=== PATIENT | female | born 1940 | race Caucasian/White ===

== ENCOUNTER 2017-05-10 08:42 | Emergency (ER) | payer MEDICARE ==
[2017-05-10] MEDS ORDERED: NS 0.9% 1000 ML* 1,000 ML IV ONE ×2 (09:19→10:28)
--- NOTE | 2017-05-10 09:28 | ED ---
Abdominal Pain/Female - HPI Summary HPI Summary: 76F presents with abdominal pain for 3 weeks. She has been having alternating diarrhea and constipation. She also has been having subjective fevers. She admits to a generalized headache and eyes feeling tired. She admits to occasionally bloody nose. She admits to a dry throat. She denies any blood in her stool. She denies any recent antibiotic usage. She states has abdominal problems in the past but have never been this consistent. She was seen here a week ago and had a negative work up. She has been following up her primary and has not been getting better. She admits to a generalized malaise. She denies any nausea or vomiting. She states pain is 2/10 currently. She denies any previous abdominal surgeries. She denies any dysuria, flank pain, hematuria, urgency, or frequency. She denies any chest pain or SOB. She denies any cough. - History of Current Complaint Chief Complaint: EDAbdPain Stated Complaint: ABD PAIN/DIARRHEA/HEADACHE Time Seen by Provider: 05/10/17 09:03 Pain Intensity: 8 Allergies/Adverse Reactions: Allergies Allergy/AdvReac Type Severity Reaction Status Date / Time Nickel Allergy Rash Verified 04/27/17 10:52 Penicillins [PCN] Allergy Rash Verified 04/27/17 10:52 Sucralfate [From Carafate] Allergy Rash Verified 04/27/17 10:52 Sulfa Drugs Allergy Rash Verified 04/27/17 10:52 Buprenorphine [From Butrans] AdvReac Rash And Verified 04/27/17 10:52 Itching PMH/Surg Hx/FS Hx/Imm Hx Endocrine/Hematology History: Denies: Hx Diabetes, Hx Thyroid Disease Cardiovascular History: Reports: Hx Hypercholesterolemia, Hx Hypertension, Other Cardiovascular Problems/Disorders - HI CHOLESTEROL Respiratory History: Denies: Hx Asthma, Hx Chronic Obstructive Pulmonary Disease (COPD) GI History: Reports: Other GI Disorders - CONSTIPATION Denies: Hx Ulcer Musculoskeletal History: Reports: Hx Arthritis - SHOULDERS AND BACK, NECK Sensory History: Reports: Hx Cataracts, Hx Contacts or Glasses - GLASSES Denies: Hx Hearing Aid Opthamlomology History: Reports: Hx Cataracts, Hx Contacts or Glasses - GLASSES - Cancer History Cancer Type, Location and Year: Melanoma- Hx Chemotherapy: No Hx Radiation Therapy: No - Surgical History Surgery Procedure, Year, and Place: LEFT SHOULDER SURGERY 06/2010 [facility], left shoulder replacement 2011 [facility], Tonsillectomy, Tubal Ligation Hx Anesthesia Reactions: Yes - NAUSEA Infectious Disease History: No Infectious Disease History: Denies: Hx Hepatitis, Hx Human Immunodeficiency Virus (HIV), Traveled Outside the [place] in Last 30 Days - Family History Known Family History: Positive: Hypertension - Social History Alcohol Use: None Substance Use Type: Reports: None Smoking Status (MU): Former Smoker Type: Cigarettes Amount Used/How Often: 1/2 PPWEEK 25 YRS Have You Smoked in the Last Year: No Review of Systems Positive: Fever, Chills Negative: Chest Pain Negative: Shortness Of Breath, Cough Positive: Abdominal Pain, Diarrhea. Negative: Vomiting, Nausea All Other Systems Reviewed And Are Negative: Yes Physical Exam Triage Information Reviewed: Yes Vital Signs On Initial Exam: Initial Vitals Temp Pulse Resp BP Pulse Ox 98.5 F 95 14 168/86 98 05/10/17 08:47 05/10/17 08:47 05/10/17 08:47 05/10/17 08:47 05/10/17 08:47 Vital Signs Reviewed: Yes Appearance: Positive: Well-Appearing Skin: Positive: Warm, Dry Head/Face: Positive: Normal Head/Face Inspection Eyes: Positive: Normal, EOMI, LORI, Conjunctiva Clear ENT: Positive: Normal ENT inspection, Pharynx normal, TMs normal Respiratory/Lung Sounds: Positive: Clear to Auscultation, Breath Sounds Present Cardiovascular: Positive: Normal, RRR Abdomen Description: Positive: Soft, Other: - mild tenderness in bilateral lower quadrants Bowel Sounds: Positive: Present Musculoskeletal: Positive: Normal Neurological: Positive: Normal Psychiatric: Positive: Normal - [place] Coma Scale Coma Scale Total: 15 Diagnostics - Vital Signs Vital Signs Temp Pulse Resp BP Pulse Ox 05/10/17 08:47 98.5 F 95 14 168/86 98 - Laboratory Result Diagrams: 05/10/17 09:52 05/10/17 09:52 Lab Statement: Any lab studies that have been ordered have been reviewed, and results considered in the medical decision making process. - CT abd CT Interpretation: No Acute Changes - 1. No CT apparent acute abnormality involving the gastrointestinal tract that would account for diarrhea. 2. Incidentally noted is a mildly enlarged left ovarian vein measuring 8 mm. Review of prior CT examinations demonstrate evidence of reflux in the left ovarian vein filling mildly enlarged left periuterine veins. Although the patient is not the correct demographic (i.e. premenopausal age) such an appearance could be seen in the setting of pelvic congestion syndrome characterized by the following clinical symptoms: Late day, gravity dependent pelvic pain, varicose veins of the legs and pelvis, dyspareunia and vague gastrointestinal symptoms. 3. Additional chronic and degenerative changes are noted. CT Interpretation Completed By: Radiologist Re-Evaluation - Re-Evaluation First Eval Re-Evaluation Time: 13:23 Change: Improved Comment: feeling better with fluids Abdominal Pain Fem Course/Dx - Course Course Of Treatment: 76F presents with abdominal pain for 3 weeks. She has been having alternating diarrhea and constipation. She also has been having subjective fevers. She admits to a generalized headache and eyes feeling tired. She admits to occasionally bloody nose. She admits to a dry throat. She denies any blood in her stool. She denies any recent antibiotic usage. She states has abdominal problems in the past but have never been this consistent. She was seen here a week ago and had a negative work up. She has been following up her primary and has not been getting better. She admits to a generalized malaise. She denies any nausea or vomiting. She states pain is 2/ 10 currently. She denies any previous abdominal surgeries. She denies any dysuria, flank pain, hematuria, urgency, or frequency. She denies any chest pain or SOB. She denies any cough. labs normal except for Na and Cl. CT normal. dr Navarro suggest could be pelvic congestion syndrome CT which gave results to patient. discussed with dr ramirez who suggest patient should follow up with GI. patient has seen dr brady previously. advised patient to try and stay hydrated with pedialyte - Diagnoses Differential Diagnosis: Positive: Diverticulitis, Urinary Tract Infection, Other - gastroenteritis Provider Diagnoses: Abdominal pain, Headache, Dehydration Discharge - Discharge Plan Condition: Good Disposition: HOME Patient Education Materials: Dehydration (ED), Abdominal Pain (ED) Referrals: Krystal Stanton NP [Primary Care Provider] - Ramin Brady MD [Medical Doctor] - Edgar Navarro MD [Medical Doctor] - Additional Instructions: Drink small amounts of fluid as tolerated, try to drink some pedialyte When able to eat follow BRAT diet: Bananas, rice, applesauce, toast Take Tylenol for pain as needed every 6 hours Follow up with primary within 5 days Follow up with GI Return to ED if develop any new or worsening symptoms
[2017-05-10 10:10] LABS: Hematocrit 40 % (35-47); Hemoglobin 13.2 g/dl (12.0-16.0); Mean Corpuscular HGB Conc 33 g/dl (31-36); Mean Corpuscular Hemoglobin 29 pg (27-31); Mean Corpuscular Volume 87 fL (80-97); Mean Platelet Volume 10 um3 (7.4-10.4); Red Blood Count 4.57 10^6/ul (4.0-5.4); Red Cell Distribution Width 16 % (10.5-15)
[2017-05-10 10:22] LABS: BUN/Creatinine Ratio 13.8 (8-20); EGFR African American 74.3 (>60); EGFR Non-African American 57.7 (>60); Globulin 3.9 g/dL (2-4); Magnesium 2.3 mg/dL (1.9-2.7); Potassium 3.8 mmol/L (3.5-5.0); Total Bilirubin 0.7 mg/dL (0.2-1.0); Total Protein 7.9 g/dL (6.4-8.9)
[2017-05-10 10:36] LABS: Urine Bacteria Absent (Absent); Urine Bilirubin Negative (Negative); Urine Glucose Negative (Negative); Urine Nitrite Negative (Negative)
[2017-05-10] MEDS ORDERED: Iodixanol* (CONTRAST) 320 MG/ML 100 ML SDV IV ONE (11:34)
--- NOTE | 2017-05-10 12:55 | RAD ---
CLINICAL HISTORY: Left lower quadrant pain and diarrhea. COMPARISON: Most recent comparison CT is dated April 29 2017 as well as similar CT examination dated August 01, 2015. In the CT examination appears to show reflux of the left ovarian vein filling moderately dilated left pelvic varicosities. TECHNIQUE: Contrast enhanced CT examination of the abdomen and pelvis from the lung bases through the initial tuberosities. The patient received 71 mL Visipaque 320 intravenously prior to imaging.The patient received oral contrast as well prior to imaging. FINDINGS: VISUALIZED LUNG BASES: Stable pleural-based linear density at the lung bases unchanged from the prior CT is most consistent with scarring versus atelectasis. Otherwise the visualized lung bases are grossly clear. There is no pleural effusion. ABDOMEN AND PELVIS: The liver, spleen, pancreas and adrenal glands are grossly normal in appearance. The gallbladder is normal. The kidneys are normal in appearance without focal mass, calcification or signs of hydronephrosis. The delayed phase imaging shows prompt and symmetric excretion of contrast in the bilateral collecting systems and proximal ureters. Neural contrast has progressed as far as the base of the cecum. The small and large bowel are not distended. The patient's normal appendix is identified in the right lower quadrant with gas in the lumen (coronal image 20). There is no gross retroperitoneal or mesenteric lymphadenopathy. The pelvic viscera is normal in appearance. The left ovarian vein is minimally enlarged measuring 8 mm in diameter (image 27). The left periuterine veins are incompletely evaluated due to image timing post contrast injection but measures at least 5 mm in diameter. The abdominal aorta and iliac arteries are normal in course and diameter. Degenerative changes include multilevel loss of intervertebral disc height involving the lower thoracic and lumbar spine, multilevel vacuum disc phenomenon and endplate sclerosis at L2/L3 and L5/S1.There are no sinister bone lesions. IMPRESSION: 1. No CT apparent acute abnormality involving the gastrointestinal tract that would account for diarrhea. 2. Incidentally noted is a mildly enlarged left ovarian vein measuring 8 mm. Review of prior CT examinations demonstrate evidence of reflux in the left ovarian vein filling mildly enlarged left periuterine veins. Although the patient is not the correct demographic (i.e. premenopausal age) such an appearance could be seen in the setting of pelvic congestion syndrome characterized by the following clinical symptoms: Late day, gravity dependent pelvic pain, varicose veins of the legs and pelvis, dyspareunia and vague gastrointestinal symptoms. 3. Additional chronic and degenerative changes are noted.
[2017-05-10 13:34] VITALS: BP 147/85
== END 2017-05-10 13:33 | disposition home or self-care (01) ==
LOC: ED 08:42
DX: R10.9 Unspecified abdominal pain (principal); R51 Headache; E86.0 Dehydration; R19.7 Diarrhea, unspecified; Z87.891 Personal history of nicotine dependence
CPT/HCPCS: 36415; 74177; 80053; 81003; 81015; 82550; 83605; 83690; 83735; 85025; 86141; 99282; Q9967

== ENCOUNTER 2017-09-17 11:42 | Emergency (ER) | payer MEDICARE, OTHER ==
--- OUTSIDE RECORDS SUMMARY | 2017-09-17 11:51 | XMS REPORT ---
:1940 External Reference #:[id number] Author Organization internal review and audit compliance [facility] Address [address] [place] [address] Phone [phone] Care Team Providers Name Role Phone Mony Edge Primary Care Physician Unavailable Payers Type Date Identification Numbers Payment Provider Subscriber Medicare Primary Policy Number: [id number] [place] Gonzalez PayID: [id number] [address] [place] [id number] Problems Date Description Provider Status Onset: 12/25/2014 Shoulder joint pain Mike Orta MD Active Onset: 08/20/2010 Benign essential hypertension Shira Murphy Active Onset: 08/20/2010 Pure hypercholesterolemia Shira Murphy Active Family History Date Family Member(s) Problem(s) Comments Father due to PA () Mother due to Cerebral Hemorrhage () Mother Hypertension Number of Children 2 First Son Depression First Daughter A&W Number of Siblings Siblings: 1 brother Order Patient is the youngest of two children First Brother Hypertension First Brother Stroke Social History Type Date Description Comments Education Highest level of education completed is 12th grade Marital Status Patient is Living Situation Lives with spouse Diet Diet is healthy and well balanced Sleep Typically sleeps 5 hours a night Pets There are no pets in the home 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 Cigarette Use Former cigarette smoker Alcohol Does not drink alcohol Smoking Patient is a former smoker Drug Use Denies drug use Daily Caffeine Does not consume caffeine Exercise Type/Frequency Current Exercises sporadically Seat Belt/Car Seat Always uses a seat belt Currently Active The patient is currently not sexually active STD's No STD history Allergies, Adverse Reactions, Alerts Date Description Reaction Status Severity Comments 02/21/2005 Penicillin active 02/21/2005 Sulfa active Medications Medication Date Status Form Strength Qnty SIG Indications Ordering Provider Triamcinolone 06/12/ Active Cream 0.1% 80unit apply R21 Cotton, Acetonide 2017 s thin Mony film twice daily to rash Miralax 07/13/ Active Powder 3350NF 238uni 17 gm Varn, 2015 ts every day mixed w/ 8 oz water/ju ice Vitamin D / Active Tablets 1000Unit 90tabs 1 po qd Unknown 0000 Nucynta / Active Tablets 50mg 1-2 by Unknown 0000 mouth four times a day as needed pain Pantoprazole / Active Solution 40mg 1 by Unknown Sodium 0000 Rec mouth every day Thera Tears / Active Unknown 0000 Colace / Active Unknown 0000 Hyoscyamine / Active Tablets ER 0.375mg Unknown Sulfate ER 0000 12HR Claritan / Hx Unknown 0000 - 2017 Lyrica // Hx Unknown 0000 - 2017 Hyoscyamine 00/ Hx Tablets ER 0.375mg Take 1 Unknown Sulfate ER 0000 - 12HR Tablet 08/05/ By Mouth 2017 Every Day Medications Administered in Office Medication Date Status Form Strength Qnty SIG Indications Ordering Provider PT SCRN Tbco Administered Injection Sander Felipe as Non User Rosita Wisdom M.D. Immunizations CPT Code Status Date Vaccine Lot # [id number] Given 04/17/2015 Influenza Vaccine Not Specified Administered Age 3 And Older 85031 Given 12/01/2014 Pneumococcal Conjugate Vaccine 13 Valent For Intramuscular Use 24302 Given 03/23/2013 Influenza Vaccine Split Virus Preservative Free Im Use 83599 Given 04/07/2012 Influenza Vaccine Split Virus Preservative Free Im Use 52107 Given 10/02/2011 Zoster Shingles Vaccine For Subcutaneous Injection Q2038 Given 04/04/2011 Influenza Vaccine (Fluzone) Administered Age 3 And Older 31528 Given 07/05/2009 Influenza Virus Vaccine 3Years Or Older Vital Signs Date Vital Result Comment 09/11/2017 BP Systolic 146 mmHg BP Diastolic 86 mmHg Height 64 inches 5'4" Weight 120.00 lb BMI (Body Mass Index) 20.6 kg/m2 Last Menstrual Period [id number] 2 Parity 2 08/05/2017 BP Systolic 152 mmHg BP Diastolic 86 mmHg Height 64 inches 5'4" Weight 124.00 lb BMI (Body Mass Index) 21.3 kg/m2 Last Menstrual Period [id number] 2 Parity 2 06/12/2017 BP Systolic 140 mmHg BP Diastolic 80 mmHg Heart Rate 98 /min Height 64 inches Weight 121.00 lb BMI (Body Mass Index) 20.8 kg/m2 05/18/2017 BP Systolic 120 mmHg BP Diastolic 60 mmHg Body Temperature 97.2 F Heart Rate 95 /min 04/21/2017 BP Systolic 130 mmHg BP Diastolic 80 mmHg Body Temperature 97.3 F Heart Rate 90 /min Weight 130.25 lb 11/26/2009 BP Systolic 110 mmHg BP Diastolic 78 mmHg Height 63.25 inches 5'3.25" Weight 131.00 lb BMI (Body Mass Index) 23.0 kg/m2 02/28/2009 BP Systolic 130 mmHg BP Diastolic 90 mmHg Height 65 inches 5'5" Weight 133.00 lb BMI (Body Mass Index) 22.1 kg/m2 2 Parity 2 02/25/2007 BP Systolic 140 mmHg BP Diastolic 80 mmHg Height 65 inches 5'5" Weight 128.00 lb BMI (Body Mass Index) 21.3 kg/m2 02/21/2005 BP Systolic 130 mmHg BP Diastolic 80 mmHg Height 65 inches 5'5" Weight 127.00 lb BMI (Body Mass Index) 21.1 kg/m2 Last Menstrual Period 0 2 Parity 2 Results Test Date Test Result H/L Range Note Laboratory test finding 05/20/2017 Albumin 4.2 g/dL 3.2-5.2 Albumin/Globulin Ratio 1.4 1 1-3 Alkaline Phosphatase 110 U/L High 34-104 Alt 18 U/L 7-52 Ast 22 U/L 13-39 C Reactive Protein 1.55 mg/L < 5.00 1 Direct Bilirubin 0.10 mg/dL 0.03-0.18 Erythrocyte Sed Rate 23 mm/Hr 0-40 Globulin 3.0 g/dL 2-4 Indirect Bilirubin 0.6 mg/dL 0.3-1.0 Total Bilirubin 0.70 mg/dL 0.2-1.0 Total Protein 7.2 g/dL 6.4-8.9 Laboratory test finding 05/12/2017 Albumin 3.9 g/dL 3.2-5.2 Albumin/Globulin Ratio 1.4 1 1-3 Alkaline Phosphatase 128 U/L High 34-104 Alt 20 U/L 7-52 Anion Gap 9 mmol/L 2-11 Ast 19 U/L 13-39 BUN/Creatinine Ratio 14.2 1 8-20 Blood Urea Nitrogen 16 mg/dL 6-24 C Reactive Protein 5.08 mg/L High < 5.00 Calcium 9.0 mg/dL 8.6-10.3 Chloride 97 mmol/L Low 101-111 Co2 Carbon Dioxide 26 mmol/L 22-32 Creatinine 1.13 mg/dL High 0.51-0.95 Egfr 60.0 1 >60 Egfr Non- 46.7 1 >60 Erythrocyte Sed Rate 35 mm/Hr 0-40 2 Globulin 2.8 g/dL 2-4 Glucose 105 mg/dL High 70-100 Potassium 3.9 mmol/L 3.5-5.0 Sodium 132 mmol/L Low 133-145 3 Total Bilirubin 0.50 mg/dL 0.2-1.0 Total Protein 6.7 g/dL 6.4-8.9 Urinalysis Profile 05/10/2017 Urine Specific [place] 1.002 1 Low 1.010- 1.030 Urine pH 7.0 1 5-9 Laboratory test 02/28/2009 Cytology <SEE 4 finding NOTE> Laboratory test 02/25/2007 Cytology <SEE 5 finding NOTE> Lipid Profile 02/17/2003 Cholesterol/HDL 3.31 AVERAGE 1-4.44 (Trig/Chol/HDL) Ratio Cholesterol 195 mg/dL Less Than 200 6 Triglyceride 36 mg/dL Low 40-200 High Density Lipoprotein 59 mg/dL 40-60 Low Density Lipoprotein 129 mg/dL High Less Than 100 7 Laboratory test finding 02/17/2003 TSH 2.89 MIU/ML 0.34-5.60 1 Acute inflammation: >10.00 2 Acute inflammation: >10.00 3 Because ethnic data is not always readily available, this report includes an eGFR for both -Americans and non- Americans. The National Kidney Disease Education Program (NKDEP) does not endorse the use of the MDRD equation for patients that are not between the ages of 18 and 70, are , have extremes of body size, muscle mass, or nutritional status, or are non- or non-. According to the National Kidney Foundation, irrespective of diagnosis, the stage of the disease is based on the level of kidney function: Stage Description GFR(mL/min/1.73 m(2)) 1 Kidney damage with normal or decreased GFR 90 2 Kidney damage with mild decrease in GFR 60-89 3 Moderate decrease in GFR 30-59 4 Severe decrease in GFR 15-29 5 Kidney failure <15 (or dialysis) 4 --- RUN DATE: 03/01/09 [facility] NMI LIVE PAGE 1 RUN TIME: 1150 Specimen Inquiry RUN USER: INTERFACE -- Name: HENNA GONZALEZ Status: REG REF Re02/28/09 Age/Sex: 68/F Unit#: [id number] Location: [facility] : 39 -- Specimen: [id number] Spec Date: 02/28/[address]: Myra cortez MD Spec Type: CYTOLOGY Received: 03/01/09 Copies to: SOURCE ECTOCERVICAL/ENDOCERVICAL Thin Prep with Reflex HPV Test PATIENT INFORMATION ACTUAL COLLECTION DATE: 02/28/09 ? No POST MENOPAUSAL? Yes HYSTERECTOMY? No DATE OF PRIOR SPECIMEN: 02/25/07 PATIENT HISTORY: normal ADEQUACY OF SPECIMEN Satisfactory for evaluation * Transformation zone component cannot be definitely identified due to prese nce * of atrophy or other hormonal changes. * DIAGNOSIS NEGATIVE FOR INTRAEPITHELIAL LESION OR MALIGNANCY * This Pap test was evaluated with the assistance of the Sparkle.csPrep Pap Test Imaging System. The Pap Smear is a screening test designed to aid in the detection of premalign ant and malignant conditions of the uterine cervix. It is not a diagnostic procedure a nd should not be used as the sole means of detecting cervical cancer. Both false- positiv e and false-negative reports do occur. Depending on your risk status, a Pap smear maureen uld be obtained and evaluated every one to three years. Initial evaluation performed by Criss ALEXANDER([facility]) 03/01/09 Final Interpretation electronically signed by: Criss ALEXANDER([facility]) 03/01/09 1150 -- DEPARTMENT OF PATHOLOGY, [address] [place] [address] [facility] Permit #[id number] Biju Freeman M.D. Director Edu Ragland M.D. Credit Verification Clerk Dir marietta -- 5 --- RUN DATE: 03/01/07 [facility] NMI LIVE PAGE 1 RUN TIME: 1105 Specimen Inquiry RUN USER: INTERFACE [id number] HENNA GONZALEZ 66/F <REG REF 02/25> ([id number]) SP Mendez MD,Josh morrow -- Specimen: [id number] SOUT Spec Date: 02/25/[address]: Leanne nciole MD Spec Type: CYTOLOGY Received: 02/25/07-1435 Copies to: SOURCE ECTOCERVICAL/ENDOCERVICAL Thin Prep with Reflex HPV Test PATIENT INFORMATION ACTUAL COLLECTION DATE: 02/25/07 POST MENOPAUSAL? Yes PATIENT HISTORY: Prior 2004 ADEQUACY OF SPECIMEN Satisfactory for evaluation * Transformation zone component cannot be definitely identified due to prese nce * of atrophy or other hormonal changes. * DIAGNOSIS NEGATIVE FOR INTRAEPITHELIAL LESION OR MALIGNANCY * This Pap test was evaluated with the assistance of the Sparkle.csPrep Pap Test Imaging System. The Pap Smear is a screening test designed to aid in the detection of premalign ant and malignant conditions of the uterine cervix. It is not a diagnostic procedure a nd should not be used as the sole means of detecting cervical cancer. Both false- positive and false-negative reports do occur. Depending on your risk status, a Pap smear maureen uld be obtained and evaluated every one to three years. Final Interpretation electronically signed by: Woo BOATENG([facility]) 03/01/07 110 5 -- -- DEPARTMENT OF PATHOLOGY, [address] [place] [address] [facility] Permit #[id number] Biju Freeman M.D. Director of Laboratories Ilya Dunne II, M.D . Pathologist -- 6 Classification: Desirable . 7 CALCULATED LDL APPROXIMATES THE VALUE OF A DIRECT LDL MEASUREMENT. Classification: Near or above optimal . Procedures Date CPT Code Description Status 04/22/2017 Mammogram Completed 02/03/2005 35874 DO Not Use After [id number] Completed Encounters Type Date Location Provider CPT E/M Dx Office Visit 08/05/2017 1:20p [facility] Sander Wisdom M.D. 77910 N95.2 Office Visit 11/26/2009 10:00a [facility] Office Myra Ruby M.D. 89169 624.9 Office Visit 02/28/2009 10:00a [facility] Office Myra Ruby M.D. 97528 V72.31 V76.2 V76.41 627.3 V15.89 Office Visit 02/25/2007 8:00a [facility] [place] [address] V72.31 V72.3 788.41 V76.2 Office Visit 02/21/2005 1:45p [facility] 05006 V76.2 V72.31 Office Visit 06/07/2004 9:30a [facility] 92565 795.01 Office Visit 02/16/2004 10:45a [facility] 91890 V72.3 V78.0 Office Visit 02/17/2003 9:45a [facility] 53956 401.1 V81.1 Office Visit 02/10/2003 9:30a [facility] 73654 V72.3 V78.1 V77.1 Plan of Care Future Appointment(s):11/24/2017 10:40 am - Sander Wisdom M.D. at [facility]
--- NOTE | 2017-09-17 12:41 | UC ---
Skin Complaint HPI - HPI Summary HPI Summary: Patient is here today with multiple concerns about her health 1. blood pressure is elevated pcp took he off BP meds 1 year ago due to hypotension 2, rash on chest wall 3. vaginal itching 4. chronic left shoulder pain after shoulder replacement - History of Current Complaint Hx Obtained From: Patient ?: No Onset/Duration: Gradual Onset - weeks-years Timing: Constant Onset Severity: Severe Current Severity: Severe Pain Intensity: 9 - left shoulder (on Nucyntha) Pain Scale Used: 0-10 Numeric Location: Discrete Character: Pain Aggravating Factor(s): Nothing Alleviating Factor(s): Nothing Associated Signs & Symptoms: Positive: Negative <Evelia Boland - Last Filed: 09/22/17 12:06> <Teagan Dooley - Last Filed: 09/22/17 14:56> - History of Current Complaint Chief Complaint: UCRash Time Seen by Provider: 09/17/17 12:32 Stated Complaint: PERSONAL, RASH - Allergy/Home Medications Allergies/Adverse Reactions: Allergies Allergy/AdvReac Type Severity Reaction Status Date / Time buprenorphine [From Butrans] Allergy Rash Verified 09/17/17 12:01 nickel Allergy Rash Verified 09/17/17 12:01 Penicillins Allergy Rash Verified 09/17/17 12:01 sucralfate [From Carafate] Allergy Rash Verified 09/17/17 12:01 Sulfa (Sulfonamide Allergy Rash Verified 09/17/17 12:01 Antibiotics) Home Medications: Home Medications Conjugated Estrogens VAG CM* [Premarin VAG CREAM*] 1 applic TOPICAL DAILY [History Confirmed 09/17/17] Estradiol VAG CM (NF) [Estrace VAG CM (NF)] 1 applic TOPICAL DAILY 09/17/17 [ History Confirmed 09/17/17] Triamcinolone 0.1% CREAM(NF) [Kenalog 0.1% Cream (NF)] 1 applic TOPICAL BID [History Confirmed 09/17/17] Review of Systems Constitutional: Negative Skin: Rash - dean-vaginal and torso Eyes: Negative ENT: Negative Respiratory: Negative Cardiovascular: Negative Gastrointestinal: Negative Genitourinary: Negative Motor: Negative Neurovascular: Negative Musculoskeletal: Arthralgia - left shoulder pain after shoulder replacement Neurological: Negative Psychological: Negative Is Patient Immunocompromised?: No All Other Systems Reviewed And Are Negative: Yes <Evelia Boland Last Filed: 09/22/17 12:06> PMH/Surg Hx/FS Hx/Imm Hx Previously Healthy: No Cardiovascular History: Hypertension - Surgical History Surgical History: Yes Surgery Procedure, Year, and Place: LEFT SHOULDER SURGERY 06/2010 [facility], left shoulder replacement 2011 [facility], Tonsillectomy, Tubal Ligation - Family History Known Family History: Positive: Hypertension - Social History Occupation: Retired Lives: With Family Alcohol Use: None Substance Use Type: None Smoking Status (MU): Former Smoker Type: Cigarettes Amount Used/How Often: 1/2 PPWEEK 25 YRS Have You Smoked in the Last Year: No When Did the Patient Quit Smoking/Using Tobacco: 1990s - Immunization History Most Recent Influenza Vaccination: 03/2017 Most Recent Tetanus Shot: UNK <Evelia Boland - Last Filed: 09/22/17 12:06> Physical Exam Triage Information Reviewed: Yes Appearance: Well-Appearing, No Pain Distress, Well-Nourished Vital Signs: Initial Vital Signs Temp 99 F 09/17/17 12:03 Pulse 98 09/17/17 12:03 Resp 18 09/17/17 12:03 BP 187/98 09/17/17 12:03 Pulse Ox 98 09/17/17 12:03 Vital Signs Reviewed: Yes Eye Exam: Normal Eyes: Positive: Conjunctiva Clear ENT Exam: Normal ENT: Positive: Normal ENT inspection, Hearing grossly normal. Negative: Nasal congestion, Trismus, Muffled voice, Hoarse voice Dental Exam: Normal Neck exam: Normal Neck: Positive: Supple, Nontender Respiratory Exam: Normal Respiratory: Positive: Chest non-tender, Lungs clear, Normal breath sounds, No respiratory distress, No accessory muscle use Cardiovascular Exam: Normal Cardiovascular: Positive: RRR, No Murmur, Pulses Normal, Brisk Capillary Refill Abdominal Exam: Normal Abdomen Description: Positive: Nontender, No Organomegaly, Soft. Negative: CVA Tenderness (R), CVA Tenderness (L) Bowel Sounds: Positive: Present Pelvic Exam: Positive: External Exam Normal, Speculum Exam Normal Musculoskeletal Exam: Normal Musculoskeletal: Positive: Strength Intact, ROM Intact, No Edema Neurological Exam: Normal Neurological: Positive: Alert, Muscle Tone Normal Psychological Exam: Normal Skin Exam: Normal - no rash observed <Evelia Boland Last Filed: 09/22/17 12:06> Vital Signs: Initial Vital Signs Temp 99 F 09/17/17 12:03 Pulse 98 09/17/17 12:03 Resp 18 09/17/17 12:03 BP 187/98 09/17/17 12:03 Pulse Ox 98 09/17/17 12:03 <Teagan Dooley - Last Filed: 09/22/17 14:56> Course/Dx - Course Course Of Treatment: Blood pressure recheck improved, lab studies sent, emotional support provided - Diagnoses Provider Diagnoses: hypertension in poor control, puritis <Evelia Boland - Last Filed: 09/22/17 12:06> Discharge - Sign-Out/Discharge Documenting (check all that apply): Discharge - Billing Disposition and Condition Condition: STABLE Disposition: HOME <Evelia Boland - Last Filed: 09/22/17 12:06> - Billing Disposition and Condition Condition: STABLE Disposition: HOME <Teagan Dooley - Last Filed: 09/22/17 14:56> - Discharge Plan Condition: Stable Disposition: HOME Patient Education Materials: Chronic Pain (ED), DASH Eating Plan (ED), Hypertension (ED) Referrals: Romelia Edge MD [Medical Doctor] - 3 Days () Additional Instructions: Neema, I think it's best for chronic conditions like you have for there to be 1 captain of the ship. I deferred to Dr. edge and your nurse practitioner for that. Your blood pressure we recheck manually in both arms was much better. The rash on your chest and abdomen looks well resolved. And must defer to the pain clinic for your shoulder pain but I would encourage you to talk with them about nonpharmacological treatments as well as as adjunctive treatments for the management of pain. I will send the culture we did vaginally and check for yeast for U but on exam I don't see any abnormalities and your pelvic exam. We will call you if we need to change anything Attestation Statement User Type: Provider - I was available for consult. This patient was seen by the HILDA. The patient was not presented to, seen by, or examined by me. -Zita <Teagan Dooley - Last Filed: 09/22/17 14:56>
[2017-09-17 13:54] VITALS: BP 150/100
== END 2017-09-17 14:20 | disposition home or self-care (01) ==
LOC: UCEAST 11:42
DX: I10 Essential (primary) hypertension (principal); L29.2 Pruritus vulvae; M25.512 Pain in left shoulder; Z96.612 Presence of left artificial shoulder joint; Z88.0 Allergy status to penicillin; Z88.2 Allergy status to sulfonamides; Z87.891 Personal history of nicotine dependence
CPT/HCPCS: 81003; 87480; 87510; 99212; G0463

== ENCOUNTER 2017-11-04 13:42 | Emergency (ER) | payer MEDICARE ==
--- OUTSIDE RECORDS SUMMARY | 2017-11-04 13:50 | XMS REPORT ---
:1940 External Reference #:[id number] Author Organization [facility] Address [address] [place] [address] Phone [phone] Care Team Providers Name Role Phone Mony Edge Primary Care Physician Unavailable Payers Type Date Identification Numbers Payment Provider Subscriber Medicare Primary Policy Number: [id number] [place] Neema Gonzalez PayID: [id number] [address] [place] [id number] Problems Date Description Provider Status Onset: 12/25/2014 Shoulder joint pain Mike Orta MD Active Onset: 08/20/2010 Benign essential hypertension Shira Murphy Active Onset: 08/20/2010 Pure hypercholesterolemia Shira Murphy Active Family History Date Family Member(s) Problem(s) Comments Father due to GA () Mother due to Cerebral Hemorrhage () Mother Hypertension Number of Children 2 First Son Depression First Daughter A&W Number of Siblings Siblings: 1 brother Order Patient is the youngest of two children First Brother Hypertension First Brother due to Heart Disease () First Brother Stroke Paternal Grandfather due to Unknown Causes () Paternal Grandmother due to Unknown Causes () Maternal Grandfather due to Unknown Causes () Maternal Grandmother due to Old Age () Social History Type Date Description Comments Education Highest level of education completed is 12th grade Marital Status Patient is Living Situation Lives with spouse Diet Diet is healthy and well balanced Sleep Typically sleeps 5 hours a night Pets There are no pets in the home 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 Cigarette Use Former cigarette smoker Alcohol Does not drink alcohol Smoking Patient is a former smoker Drug Use Denies drug use Daily Caffeine Does not consume caffeine Exercise Type/Frequency Current Exercises sporadically Seat Belt/Car Seat Always uses a seat belt Currently Active The patient is currently not sexually active Contraceptive Methods Does not currently use any method of control STD's No STD history Allergies, Adverse Reactions, Alerts Date Description Reaction Status Severity Comments 02/21/2005 Penicillin active 02/21/2005 Sulfa active 10/20/2017 Nickel active Medications Medication Date Status Form Strength Qnty SIG Indications Ordering Provider Miralax 07/13/ Active Powder 3350NF 238uni 17 gm Varn, 2015 ts every mixed w/ 8 oz water/ju ice Vitamin D / Active Tablets 1000Unit 90tabs 1 po qd Unknown 0000 Nucynta / Active Tablets 50mg 1-2 by Unknown 0000 mouth four times a day as needed pain Thera Tears / Active Unknown 0000 Colace / Active Unknown 0000 Bentyl / Active Unknown 0000 Triamcinolone 06/12/ Hx Cream 0.1% 80unit apply R21 Cotton, Acetonide 2017 - thin Mony 10/20/ film 2018 twice daily to rash Claritan /00/ Hx Unknown 0000 - 2017 Lyrica 00/00/ Hx Unknown 0000 - 2017 Pantoprazole / Hx Solution 40mg 1 by Unknown Sodium 0000 - Rec mouth 10/20/ 2018 day Hyoscyamine 00/00/ Hx Tablets ER 0.375mg Take 1 Unknown Sulfate ER 0000 - 12HR Tablet 08/05/ By Mouth 2017 Every Day Hyoscyamine 00/00/ Hx Tablets ER 0.375mg Unknown Sulfate ER 0000 - 12HR 2017 Medications Administered in Office Medication Date Status Form Strength Qnty SIG Indications Ordering Provider PT SCRN Tbco Administered Injection Sander Diallo Id as Non User 018 Mauricio Wisdom PT SCRN Tbco Administered Injection Sander Felipe as Non User 018 Mauricio Wisdom Immunizations CPT Code Status Date Vaccine Lot # [id number] Given 04/17/2015 Influenza Vaccine Not Specified Administered Age 3 And Older 90672 Given 12/01/2014 Pneumococcal Conjugate Vaccine 13 Valent For Intramuscular Use 79726 Given 03/23/2013 Influenza Vaccine Split Virus Preservative Free Im Use 93712 Given 04/07/2012 Influenza Vaccine Split Virus Preservative Free Im Use 67910 Given 10/02/2011 Zoster Shingles Vaccine For Subcutaneous Injection Q2038 Given 04/04/2011 Influenza Vaccine (Fluzone) Administered Age 3 And Older 54077 Given 07/05/2009 Influenza Virus Vaccine 3Years Or Older Vital Signs Date Vital Result Comment 10/20/2017 BP Systolic 136 mmHg BP Diastolic 78 mmHg Height 64 inches 5'4" Weight 120.00 lb BMI (Body Mass Index) 20.6 kg/m2 Last Menstrual Period 7163861 2 Parity 2 09/11/2017 BP Systolic 146 mmHg BP Diastolic 86 mmHg Height 64 inches 5'4" Weight 120.00 lb BMI (Body Mass Index) 20.6 kg/m2 Last Menstrual Period 6629662 2 Parity 2 08/05/2017 BP Systolic 152 mmHg BP Diastolic 86 mmHg Height 64 inches 5'4" Weight 124.00 lb BMI (Body Mass Index) 21.3 kg/m2 Last Menstrual Period 4297101 2 Parity 2 06/12/2017 BP Systolic 140 [...] g/dL 6.4-8.9 Urinalysis Profile 05/10/2017 Urine Specific [place] 1.002 1 Low 1.010- 1.030 Urine pH [...] (or dialysis) 4 --- RUN DATE: 03/01/09 [facility] NMI LIVE PAGE 1 RUN TIME: 1150 Specimen Inquiry RUN USER: INTERFACE -- Name: HENNA GONZALEZ Status: REG REF Re02/28/09 Age/Sex: 68/F Unit#: [id number] Location: [facility] : 39 -- Specimen: [id number] [id number] Spec Date: 02/28/[address]: Myra cortez MD Spec Type: CYTOLOGY [...] was evaluated with the assistance of the ThinPrep Pap Test Imaging System. The Pap Smear [...] three years. Initial evaluation performed by Criss ALEXANDER(ASCP) 03/01/09 Final Interpretation electronically signed by: Criss ALEXANDER([facility]) 03/01/09 1150 -- DEPARTMENT OF PATHOLOGY, [address] [place] [address] [facility] Permit #[id number] Mauricio Valero M.D. Assistant Dir ector -- 5 --- RUN DATE: 03/01/07 [facility] NMI LIVE PAGE 1 RUN TIME: 1105 Specimen Inquiry RUN USER: INTERFACE [id number] HENNA GONZALEZ 66/F <REG REF 02/25> ([id number]) SP Mendez MD,Josh morrow -- Specimen: [id number] Spec Date: 02/25/[address]: Leanne nicole MD Spec Type: CYTOLOGY Received: 02/25/07-1358 Copies to: SOURCE ECTOCERVICAL/ENDOCERVICAL Thin Prep with [...] was evaluated with the assistance of the Health As We AgePrep Pap Test Imaging System. The Pap Smear [...] years. Final Interpretation electronically signed by: Woo BOATENG(ASC) 03/01/07 110 5 -- -- DEPARTMENT OF PATHOLOGY, [address] [place] [address] [facility] Permit #[id number] Biju Freeman M.D. Director of Laboratories Ilya Dunne II, M.D . Pathologist -- 6 Classification: Desirable . 7 CALCULATED LDL APPROXIMATES THE VALUE OF A DIRECT LDL MEASUREMENT. Classification: Near or above optimal . Procedures Date CPT Code Description Status 04/22/2017 Mammogram Completed 02/03/2005 48217 DO Not Use After 467468 Completed Encounters Type Date Location Provider CPT E/M Dx Office Visit 09/11/2017 11:00a [facility] Sander Wisdom M.D. 38835 N95.2 Office Visit 08/05/2017 1:20p [facility] Sander Wisdom M.D. 98209 N95.2 Office Visit 11/26/2009 10:00a [facility] Myra Ruby M.D. 32202 624.9 Office Visit 02/28/2009 10:00a [facility] Myra Ruby M.D. 26248 V72.31 V76.2 V76.41 627.3 V15.89 Office Visit 02/25/2007 8:00a [facility] [place] [address] V72.31 V72.3 788.41 V76.2 Office Visit 02/21/2005 1:45p [facility] devorah 65616 V76.2 V72.31 Office Visit 06/07/2004 9:30a [facility] devorah 99334 795.01 Office Visit 02/16/2004 10:45a [facility] devorah 58188 V72.3 V78.0 Office Visit 02/17/2003 9:45a [facility] 60213 401.1 V81.1 Office Visit 02/10/2003 9:30a [facility] 95596 V72.3 V78.1 V77.1 Plan of Care Future Appointment(s):11/24/2017 10:40 am - Sander Wisdom M.D. at [facility]
[2017-11-04 13:51] VITALS: BP 150/93
--- NOTE | 2017-11-04 14:23 | ED ---
Abdominal Pain/Female - HPI Summary HPI Summary: Patient is a 69-year-old female who presents to the emergency room complaining of diffuse abdominal cramping. She reports that she has this history of irritable bowel syndrome which is combined with constipation and diarrhea intermittently. She also reports that she has had multiple abdominal pelvic CT scans with negative results. She also has seen Dr. Sharma (filter operator ) multiple times and he thinks that the patient's symptoms are secondary to the irritable bowel syndrome. She has had a colonoscopy 2 years ago. The results were normal. Dr. Sharma thinks that the patient doesn't need any other colonoscopies. She also reports no fevers no chills no chest pain or shortness of breath palpitations. She has no other complaints. - History of Current Complaint Chief Complaint: UCAbdominalPain Stated Complaint: ABD PAIN Time Seen by Provider: 11/04/17 13:56 Hx Obtained From: Patient ?: No Timing: Intermittent Episode Lasting - Few hours Severity Initially: Mild Severity Currently: Moderate Pain Intensity: 7 Allergies/Adverse Reactions: Allergies Allergy/AdvReac Type Severity Reaction Status Date / Time buprenorphine [From Butrans] Allergy Rash Verified 11/04/17 13:51 nickel Allergy Rash Verified 11/04/17 13:51 Penicillins Allergy Rash Verified 11/04/17 13:51 sucralfate [From Carafate] Allergy Rash Verified 11/04/17 13:51 Sulfa (Sulfonamide Allergy Rash Verified 11/04/17 13:51 Antibiotics) PMH/Surg Hx/FS Hx/Imm Hx Endocrine/Hematology History: Denies: Hx Diabetes, Hx Thyroid Disease Cardiovascular History: Reports: Hx Hypercholesterolemia, Hx Hypertension, Other Cardiovascular Problems/Disorders - HI CHOLESTEROL Respiratory History: Denies: Hx Asthma, Hx Chronic Obstructive Pulmonary Disease (COPD) GI History: Reports: Hx Ulcer - many years ago, Other GI Disorders - CONSTIPATION History: Denies: Hx Renal Disease Musculoskeletal History: Reports: Hx Arthritis - SHOULDERS AND BACK, NECK Sensory History: Reports: Hx Cataracts, Hx Contacts or Glasses - GLASSES Denies: Hx Hearing Aid Opthamlomology History: Reports: Hx Cataracts, Hx Contacts or Glasses - GLASSES - Cancer History Cancer Type, Location and Year: Melanoma- Hx Chemotherapy: No Hx Radiation Therapy: No - Surgical History Surgery Procedure, Year, and Place: LEFT SHOULDER SURGERY 06[facility]2010 [facility], left shoulder replacement 2011 [facility], Tonsillectomy, Tubal Ligation Hx Anesthesia Reactions: Yes - NAUSEA Infectious Disease History: No Infectious Disease History: Denies: Hx Hepatitis, Hx Human Immunodeficiency Virus (HIV), Traveled Outside the [place] in Last 30 Days - Family History Known Family History: Positive: Hypertension - Social History Alcohol Use: None Substance Use Type: Reports: None Smoking Status (MU): Former Smoker Type: Cigarettes Amount Used/How Often: 1/2 PPWEEK 25 YRS Have You Smoked in the Last Year: No Review of Systems Constitutional: Negative Eyes: Negative ENT: Negative Cardiovascular: Negative Respiratory: Negative Positive: Abdominal Pain, Other - abdominal cramping. Negative: Vomiting, Diarrhea, Nausea Genitourinary: Negative Musculoskeletal: Negative Skin: Negative Neurological: Negative Psychological: Normal All Other Systems Reviewed And Are Negative: Yes Physical Exam - Summary Physical Exam Summary: VITAL SIGNS: Reviewed. GENERAL: Patient is a well developed and nourished female who is sitting comfortable in the stretcher. Patient is not in any acute respiratory distress. HEAD AND FACE: Normacephalic and atraumatic. EYES: PERRLA, EOMI x 2, EARS: Hearing grossly intact. MOUTH: Oropharynx within normal limits. NECK: Supple, trachea is midline, no adenopathy, no JVD, no carotid bruit, no c- spine tenderness, neck with full ROM. CHEST: Symmetric, no tenderness at palpation LUNGS: CTA B/L. No wheezing or crackles. CVS: RRR, S1 and S2 present, no murmurs or gallops appreciated. ABDOMEN: Soft, NT, No distention. Normal BS. Declined rectal exam. EXTREMITIES: FROM in all major joints, no edema, no cyanosis or clubbing. NEURO: Alert and oriented x 3. No acute neurological deficits. Speech is normal and follows commands. SKIN: Dry and warm Vital Signs On Initial Exam: Initial Vitals Temp Pulse Resp BP Pulse Ox 99.0 F 88 18 150/93 98 11/04/17 13:46 11/04/17 13:46 11/04/17 13:46 11/04/17 13:46 11/04/17 13:46 Diagnostics - Vital Signs Vital Signs Temp Pulse Resp BP Pulse Ox 11/04/17 13:46 99.0 F 88 18 150/93 98 - Laboratory Lab Statement: Any lab studies that have been ordered have been reviewed, and results considered in the medical decision making process. Abdominal Pain Fem Course/Dx - Course Course Of Treatment: The patient is a 77-year-old female with abdominal pain. She has had multiple workups with negative blood work, negative abdominal pelvic CTs, and also persists with a GI doctor. Dr. Low thinks that the patient's symptoms are secondary to irritable bowel syndrome. This point the patient seems to be comfortable, and physical exam he was mild tenderness to palpation diffusely in the abdomen. The patient declined to the ER. She reports that she would get an appointment with a GI doctor at [place]. Since the patient doesn't seem to be ill looking or toxic looking I will give the patient Bentyl for abdominal cramping. She reports that she has taken in the past and she had had relief with this medication. The patient was recommended to go to the emergency department should he develop any chest pain, increased abdominal pain, nausea vomiting or worsening symptoms. She understands and agrees. Patient's concerns were addressed and she has no other questions. - Diagnoses Provider Diagnoses: Abdominal pain Discharge - Sign-Out/Discharge Documenting (check all that apply): Discharge/Admit/Transfer - Discharge Plan Condition: Stable Disposition: HOME Prescriptions: Dicyclomine CAP* [Bentyl CAP*] 10 mg PO TID PRN #10 cap PRN Reason: Pain Patient Education Materials: Acute Abdominal Pain (DC) Referrals: Krystal [place] NP [Primary Care Provider] - Additional Instructions: Will also take Pepcid 10 mg 1 tablet once a day for 14 days. Pepcid is over-the -counter. Take medications as instructed Increase your fluid intake Return to the if symptoms worsen - Billing Disposition and Condition Condition: STABLE Disposition: HOME
== END 2017-11-04 14:17 | disposition home or self-care (01) ==
LOC: UCEAST 13:42
DX: R10.84 Generalized abdominal pain (principal); E78.00 Pure hypercholesterolemia, unspecified; I10 Essential (primary) hypertension; K59.00 Constipation, unspecified; Z85.820 Personal history of malignant melanoma of skin; Z96.612 Presence of left artificial shoulder joint; Z88.0 Allergy status to penicillin; Z88.2 Allergy status to sulfonamides; Z87.891 Personal history of nicotine dependence; L56.8 Other specified acute skin changes due to ultraviolet radiation
CPT/HCPCS: 36415; 80053; 81003; 81015; 82550; 83519; 83520; 85025; 85652; 86038; 86140; 86255; 86256; 87086; 99212; G0463

== ENCOUNTER 2018-03-19 16:32 | Emergency (ER) | payer MEDICARE, OTHER ==
--- OUTSIDE RECORDS SUMMARY | 2018-03-19 16:39 | XMS REPORT | Continuity of Care Document ---
:1940 External Reference #:[id number] Author Name Micah Vogel, OD Address [address] [facility] [address] [place] [address] Care Team Providers Name Role Phone Shira Murphy MD Care Team Information Clamshell Engineer Unavailable Katherine ELIZABETH, Shira Primary Care Physician Unavailable Payers Type Date Identification Numbers Payment Provider Subscriber Effective: 2013 Policy Number: [id number] [employer] [place] [employer] Gonzalez PayID: [id number] [address] [place] [id number] Advance Directives Description No Information Available Problems Date Description Provider Status Onset: 06/26/2015 Presence of intraocular lens Micah Hughes O.D. Active Onset: 05/22/2014 Vitreous degeneration Micah Hughes O.D. 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 Active Family History Date Family Member(s) Problem(s) Comments General CVA brother Father Heart Disease Father due to Heart Attack () Mother due to cerebral hemorrhage () Mother High BP Mother Cancer Social History Type Date Description Comments Sex Unknown ETOH Use Never used alcohol Tobacco Use Start: Unknown End: Unknown Patient is a former smoker Smoking Status Reviewed: 02/24/18 Patient is a former smoker Allergies, Adverse Reactions, Alerts Date Description Reaction Status Severity Comments 11/16/2013 Sulfacetamide Active 11/16/2013 Penicillin Active 10/22/2016 Nickel Active Medications Medication Date Status Form Strength Qnty SIG Indications Ordering Provider Refresh Optive 11/17/19 Active Solution 0.5-0.9% 2ml 1 drops H04.123 Micah 14 both eyes Saul twice a O.D. day Percocet Active Tablets 2.5-325mg Unknown 00 Lisinopril Active Tablets 40mg Unknown Lovastatin Active Tablets 10mg Unknown Vitamin D Active Unknown 00 Calcium Active Tablets Unknown 00 Immunizations Description No Information Available Vital Signs Date Vital Result Comment 02/24/2018 3:28pm Intraocular Pressure Right Eye 15 mmHg Intraocular Pressure Left Eye 15 mmHg 10/22/2016 1:14pm Intraocular Pressure Right Eye 15 mmHg Intraocular Pressure Left Eye 15 mmHg 06/26/2015 2:47pm Intraocular Pressure Right Eye 16 mmHg Intraocular Pressure Left Eye 16 mmHg 05/22/2014 1:47pm Intraocular Pressure Right Eye 17 mmHg Intraocular Pressure Left Eye 16 mmHg 11/16/2013 1:44pm Intraocular Pressure Right Eye 14 mmHg Intraocular Pressure Left Eye 14 mmHg Cornea Thickness Left Eye 439990 m Cornea Thickness Right Eye 332615 m Pachymetry adjusted IOP Right Eye +6 Pachymetry adjusted IOP Left Eye +7 Results Description No Information Available Procedures Date Code Description Status 02/24/2018 59326 Oct, Optic Nerve Completed 02/24/2018 35889 Eye Exam Est Comprehensive Completed 10/22/2016 70536 Ophthalmoscopy Subsequent Completed 10/22/2016 68725 Oct, Optic Nerve Completed 10/22/2016 68911 Eye Exam Est Comprehensive Completed 06/26/2015 15684 Fundus Photography W/Interpretation & Report Completed 06/26/2015 74395 Ophthalmoscopy Subsequent Completed 06/26/2015 72718 Refraction Completed 06/26/2015 09161 Eye Exam Est Comprehensive Completed 05/22/2014 46937 Ophthalmoscopy Subsequent Completed 05/22/2014 95944 Eye Exam Est Comprehensive Completed 11/16/2013 92260 Oct, Optic Nerve Completed 11/16/2013 27167 Visual Field Exam Extended, Unilateral Or Bilateral Completed 11/16/2013 61393 Gonioscopy Completed 11/16/2013 42689 Eye Exam Est Intermediate Completed 11/16/2013 47641 Corneal Pachymetry, Unilateral/Bilateral Completed Encounters Description No Information Available Plan of Treatment 02/24/2018 - Micah Vogel, ODZ96.1 Presence of intraocular lensH40.013 Open angle with borderline findings, low risk, uhjansqntL09.123 Dry eye syndrome of bilateral lacrimal ucwokbI10.4 JtoxbjjhcoJ48.813 Vitreous degeneration, bilateralFollow up:yearly full, sooner PRN
[2018-03-19 17:01] VITALS: BP 176/104
--- NOTE | 2018-03-19 17:38 | UC ---
Abdominal Pain Female HPI - HPI Summary HPI Summary: The patient is a 77-year-old female that presents here for evaluation of 2 complaints. SHe states that for approximately one week she has had diarrhea ,2- 3 episodes a day. She has no fever or chills. She denies any belly pain at present. He has not been on antibiotics recently. She states that she has a constant problem with irritable bowel syndrome as well as lactose intolerance. She has had multiple colonoscopies in the past. She had a CT of the abdomen and pelvis less than one year ago. Denies any history of diverticulitis. She states that the diarrhea has caused a lot of irritation in her perianal region. He states that she has a rash in the perineum that has been present for over a year. She has seen a nurse sitter in the area. She has had a biopsy performed. Sent to another nurse sitter in [place]. She states that none of the ointment she has been placed on of [facility]. Does not know it she has been diagnosed with. - History of Current Complaint Chief Complaint: UCGU Stated Complaint: GI COMPLAINTS,SKIN IRRITATION Time Seen by Provider: 03/19/18 17:18 Hx Obtained From: Patient Onset/Duration: Gradual Onset Timing: Constant Severity Initially: Mild Severity Currently: Moderate Pain Intensity: 0 - no abd pain Pain Scale Used: 0-10 Numeric Character: Cramping Aggravating Factor(s): Nothing Associated Signs and Symptoms: Positive: Diarrhea. Negative: Diaphoresis, Fever , Cough, Chest Pain, Dizzy, Back Pain, Constipation, Blood in Stool, Urinary Symptoms, Decreased Appetite, Vaginal Bleeding, Vaginal Discharge, Nausea, Vomiting Allergies/Adverse Reactions: Allergies Allergy/AdvReac Type Severity Reaction Status Date / Time buprenorphine [From Butrans] Allergy Rash Verified 03/19/18 16:49 nickel Allergy Rash Verified 03/19/18 16:49 Penicillins Allergy Rash Verified 03/19/18 16:49 sucralfate [From Carafate] Allergy Rash Verified 03/19/18 16:49 Sulfa (Sulfonamide Allergy Rash Verified 03/19/18 16:49 Antibiotics) Home Medications: Home Medications Calcium Carbonate CHEW TAB* [Tums*] 500 mg PO BID 03/19/18 [History Confirmed ] PMH/Surg Hx/FS Hx/Imm Hx Previously Healthy: Yes - Surgical History Surgical History: Yes Surgery Procedure, Year, and Place: LEFT SHOULDER SURGERY 06/2010 [facility], left shoulder replacement 2011 [facility], Tonsillectomy, Tubal Ligation - Family History Known Family History: Positive: Hypertension - Social History Alcohol Use: None Substance Use Type: None Smoking Status (MU): Former Smoker Type: Cigarettes Amount Used/How Often: 1/2 PPWEEK 25 YRS Have You Smoked in the Last Year: No When Did the Patient Quit Smoking/Using Tobacco: 1990s - Immunization History Most Recent Influenza Vaccination: 03/2017 Most Recent Tetanus Shot: UNK Review of Systems Constitutional: Negative Skin: Rash Eyes: Negative ENT: Negative Respiratory: Negative Cardiovascular: Negative Gastrointestinal: Diarrhea Genitourinary: Negative Motor: Negative Neurovascular: Negative Musculoskeletal: Negative Neurological: Negative Psychological: Negative Is Patient Immunocompromised?: No All Other Systems Reviewed And Are Negative: Yes Physical Exam Triage Information Reviewed: Yes Appearance: Well-Appearing, No Pain Distress, Well-Nourished Vital Signs: Initial Vital Signs Temp 99 F 03/19/18 16:54 Pulse 85 03/19/18 16:54 Resp 18 03/19/18 16:54 BP 176/104 03/19/18 16:54 Pulse Ox 100 03/19/18 16:54 Vital Signs Reviewed: Yes Eyes: Positive: Conjunctiva Clear ENT: Positive: Hearing grossly normal. Negative: Tonsillar swelling, Tonsillar exudate, Sinus tenderness, Uvula midline Neck: Positive: Supple, Nontender, No Lymphadenopathy Respiratory: Positive: Chest non-tender, Lungs clear, Normal breath sounds, No respiratory distress Cardiovascular: Positive: RRR, No Murmur Abdomen Description: Positive: Nontender, No Organomegaly, Soft. Negative: CVA Tenderness (R), CVA Tenderness (L) Bowel Sounds: Positive: Present Musculoskeletal: Positive: ROM Intact, No Edema Neurological: Positive: Alert Psychological Exam: Normal Skin Exam: Other - perianal area looks like an irritant dermatitis Abd Pain Female Course/Dx - Differential Dx/Diagnosis Provider Diagnoses: acute diarrhea Discharge - Sign-Out/Discharge Documenting (check all that apply): Patient Departure All imaging exams completed and their final reports reviewed: No Studies - Discharge Plan Condition: Stable Disposition: HOME Patient Education Materials: Acute Diarrhea (ED) Referrals: Romelia Edge MD [Primary Care Provider] - 3 Days Additional Instructions: bring in stool for studies aquaphor healing ointment hold miralax until diarrhea resolves - Billing Disposition and Condition Condition: STABLE Disposition: Home
== END 2018-03-19 18:10 | disposition home or self-care (01) ==
LOC: UCEAST 16:32
DX: R19.7 Diarrhea, unspecified (principal); Z88.0 Allergy status to penicillin; Z88.2 Allergy status to sulfonamides; Z88.8 Allergy status to other drugs, medicaments and biological substances; Z87.891 Personal history of nicotine dependence
CPT/HCPCS: 99211; G0463

== ENCOUNTER 2019-01-10 13:53 | Emergency (ER) | payer MEDICARE, OTHER ==
--- OUTSIDE RECORDS SUMMARY | 2019-01-10 14:01 | XMS REPORT | Continuity of Care Document ---
:1940 External Reference #:[id number] Author Name WilianSujata Care Team Providers Name Role Phone Romelia Edge MD Primary Care Physician Unavailable Payers Date Identification Numbers Payment Provider Subscriber Effective: 2004 Policy Number: [id number] Medicare Zamzam Gonzalez PayID: [id number] [address] [place] [address] Onset: 2008 Policy Number: [id number] [facility] Zamzam Gonzalez Group Number: [id number] [address] [place]: [place] [address] PayID: [id number] [employer]verted Zamzam Gonzalez Advance Directives Type Date Description Status Comment Other Directive 07/10/2018 Health Care Proxy Current and Verified Problems Active Problems Provider Date Benign essential hypertension Shira Murphy M.D., FACP Onset: 08/20/2010 Pure hypercholesterolemia Shira Murphy M.D., FACP Onset: 08/20/2010 Shoulder joint pain Mike Orta M.D. 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 Smoked 1 pk per week. Tobacco Use Start: Unknown Not exposed to second hand smoke. Smoking Status Reviewed: 12/13/18 Not exposed to second hand smoke. Exercise Type/Frequency Does not exercise Allergies, Adverse Reactions, Alerts Active Allergies Reaction Severity Comments Date Penicillin rash Moderate 03/28/2010 Sulfa Urticaria Severe 03/28/2010 Nickel 09/21/2017 Medications Active Medications SIG Qnty Indications Ordering Date Provider Lisinopril 1 by mouth every day 90tabs I10 Krystal Varn, 12/13/2018 40mg N.P. Tablets Lisinopril 1 by mouth every day 10tabs I10 Krystal Varn, 12/13/2018 10mg N.P. Tablets Senna Plus take 2 tablets by 60tabs K59.00 Krystal Varn, 11/10/2018 8.6-50mg mouth as needed for N.P. Tablets constipation Omeprazole 1 by mouth every day 90caps R10.84 Krystal Varn, 09/16/2018 20mg N.P. Capsules Clonazepam take 1/2 to 1 tablet 30tabs F41.9 Krystal Varn, 07/15/2018 0.5mg as needed anxiety N.P. Tablets and sleep Vitamin D-3 1 po qd 90tabs Unknown 1000Unit Tablets Nucynta 1-2 by mouth four Unknown 50mg times a day as Tablets needed pain Thera Tears Unknown Hyoscyamine Sulfate Take 1 Tablet By Unknown Mouth Every 4 Hours 0.125mg Tablets as Needed For Cramping History Medications Lisinopril 1 by mouth every 90tabs I10 Krystal Varn, 07/15/2018 - 30mg day N.P. 12/13/2018 Tablets Lisinopril 1 by mouth every 30tabs I10 Krystal Varn, 07/07/2018 - 10mg day N.P. 07/15/2018 Tablets Escitalopram Oxalate 1/2 tablet by mouth 90tabs Krystal Varn, 2018 - x 7 days then boost N.P. 12/13/2018 10mg Tablets to 1 tablet by mouth daily Lisinopril 1 by mouth every 90tabs I10 Krystal Santiagojignesh, 06/29/2018 - 5mg day N.P. 07/07/2018 Tablets Senna-S one po prn 30tabs K59.00 Krystal Santiagojignesh, 06/29/2018 - 8.6-50mg constipation N.P. 11/10/2018 Tablets Clobetasol use on affected 30gm Krystal Romy, 06/02/2018 - Propionate area 2x daily for 2 N.P. 06/29/2018 0.05% weeks then 2 week Cream off Ditropan XL 1 by mouth every 30tabs R32 Krystal Romy, 06/01/2018 - 10mg day N.P. 06/29/2018 Tablets ER 24HR Lidocaine (Not Using) apply 50ml Krystal Santiagojignesh, 03/30/2018 - 5% Ointment externally three N.P. 06/29/2018 times a day Gabapentin 2 capsule daily at 90caps Krystal Santiagojignesh, 03/23/2018 - 100mg bedtime 1 by mouth N.P. 05/17/2018 Capsules every morning Tolterodine Tartrate ( Not Taking) 1 by 30caps R32 Krystal Romy, 2017 - ER mouth every day N.P. 06/01/2018 4mg Caps ER 24HR Famotidine 1 by mouth twice a 30tabs Krystal Jackjignesh, 12/11/2017 - 20mg day as needed for N.P. 03/23/2018 Tablets heartburn Kimberly-D 12 Hour 1 by mouth twice a 60tabs Krystal Jackn, 12/11/2017 - Allergy& Congestion day N.P. 03/23/2018 60-120mg Tablets ER 12HR Florastor 1 by mouth twice a 60caps K58.2 Krystal Romy, 12/11/2017 - 250mg day N.P. 03/23/2018 Capsules Bentyl Three Times Daily 10caps Unknown 11/04/2017 - 10mg Capsules 03/23/2018 Estrace use one 42.500gm Romelia 07/15/2017 - 0.1mg/GM applicatorful two Mauricio Edge 03/23/2018 Cream times weekly Terazol 7 apply 45gm Romelia 07/01/2017 - 0.4% Cream intravaginally Cotton, M.D. 07/17/2017 every night at bedtime for 7 days Triamcinolone (Not Taking) apply 80gm R21 Romelia 06/12/2017 - Acetonide thin film twice Cotton, M.D. 06/29/2018 0.1% Cream daily to rash Fluconazole one by mouth october 2tabs Krystal Romy, 04/20/2017 - 150mg repeat in 3 days as N.P. 06/11/2017 Tablets needed Clobetasol Apply bid for 7 15gm Krystal Romy, 04/15/2017 - Propionate days N.P. 04/22/2017 0.05% Ointment Ranitidine 150 one by mouth twice 60tabs K21.9 Krystal Romy, 04/07/2017 - Maximum Strength a day N.P. 06/11/2017 150mg Tablets Lotrisone apply externally 15gm R21 Krystal Romy, 04/07/2017 - 1-0.05% bid-tid N.P. 04/15/2017 Cream Lisinopril 1 by mouth every 30tabs Krystal Jackn, 12/08/2016 - 2.5mg day N.P. 01/12/2017 Tablets KP Adults 50+ Daily 1/day Krystal Romy, 09/22/2016 - Formula N.P. 06/11/2017 Tablets Lisinopril 1 by mouth every 90tabs Krystal Varn, 09/22/2016 - 5mg day N.P. 12/08/2016 Tablets Fluconazole one by mouth october 2tabs Krystal Jackn, 09/18/2016 - 150mg repeat in 3 days as N.P. 12/08/2016 Tablets needed Lotrisone apply externally 15gm Krystal Romy, 09/18/2016 - 1-0.05% bid-tid N.P. 12/08/2016 Cream Lidocaine Apply every 4 hours 30gm Krystal Romy, 09/15/2016 - (Anorectal) as needed. did not N.P. 12/08/2016 5% Cream fill Lisinopril 1/2 tablet by 30tabs Krystal Romy, 08/15/2016 - 10mg mouth every day N.P. 09/22/2016 Tablets Triamcinolone apply to dry skin 60ml R21 Krystal Santiagojignesh, 06/20/2016 - Acetonide once or twice daily N.P. 09/21/2016 0.1% Lotion Cetirizine HCL 1 by mouth every 30tabs R21 Krystal Santiagojignesh, 06/20/2016 - 10mg day N.P. 04/07/2017 Tablets Sucralfate 1 by mouth four 120tabs Krystal Santiagojignesh, 01/18/2016 - 1gm times a day N.P. 06/06/2016 Tablets Reglan one by mouth four 60tabs R11.0 Krystal Santiagojignesh, 01/08/2016 - 5mg Tablets times a day as N.P. 06/06/2016 needed Percocet 1-2 by mouth every 60tabs Z96.612 Aniket 06/28/2015 - 5-325mg twice a day as Mauricio Barcenas 12/04/2015 Tablets needed pain Cephalexin one three times 21tabs J01.01 Krystal Romy, 06/04/2015 - 500mg daily for 7 days N.P. 06/11/2015 Tablets Percocet 1 by mouth every 4 60tabs M25.512 Krystal Romy, 06/04/2015 - 5-325mg to 6 hours as N.P. 07/31/2015 Tablets needed pain Tobramycin 1 drop in each eye 5ml Krystal Romy, 05/29/2015 - 0.3% every 4hours x 7 N.P. 07/31/2015 Solution days Cephalexin one three times 30tabs Krystal Jackn, 05/25/2015 - 500mg daily for 10 days N.P. 06/04/2015 Tablets Biaxin one by mouth twice 20tabs Krystal Romy, 05/23/2015 - 500mg Tablets daily for 10 days N.P. 05/29/2015 Levofloxacin one by mouth daily 10tabs J01.00 Krystal Romy, 05/22/2015 - 500mg for 10 days N.P. 05/23/2015 Tablets Azithromycin 2 tabs by mouth 6tabs J01.90 Lc Rashid NP 05/15/2015 - 250mg every day x1 day, 1 05/20/2015 Tablets tab by mouth every day x 4 days Cymbalta 1 cap by mouth 90caps M25.512 Mike Orta, 01/10/2015 - 30mg Caps DR every day M.D. 05/12/2015 Part Azithromycin 2 tabs by mouth 6tabs 465.9 Lc Rashid NP 01/05/2015 - 250mg every day x1 day, 1 01/12/2015 Tablets tab by mouth every day x 4 days Cymbalta 1 by mouth every 30caps 719.41 Mike Orta, 12/25/2014 - 60mg Caps DR day M.D. 01/10/2015 Part Lovastatin ( Not Taking) Take 90tabs Krystal Stanton, 10/13/2014 - 20mg 1 Tablet By Mouth N.P. 06/12/2017 Tablets Nightly AT Bedtime Fluticasone 2 sprays each 16gm 381.81 Krystal Stanton, 08/01/2014 - Propionate nostril daily as N.P. 08/15/2014 50mcg/Act needed Suspension Miralax 17 gm every day 238gm Krystal Stanton, 07/13/2014 - 3350NF Powder mixed w/ 8 oz N.P. 12/13/2018 water/juice Cyclobenzaprine HCL 1 tablet po once 90tabs Mike Orta, 06/12/2014 - daily prn muscle M.D. 01/05/2015 10mg Tablets spasms Pravastatin Sodium 1 tablet by mouth 90tabs Krystal Stanton, 06/01/2014 - once daily at N.P. 10/16/2014 20mg Tablets bedtime Neurontin 1 by mouth qhs. october 60caps Mike Orta, 11/22/2013 - 100mg increase by 1-2 tab M.D. 06/01/2014 Capsules after 3 days. [place] take 1-2 tab by 60tabs Mike Orta, 10/27/2013 - 5-325mg Tablets mouth three times a M.D. 11/21/2013 day as needed pain [place] take 1-2 tab by 60tabs Mike Orta, 10/27/2013 - 5-325mg Tablets mouth three times a M.D. 11/21/2013 day as needed pain Calcium 500 +D 1 by mouth twice a Sid D. 10/07/2013 - day [place], 11/20/2014 [id number] M.D.,FACP Tablets Ceftin by mouth twice a 20tabs 473.1 Sid Mccartney 10/07/2013 - 500mg Tablets day [place], 10/17/2013 M.D.,FACP Loratadine 1 by mouth every 30tabs 473.1 Sid Mccartney 10/07/2013 - 10mg day [place], 06/01/2014 Tablets M.D.,FACP Lovastatin by mouth every 90tabs Krystal Stanton, 07/12/2013 - 20mg night at bedtime N.P. 06/01/2014 Tablets Atorvastatin Calcium 1 po qd 90tabs Shira Murphy, 07/04/2013 - M.D., FACP 07/12/2013 10mg Tablets Flexeril 1 by mouth three 60tabs Amy 04/09/2012 - 10mg Tablets times a day as Pope-You, 11/30/2014 needed muscle pain M.D. Venlafaxine HCL take 1 tablet daily 60tabs 729.1 Shira Katherine, 11/05/2011 - for one week and M.D., FACP 05/17/2012 37.5mg Tablets then increase to 2 tablets daily Ergocalciferol 1 cap by mouth 8caps 268.9 Shira Katherine, 11/05/2011 - every week M.D., FACP 05/17/2012 [id number] Capsules Keflex 1 tab by mouth 28caps Mike Orta, 07/29/2011 - 500mg Capsules every 6 hours M.D. 10/02/2011 Tramadol HCL one tablet every 6 60tabs 719.45 Shira Murphy, 01/22/2011 - 50mg hours as needed M.D., FACP 10/11/2012 Tablets Buspirone HCL 1 tab by mouth 60tabs 300.00 Shira Murphy, 01/13/2011 - 5mg twice a day M.D., FACP 04/17/2011 Tablets Codeine/Acetaminophe 1-2 tabs by mouth 60tabs Mike Orta, 01/07/2011 - n every 4 hours pain M.D. 01/13/2011 300-15mg Tablets Percocet 1-2 po q4-6h prn 60tabs Mike Orta, 11/21/2010 - 5-325mg pain M.D. 01/07/2011 Tablets Ibuprofen 1 po tid prn 90tabs Mike Orta, 11/21/2010 - 800mg M.D. 10/02/2011 Tablets Gabapentin 1 at night 90caps Shira Murphy, 08/20/2010 - 100mg M.D., FACP 10/21/2010 Capsules Lisinopril take one tablet by 90tabs Krystal Romy, 08/20/2010 - 5mg mouth one time N.P. 08/15/2016 Tablets daily Pravastatin Sodium Take One Tablet By 90tabs Shira Murphy, 07/02/2010 - Mouth Nightly AT M.D., FACP 07/04/2013 20mg Tablets Bedtime Aspir-81 1 by mouth every Shira Murphy, 06/11/2010 - 81mg Tablets day M.D., FACP 06/06/2016 DR Simvastatin 1 at bedtime 90tabs Shira Murphy, 06/11/2010 - 10mg M.D., FACP 07/02/2010 Tablets Lisinopril 1 by mouth every 90tabs Shira Murphy, 05/08/2010 - 10mg day M.D., FACP 08/20/2010 Tablets Azithromycin 2 tabs po on day 1; 6tabs 465.9 Romelia 03/28/2010 - 250mg 1 tab po qd on days Cotton, M.D. 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 1 by mouth twice a Unknown - 7.5mg Tablets day as needed 04/07/2017 Cetirizine HCL 1 by mouth every R21 Unknown - 10mg day 06/20/2016 Tablets Prednisone R21 Unknown - 10mg 06/20/2016 Tablets Pantoprazole Sodium 1 by mouth every Unknown - day 12/11/2017 40mg Solution Rec Famotidine take one tablet by Unknown - 20mg mouth twice a day 06/06/2016 Tablets Calcium 600 + D 2 by mouth once a Unknown - day 06/06/2016 [id number] Tablets Pennsaid apply 2 pumps twice Unknown - 2% Solution a day; wash hands 12/17/2015 after use Butrans 1 patch every 7 Unknown - 5mcg/HR days 06/06/2016 Patches Weekly Glucosamine 1 by mouth every Unknown - 500mg day 01/05/2015 Capsules Fish Oil 1 po qd Unknown - 1000mg 10/11/2012 Capsules Allergy Relief prn Unknown - 10mg 10/11/2012 Tablets Stool Softener 1 po bid prn Unknown - 100mg 07/12/2014 Capsules Fish Oil Burp-Less 1 po qd Unknown - 10/11/2012 500mg Capsules Calcium 500 2 daily Unknown - 500mg 08/11/2013 Tablets Ibuprofen not taking Unknown - 200mg 04/07/2017 Capsules Diclofenac Sodium 1 po bid 60tabs Luke, - MD Daquan 07/01/[address] Noel Unknown - Tablets 01/22/2011 Loratadine 1 tablet once daily 30tabs Shira Murphy, - 10mg as needed Mauricio, FACP 08/11/2013 Tablets Loratadine maryam 30tabs Romelia - 10mg ffaleksandra Edge M.D. 08/20/2010 Tablets fffffffffffffffffff ff1 by mouth daily Immunizations CPT Code Status Date Vaccine Reaction Lot # [id number] Given 12/11/2017 Tetanus And Diptheria (Td) No immediate [id number] For Adult Use Preservative reaction..jh Free Q2039 Given 04/17/2015 Flu Vaccine NOS 89627 Given 12/01/2014 Pneumococcal Conjugate [id number] Vaccine 13 Valent For Intramuscular Use 00314 Given 03/23/2013 Fluzone High Dose 54049 Given 04/07/2012 Fluzone High Dose 44782 Given 10/02/2011 Zoster (Zostavax) [id number] Q2038 Given 04/04/2011 Fluzone Vaccine 31601 Given 07/05/2009 Influenza Virus 3Yrs & Over Vital Signs Date Vital Result Comment 12/13/2018 11:04am Height 63 inches 5'3" Weight 119.50 lb Heart Rate 77 /min BP Systolic 150 mmHg BP Diastolic 95 mmHg Body Temperature 96.9 F O2 % BldC Oximetry 97 % BMI (Body Mass Index) 21.2 kg/m2 09/16/2018 10:36am Height 63 inches 5'3" Weight 118.00 lb Heart Rate 78 /min BP Systolic Sitting 132 mmHg BP Diastolic Sitting 82 mmHg O2 % BldC Oximetry 100 % BMI (Body Mass Index) 20.9 kg/m2 07/15/2018 10:31am Height 63 inches 5'3" Weight 120.00 lb Heart Rate 88 /min BP Systolic 173 mmHg left arm 172/102 BP Diastolic 93 mmHg left arm 172/102 Body Temperature 97.8 F O2 % BldC Oximetry 98 % BMI (Body Mass Index) 21.3 kg/m2 06/29/2018 11:26am Height 63 inches 5'3" Weight 122.00 lb with shoes Heart Rate 68 /min BP Systolic 160 mmHg BP Diastolic 100 mmHg Body Temperature 96.6 F O2 % BldC Oximetry 99 % BMI (Body Mass Index) 21.6 kg/m2 06/01/2018 1:37pm Height 63 inches 5'3" Weight 122.50 lb Heart Rate 87 /min BP Systolic 142 mmHg BP Diastolic 70 mmHg O2 % BldC Oximetry 98 % BMI (Body Mass Index) 21.7 kg/m2 03/23/2018 3:08pm Height 63 inches 5'3" Weight 120.00 lb Heart Rate 84 /min BP Systolic 132 mmHg BP Diastolic 78 mmHg Body Temperature 96.8 F O2 % BldC Oximetry 97 % BMI (Body Mass Index) 21.3 kg/m2 12/11/2017 1:42pm Height 63 inches 5'3" Weight 119.25 lb Heart Rate 87 /min BP Systolic 130 mmHg BP Diastolic 80 mmHg Body Temperature 97.5 F O2 % BldC Oximetry 96 % BMI (Body Mass Index) 21.1 kg/m2 09/21/2017 3:11pm Weight 121.00 lb Heart Rate 84 /min BP Systolic 140 mmHg BP Diastolic 86 mmHg BP Systolic Sitting 148 mmHg BP Diastolic Sitting 86 mmHg Body Temperature 97.6 F O2 % BldC Oximetry 97 % 06/12/2017 10:33am Height 64 inches 5'4" Weight 121.00 lb Heart Rate 98 /min BP Systolic 140 mmHg BP Diastolic 80 mmHg O2 % BldC Oximetry 99 % BMI (Body Mass Index) 20.8 kg/m2 05/18/2017 1:47pm Heart Rate 95 /min BP Systolic 120 mmHg BP Diastolic 60 mmHg Body Temperature 97.2 F O2 % BldC Oximetry 98 % 04/21/2017 2:08pm Weight 130.25 lb Heart Rate 90 /min BP Systolic 130 mmHg BP Diastolic 80 mmHg Body Temperature 97.3 F O2 % BldC Oximetry 96 % 04/07/2017 10:27am Weight 129.00 lb Heart Rate 77 /min BP Systolic 140 mmHg BP Diastolic 80 mmHg Body Temperature 98.1 F O2 % BldC Oximetry 94 % 12/08/2016 1:22pm Height 53.5 inches 4'5.50" Weight 128.75 lb Heart Rate 74 /min BP Systolic 110 mmHg BP Diastolic 70 mmHg Body Temperature 97.7 F O2 % BldC Oximetry 98 % BMI (Body Mass Index) 31.6 kg/m2 09/22/2016 4:09pm Weight 123.25 lb Heart Rate 89 /min BP Systolic 132 mmHg BP Diastolic 66 mmHg Body Temperature 96.8 F O2 % BldC Oximetry 98 % 06/20/2016 3:13pm Height 62.5 inches 5'2.50" Weight 124.00 lb Heart Rate 77 /min BP Systolic 122 mmHg BP Diastolic 80 mmHg Body Temperature 97.5 F O2 % BldC Oximetry 98 % BMI (Body Mass Index) 22.3 kg/m2 06/06/2016 1:11pm Weight 124.00 lb Heart Rate 80 /min BP Systolic Sitting 128 mmHg BP Diastolic Sitting 78 mmHg Respiratory Rate 15 /min Body Temperature 97.3 F O2 % BldC Oximetry 98 % 01/16/2016 12:54pm Weight 125.25 lb Heart Rate 822 /min BP Systolic Sitting 101 mmHg BP Diastolic Sitting 68 mmHg Body Temperature 99.0 F O2 % BldC Oximetry 98 % 01/08/2016 10:15am Weight 122.00 lb Heart Rate 82 /min BP Systolic Sitting 124 mmHg BP Diastolic Sitting 76 mmHg Respiratory Rate 15 /min Body Temperature 98.4 F O2 % BldC Oximetry 98 % 12/04/2015 3:10pm Height 62.5 inches 5'2.50" Weight 127.00 lb Heart Rate 89 /min BP Systolic Sitting 138 mmHg BP Diastolic Sitting 76 mmHg Body Temperature 98.3 F O2 % BldC Oximetry 99 % BMI (Body Mass Index) 22.9 kg/m2 07/31/2015 2:15pm Weight 127.00 lb Heart Rate 80 /min BP Systolic Sitting 148 mmHg BP Diastolic Sitting 87 mmHg Body Temperature 96.7 F Pain Level 8 O2 % BldC Oximetry 98 % 06/28/2015 11:22am Height 64 inches 5'4" Weight 128.00 lb BMI (Body Mass Index) 22.0 kg/m2 06/04/2015 11:17am Height 64 inches 5'4" Weight 128.25 lb Heart Rate 83 /min BP Systolic Sitting 126 mmHg BP Diastolic Sitting 78 mmHg Body Temperature 96.3 F O2 % BldC Oximetry 97 % BMI (Body Mass Index) 22.0 kg/m2 05/22/2015 12:55pm Height 64 inches 5'4" Weight 130.25 lb Heart Rate 84 /min BP Systolic Sitting 130 mmHg BP Diastolic Sitting 80 mmHg Body Temperature 96.5 F O2 % BldC Oximetry 98 % BMI (Body Mass Index) 22.4 kg/m2 05/15/2015 1:23pm Weight 125.50 lb Heart Rate 76 /min BP Systolic Sitting 144 mmHg BP Diastolic Sitting 90 mmHg Body Temperature 96.6 F O2 % BldC Oximetry 98 % 05/01/2015 1:20pm Height 64 inches 5'4" Weight 126.00 lb Heart Rate 75 /min BP Systolic 143 mmHg BP Diastolic 95 mmHg Pain Level 9 BMI (Body Mass Index) 21.6 kg/m2 02/05/2015 11:15am Height 64 inches 5'4" Weight 126.00 lb Pain Level 3 BMI (Body Mass Index) 21.6 kg/m2 01/05/2015 1:42pm Height 64 inches 5'4" Weight 126.00 lb Heart Rate 68 /min BP Systolic 123 mmHg BP Diastolic 82 mmHg Body Temperature 97.0 F BMI (Body Mass Index) 21.6 kg/m2 12/25/2014 10:53am Height 64 inches 5'4" Weight 121.00 lb Pain Level 7 BMI (Body Mass Index) 20.8 kg/m2 12/01/2014 10:45am Height 64 inches 5'4" Weight 121.62 lb Heart Rate 83 /min BP Systolic Sitting 115 mmHg BP Diastolic Sitting 74 mmHg BMI (Body Mass Index) 20.9 kg/m2 08/29/2014 3:28pm Height 63.5 inches 5'3.50" Weight 128.00 lb Pain Level 5 BMI (Body Mass Index) 22.3 kg/m2 08/08/2014 3:56pm Height 63.75 inches 5'3.75" Weight 128.00 lb Heart Rate 76 /min BP Systolic 155 mmHg BP Diastolic 88 mmHg BMI (Body Mass Index) 22.1 kg/m2 08/01/2014 1:02pm Weight 124.50 lb Heart Rate 91 /min BP Systolic Sitting 131 mmHg BP Diastolic Sitting 85 mmHg O2 % BldC Oximetry 99 % 06/12/2014 10:36am Height 63.75 inches 5'3.75" Weight 128.00 lb BMI (Body Mass Index) 22.1 kg/m2 06/01/2014 9:56am Height 63.75 inches 5'3.75" Weight 128.50 lb Heart Rate 74 /min BP Systolic 138 mmHg BP Diastolic 86 mmHg BMI (Body Mass Index) 22.2 kg/m2 11/22/2013 10:46am Height 63.75 inches 5'3.75" Heart Rate 77 /min BP Systolic 144 mmHg BP Diastolic 84 mmHg 10/27/2013 1:11pm Height 63.75 inches 5'3.75" Weight 129.75 lb Heart Rate 88 /min BP Systolic 124 mmHg BP Diastolic 70 mmHg Respiratory Rate 16 /min Body Temperature 97.5 F BMI (Body Mass Index) 22.4 kg/m2 10/27/2013 10:49am Height 64 inches 5'4" Weight 130.00 lb Heart Rate 80 /min BP Systolic 136 mmHg BP Diastolic 83 mmHg BMI (Body Mass Index) 22.3 kg/m2 10/07/2013 1:43pm Height 65 inches 5'5" Weight 127.25 lb Heart Rate 82 /min BP Systolic Sitting 142 mmHg BP Diastolic Sitting 88 mmHg Body Temperature 97.5 F BMI (Body Mass Index) 21.2 kg/m2 08/11/2013 11:45am Height 65 inches 5'5" Weight 130.00 lb Heart Rate 96 /min BP Systolic 132 mmHg BP Diastolic 84 mmHg BMI (Body Mass Index) 21.6 kg/m2 10/11/2012 10:34am Height 64.25 inches 5'4.25" Weight 129.75 lb Heart Rate 82 /min BP Systolic Sitting 130 mmHg BP Diastolic Sitting 70 mmHg BMI (Body Mass Index) 22.1 kg/m2 05/17/2012 1:16pm Height 63.5 inches 5'3.50" Weight 130.00 lb Heart Rate 80 /min BP Systolic Sitting 120 mmHg BP Diastolic Sitting 70 mmHg BMI (Body Mass Index) 22.7 kg/m2 11/05/2011 2:42pm Height 63.5 inches 5'3.50" Weight 128.00 lb Heart Rate 68 /min BP Systolic Sitting 126 mmHg BP Diastolic Sitting 68 mmHg BMI (Body Mass Index) 22.3 kg/m2 10/02/2011 3:53pm Height 63.5 inches 5'3.50" Weight 126.00 lb Heart Rate 88 /min BP Systolic Sitting 130 mmHg BP Diastolic Sitting 78 mmHg BMI (Body Mass Index) 22.0 kg/m2 07/01/2011 12:53pm Height 63.5 inches 5'3.50" Weight 128.00 lb Heart Rate 84 /min BP Systolic Sitting 140 mmHg BP Diastolic Sitting 80 mmHg BMI (Body Mass Index) 22.3 kg/m2 05/21/2011 4:32pm Weight 128.00 lb Heart Rate 72 /min BP Systolic Sitting 126 mmHg BP Diastolic Sitting 80 mmHg 01/22/2011 10:00am Height 64 inches 5'4" Weight 128.00 lb Heart Rate 78 /min BP Systolic Sitting 124 mmHg BP Diastolic Sitting 80 mmHg BMI (Body Mass Index) 22.0 kg/m2 01/13/2011 11:39am Height 64 inches 5'4" Weight 124.00 lb Heart Rate 78 /min BP Systolic Sitting 126 mmHg BP Diastolic Sitting 70 mmHg BMI (Body Mass Index) 21.3 kg/m2 11/13/2010 3:45pm Height 64 inches 5'4" Weight 127.00 lb Heart Rate 62 /min BP Systolic Sitting 102 mmHg BP Diastolic Sitting 60 mmHg BMI (Body Mass Index) 21.8 kg/m2 10/21/2010 10:59am Height 64 inches 5'4" Weight 129.00 lb Heart Rate 64 /min BP Systolic Sitting 124 mmHg BP Diastolic Sitting 78 mmHg BMI (Body Mass Index) 22.1 kg/m2 10/15/2010 10:43am Height 64 inches 5'4" Weight 130.00 lb Heart Rate 75 /min BP Systolic 130 mmHg BP Diastolic 81 mmHg BMI (Body Mass Index) 22.3 kg/m2 08/20/2010 11:33am Height 64 inches 5'4" Weight 126.00 lb Heart Rate 78 /min BP Systolic 110 mmHg BP Diastolic 80 mmHg BMI (Body Mass Index) 21.6 kg/m2 06/11/2010 2:38pm Weight 128.75 lb Heart Rate 76 /min BP Systolic 120 mmHg BP Diastolic 76 mmHg 05/08/2010 4:02pm BP Systolic 154 mmHg Blood Pressure Recheck BP Diastolic 94 mmHg Blood Pressure Recheck 05/08/2010 3:43pm Weight 128.50 lb Heart Rate 76 /min BP Systolic 152 mmHg BP Diastolic 102 mmHg 03/28/2010 1:30pm Heart Rate 64 /min BP Systolic 124 mmHg BP Diastolic 88 mmHg Body Temperature 97.6 F Results Test Date Facility Test Result H/L Range Note Lipid Profile 12/06/2018 [facility] Triglycerides 88 mg/dL 1 (Trig/Chol/HDL) [address] [place] [address] [phone] Cholesterol 194 mg/dL 2 HDL Cholesterol 58.6 mg/dL 3 LDL Cholesterol 118 mg/dL 4 Drug Abuse 20 10/15/2018 [facility] Urine Amphetamine Negative ng/mL 5 Urine [address] [place] [address] [phone] Urine Barbiturates Negative ng/mL 6 Urine Benzodiazepines Negative ng/mL 7 Urine Cocaine Negative ng/mL 8 Urine Phencyclidine Negative ng/mL Cutoff: 25 Urine Tetrahydrocannabinol Negative ng/mL Cutoff: 50 9 Creatinine, Urine 41.4 mg/dL Specific [place] 1.006 pH 5.7 Oxidants Negative 10 Adulterants Comment Normal Codeine, Ur Not Detected ng/mL Cutoff: 25 11 Syygitq-2-daac-glucuronide, Ur Not Detected ng/mL 12 Morphine, Ur Not Detected ng/mL Cutoff: 25 13 Fujtxjdl-3-mujm-glucuronide, U Not Detected ng/mL 14 6-monoacetylmorphine, Ur Not Detected ng/mL Cutoff: 25 15 Hydrocodone, Ur Not Detected ng/mL Cutoff: 25 16 Norhydrocodone, Ur Not Detected ng/mL Cutoff: 25 17 Dihydrocodeine, Ur Not Detected ng/mL Cutoff: 25 18 Hydromorphone, Ur Not Detected ng/mL Cutoff: 25 19 Pqmzkyinomtco4msyqwggihxhfiyv Not Detected ng/mL 20 Oxycodone, Ur Not Detected ng/mL Cutoff: 25 21 Noroxycodone, Ur Not Detected ng/mL Cutoff: 25 22 Oxymorphone, Ur Not Detected ng/mL Cutoff: 25 23 Pimhkibhybv-7-yjtq-glucuronide Not Detected ng/mL 24 Noroxymorphone, Ur Not Detected ng/mL Cutoff: 25 25 Fentanyl, Ur Not Detected ng/mL Cutoff: 2 26 Norfentanyl, Ur Not Detected ng/mL Cutoff: 2 27 Meperidine, Ur Not Detected ng/mL Cutoff: 25 28 Normeperidine, Ur Not Detected ng/mL Cutoff: 25 29 Naloxone, Ur Not Detected ng/mL Cutoff: 25 30 Aizbyvqi-8-bajk-glucuronide, U Not Detected ng/mL 31 Methadone, Ur Not Detected ng/mL Cutoff: 25 32 Eddp, Ur Not Detected ng/mL Cutoff: 25 33 Propoxyphene, Ur Not Detected ng/mL Cutoff: 25 34 Norpropoxyphene, Ur Not Detected ng/mL Cutoff: 25 35 Tramadol, Ur Not Detected ng/mL Cutoff: 25 36 O-desmethyltramadol, Ur Not Detected ng/mL Cutoff: 25 37 Tapentadol, Ur Present ng/mL Abnormal Cutoff: 25 38 N-desmethyltapentadol, Ur Present ng/mL Abnormal Cutoff: 50 39 Fbogszdwsu-diel-zdogdljtcck, U Present ng/mL Abnormal 40 Buprenorphine, Ur Not Detected ng/mL Cutoff: 5 41 Norbuprenorphine, Ur Not Detected ng/mL Cutoff: 5 42 Norbuprenorphine glucuronide Not Detected ng/mL Cutoff: 20 43 Opioid Interpretation See Comment 44 CBC Auto Diff 07/29/2018 [facility] White Blood 5.6 10^3/uL N 3.5-10.[address] [place] [address] [phone] Red Blood Count 4.69 10^6/uL N 4.00-5.40 Hemoglobin 13.8 g/dL N 12.0-16.0 Hematocrit 42 % N 35-47 Mean Corpuscular Volume 90 fL N 80-97 Mean Corpuscular Hemoglobin 30 pg N 27-31 Mean Corpuscular HGB Conc 33 g/dL N 31-36 Red Cell Distribution Width 16 % High 10.5-15 Platelet Count 160 10^3/uL N 150-450 Mean Platelet Volume 10.7 fL High 7.4-10.4 Large Platelets Present Abs Neutrophils 4.0 10^3/uL N 1.5-7.7 Abs Lymphocytes 1.2 10^3/uL N 1.0-4.8 Abs Monocytes 0.4 10^3/uL N 0-0.8 Abs Eosinophils 0.1 10^3/uL N 0-0.6 Abs Basophils 0 10^3/uL N 0-0.2 Abs Nucleated RBC 0 10^3/uL Granulocyte % 71.4 % Lymphocyte % 20.5 % Monocyte % 6.6 % Eosinophil % 0.9 % Basophil % 0.6 % Nucleated Red Blood Cells % 0 Comp Metabolic Panel 07/29/2018 [facility] Sodium 136 mmol/L N 135-[address] [place] [address] [phone] Potassium 4.2 mmol/L N 3.5-5.0 Chloride 102 mmol/L N 101-111 Co2 Carbon Dioxide 27 mmol/L N 22-32 Anion Gap 7 mmol/L N 2-11 Glucose 102 mg/dL High 70-100 Blood Urea Nitrogen 16 mg/dL N 6-24 Creatinine 1.26 mg/dL High 0.51-0.95 BUN/Creatinine Ratio 12.7 N 8-20 Calcium 9.2 mg/dL N 8.6-10.3 Total Protein 6.5 g/dL N 6.4-8.9 Albumin 4.4 g/dL N 3.2-5.2 Globulin 2.1 g/dL N 2-4 Albumin/Globulin Ratio 2.1 N 1-3 Total Bilirubin 0.50 mg/dL N 0.2-1.0 Alkaline Phosphatase 68 U/L N 34-104 Alt 14 U/L N 7-52 Ast 19 U/L N 13-39 Egfr Non- 41.1 >60 Egfr 49.7 >60 45 Laboratory 07/29/2018 [facility] TSH (Thyroid Stim 2.44 N 0.34 -5.[address] Horm) mcIU/mL [place], [place] [id number] [phone] Laboratory 03/21/2018 [facility] Stool Culture SEE RESULT [address] [place] [address] [phone] Lipid Profile 12/18/2017 [facility] Triglycerides 82 mg/dL 47 (Trig/Chol/HDL DRIVE ) [place], [place] [id number] [phone] Cholesterol 201 mg/dL 48 HDL Cholesterol 59.1 mg/dL 49 LDL Cholesterol 126 mg/dL 50 Laboratory test 12/18/2017 [facility] TSH (Thyroid 3.39 mcIU/mL N 0.34-5.[address] Stim Horm) [place], [place] [id number] [phone] Comp Metabolic 12/18/2017 [facility] Sodium 140 mmol/L N 135- [address] [place] [address] [phone] Potassium 4.2 mmol/L N 3.5-5.0 Chloride 104 mmol/L N 101-111 Co2 Carbon Dioxide 28 mmol/L N 22-32 Anion Gap 8 mmol/L N 2-11 Glucose 87 mg/dL N 70-100 Blood Urea Nitrogen 13 mg/dL N 6-24 Creatinine 1.06 mg/dL High 0.51-0.95 BUN/Creatinine Ratio 12.3 N 8-20 Calcium 9.5 mg/dL N 8.6-10.3 Total Protein 6.4 g/dL N 6.4-8.9 Albumin 4.0 g/dL N 3.2-5.2 Globulin 2.4 g/dL N 2-4 Albumin/Globulin Ratio 1.7 N 1-3 Total Bilirubin 0.60 mg/dL N 0.2-1.0 Alkaline Phosphatase 69 U/L N 34-104 Alt 14 U/L N 7-52 Ast 21 U/L N 13-39 Egfr Non- 50.1 >60 Egfr 60.7 >60 51 Laboratory test 12/18/2017 [facility] Vitamin B12 206 pg/mL N 180-914 [address] [place] [address] [phone] CBC Auto Diff 12/18/2017 [facility] White Blood 4.4 10^3/uL N 3.5-10.[address] [place] [address] [phone] Red Blood Count 4.49 10^6/uL N 4.00-5.40 Hemoglobin 13.1 g/dL N 12.0-16.0 Hematocrit 40 % N 35-47 Mean Corpuscular Volume 90 fL N 80-97 Mean Corpuscular Hemoglobin 29 pg N 27-31 Mean Corpuscular HGB Conc 33 g/dL N 31-36 Red Cell Distribution Width 17 % High 10.5-15 Platelet Count 156 10^3/uL N 150-450 Mean Platelet Volume 10.7 um3 High 7.4-10.4 Abs Neutrophils 2.7 10^3/uL N 1.5-7.7 Abs Lymphocytes 1.1 10^3/uL N 1.0-4.8 Abs Monocytes 0.3 10^3/uL N 0-0.8 Abs Eosinophils 0.2 10^3/uL N 0-0.6 Abs Basophils 0 10^3/uL N 0-0.2 Abs Nucleated RBC 0 10^3/uL Granulocyte % 62.0 % N 38-83 Lymphocyte % 25.7 % N 25-47 Monocyte % 7.6 % High 0-7 Eosinophil % 4.1 % N 0-6 Basophil % 0.6 % N 0-2 Nucleated Red Blood Cells % 0 Urinalysis Profile 11/24/2017 [facility] Urine Color Yellow [address] [place] [address] [phone] Urine Appearance Clear Urine Specific [place] 1.009 Low 1.010-1.030 Urine pH 5.0 N 5-9 Urine Urobilinogen Negative Negative Urine Ketones Negative Negative Urine Protein Negative Negative Urine Leukocytes Negative Negative Urine Blood Negative Negative Urine Nitrite Negative Negative Urine Bilirubin Negative Negative Urine Glucose Negative Negative Laboratory 09/17/2017 [facility] Gardnerella/Yeast: SEE RESULT 53, test finding [address] Vaginal Dna BELOW [address] [place] [address] [phone] Poc 09/17/2017 [facility] Poc Glucose, Urine Negative Negative Urinalysis [address] [place] [address] [phone] Poc Bilirubin, Urine Negative Negative Poc Ketone, Urine Negative Negative Poc Specific [place], Urine <=1.005 Low 1.010-1.030 Poc Blood, Urine Negative Negative Poc pH, Urine 5.5 N 5-9 Poc Protein, Urine Negative Negative Poc Urobilinogen, Urine 0.2 Negative Poc Nitrite, Urine Negative Negative Poc Leukocytes, Urine Negative Negative Poc Color, Urine Yellow Poc Clarity, Urine Clear 55 Liver Function 06/12/2017 [facility] Total Protein 6.7 g/dL N 6.4-8.[address] [place] [address] [phone] Albumin 4.1 g/dL N 3.2-5.2 Globulin 2.6 g/dL N 2-4 Albumin/Globulin Ratio 1.6 N 1-3 Total Bilirubin 0.60 mg/dL N 0.2-1.0 Direct Bilirubin 0.10 mg/dL N 0.03-0.18 Indirect Bilirubin 0.5 mg/dL N 0.3-1.0 Alkaline Phosphatase 65 U/L N 34-104 Alt 11 U/L N 7-52 Ast 18 U/L N 13-39 Liver Function 05/20/2017 [facility] Total Protein 7.2 g/dL N 6.4-8.[address] [place] [address] [phone] Albumin 4.2 g/dL N 3.2-5.2 Globulin 3.0 g/dL N 2-4 Albumin/Globulin Ratio 1.4 N 1-3 Total Bilirubin 0.70 mg/dL N 0.2-1.0 Direct Bilirubin 0.10 mg/dL N 0.03-0.18 Indirect Bilirubin 0.6 mg/dL N 0.3-1.0 Alkaline Phosphatase 110 U/L High 34-104 Alt 18 U/L N 7-52 Ast 22 U/L N 13-39 Laboratory test 05/20/2017 [facility] C Reactive 1.55 mg/L N < 5.00 [address] [place] [address] [phone] Erythrocyte Sed Rate 23 mm/Hr N 0-40 Laboratory test 05/12/2017 [facility] Erythrocyte Sed 35 mm/Hr N 0-[address] Rate [place], [place] [id number] [phone] C Reactive Protein 5.08 mg/L High < 5.00 57 Hepatitis 05/12/2017 [facility] Hepatitis B Nonreactive Nonreactive Acute Panel [address] [place] [address] Antigen [phone] Hepatitis B Core IgM Nonreactive Nonreactive Hepatitis A AB IgM Nonreactive Nonreactive Hepatitis C Antibody Nonreactive Nonreactive Comp Metabolic Panel 05/12/2017 [facility] Sodium 132 mmol/L Low 133-[address] [place] [address] [phone] Potassium 3.9 mmol/L N 3.5-5.0 Chloride 97 mmol/L Low 101-111 Co2 Carbon Dioxide 26 mmol/L N 22-32 Anion Gap 9 mmol/L N 2-11 Glucose 105 mg/dL High 70-100 Blood Urea Nitrogen 16 mg/dL N 6-24 Creatinine 1.13 mg/dL High 0.51-0.95 BUN/Creatinine Ratio 14.2 N 8-20 Calcium 9.0 mg/dL N 8.6-10.3 Total Protein 6.7 g/dL N 6.4-8.9 Albumin 3.9 g/dL N 3.2-5.2 Globulin 2.8 g/dL N 2-4 Albumin/Globulin Ratio 1.4 N 1-3 Total Bilirubin 0.50 mg/dL N 0.2-1.0 Alkaline Phosphatase 128 U/L High 34-104 Alt 20 U/L N 7-52 Ast 19 U/L N 13-39 Egfr Non- 46.7 >60 Egfr 60.0 >60 58 Laboratory test 05/10/2017 [facility] Magnesium 2.3 mg/dL N 1.9-2.[address] [place] [address] [phone] Lipase 17 U/L N 11.0-82.0 Creatine Kinase(CK) 38 U/L N 10-223 CRP High Sensitivity 10.09 mg/L 59 Lactic Acid 1.2 mmol/L N 0.5-2.0 60 Urinalysis Profile 05/10/2017 [facility] Urine Color Colorless [address] [place] [address] [phone] Urine Appearance Clear Urine Specific [place] 1.002 Low 1.010-1.030 Urine pH 7.0 N 5-9 Urine Urobilinogen Negative Negative Urine Ketones Trace Abnormal Negative Urine Protein Negative Negative Urine Leukocytes Negative Negative Urine Blood 1+ Abnormal Negative Urine Nitrite Negative Negative Urine Bilirubin Negative Negative Urine Glucose Negative Negative Urine White Blood Cell Trace(0-5/hpf) Absent Urine Red Blood Cell Trace(0-2/hpf) Absent Urine Bacteria Absent Absent CBC Auto Diff 05/10/2017 [facility] White Blood 7.0 10^3/uL N 3.5-10.[address] [place] [address] [phone] Red Blood Count 4.57 10^6/uL N 4.0-5.4 Hemoglobin 13.2 g/dL N 12.0-16.0 Hematocrit 40 % N 35-47 Mean Corpuscular Volume 87 fL N 80-97 Mean Corpuscular Hemoglobin 29 pg N 27-31 Mean Corpuscular HGB Conc 33 g/dL N 31-36 Red Cell Distribution Width 16 % High 10.5-15 Platelet Count 283 10^3/uL N 150-450 Mean Platelet Volume 10 um3 N 7.4-10.4 Abs Neutrophils 5.5 10^3/uL N 1.5-7.7 Abs Lymphocytes 0.8 10^3/uL Low 1.0-4.8 Abs Monocytes 0.5 10^3/uL N 0-0.8 Abs Eosinophils 0.1 10^3/uL N 0-0.6 Abs Basophils 0.1 10^3/uL N 0-0.2 Abs Nucleated RBC 0 10^3/uL Granulocyte % 79.1 % N 38-83 Lymphocyte % 11.9 % Low 25-47 Monocyte % 6.7 % N 1-9 Eosinophil % 1.5 % N 0-6 Basophil % 0.8 % N 0-2 Nucleated Red Blood Cells % 0 Comp Metabolic Panel 05/10/2017 [facility] Sodium 131 mmol/L Low 133-[address] [place] [address] [phone] Potassium 3.8 mmol/L N 3.5-5.0 Chloride 96 mmol/L Low 101-111 Co2 Carbon Dioxide 25 mmol/L N 22-32 Anion Gap 10 mmol/L N 2-11 Glucose 99 mg/dL N 70-100 Blood Urea Nitrogen 13 mg/dL N 6-24 Creatinine 0.94 mg/dL N 0.51-0.95 BUN/Creatinine Ratio 13.8 N 8-20 Calcium 10.0 mg/dL N 8.6-10.3 Total Protein 7.9 g/dL N 6.4-8.9 Albumin 4.0 g/dL N 3.2-5.2 Globulin 3.9 g/dL N 2-4 Albumin/Globulin Ratio 1.0 N 1-3 Total Bilirubin 0.70 mg/dL N 0.2-1.0 Alkaline Phosphatase 172 U/L High 34-104 Alt 28 U/L N 7-52 Ast 19 U/L N 13-39 Egfr Non- 57.7 >60 Egfr 74.3 >60 61 Laboratory test 05/07/2017 [facility] Lyme Disease Negative Negative [address] [place] [address] [phone] C Reactive Protein 20.86 mg/L High < 5.00 63 Erythrocyte Sed Rate 41 mm/Hr High 0-40 CBC Auto Diff 05/07/2017 [facility] White Blood 7.5 10^3/uL N 3.5-10.[address] [place] [address] [phone] Red Blood Count 4.21 10^6/uL N 4.0-5.4 Hemoglobin 12.1 g/dL N 12.0-16.0 Hematocrit 37 % N 35-47 Mean Corpuscular Volume 88 fL N 80-97 Mean Corpuscular Hemoglobin 29 pg N 27-31 Mean Corpuscular HGB Conc 33 g/dL N 31-36 Red Cell Distribution Width 16 % High 10.5-15 Platelet Count 209 10^3/uL N 150-450 Mean Platelet Volume 11 um3 High 7.4-10.4 Abs Neutrophils 5.7 10^3/uL N 1.5-7.7 Abs Lymphocytes 0.9 10^3/uL Low 1.0-4.8 Abs Monocytes 0.6 10^3/uL N 0-0.8 Abs Eosinophils 0.2 10^3/uL N 0-0.6 Abs Basophils 0 10^3/uL N 0-0.2 Abs Nucleated RBC 0.01 10^3/uL Granulocyte % 76.3 % N 38-83 Lymphocyte % 11.9 % Low 25-47 Monocyte % 8.4 % N 1-9 Eosinophil % 3.0 % N 0-6 Basophil % 0.4 % N 0-2 Nucleated Red Blood Cells % 0.1 CBC Auto Diff 05/05/2017 [facility] White Blood 7.0 10^3/uL N 3.5-10.[address] [place] [address] [phone] Red Blood Count 4.34 10^6/uL N 4.0-5.4 Hemoglobin 12.6 g/dL N 12.0-16.0 Hematocrit 38 % N 35-47 Mean Corpuscular Volume 87 fL N 80-97 Mean Corpuscular Hemoglobin 29 pg N 27-31 Mean Corpuscular HGB Conc 33 g/dL N 31-36 Red Cell Distribution Width 16 % High 10.5-15 Platelet Count 198 10^3/uL N 150-450 64 Mean Platelet Volume 11 um3 High 7.4-10.4 Abs Neutrophils 5.6 10^3/uL N 1.5-7.7 Abs Lymphocytes 0.6 10^3/uL Low 1.0-4.8 Abs Monocytes 0.6 10^3/uL N 0-0.8 Abs Eosinophils 0.1 10^3/uL N 0-0.6 Abs Basophils 0.1 10^3/uL N 0-0.2 Abs Nucleated RBC 0 10^3/uL Granulocyte % 79.8 % N 38-83 Lymphocyte % 8.6 % Low 25-47 Monocyte % 8.6 % N 1-9 Eosinophil % 1.7 % N 0-6 Basophil % 1.3 % N 0-2 Nucleated Red Blood Cells % 0 Laboratory test 05/05/2017 [facility] Erythrocyte Sed 51 mm/Hr High 0-[address] [place] [address] [phone] Comp Metabolic 05/05/2017 [facility] Sodium 131 Low 133-[address] mmol/[place] [address] [phone] Potassium 3.8 mmol/L N 3.5-5.0 Chloride 95 mmol/L Low 101-111 Co2 Carbon Dioxide 30 mmol/L N 22-32 Anion Gap 6 mmol/L N 2-11 Glucose 98 mg/dL N 70-100 Blood Urea Nitrogen 17 mg/dL N 6-24 Creatinine 1.02 mg/dL High 0.51-0.95 BUN/Creatinine Ratio 16.7 N 8-20 Calcium 9.0 mg/dL N 8.6-10.3 Total Protein 6.6 g/dL N 6.4-8.9 Albumin 3.6 g/dL N 3.2-5.2 Globulin 3.0 g/dL N 2-4 Albumin/Globulin Ratio 1.2 N 1-3 Total Bilirubin 0.50 mg/dL N 0.2-1.0 Alkaline Phosphatase 209 U/L High 34-104 Alt 53 U/L High 7-52 Ast 26 U/L N 13-39 Egfr Non- 52.5 >60 Egfr 67.6 >60 65 Laboratory test 05/05/2017 [facility] C Reactive 48.46 mg/L High < 5.00 [address] [place] [address] [phone] Rapid Influenza 04/29/2017 [facility] Influenza A NEGATIVE N Negative 67 A & B Molecular [address] [place] [address] [phone] Influenza B Molecular NEGATIVE N Negative CBC Auto Diff 04/29/2017 [facility] White Blood 6.2 10^3/uL N 3.5-10.[address] [place] [address] [phone] Red Blood Count 4.50 10^6/uL N 4.0-5.4 Hemoglobin 13.0 g/dL N 12.0-16.0 Hematocrit 39 % N 35-47 Mean Corpuscular Volume 87 fL N 80-97 Mean Corpuscular Hemoglobin 29 pg N 27-31 Mean Corpuscular HGB Conc 33 g/dL N 31-36 Red Cell Distribution Width 16 % High 10.5-15 Platelet Count 133 10^3/uL Low 150-450 Mean Platelet Volume 11 um3 High 7.4-10.4 Abs Neutrophils 5.4 10^3/uL N 1.5-7.7 Abs Lymphocytes 0.4 10^3/uL Low 1.0-4.8 Abs Monocytes 0.3 10^3/uL N 0-0.8 Abs Eosinophils 0 10^3/uL N 0-0.6 Abs Basophils 0 10^3/uL N 0-0.2 Abs Nucleated RBC 0 10^3/uL N Granulocyte % 87.0 % High 38-83 Lymphocyte % 7.2 % Low 25-47 Monocyte % 5.4 % N 1-9 Eosinophil % 0.1 % N 0-6 Basophil % 0.3 % N 0-2 Nucleated Red Blood Cells % 0 N Laboratory test 04/29/2017 [facility] Magnesium 2.0 mg/dL N 1.9-2.7 finding [address] [place] [address] [phone] Lipase < 10 U/L Low 11.0-82.0 Creatine Kinase(CK) 53 U/L N 10-223 C Reactive Protein 68.59 mg/L High < 5.00 68 Troponin-I (TnI) 0.01 ng/mL N <0.04 CKMB 04/29/2017 [facility] CKMB ng/mL 1.8 ng/mL N 0.6-6.3 [address] [place] [address] [phone] Comp Metabolic 04/29/2017 [facility] Sodium 130 mmol/L Low 133 -145 Panel [address] [place] [address] [phone] Potassium 3.7 mmol/L N 3.5-5.0 Chloride 99 mmol/L Low 101-111 Co2 Carbon Dioxide 24 mmol/L N 22-32 Anion Gap 7 mmol/L N 2-11 Glucose 132 mg/dL High 70-100 Blood Urea Nitrogen 14 mg/dL N 6-24 Creatinine 1.07 mg/dL High 0.51-0.95 BUN/Creatinine Ratio 13.1 N 8-20 Calcium 9.0 mg/dL N 8.6-10.3 Total Protein 6.8 g/dL N 6.4-8.9 Albumin 3.7 g/dL N 3.2-5.2 Globulin 3.1 g/dL N 2-4 Albumin/Globulin Ratio 1.2 N 1-3 Total Bilirubin 0.50 mg/dL N 0.2-1.0 Alkaline Phosphatase 156 U/L High 34-104 Alt 113 U/L High 7-52 Ast 78 U/L High 13-39 Egfr Non- 49.7 N >60 Egfr 63.9 N >60 69 Laboratory test 04/29/2017 [facility] TSH (Thyroid 1.62 N 0.34 -5.[address] Stim Horm) mcIU/[place] [address] [phone] Laboratory test 04/29/2017 [facility] Rapid SEE RESULT [address] [place] [address] Antigen [phone] Inr/Protime 04/29/2017 [facility] Inr 1.03 N 0.89-1.[address] [place], [place] [address] [phone] Laboratory test 04/29/2017 [facility] Partial 19.7 Low 26.0- 36.[address] [place] [address] PTT [phone] Lactic Acid 1.7 mmol/L N 0.5-2.0 71 B-Type Natriuretic Peptide BNP 150 pg/mL High 72 Urinalysis Profile 04/29/2017 [facility] Urine Color Yellow N [address] [place] [address] [phone] Urine Appearance Clear N Urine Specific [place] 1.011 N 1.010-1.030 Urine pH 6.0 N 5-9 Urine Urobilinogen Negative N Negative Urine Ketones Negative N Negative Urine Protein Negative N Negative Urine Leukocytes Negative N Negative Urine Blood Negative N Negative Urine Nitrite Negative N Negative Urine Bilirubin Negative N Negative Urine Glucose Negative N Negative Ua Routine 04/21/2017 [facility] Ua Specific [place] 1020 Ua PH 5 Ua Color neg. Ua Appera neg. Ua WBC neg. Ua Protein neg. Ua Glucose neg. Ua Ketones neg. Ua Bilirubin neg. Ua Urobilinogen neg. Ua Nitrite neg. Ua Occult Blood neg. CBC Auto Diff 01/09/2017 [facility] White Blood 6.9 10^3/uL N 3.5-10.[address] [place] [address] [phone] Red Blood Count 4.44 10^6/uL N 4.0-5.4 Hemoglobin 13.2 g/dL N 12.0-16.0 Hematocrit 41 % N 35-47 Mean Corpuscular Volume 92 fL N 80-97 Mean Corpuscular Hemoglobin 30 pg N 27-31 Mean Corpuscular HGB Conc 32 g/dL N 31-36 Red Cell Distribution Width 16 % High 10.5-15 Platelet Count 159 10^3/uL N 150-450 Mean Platelet Volume 12 um3 High 7.4-10.4 Abs Neutrophils 4.9 10^3/uL N 1.5-7.7 Abs Lymphocytes 1.4 10^3/uL N 1.0-4.8 Abs Monocytes 0.5 10^3/uL N 0-0.8 Abs Eosinophils 0.1 10^3/uL N 0-0.6 Abs Basophils 0 10^3/uL N 0-0.2 Abs Nucleated RBC 0 10^3/uL N Granulocyte % 71.5 % N 38-83 Lymphocyte % 20.5 % Low 25-47 Monocyte % 6.9 % N 1-9 Eosinophil % 0.9 % N 0-6 Basophil % 0.2 % N 0-2 Nucleated Red Blood Cells % 0.1 N Laboratory 01/09/2017 [facility] TSH (Thyroid Stim 2.04 N 0.34 -5.60 test finding [facility] Horm) mcIU/[place] [address] [phone] Laboratory 12/08/2016 [facility] Magnesium 2.2 mg/dL N 1.9- 2.7 test [address] [facility] [place] [address] [phone] Lipid Profile 12/01/2016 [facility] Triglycerides 59 mg/dL N 73 (Trig/Chol/HDL [facility] ) [place] [address] [phone] Cholesterol 163 mg/dL N 74 HDL Cholesterol 62.3 mg/dL N 75 LDL Cholesterol 89 mg/dL N 76 Comp Metabolic Panel 12/01/2016 [facility] Sodium 137 mmol/L N 133-[address] [place] [address] [phone] Potassium 4.4 mmol/L N 3.5-5.0 Chloride 104 mmol/L N 101-111 Co2 Carbon Dioxide 26 mmol/L N 22-32 Anion Gap 7 mmol/L N 2-11 Glucose 89 mg/dL N 70-100 Creatinine 1.13 mg/dL High 0.51-0.95 Calcium 9.2 mg/dL N 8.6-10.3 Total Protein 6.3 g/dL Low 6.4-8.9 Albumin 4.0 g/dL N 3.2-5.2 Globulin 2.3 g/dL N 2-4 Albumin/Globulin Ratio 1.7 N 1-3 Total Bilirubin 0.50 mg/dL N 0.2-1.0 Alkaline Phosphatase 66 U/L N 34-104 Alt 14 U/L N 7-52 Ast 21 U/L N 13-39 Egfr Non- 46.7 N >60 Egfr 60.0 N >60 77 Blood Urea Nitrogen 20 mg/dL N 6-24 BUN/Creatinine Ratio 17.7 N 8-20 CBC Auto Diff 09/23/2016 [facility] White Blood 7.5 10^3/uL N 3.5-10.[address] [place] [address] [phone] Red Blood Count 4.31 10^6/uL N 4.0-5.4 Hemoglobin 12.5 g/dL N 12.0-16.0 Hematocrit 38 % N 35-47 Mean Corpuscular Volume 89 fL N 80-97 Mean Corpuscular Hemoglobin 29 pg N 27-31 Mean Corpuscular HGB Conc 33 g/dL N 31-36 Red Cell Distribution Width 16 % High 10.5-15 Platelet Count 166 10^3/uL N 150-450 Mean Platelet Volume 11 um3 High 7.4-10.4 Abs Neutrophils 5.5 10^3/uL N 1.5-7.7 Abs Lymphocytes 1.4 10^3/uL N 1.0-4.8 Abs Monocytes 0.5 10^3/uL N 0-0.8 Abs Eosinophils 0.1 10^3/uL N 0-0.6 Abs Basophils 0 10^3/uL N 0-0.2 Abs Nucleated RBC 0 10^3/uL N Granulocyte % 73.8 % N 38-83 Lymphocyte % 18.4 % Low 25-47 Monocyte % 6.4 % N 1-9 Eosinophil % 1.0 % N 0-6 Basophil % 0.4 % N 0-2 Nucleated Red Blood Cells % 0 N Laboratory 09/23/2016 [facility] TSH (Thyroid 2.94 N 0.34- 5.60 test finding [address] Stim Horm) mcIU/[place] [address] [phone] Laboratory 07/29/2016 [facility] Surgical SEE RESULT 78, 79 test finding [address] Pathology BELOW [place], [place] [id number] [phone] Laboratory 04/17/2016 [facility] Surgical SEE RESULT 80, 81 test finding [address] [place] [address] Order [phone] Laboratory 04/17/2016 [facility] Clotest SEE RESULT 82, 83 test finding [address] [place] [address] [phone] Laboratory 03/19/2016 [facility] Ferritin 58.9 ng/mL N 11-307 test finding [address] [place], [place] [address] [phone] Iron & Iron 03/19/2016 [facility] Iron 94 g/dL N 50-[address] [place] [address] [phone] Unsaturated Iron Binding 277 g/dL N Total Iron Binding Capacity 371 g/dL N 250-450 % Iron Saturation 25 % N 15-55 CBC Auto Diff 03/19/2016 [facility] White Blood 4.8 10^3/uL N 3.5-10.[address] [place] [address] [phone] Red Blood Count 4.19 10^6/uL N 4.0-5.4 Hemoglobin 12.3 g/dL N 12.0-16.0 Hematocrit 38 % N 35-47 Mean Corpuscular Volume 90 fL N 80-97 Mean Corpuscular Hemoglobin 29 pg N 27-31 Mean Corpuscular HGB Conc 33 g/dL N 31-36 Red Cell Distribution Width 16 % High 10.5-15 Platelet Count 177 10^3/uL N 150-450 Mean Platelet Volume 11 um3 High 7.4-10.4 Abs Neutrophils 3.0 10^3/uL N 1.5-7.7 Abs Lymphocytes 1.3 10^3/uL N 1.0-4.8 Abs Monocytes 0.4 10^3/uL N 0-0.8 Abs Eosinophils 0.1 10^3/uL N 0-0.6 Abs Basophils 0 10^3/uL N 0-0.2 Abs Nucleated RBC 0 10^3/uL N Granulocyte % 63.4 % N 38-83 Lymphocyte % 26.4 % N 25-47 Monocyte % 7.6 % N 1-9 Eosinophil % 2.0 % N 0-6 Basophil % 0.6 % N 0-2 Nucleated Red Blood Cells % 0 N Creatinine 01/16/2016 [facility] Creatinine 0.99 mg/dL High 0.51-0.95 [address] [place] [address] [phone] Egfr Non- 54.5 N >60 Egfr 70.1 N >60 84 Comp Metabolic Panel 01/16/2016 [facility] Sodium 135 mmol/L N 133-145 [address] [place] [address] [phone] Potassium 4.3 mmol/L N 3.5-5.0 Chloride 101 mmol/L N 101-111 Co2 Carbon Dioxide 26 mmol/L N 22-32 Anion Gap 8 mmol/L N 2-11 Glucose 101 mg/dL High 70-100 Blood Urea Nitrogen 18 mg/dL N 6-24 Creatinine 0.99 mg/dL High 0.51-0.95 BUN/Creatinine Ratio 18.2 N 8-20 Calcium 9.1 mg/dL N 8.6-10.3 Total Protein 6.3 g/dL Low 6.4-8.9 Albumin 3.9 g/dL N 3.2-5.2 Globulin 2.4 g/dL N 2-4 Albumin/Globulin Ratio 1.6 N 1-3 Total Bilirubin 0.40 mg/dL N 0.2-1.0 Alkaline Phosphatase 62 U/L N 34-104 Alt 13 U/L N 7-52 Ast 19 U/L N 13-39 Egfr Non- 54.5 N >60 Egfr 70.1 N >60 85 Iron & Iron Binding 01/16/2016 [facility] Iron 47 g/dL Low 50-212 [address] [place] [address] [phone] Unsaturated Iron Binding 332 g/dL N Total Iron Binding Capacity 379 g/dL N 250-450 % Iron Saturation 12 % Low 15-55 CBC Auto Diff 01/16/2016 [facility] White Blood 4.7 10^3/uL N 3.5-10.[address] [place] [address] [phone] Red Blood Count 4.52 10^6/uL N 4.0-5.4 Hemoglobin 13.3 g/dL N 12.0-16.0 Hematocrit 40 % N 35-47 Mean Corpuscular Volume 89 fL N 80-97 Mean Corpuscular Hemoglobin 29 pg N 27-31 Mean Corpuscular HGB Conc 33 g/dL N 31-36 Red Cell Distribution Width 15 % N 10.5-15 Platelet Count 148 10^3/uL Low 150-450 Mean Platelet Volume 12 um3 High 7.4-10.4 Abs Neutrophils 3.1 10^3/uL N 1.5-7.7 Abs Lymphocytes 1.1 10^3/uL N 1.0-4.8 Abs Monocytes 0.4 10^3/uL N 0-0.8 Abs Eosinophils 0 10^3/uL N 0-0.6 Abs Basophils 0 10^3/uL N 0-0.2 Abs Nucleated RBC 0.01 10^3/uL N Granulocyte % 66.2 % N 38-83 Lymphocyte % 24.1 % Low 25-47 Monocyte % 8.5 % N 1-9 Eosinophil % 0.8 % N 0-6 Basophil % 0.4 % N 0-2 Nucleated Red Blood Cells % 0.2 N Laboratory test 01/16/2016 [facility] TSH (Thyroid 2.04 mcIU/mL N 0.34-5.[address] Stim Horm) [place] [address] [phone] Lyme Disease Serology Negative N Negative 86 Comp Metabolic Panel 01/16/2016 [facility] Sodium 132 mmol/L Low 133-[address] [place] [address] [phone] Potassium 3.6 mmol/L N 3.5-5.0 Chloride 97 mmol/L Low 101-111 Co2 Carbon Dioxide 22 mmol/L N 22-32 Anion Gap 13 mmol/L High 2-11 Glucose 111 mg/dL High 70-100 Blood Urea Nitrogen 16 mg/dL N 6-24 Creatinine 1.09 mg/dL High 0.51-0.95 BUN/Creatinine Ratio 14.7 N 8-20 Calcium 9.5 mg/dL N 8.6-10.3 Total Protein 7.0 g/dL N 6.4-8.9 Albumin 4.1 g/dL N 3.2-5.2 Globulin 2.9 g/dL N 2-4 Albumin/Globulin Ratio 1.4 N 1-3 Total Bilirubin 0.60 mg/dL N 0.2-1.0 Alkaline Phosphatase 64 U/L N 34-104 Alt 14 U/L N 7-52 Ast 20 U/L N 13-39 Egfr Non- 48.8 N >60 Egfr 62.8 N >60 87 Laboratory test finding 01/16/2016 [facility] Lipase 23 U/L N 11.0-82.[address] [place] [address] [phone] C Reactive Protein 2.19 mg/L N < 5.00 88 CBC Auto Diff 01/16/2016 [facility] White Blood 5.4 10^3/uL N 3.5-10.[address] [place] [address] [phone] Red Blood Count 4.56 10^6/uL N 4.0-5.4 Hemoglobin 13.0 g/dL N 12.0-16.0 Hematocrit 40 % N 35-47 Mean Corpuscular Volume 88 fL N 80-97 Mean Corpuscular Hemoglobin 29 pg N 27-31 Mean Corpuscular HGB Conc 33 g/dL N 31-36 Red Cell Distribution Width 15 % N 10.5-15 Platelet Count 149 10^3/uL Low 150-450 Mean Platelet Volume 11 um3 High 7.4-10.4 Abs Neutrophils 3.2 10^3/uL N 1.5-7.7 Abs Lymphocytes 1.6 10^3/uL N 1.0-4.8 Abs Monocytes 0.5 10^3/uL N 0-0.8 Abs Eosinophils 0.1 10^3/uL N 0-0.6 Abs Basophils 0 10^3/uL N 0-0.2 Abs Nucleated RBC 0 10^3/uL N Granulocyte % 60.2 % N 38-83 Lymphocyte % 29.0 % N 25-47 Monocyte % 9.0 % N 1-9 Eosinophil % 1.1 % N 0-6 Basophil % 0.7 % N 0-2 Nucleated Red Blood Cells % 0.1 N Laboratory 01/16/2016 [facility] Lactic Acid 2.4 High 0.5-2.0 89 test finding [address] mmol/[place] [address] [phone] Laboratory 01/16/2016 [facility] Blood Urea 18 mg/dL N 6-24 test finding [address] [place] [address] [phone] Lipid Profile 12/11/2015 [facility] Triglycerides 66 mg/dL N 90 (Trig/Chol/HDL [address] ) [place] [address] [phone] Cholesterol 151 mg/dL N 91 HDL Cholesterol 55.7 mg/dL N 92 LDL Cholesterol 82 mg/dL N 93 Comp Metabolic Panel 12/11/2015 [facility] Sodium 138 mmol/L N 133-[address] [place] [address] [phone] Potassium 4.1 mmol/L N 3.5-5.0 Chloride 104 mmol/L N 101-111 Co2 Carbon Dioxide 27 mmol/L N 22-32 Anion Gap 7 mmol/L N 2-11 Glucose 86 mg/dL N 70-100 Blood Urea Nitrogen 18 mg/dL N 6-24 Creatinine 1.10 mg/dL High 0.51-0.95 BUN/Creatinine Ratio 16.4 N 8-20 Calcium 9.4 mg/dL N 8.6-10.3 Total Protein 6.6 g/dL N 6.4-8.9 Albumin 4.3 g/dL N 3.2-5.2 Globulin 2.3 g/dL N 2-4 Albumin/Globulin Ratio 1.9 N 1-3 Total Bilirubin 0.60 mg/dL N 0.2-1.0 Alkaline Phosphatase 53 U/L N 34-104 Alt 12 U/L N 7-52 Ast 20 U/L N 13-39 Egfr Non- 48.3 N >60 Egfr 62.1 N >60 94 Ua Routine 07/31/2015 [facility] Ua Specific [place] 1.010 Ua PH 6 Ua Color yellow Ua Appera clear Ua WBC neg Ua Protein neg Ua Glucose neg Ua Ketones neg Ua Bilirubin neg Ua Urobilinogen neg Ua Nitrite neg Ua Occult Blood neg Laboratory test 07/31/2015 [facility] Blood Urea 20 mg/dL N 6- [address] [place] [address] [phone] Creatinine 07/31/2015 [facility] Creatinine 1.03 mg/dL High 0.51-0.[address] [place] [address] [phone] Egfr Non- 52.2 N >60 Egfr 67.2 N >60 95 Urinalysis Profile 07/31/2015 [facility] Urine Color Straw N [address] [place] [address] [phone] Urine Appearance Clear N Urine Specific [place] 1.009 Low 1.010-1.030 Urine pH 6.0 N 5-9 Urine Urobilinogen Negative N Negative Urine Ketones Negative N Negative Urine Protein Negative N Negative Urine Leukocytes Trace Abnormal Negative Urine Blood Negative N Negative Urine Nitrite Negative N Negative Urine Bilirubin Negative N Negative Urine Glucose Negative N Negative Urine White Blood Cell Absent N Absent Urine Red Blood Cell Trace(0-2/hpf) N Absent Urine Bacteria Absent N Absent Urine Squamous Epithelial Cell Present Abnormal Absent Ua And Culture 07/31/2015 [facility] Urine Culture And SEE RESULT [address] [address] [phone] Laboratory test 05/01/2015 [facility] Erythrocyte Sed 13 mm/Hr N 0-[address] [place] [address] [phone] CBC Auto Diff 05/01/2015 [facility] White Blood Count 6.2 10^3/ uL N 4.8-[address] 0.8 [place] [address] [phone] Red Blood Count 4.49 10^6/uL N 4.0-5.4 Hemoglobin 13.5 g/dL N 12.0-16.0 Hematocrit 41 % N 35-47 Mean Corpuscular Volume 91 fL N 80-97 Mean Corpuscular Hemoglobin 30 pg N 27-31 Mean Corpuscular HGB Conc 33 g/dL N 31-36 Red Cell Distribution Width 15 % N 10.5-15 Platelet Count 177 10^3/uL N 150-450 Mean Platelet Volume 10 um3 N 7.4-10.4 Abs Neutrophils 4.4 10^3/uL N 1.5-7.7 Abs Lymphocytes 1.2 10^3/uL N 1.0-4.8 Abs Monocytes 0.5 10^3/uL N 0-0.8 Abs Eosinophils 0 10^3/uL N 0-0.6 Abs Basophils 0 10^3/uL N 0-0.2 Abs Nucleated RBC 0 10^3/uL N Granulocyte % 71.3 % N 38-83 Lymphocyte % 19.1 % Low 25-47 Monocyte % 8.2 % N 1-9 Eosinophil % 0.7 % N 0-6 Basophil % 0.7 % N 0-2 Nucleated Red Blood Cells % 0 N Laboratory test 05/01/2015 [facility] CRP High 1.60 mg/L N [address] [place] [address] [phone] Comp Metabolic 11/27/2014 [facility] Sodium 135 mmol/L N 133- 14 [address] [place] [address] [phone] Potassium 4.3 mmol/L N 3.5-5.0 Chloride 103 mmol/L N 101-111 Co2 Carbon Dioxide 26 mmol/L N 22-32 Anion Gap 6 mmol/L N 2-11 Glucose 86 mg/dL N 70-100 Blood Urea Nitrogen 18 mg/dL N 6-24 Creatinine 0.97 mg/dL High 0.51-0.95 BUN/Creatinine Ratio 18.6 N 8-20 Calcium 9.3 mg/dL N 8.6-10.3 Total Protein 6.6 g/dL N 6.4-8.9 Albumin 4.2 g/dL N 3.2-5.2 Globulin 2.4 g/dL N 2-4 Albumin/Globulin Ratio 1.8 N 1-3 Total Bilirubin 0.60 mg/dL N 0.2-1.0 Alkaline Phosphatase 77 U/L N 34-104 Alt 13 U/L N 7-52 Ast 20 U/L N 13-39 Egfr Non- 56.0 N >60 Egfr 72.0 N >60 99 Lipid Profile 11/27/2014 [facility] Triglycerides 60 mg/dL N 100 (Trig/Chol/HDL) [address] [place] [address] [phone] Cholesterol 154 mg/dL N 101 HDL Cholesterol 65.2 mg/dL N 102 LDL Cholesterol 77 mg/dL N 103 Surgical 11/09/2013 [facility] S RUN DATE: [address] 05/22/ <[place] [address] NOTE> [phone] Vitamin D, 25 10/27/2013 [facility] 25-Hydroxy <4.0 ng/mL N Hydroxy [address] Vitamin D2 [place] [address] [phone] 25-Hydroxy Vitamin D3 38 ng/mL N 25-Hydroxy Vitamin D Total 38 ng/mL N 105 Laboratory test 10/27/2013 [facility] Ferritin 25.3 ng/mL N 11 -[address] [place] [address] [phone] CBC Auto Diff 10/27/2013 [facility] White Blood 6.3 10^3/uL N 4.8-10.8 [place] [address] [phone] Red Blood Count 4.28 10^6/uL N 4.0-5.4 Hemoglobin 12.7 g/dL N 12.0-16.0 Hematocrit 38 % N 35-47 Mean Corpuscular Volume 90 fL N 80-97 Mean Corpuscular Hemoglobin 30 pg N 27-31 Mean Corpuscular HGB Conc 33 g/dL N 31-36 Red Cell Distribution Width 16 % High 10.5-15 Platelet Count 184 10^3/uL N 150-450 Mean Platelet Volume 12 um3 High 7.4-10.4 Abs Neutrophils 4.3 10^3/uL N 1.5-7.7 Abs Lymphocytes 1.5 10^3/uL N 1.0-4.8 Abs Monocytes 0.4 10^3/uL N 0-0.8 Abs Eosinophils 0.1 10^3/uL N 0-0.6 Abs Basophils 0 10^3/uL N 0-0.2 Abs Nucleated RBC 0 10^3/uL N Granulocyte % 68.4 % N 38-83 Lymphocyte % 23.2 % Low 25-47 Monocyte % 6.2 % N 1-9 Eosinophil % 1.4 % N 0-6 Basophil % 0.8 % N 0-2 Nucleated Red Blood Cells % 0 N Lipid Profile 10/20/2013 [facility] Triglycerides 59 mg/dL N 106 (Trig/Chol/HDL) [address] [place] [address] [phone] Cholesterol 160 mg/dL N 107 HDL Cholesterol 56.0 mg/dL N 108 LDL Cholesterol 92 mg/dL N 109 Comp Metabolic Panel 10/20/2013 [facility] Sodium 132 mmol/L Low 133-[address] [place] [address] [phone] Potassium 4.5 mmol/L N 3.7-5.6 Chloride 100 mmol/L Low 101-111 Co2 Carbon Dioxide 28 mmol/L N 22-32 Anion Gap 4 mmol/L N 2-11 Glucose 77 mg/dL N 70-100 Blood Urea Nitrogen 21 mg/dL N 6-24 Creatinine 1.05 mg/dL High 0.51-0.95 BUN/Creatinine Ratio 20.0 N 8-20 Calcium 9.2 mg/dL N 8.6-10.3 Total Protein 6.6 g/dL N 6.4-8.9 Albumin 4.2 g/dL N 3.2-5.2 Globulin 2.4 g/dL N 2-4 Albumin/Globulin Ratio 1.8 N 1-3 Total Bilirubin 0.50 mg/dL N 0.2-1.0 Alkaline Phosphatase 77 U/L N 34-104 Alt 15 U/L N 7-52 Ast 21 U/L N 13-39 Egfr Non- 51.2 N >60 Egfr 65.9 N >60 110 Laboratory test 10/20/2013 [facility] TSH (Thyroid 3.34 N 0.34 -5.[address] Stimulating Horm) IU/[place] [address] [phone] Lipid Profile 10/06/2012 [facility] Triglycerides 78 mg/dL 40 -200 (Trig/Chol/HDL) [address] [place] [address] [phone] Cholesterol 180 mg/dL Less than 200 HDL Cholesterol 67 mg/dL High 40-60 111 Cholesterol/HDL Ratio 2.7 Average 1-4.44 LDL Cholesterol 97.4 mg/dL Less Than 100 112 Laboratory test 10/06/2012 [facility] TSH (Thyroid 2.64 0.34- 5.[address] Stimulating miu/[place] [address] Horm) [phone] Comp Metabolic 10/06/2012 [facility] Sodium 139 mmol/L 133- [address] [place] [address] [phone] Potassium 4.3 mmol/L 3.5-5.0 Chloride 104 mmol/L 101-111 Co2 Carbon Dioxide 29.0 mmol/L 22-32 Anion Gap 6.0 mmol/L 2-11 Glucose 85 mg/dL 70-100 Blood Urea Nitrogen 13 mg/dL 6-24 Creatinine 1.10 mg/dL 0.50-1.40 BUN/Creatinine Ratio 11.8 8-20 Calcium 9.6 mg/dL 8.1-9.9 Total Protein 6.3 g/dL 6.2-8.1 Albumin 3.8 g/dL 3.2-5.2 Globulin 2.5 g/dL 2-4 Albumin/Globulin Ratio 1.5 1-3 Total Bilirubin 0.6 mg/dL 0.4-1.5 Alkaline Phosphatase 74 U/L 30-110 Alt 17 U/L 14-54 Ast 21 U/L 12-42 Egfr Non- 48.7 >60 Egfr 62.6 >60 114 Vitamin D, 25 10/06/2012 [facility] 25-Hydroxy Vitamin <4.0 ng/ mL Hydroxy [address] D2 [place] [address] [phone] 25-Hydroxy Vitamin D3 35 ng/mL 25-Hydroxy Vitamin D Total 35 ng/mL 115 Comp Metabolic Panel 05/17/2012 [facility] Sodium 134 mmol/L 133-[address] [place] [address] [phone] Potassium 4.2 mmol/L 3.5-5.0 Chloride 99 mmol/L Low 101-111 Co2 Carbon Dioxide 28.0 mmol/L 22-32 Anion Gap 7.0 mmol/L 2-11 Glucose 95 mg/dL 70-100 Blood Urea Nitrogen 14 mg/dL 6-24 Creatinine 1.10 mg/dL 0.50-1.40 BUN/Creatinine Ratio 12.7 8-20 Calcium 9.5 mg/dL 8.1-9.9 Total Protein 6.4 GM/DL 6.2-8.1 Albumin 4.1 GM/DL 3.2-5.2 Globulin 2.3 GM/DL 2-4 Albumin/Globulin Ratio 1.8 1-3 Total Bilirubin 0.6 mg/dL 0.1-1.0 116 Alkaline Phosphatase 61 U/L 30-110 Alt 19 U/L 14-54 Ast 28 U/L 12-42 Egfr Non- 48.8 >60 Egfr 62.8 >60 117 CBC With 05/17/2012 [facility] White Blood 6.3 10^3/uL 4.8- 10.8 Manual Diff [address] [place] [address] [phone] Red Blood Count 4.31 10^6/uL 4.0-5.4 Hemoglobin 13.2 g/dL 12.0-16.0 Hematocrit 39 % 35-47 Mean Corpuscular Volume 92 fL 80-97 Mean Corpuscular Hemoglobin 31 pg 27-31 Mean Corpuscular HGB Conc 33 g/dL 31-36 Red Cell Distribution Width 15 % 10.5-15 Platelet Count 177 10^3/uL 150-450 Mean Platelet Volume 11 um3 High 7.4-10.4 Abs Neutrophils 3.8 10^3/uL 1.5-7.7 Abs Lymphocytes 1.8 10^3/uL 1.0-4.8 Abs Monocytes 0.5 10^3/uL 0-0.8 Abs Eosinophils 0.1 10^3/uL 0-0.6 Abs Basophils 0 10^3/uL 0-0.2 Abs Nucleated RBC 0 10^3/uL Neutrophil % 56.0 % 38-83 Band % 1.0 % 0-8 Lymphocytes % 33.0 % 25-47 Monocytes % 5.0 % 0-13 Eosinophils % 1.0 % 0-6 Basophil % 0 % 0-2 Reactive Lymph % 4.0 % 0-6 Metamyelocytes % 0 % 0-2 Myelocytes % 0 % 0-1 Promyelocytes % 0 % Blast % 0 % RBC Morphology Normal Normal Arthritis Panel 04/16/2012 [facility] Uric Acid 3.4 mg/dL 2.6 -7.2 [address] [place] [address] [phone] Anti Nuclear Antibody Screen Negative Negative Rheumatoid Factor <15 IU/mL <15 119 Laboratory test 04/16/2012 [facility] Creatine Kinase 82 U/L 0-200 120 finding [address] [place] [address] [phone] Lipid Profile 10/06/2011 [facility] Triglyceride 95 mg/dL 40- 200 (Trig/Chol/HDL) [address] [place] [address] [phone] Cholesterol 173 mg/dL Less Than 200 121 High Density Lipoprotein 68 mg/dL High 40-60 122 Cholesterol/HDL Ratio 2.54 AVERAGE 1-4.44 Low Density Lipoprotein 86 mg/dL Less Than 100 123 Comp Metabolic Panel 10/06/2011 [facility] Sodium 139 mmol/L 135-[address] [place] [address] [phone] Potassium 4.1 mmol/L 3.5-5.0 Chloride 107 mmol/L 101-111 Co2 (Carbon Dioxide) 27.0 mmol/L 22-32 Anion Gap 5.0 mmol/L 2-11 124 Glucose 88 mg/dL 70-100 BUN 12 mg/dL 6-24 Creatinine 1.0 mg/dL 0.50-1.40 One Over Creatinine 1.00 BUN/Creatinine Ratio 12.0 8-20 Calcium 9.0 mg/dL 8.1-9.9 Total Protein 6.2 GM/DL 6.2-8.1 Albumin 3.9 GM/DL 3.2-5.2 Globulin 2.3 GM/DL 2-4 Albumin/Globulin Ratio 1.7 1-3 Bilirubin Total 0.5 mg/dL 0.4-1.5 125 Alkaline Phosphatase 64 U/L 30-110 Alt (SGPT) 15 U/L 14-54 Ast (Sgot) 22 U/L 12-42 eGFR Non- 54.5 > 60 eGFR 70.1 > 60 126 CBC Auto Diff 10/06/2011 [facility] White Blood 4.4 CUMM Low 4.8-10.[address] [place] [address] [phone] Red Cell Count 4.14 CUMM Low 4.2-5.4 Hemoglobin 12.5 g/dL 12.0-16.0 Hematocrit 37 % 35-47 Mean Corpuscular Volume 89 um3 79-97 Mean Corpuscular Hemoglob 30 pg 27-31 Mean Corpuscular HGB Cone 34 g/dL 32-36 Redcell Distribution WDTH 15 % 10.5-15 Platelet Count 172 CUMM 150-450 Mean Platelet Volume 11.8 um3 High 7.4-10.4 Gran % 59.9 % 38-83 Lymph % 30.1 % 25-47 Mononuclear % 5.5 % 1-9 Eosinophil % 3.9 % 0-6 Basophil % 0.6 % 0-2 Abs Lymphs 1.3 1.0-4.8 Abs Mononuclear 0.2 0-0.8 Absolute Neutrophil Count 2.6 1.5-7.7 Abs Eosinophils 0.2 0-0.6 Abs Basophils 0 0-0.2 Vitamin D, 25 10/06/2011 [facility] 25-Hydroxy Vitamin <4.0 ng/ mL () Hydroxy [address] [place] [address] [phone] 25-Hydroxy Vitamin D3 29 ng/mL () 25-Hydroxy Vitamin D Total 29 ng/mL () 127 Vitamin D 1,25 10/06/2011 [facility] Vitamin D, 1,25 42 pg/mL 18-78 128 And Vitamin D,[address] [place] [address] [phone] Laboratory test 10/06/2011 [facility] TSH 3.07 0.34-5.[address] MIU/ML [place], [place] [address] [phone] Hemoglobin/Amanuel 07/08/2011 [facility] Hemoglobin 12.8 g/dL 12.0-16.[address] [place] [address] [phone] Hematocrit 39 % 35-47 Laboratory 05/21/2011 [facility] Throat [address] Culture <SEE NOTE> [place] [address] Full [phone] Comp Metabolic 01/16/2011 [facility] Sodium 133 mmol/L Low [address] [place] [address] 5 [phone] Potassium 4.4 mmol/L 3.5-5.0 Chloride 101 mmol/L 101-111 Co2 (Carbon Dioxide) 25.0 mmol/L 22-32 Anion Gap 7.0 mmol/L 2-11 131 Glucose 117 mg/dL High 70-100 BUN 11 mg/dL 6-24 Creatinine 0.84 mg/dL 0.50-1.40 One Over Creatinine 1.10 BUN/Creatinine Ratio 13.1 8-20 Calcium 9.5 mg/dL 8.1-9.9 Total Protein 6.9 GM/DL 6.2-8.1 Albumin 4.2 GM/DL 3.2-5.2 Globulin 2.7 GM/DL 2-4 Albumin/Globulin Ratio 1.6 1-3 Bilirubin Total 0.8 mg/dL 0.4-1.5 132 Alkaline Phosphatase 68 U/L 30-110 Alt (SGPT) 16 U/L 14-54 Ast (Sgot) 28 U/L 12-42 eGFR Non- 66.8 > 60 eGFR 86.0 > 60 133 CBC Auto Diff 01/16/2011 [facility] White Blood 5.9 CUMM 4.8- 10.[address] [place] [address] [phone] Red Cell Count 4.18 CUMM Low 4.2-5.4 Hemoglobin 12.8 g/dL 12.0-16.0 Hematocrit 38 % 35-47 Mean Corpuscular Volume 90 um3 79-97 Mean Corpuscular Hemoglob 31 pg 27-31 Mean Corpuscular HGB Cone 34 g/dL 32-36 Redcell Distribution WDTH 15 % 10.5-15 Platelet Count 199 CUMM 150-450 Mean Platelet Volume 11.7 um3 High 7.4-10.4 Gran % 75.8 % 38-83 Lymph % 17.9 % Low 25-47 Mononuclear % 5.5 % 1-9 Eosinophil % 0.5 % 0-6 Basophil % 0.3 % 0-2 Abs Lymphs 1.1 1.0-4.8 Abs Mononuclear 0.3 0-0.8 Absolute Neutrophil Count 4.5 1.5-7.7 Abs Eosinophils 0 0-0.6 Abs Basophils 0 0-0.2 134 1 Desirable: <150 Borderline High: 150-199 High: 200-499 Very High: >500 2 Desirable: <200 Borderline High: 200-239 High: >239 3 Low: <40 Desirable: 40-60 High: >60 4 Desirable: <100 Near Optimal: 100-129 Borderline High: 130-159 High: 160-189 Very High: >189 5 REFERENCE VALUE Cutoff: 500 6 REFERENCE VALUE Cutoff: 200 7 REFERENCE VALUE Cutoff: 100 8 REFERENCE VALUE Cutoff: 150 9 ADDITIONAL INFORMATION This report is intended for use in clinical monitoring or management of patients. It is not intended for use in employment-related testing. 10 REFERENCE VALUE Cutoff: 200 mg/L 11 Tylenol 3 12 Metabolite of codeine REFERENCE VALUE Cutoff: 100 13 Trisha Russo, Contin; Also a minor metabolite (10%) of codeine and can be seen in low concentrations (<2,000 ng/mL) with poppy seed ingestion. 14 Metabolite of morphine REFERENCE VALUE Cutoff: 100 15 Metabolite of heroin 16 Lortab, [place], Vicodin; Also a very minor metabolite of codeine and impurity (<1%) of oxycodone. 17 Metabolite of hydrocodone 18 Metabolite of hydrocodone 19 Dilaudid, Exalgo; Also a metabolite of hydrocodone and a minor (<5%) metabolite of morphine. 20 Metabolite of hydromorphone REFERENCE VALUE Cutoff: 100 21 Endocet, Percocet, Oxycontin 22 Metabolite of oxycodone 23 Numorphan, Opana; Also a metabolite of oxycodone. 24 Metabolite of oxymorphone REFERENCE VALUE Cutoff: 100 25 Metabolite of oxymorphone 26 Actiq, Duragesic, Fentora 27 Metabolite of fentanyl 28 Demerol 29 Metabolite of meperidine 30 Narcan 31 Metabolite of naloxone REFERENCE VALUE Cutoff: 100 32 Dolophine 33 Metabolite of methadone 34 Darvon, Darvocet 35 Metabolite of propoxyphene 36 Tradol, Ultram, Ultracet 37 Metabolite of tramadol 38 Nucynta 39 Metabolite of tapentadol 40 Metabolite of tapentadol REFERENCE VALUE Cutoff: 100 41 Buprenex, Suboxone 42 Metabolite of buprenorphine 43 Metabolite of buprenorphine 44 Test detected the presence of tapentadol and two of its metabolites (n-desmethyltapentadol and sskjahiqjr-bvgd-ykownpwzhjj). Suspect use of tapentadol within the past three days. ADDITIONAL INFORMATION This test was developed and its performance characteristics determined by [facility] in a manner consistent with CLIA requirements. This test has not been cleared or approved by the U.S. Food and Drug Administration. Test Performed by: [facility] [address] [place] [address] 45 Because ethnic data is not always readily [...] 15-29 5 Kidney failure <15 (or dialysis) 46 SEE RESULT BELOW Name: ZAMZAM GONZALEZ : [address]: Earle Monahan MD Acct: [id number] Unit: [id number] AGE: 77 Location: [facility] Re03/21/18 SEX: F Status: REG REF SPEC: [id number] IMELDA: 03/21/18-[address] [facility] [address]: Earle Monahan MD REQ: [id number] RECD: 03/22/18 STATUS: RAGHAV PARKER DR: Krystal Stanton SENIOR AUDIT MANAGER _ SOURCE: STOOL SPDESC: ORDERED: Stool Culture, O P: Giar/Crypt Procedure Result Reported Site Stool Culture Final 03/24/18- 1146 ML Result No enteric pathogens isolated Testing for Salmonella, Shigella, Aeromonas, Plesiomonas, Yersinia and Campylobacter are included in a Stool Culture. Vibrio spp not routinely tested for in a stool culture. If testing is desired, please request specifically when placing test order. Sensitivities not routinely performed on stool isolates, as antibiotics may prolong the carriage rate of bacteria. Please contact the microbiology lab if sensitivities are required. Stool Specimen Description Final 03/23/18- 0721 ML Stool Color Brown Stool Form Nonformed Stool Consistency Soft Shiga Toxin 1 2 Final 03/23/18- 1053 ML Organism 1 Negative Shiga Toxin 1 2 Immunochromatographic Assay O P: Giardia/Cryptospor Screen Final 03/23/18- 1101 ML Organism 1 Neg Cryptosporidium/Giardia CONTINUED ON NEXT PAGE DEPARTMENT OF PATHOLOGY, [address] [place] [address] Biju Freeman M.D. Director [facility] # [id number] Patient: ZAMZAM GONZALEZ [id number] (Continued) Specimen: [id number] Collected: 03/21/18 Received: 03/22/18 (Continued) Procedure Result Reported Site O P: Giardia/Cryptospor Screen Final (continued) 03/23/18 110 Giardia and cryptosporidium antigen testing performed by enzyme immunoassay. If patient is immunocompromised or has traveled to or is from a developing country, a full ova and parasite exam with microscopic (OPMIC) is recommended. All samples will be held one month in case full ova and parasite testing is requested. Contact the Microbiology Department at [phone]. TEST LIMITATIONS: As with all diagnostic procedures, the results obtained should be used in conjunction with other clinical information available the physician, including confirmation by another method. Negative results can occur in samples containing antigen below lower limits of detection of the assay. One negative specimen does not rule out the possibility of a parasitic infection. To improve detection it is recommended that three specimens be collected on separate days over a period of not more than seven days. The use of colonic washes, aspirates or other diluted sample types has not been established and could affect the performance of the assay. Stool samples contaminated with an oily or particulate base (eg. Barium, mineral oil etc.) could interfere with the test and are not recommended. * ML - Main Lab . END OF REPORT DEPARTMENT OF PATHOLOGY, [address] [place] [address] Biju Freeman M.D. Director [facility] # [id number] 47 Desirable: <150 Borderline High: 150-199 High: 200-499 Very High: >500 48 Desirable: <200 Borderline High: 200-239 High: >239 49 Low: <40 Desirable: 40-60 High: >60 50 Desirable: <100 Near Optimal: 100-129 Borderline High: 130-159 High: 160-189 Very High: >189 51 Because ethnic data is not always readily [...] 15-29 5 Kidney failure <15 (or dialysis) 52 Normal Range 180 to 914 Indeterminate Range 145 to 180 Deficient Range <145 53 [id number] Would you like to order Trichomonas Vaginalis RNA testing? N 54 SEE RESULT BELOW Name: ZAMZAM GONZALEZ : [address]: Teagan Dooley MD Acct: [id number] Unit: [id number] AGE: 77 Location: [facility] Re09/17/17 SEX: F Status: DEP ER SPEC: [id number] IMELDA: 09/17/17-1330 [facility] [address]: Evelia Boland NP REQ: [id number] RECD: 09/17/17 STATUS: RAGHAV PARKER DR: Teagan Stanton SENIOR AUDIT MANAGER _ SOURCE: VAGINAL SPDESC: ORDERED: Landy,Yeast DNA COMMENTS: [id number] Would you like to order Trichomonas Vaginalis RNA testing? N Procedure Result Reported Site Gardnerella/Yeast: Vaginal DNA Final 09/18/17- 1221 ML Organism 1 Negative Gardnerella Organism 2 Negative Avani The presence of G. vaginalis, although suggestive, is not diagnostic for bacterial vaginosis. Results should be interpreted in conjuction with other clinical and laboratory data available. Women with vaginal discharge should be evaluated for risk factors of cervicitis and pelvic inflammatory disease, toxic shock syndrome (S.aureus), and if present, evaluated for organisms not included in this assay such as N. gonorrhoeae, C. trachomatis, Mobiluncus, Mycoplasma and/or Prevotella. Mixed infections may occur. The performance of this test on patient specimens collected during or immediately after antimicrobial therapy is unknown. The presence or absence of Avani species, or G. vaginalis cannot be used as a test for therapeutic success or failure. CONTINUED ON NEXT PAGE DEPARTMENT OF PATHOLOGY, [address] [place] [address] Biju Freeman M.D. Director [facility] # [id number] Patient: ZAMZAM GONZALEZ [id number] (Continued) Specimen: [id number] Collected: 09/17/17 Received: 09/17/17 (Continued) Procedure Result Reported Site Gardnerella/Yeast: Vaginal DNA Final (continued) 09/18/17- 1221 * ML - Main Lab . END OF REPORT DEPARTMENT OF PATHOLOGY, [address] [place] [address] Biju Freeman M.D. Director [facility] # [id number] 55 Rides Attendant: [id number] 56 Acute inflammation: >10.00 57 Acute inflammation: >10.00 58 Because ethnic data is not always readily [...] 15-29 5 Kidney failure <15 (or dialysis) 59 Low risk: <1.00 Average risk: 1.00-3.00 High risk: >3.00 60 [facility] Severe Sepsis and Septic Shock Management Bundle Measure requires all lactic acids initially measuring >2.0 mmol/L be repeated. 61 Because ethnic data is not always readily [...] 15-29 5 Kidney failure <15 (or dialysis) 62 Serologic response to B. burgdorferi infection is not detected, but cannot rule out early infection during which low or undetectable antibody levels to B. burgdorferi may be present. If clinically indicated, a new serum specimen should be submitted in 7-14 days. Test Performed by: Formerly Named [facility] [address] [place] [address] 63 Acute inflammation: >10.00 64 Consistent with previous results on 04/29/17. 65 Because ethnic data is not always readily [...] 15-29 5 Kidney failure <15 (or dialysis) 66 Acute inflammation: >10.00 67 Rides Attendant: [id number] 68 Acute inflammation: >10.00 69 Because ethnic data is not always readily [...] 15-29 5 Kidney failure <15 (or dialysis) 70 SEE RESULT BELOW Name: ZAMZAM GONZALEZ : [address]: Ilya Cavazos MD Acct: [id number] Unit: [id number] AGE: 76 Location: ED Re04/29/17 SEX: F Status: REG ER SPEC: [id number] IMELDA: 04/29/17 [facility] DR: Ilya Cavazos MD REQ: [id number] RECD: 04/29/17 STATUS: RAGHAV PARKER DR: Krystal Stanton SENIOR AUDIT MANAGER _ SOURCE: [facility] [place] ORDERED: Flu A B Request Procedure Result Reported Site Rapid Influenza A B Request Final 04/29/17- 1440 ML Specimen received for Influenza A/B Molecular testing * ML - MAIN LAB (PSYCHIATRIC1) . END OF REPORT * ML=Testing performed at Main Lab DEPARTMENT OF PATHOLOGY, [address] [place] [address] Biju Freeman M.D. Director [facility] # [id number] 71 [facility] Severe Sepsis and Septic Shock Management Bundle Measure requires all lactic acids initially measuring >2.0 mmol/L be repeated. 72 >100 to <200 pg/mL: likely compensated congestive heart failure (CHF) 200 to 400 pg/mL: likely moderate CHF >400 pg/mL: likely moderate to severe CHF 73 Desirable <150 Borderline high 150-199 High 200-499 Very High >500 74 Desirable <200 Borderline high 200-239 High >239 75 Low <40 Desirable: 40-60 High: >60 76 Desirable: <100 mg/dL Near Optimal: 100-129 mg/dL Borderline High: 130-159 mg/dL High: 160-189 mg/dL Very High: >189 mg/dL 77 Because ethnic data is not always readily [...] 15-29 5 Kidney failure <15 (or dialysis) 78 [id number] 79 SEE RESULT BELOW Name: ZAMZAM GONZALEZ : [address]: Ramin Brady MD Acct: [id number] Unit: [id number] AGE: 75 Location: ENDOC Re07/29/16 SEX: F Status: DEP REF SPEC: [id number] IMELDA: 07/29/16-[address]: Ramin Brady MD REQ: [id number] RECD: 07/29/16-1249 STATUS: REE PARKER DR: Krystal Stanton SENIOR AUDIT MANAGER _ ORDERED: LEVEL IV COMMENTS: [id number] FINAL DIAGNOSIS Small bowel, duodenum, biopsy: -- Small bowel mucosa with normal villous architecture and no significant pathologic abnormality. CLINICAL HISTORY No history given POST-OPERATIVE DIAGNOSIS Esophagus - normal; stomach - no ulcer; duodenum - normal, biopsied. Follow- up biopsy GROSS DESCRIPTION The specimen is received in formalin labeled, Biopsies Duodenum, and consists of two tejada-pink irregular soft tissue fragments measuring 0.2 x 0.1 x 0.1 cm and 0.5 x 0.2 x 0.1 cm, which are submitted entirely in one cassette. Signed (signature on file) Biju Freeman MD 1605 END OF REPORT * ML=Testing performed at Main Lab DEPARTMENT OF PATHOLOGY, [address] [place] [address] Biju Freeman M.D. Director [facility] # [id number] SEE RESULT BELOW Name: ZAMZAM GONZALEZ : [address]: Ramin Brady MD Acct: [id number] Unit: [id number] AGE: 75 Location: ENDOCEC Re04/17/16 SEX: F Status: DEP REF SPEC: [id number] IMELDA: 04/17/16-1045 [facility] [address]: Ramin Brady MD REQ: [id number] RECD: 04/17/161223 STATUS: REE PARKER DR: Krystal Stanton SENIOR AUDIT MANAGER _ ORDERED: [facility], LEVEL IV COMMENTS: [id number] FINAL DIAGNOSIS Stomach, biopsy: -- Gastric oxyntic gland mucosa with diffuse chronic inflammation and focal superficial erosion. -- No active gastritis or ulceration identified. Comment: An immunohistochemical stain for Helicobacter pylori-like organisms was performed with appropriate controls and is negative. CLINICAL HISTORY Abdominal pain POST-OPERATIVE DIAGNOSIS Esophagus - normal; stomach - small body ulcer biopsied, biopsy for H. pylori ; duodenum - normal GROSS DESCRIPTION The specimen is received in formalin labeled, Gastric Ulcer (Biopsy), and consists of a 0.3 x 0.3 x 0.3 cm tejada-pink irregular soft tissue fragment, which is submitted entirely in one cassette. Signed (signature on file) Biju Freeman MD 1139 END OF REPORT * ML=Testing performed at Main Lab DEPARTMENT OF PATHOLOGY, [address] [place] [address] Biju Freeman M.D. Director [facility] # [id number] 82 [id number] 83 SEE RESULT BELOW Name: ZAMZAM GONZALEZ : [address]: Ramin Brady MD Acct: [id number] Unit: [id number] AGE: 75 Location: ENDOCEC Re04/17/16 SEX: F Status: REG REF SPEC: [id number] IMELDA: 04/17/16-1035 [facility] [address]: Ramin Brady MD REQ: [id number] RECD: 04/17/16 STATUS: RAGHAV PARKER DR: Krystal Stanton SENIOR AUDIT MANAGER _ SOURCE: ESPERANZA SANCHEZ [facility] [place] ORDERED: Clotest COMMENTS: [id number] Procedure Result Reported Site Clotest Final 04/18/16852 ML Clotest Negative * ML - [facility] ([facility]) . END OF REPORT * ML=Testing performed at Main Lab DEPARTMENT OF PATHOLOGY, [address] [place] [address] Biju Freeman M.D. Director [facility] # [id number] 84 Because ethnic data is not always readily [...] 15-29 5 Kidney failure <15 (or dialysis) 85 Because ethnic data is not always readily [...] 15-29 5 Kidney failure <15 (or dialysis) 86 Serologic response to B. burgdorferi infection is not detected, but cannot rule out early infection during which low or undetectable antibody levels to B. burgdorferi may be present. If clinically indicated, a new serum specimen should be submitted in 7-14 days. Test Performed by: [place] [address] Automobile Tester: Ilya Faulkner II, M.D., Ph.D. 87 Because ethnic data is not always readily [...] 15-29 5 Kidney failure <15 (or dialysis) 88 Acute inflammation: >10.00 89 Critical Result LACT:2.4 Called to [id number] at: 23:01:51 by:[id number] Read back by:FREDA [facility] Severe Sepsis and Septic Shock Management Bundle Measure requires all lactic acids initially measuring >2.0 mmol/L be repeated. 90 Desirable <150 Borderline high 150-199 High 200-499 Very High >500 91 Desirable <200 Borderline high 200-239 High >239 92 Low <40 Desirable: 40-60 High: >60 93 Desirable: <100 mg/dL Near Optimal: 100-129 mg/dL Borderline High: 130-159 mg/dL High: 160-189 mg/dL Very High: >189 mg/dL 94 Because ethnic data is not always readily [...] 15-29 5 Kidney failure <15 (or dialysis) 95 Because ethnic data is not always readily [...] 15-29 5 Kidney failure <15 (or dialysis) 96 SEE RESULT BELOW Name: ZAMZAM GONZALEZ : [address]: Krystal Stanton NP Acct: [id number] Unit: [id number] AGE: 74 Location: [facility] Re07/31/15 SEX: F Status: REG REF SPEC: [id number] IMELDA: 07/31/15 [facility] [address]: Krystal Stanton NP REQ: [id number] RECD: 07/31/15 STATUS: COMP _ SOURCE: URINE SPDESC: ORDERED: Urine Culture Procedure Result Reported Site Urine Culture Final 08/01/15- 1410 ML No Growth (<1,000 CFU/mL) * ML - MAIN LAB ([facility]) . END OF REPORT * ML=Testing performed at Main Lab DEPARTMENT OF PATHOLOGY, [address] [place] [address] Biju Freeman M.D. Director [facility] # [id number] 97 Low risk: <1.00 Average risk: 1.00-3.00 High risk: >3.00 98 PT IS FASTING 99 Because ethnic data is not always readily [...] 15-29 5 Kidney failure <15 (or dialysis) 100 Desirable <150 Borderline high 150-199 High 200-499 Very High >500 101 Desirable <200 Borderline high 200-239 High >239 102 Low <40 Desirable: 40-60 High: >60 103 Desirable: <100 mg/dL Near Optimal: 100-129 mg/dL Borderline High: 130-159 mg/dL High: 160-189 mg/dL Very High: >189 mg/dL 104 RUN DATE: 11/10/13 [facility] LAB LIVE PAGE 1 RUN TIME: [address] [place], [place] [address] Specimen Inquiry Name: JARETHZAMZAM GUAJARDO : [address]: Mike Orta MD Acct: [id number] Unit: [id number] AGE: 73 Location: OR Re11/09/13 SEX: F Status: REG [facility] [place] [place] SPEC: [id number] IMELDA: 11/09/13- SUBM DR: Mike Orta MD REQ: [id number] RECD: 11/09/131103 STATUS: SOUT _ ORDERED: LEVEL I FINAL DIAGNOSIS Shoulder, left, hardware removal: Foreign body (orthopedic hardware) as described below (Gross diagnosis). PRE-OPERATIVE DIAGNOSIS Foreign body left shoulder. GROSS DESCRIPTION The specimen is received fresh labeled Zamzam Gonzalez, Foreign Body Left Shoulder and consists of a 3.8 x 0.2 cm. circular, silver metallic disc with an eccentric 1.5 x 1.0 cm. black and silver protrusion. There is an eccentric 0.3 cm. circular hole. The following inscription is identified: [employer] Small Stem Protector [id number]. Per established hospital medical staff protocol no tissue is submitted. Gross only. Signed (signature on file) Biju Freeman MD 1320 END OF REPORT * ML=Testing performed at Main Lab DEPARTMENT OF PATHOLOGY, [address] [place] [address] Biju Freeman M.D. Director [facility] # [id number] 105 -- REFERENCE VALUE -- 25-HYDROXY D TOTAL (D2+D3) Optimum levels in the healthy population are 20-50, patients with bone disease may benefit from higher levels within this range. Test Performed by: [address] [address] Automobile Tester: Clay Ricardo III, M.D. 106 Desirable <150 Borderline high 150-199 High 200-499 Very High >500 107 Desirable <200 Borderline high 200-239 High >239 108 Low <40 Desirable: 40-60 High: >60 109 Desirable <100 Near Optimal 100-129 Borderline high 130-159 High 160-189 Very High >189 110 Because ethnic data is not always readily [...] 15-29 5 Kidney failure <15 (or dialysis) 111 HDL Interpretation: Undesirable: High Risk: Less than 40 MG/DL Desirable: Low Risk: Greater than 60 MG/DL 112 LDL Interpretation: Low Risk Optimal Level: LDL Less than 100 MG/DL Near or Above Optimal: LDL 100-129 MG/DL Borderline High Risk: LDL 130-159 MG/DL High Risk: LDL 160-189 MG/DL Very High Risk: LDL Greater than 189 MG/DL 113 PT IS FASTING 114 Because ethnic data is not always readily [...] 15-29 5 Kidney failure <15 (or dialysis) 115 -- REFERENCE VALUE -- 25-HYDROXY D TOTAL (D2+D3) Optimum levels in the normal population are 25-80 Test Performed by: [facility] [address] [address] Automobile Tester: Clay Ricardo III, M.D. 116 A metabolite of Naproxen, O-desmethylnaproxen, has been shown to interfere with the Jendrassik-Newland method for measuring total bilirubin. Samples from patients who have taken Naproxen have shown spurious elevation in total bilirubin levels. 117 Because ethnic data is not always readily [...] 15-29 5 Kidney failure <15 (or dialysis) 118 @spoke to [place]. lav tube was sent - unable to locate @sample. will discuss with IS people concerning this issue 119 Test Performed by: [address] [address] Automobile Tester: Clay Ricardo III, M.D. R 120 @Sample frozen by [id number] at 2235 on 04/19/12. 121 CHOLESTEROL INTERPRETATION: Desirable: Less than 200 MG/DL Borderline-High Risk: 200-239 MG/DL High-Risk: 240 MG/DL and over 122 HDL INTERPRETATION: Undesirable: High Risk: Less than 40 MG/DL Desirable: Low Risk: Greater than 60 MG/DL 123 LDL INTERPRETATION: Low Risk Optimal Level: LDL Less than 100 MG/DL Near or Above Optimal: LDL 100-129 MG/DL Borderline High Risk: LDL 130-159 MG/DL High Risk: LDL 160-189 MG/DL Very High Risk: LDL Greater than 189 MG/DL 124 Anion gap measurement may be of limited value in the presence of any alkalosis, especially in a combined acid base disorder. . 125 A metabolite of Naproxen, O-desmethylnaproxen, has been shown to interfere with the Jendrassik-Eladio method for measuring total bilirubin. Samples from patients who have taken Naproxen have shown spurious elevation in total bilirubin levels. 126 Because ethnic data is not always readily [...] 15-29 5 Kidney failure <15 (or dialysis) 127 -- REFERENCE VALUE -- 25-HYDROXY D TOTAL (D2+D3) Optimum levels in the normal population are 25-80 Test Performed by: [facility] Dpt of Lab Med and Pathology [address] [place] [address] Automobile Tester: Clay Ricardo III, M.D. 128 Test Performed by: [facility] Med [facility] Pathology [address] [place] [address] Automobile Tester: Clay Ricardo III, M.D. 129 AA 07/18/11 130 RUN DATE: 05/24/11 [facility] LIVE PAGE 1 RUN TIME: 1145 Specimen Inquiry RUN USER: INTERFACE Name: ZAMZAM GONZALEZ Status: REG REF Re05/21/11 Age/Sex: 70/F Unit#: [id number] Location: RSP : 39 SPEC #: [id number] IMELDA: 05/21/11 STATUS: COMP REQ #: [id number] RECD: 05/22/11 [facility] [address]: Myra Lundberg MD SOURCE: THROAT ENTR: 05/22/[address]: BEBETO: ORDERED: THROAT CULTURE QUERIES: MEDENT REQUISITION # [id number] ACT WKST: B 05/24/11 #1 Procedure Result Verified Site > THROAT CULTURE FULL Final 05/24/11- 1145 ML NORMAL THROAT TOMEKA FULL THROAT CULTURES ARE CLINICALLY INDICATED TO DETECT THE PRESENCE OF GROUP A STREP, ARCANOBACTERIUM AND YEAST. - [facility] Permit #[id number] [address] [place] [address] DEPARTMENT OF PATHOLOGY, [address] [place] [address] [facility] Permit #[id number] Biju Freeman M.D. Director Edu Ragland M.D. Swatch Paster 131 Anion gap measurement may be of limited value in the presence of any alkalosis, especially in a combined acid base disorder. . 132 A metabolite of Naproxen, O-desmethylnaproxen, has been shown to interfere with the Jendrmalkaik-Newland method for measuring total bilirubin. Samples from patients who have taken Naproxen have shown spurious elevation in total bilirubin levels. 133 Because ethnic data is not always readily [...] 15-29 5 Kidney failure <15 (or dialysis) 134 Lymphopenia % Procedures Date Code Description Status 11/02/2018 70414 Destruction Of Benign Lesions Any Method 1-14 lesions Completed 05/10/2018 [id number] Mammogram Completed 05/08/2017 61012722 Mammogram Completed 05/02/2016 56332538 Mammogram Completed 12/11/2015 069766799 Bone Mineral Density Test Completed 05/01/2015 28966263 Mammogram Completed 05/15/2014 98039877 Mammogram Completed 11/09/2013 07694 Deep Subfascial Or Intramuscular, Shoulder Completed 11/09/2013 94583 Remove Foreign Body Shoulder Deep Completed 10/27/2013 76313 EKG Tracing & Interpretation Completed 08/11/2013 82861 Rad Shoulder Comp, Min. 2 Views Completed 05/11/2013 85545682 Mammogram Completed 02/15/2013 01997349 Colonoscopy Completed 12/21/2012 70272 Rad Shoulder Comp, Min. 2 Views Completed 10/11/2012 78944 EKG Tracing & Interpretation Completed 05/10/2012 21832842 Mammogram Completed 10/14/2011 10188 Rad Exam; Hand Comp Completed 10/02/2011 18875 EKG Tracing & Interpretation Completed 07/18/2011 30451 Arthroplasty,Total Shoulder Replacement (TSR) Completed 07/18/2011 97095 Arthroplasty,Total Shoulder Replacement (TSR) Completed 07/08/2011 23675 Rad Shoulder Comp, Min. 2 Views Completed 07/01/2011 49375 EKG Tracing & Interpretation Completed 05/09/2011 26897149 Mammogram Completed 11/27/2010 75990 Osteotomy Humerus Completed 11/19/2010 62000 ECHO Stress Test Incl Perf Contiuous ekg Monitoring Completed W/Phys Superv 11/13/2010 78802 EKG Tracing & Interpretation Completed 10/29/2010 52424 Rad Shoulder Comp, Min. 2 Views Completed 08/29/2010 100215842 Bone Mineral Density Test Completed 08/20/2010 11574 EKG Tracing & Interpretation Completed 05/08/2010 23836872 Mammogram Completed 06/22/2007 53886395 Colonoscopy Completed Encounters Type Date Location Provider Dx Diagnosis Office Visit 11/02/2018 [facility] Dermatology Brea Becerra, R20.2 Paresthesia of skin 1:10p L82.0 Inflamed seborrheic keratosis L53.8 Other specified erythematous conditions R20.8 Other disturbances of skin sensation L29.8 Other pruritus Office Visit 09/16/2018 Rolan Stanton, R10.84 Generalized 10:40a Medicine - Ccmob N.P. abdominal pain Office Visit 09/02/2018 [facility] Dermatology Brea R20.2 Paresthesia of 11:20a MD Hernan skin Office Visit 07/15/2018 [facility] Laura Stanton, I10 Essential 10:40a Medicine - C[facility] N.P. (primary) hypertension F41.9 Anxiety disorder, unspecified Office Visit 07/01/2018 8:20a Rolan Becerra R20.2 Paresthesia of MD skin Office Visit 06/29/2018 11:40a [facility] Laura Stanton, R21 Rash and other Medicine - Ccmob N.P. nonspecific skin eruption K59.00 Constipation, unspecified N76.3 Subacute and chronic vulvitis I10 Essential (primary) hypertension J06.9 Acute upper respiratory infection, unspecified Office Visit 06/01/2018 1:40p Rolan Stanton, I10 Essential ( primary) Medicine - Ccmob N.P. 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 blood-pressure Ccmob reading, w/o diagnosis of htn K58.2 Mixed irritable bowel syndrome N77.1 Vaginitis, vulvitis and vulvovaginitis in dis classd elswhr R32 Unspecified urinary incontinence Office Visit 12/11/2017 1:40p Rolan Stanton, Z00.00 Encntr for Medicine - Ccmob N.P. general adult medical exam w/o abnormal findings Z12.31 Encntr screen mammogram for malignant neoplasm of breast E78.00 Pure hypercholesterolemia, unspecified G89.29 Other chronic pain K58.2 Mixed irritable bowel syndrome K21.9 Gastro-esophageal reflux disease without esophagitis R53.83 Other fatigue Z23 Encounter for immunization Office Visit 09/21/2017 3:20p [facility] Internal Romelia R03.0 Elevated Eladia Edge M.D. blood-pressure Ccmob reading, w/o diagnosis of htn F41.9 Anxiety disorder, unspecified N77.1 Vaginitis, vulvitis and vulvovaginitis in dis classd elswhr N76.0 Acute vaginitis Office Visit 06/12/2017 10:40a [facility] Internal Romelia R21 Rash and other Medicine - Zachary Edge M.D. nonspecific skin eruption N77.1 Vaginitis, vulvitis and vulvovaginitis in dis classd elswhr Office Visit 05/18/2017 1:40p [facility] Internal Romelia R10.13 Epigastric pain Eladia Edge M.D. Ccmob R21 Rash and other nonspecific skin eruption Office Visit 04/21/2017 2:00p [facility] Internal Krystal Stanton, B37.3 Candidiasis of Medicine - N.P. vulva and vagina Ccmob R35.0 Frequency of micturition Office Visit 04/07/2017 [facility] Internal Krystal Stanton, K21.9 Gastro- esophageal 10:20a Medicine - N.P. reflux disease without Ccmob esophagitis R21 Rash and other nonspecific skin eruption Z12.31 Encntr screen mammogram for malignant neoplasm of breast Office Visit 01/20/2017 1:00p [facility] Internal Nurse Visit A I10 Essential Medicine - (primary) Ccmob hypertension Office Visit 12/08/2016 1:20p [facility] Internal Krystal Stanton, Z00.01 Encounter for Medicine - N[facility]P. [facility] findings I10 Essential (primary) hypertension E78.00 Pure hypercholesterolemia, unspecified G89.29 Other chronic pain G47.62 Sleep related leg cramps K21.9 Gastro-esophageal reflux disease without esophagitis Office Visit 09/22/2016 4:20p [facility] Internal Krystal Stanton, I10 Essential ( primary) Medicine - Ccmob N.P. hypertension B37.3 Candidiasis of vulva and vagina R53.83 Other fatigue Office Visit 06/20/2016 3:20p [facility] Internal Krystal Santiagojignesh, R21 Rash and other Medicine - N.P. nonspecific skin Ccm[facility] eruption Office Visit 06/06/2016 1:20p [facility] Internal Krystal Romy, R92.8 Oth abn and Medicine - N.P. inconclusive Ccmob findings on dx imaging of breast I10 Essential (primary) hypertension R21 Rash and other nonspecific skin eruption Office Visit 01/16/2016 1:00p [facility] Internal Krystal Romy, R10.30 Lower abdominal Medicine - N.P. pain, unspecified Ccmob R53.81 Other malaise Office Visit 01/08/2016 10:20a [facility] Internal Krystal Varn, J06.9 Acute upper Medicine - N.P. respiratory Ccmob infection, unspecified R11.0 Nausea Office Visit 07/31/2015 2:20p [facility] Internal Krystal Stanton, R35.0 Frequency of Medicine - N.P. micturition Ccmob R10.30 Lower abdominal pain, unspecified Office Visit 06/28/2015 11:00a Orthopedic Luther James, Z96.612 Presence of left Services Of MD quesada C.M.A. shoulder joint G89.28 Other chronic postprocedural pain M62.512 Muscle wasting and atrophy, NEC, left shoulder Office Visit 06/04/2015 11:20a [facility] Internal Krystal Varn, I10 Essential ( primary) Medicine - Ccmob N.P. hypertension J01.01 Acute recurrent maxillary sinusitis M25.512 Pain in left shoulder R92.8 Oth abn and inconclusive findings on dx imaging of breast Office Visit 05/22/2015 1:00p [facility] Internal Krystal Stanton, J01.01 Acute recurrent Medicine - Ccmob N.P. maxillary sinusitis Office Visit 05/15/2015 1:20p [facility] Internal Lc Rashid NP J01.90 Acute sinusitis, Medicine - Ccmob unspecified Office Visit 05/01/2015 1:30p Orthopedic Mike Orta M25.512 Pain in left Services Of Mauricio shoulder C.M.A. Office Visit 02/05/2015 11:20a Orthopedic Mike Orta, 719.41 Pain Joint Services Of [facility]Ker[facility] Shoulder Region C.M.A. Office Visit 01/05/2015 1:40p [facility] Internal Lc Rashid, SENIOR AUDIT MANAGER 465.9 URI Upper Medicine - Ccmob Respiratory Infections Acute Unspec Sites Office Visit 12/25/2014 11:00a Orthopedic Mike Orta, 719.41 Pain Joint Services Of M.D. Shoulder Region C.M.A. 719.41 Pain Joint Shoulder Region Office Visit 12/01/2014 10:40a [facility] Internal Krystal Stanton, V70.0 Examination Medicine - N.P. General Medical Ccmob Routine AT [facility] 401.1 Hypertension Benign 272.4 Hyperlipidemia Other Unspec 719.41 Pain Joint Shoulder Region 719.44 Pain Joint Hand 729.82 Cramp Of Limb 793.80 Unspecified Abnormal Mammogram 564.00 Constipation Unspecified V03.82 Streptococcus Pneumoniae Vaccination Spec Other Office Visit 08/29/2014 3:00p Orthopedic Hood Camargo, 845.09 Sprains & Services Of C.M.A. M.D. Strains Ankle Other 845.00 Sprains & Strains Ankle Unspec Site Office Visit 08/08/2014 3:30p Orthopedic Hood Camargo, 845.09 Sprains & Services Of C.M.A. M.D. Strains Ankle Other 845.00 Sprains & Strains Ankle Unspec Site Office Visit 08/01/2014 1:00p [facility] Internal Krystal Stanton, 845.09 Sprains & Medicine - Ccmob N.P. Strains Ankle Other 381.81 Eustachian Tube Dysfunction 845.00 Sprains & Strains Ankle Unspec Site Office Visit 06/12/2014 10:30a Orthopedic Mike Orta, 996.49 Other Mechan Comp Services Of M.D. Other Internal C.M.A. Ortho Device, Implan, Graft Office Visit 06/01/2014 10:00a [facility] Internal Krystal Stanton, 564.00 Constipation Medicine - Ccmob N.P. Unspecified 401.1 Hypertension Benign 719.49 Pain Joint Multiple Sites 611.9 Breast Disorders Unspec Office Visit 10/27/2013 1:20p [facility] Internal Shira Murphy, V70.0 Examination Medicine - Ccmob M.D., FACP General Medical Routine AT Health Care Facility 401.1 Hypertension Benign 272.0 Hypercholesterolemia Pure V76.10 Screening For Malignant Neoplasm Breast 268.9 Vitamin D Deficiency Unspec 244.9 Hypothyroidism Other Unspec 564.00 Constipation Unspecified 726.19 Shoulder Disorders Other Spec 703.9 Nail Diseases Unspec Office Visit 10/07/2013 1:40p [facility] Internal Sid Mccartney 473.1 Sinusitis [facility]FACP Frontal Office Visit 08/11/2013 11:45a Orthopedic Mike Orta 726.19 Shoulder Services Of M.D. Disorders Other C.M.A. Spec Office Visit 12/21/2012 9:00a Orthopedic Mike Orta 726.19 Shoulder Services Of M.D. Disorders Other C.M.A. Spec Office Visit 10/11/2012 10:40a [facility] Internal Shira Murphy, V70.0 Examination [facility] Mart[facility], FACP General Medical Routine AT [facility] Care [facility] 627.9 Menopausal & Postmenopausal Disorder Unspec 401.1 Hypertension Benign 272.0 Hypercholesterolemia Pure V76.10 Screening For Malignant Neoplasm Breast 719.90 Joint Disorder Unspec Site Unspec Office Visit 07/13/2012 10:30a Katherine Orta, 726.19 Shoulder Disorders Services Of M.D. Other Spec C.M.A. Office Visit 05/17/2012 1:20p [facility] Internal Krystal Stanton, V72.84 Examination [facility] N[facility] Preoperative Unspec 366.9 Cataract Unspec 401.1 Hypertension Benign 272.0 Hypercholesterolemia Pure Office Visit 04/09/2012 Orthopedic Mike 726.19 Shoulder Disorders Other 11:00a Services Of Mauricio Orta Spec C.M.A. Office Visit 12/09/2011 Katherine Mckeon 726.19 Shoulder Disorders Other 2:30p Services Of Mauricio Orta Spec C.M.A. Office Visit 11/05/2011 [facility] Internal Shira 272.0 Hypercholesterolemia Pure 2:40p Eladia Murphy M.D., Ccmob FACP 401.1 Hypertension Benign 268.9 Vitamin D Deficiency Unspec 729.1 Myalgia & Myositis Unspec Office Visit 10/14/2011 Orthopedic Amy 782.2 Swelling Mass Or 9:30a Services Of Mauricio Michael Lump Localized C.M.A. Superfical Office Visit 10/02/2011 [facility] Internal Shira Murphy M.D., V70.0 Examination 4:00p [facility] F[facility] General Medical Routine AT [facility] 627.9 Menopausal & Postmenopausal Disorder Unspec V76.10 Screening For Malignant Neoplasm Breast 401.1 Hypertension Benign 272.0 Hypercholesterolemia Pure 780.52 Insomnia Unspecified 285.9 Anemia Unspec 599.89 Urinary Tract Other Spec Disorders 366.10 Cataract Senile Unspec V04.89 Need For Prophylactic Vaccination & Inoculation Other Virus 564.00 Constipation Unspecified Office Visit 07/01/2011 1:00p [facility] Shira Murphy, V72.84 Examination Medicine - M.DKerwin, FACP Preoperative Unspec Ccmob V72.81 Examination Preoperative Cardiovascular V72.84 Examination Preoperative Unspec 726.19 Shoulder Disorders Other Spec 726.19 Shoulder Disorders Other Spec 401.1 Hypertension Benign 401.1 Hypertension Benign 272.0 Hypercholesterolemia Pure 272.0 Hypercholesterolemia Pure V72.84 Examination Preoperative Unspec Office Visit 05/21/2011 DO Not Use Myra Lundberg, 462 Pharyngitis Acute 4:20p Reed Martínez Office Visit 04/08/2011 Orthopedic Services Mike Orta, 733.81 Malunion Of 1:45p Of C.M.AKerwin Martínez Fracture Office Visit 01/22/2011 DO Not Use Shira Murphy, 719.45 Pain Joint Pelvic 10:00a Reed Martínez, FACP Region & Thigh Office Visit 01/13/2011 DO Not Use Shira Murpyh, 550.90 Hernia Inguinal 11:40a Reed Martínez, BLADIMIR W/O Obstruct Or Gangrene Unilateral Unspec 300.00 Anxiety State Unspec Office Visit 11/13/2010 4:00p DO Not Use Shira Murphy, 726.19 Shoulder Reed Martínez, FACP Disorders Other Spec V72.84 Examination Preoperative Unspec Office Visit 10/29/2010 Orthopedic Mike 812.03 FX Humerus Greater 2:30p Services Jomar Orta M.D. Tuberosity Closed C.M.A. Office Visit 10/21/2010 DO Not Use Shira 272.0 Hypercholesterolemia Pure 11:20a Reed Murphy M.D., FACP 401.1 Hypertension Benign 726.19 Shoulder Disorders Other Spec Office Visit 06/11/2010 2:30p DO Not Use Shira Murphy, 401.1 Hypertension Reed Martínez, FACP Benign 272.0 Hypercholesterolemia Pure Office Visit 05/08/2010 DO Not Use Shira Katherine, 401.1 Hypertension 3:45p Reed Martínez, FACP Benign Office Visit 03/28/2010 DO Not Use Romelia 465.9 URI Upper 1:30p Reed Edge M.D. Respiratory Infections Acute Unspec Sites Office Visit 08/13/2009 DO Not Use Shira Katherine, 465.9 URI Upper 10:15a Reed Martínez, FACP Respiratory Infections Acute Unspec Sites 381.4 Otitis Media Acute Or Chronic Nonsuppurative 272.4 Hyperlipidemia Other Unspec Office Visit 07/05/2009 DO Not Use Shira Katherine, 244.9 Hypothyroidism Other 2:00p Reed Martínez, FACP Unspec 401.1 Hypertension Benign V04.81 Need For Prophylactic Vaccination & Inoculation/Influenza Plan of Treatment Future Appointment(s):12/16/2019 1:00 pm - Krystal Stanton N.PKerwin at [facility]07/2019 11:00 am - Krystal Stanton NLindsay at [facility]/01/2019 1:45 pm - Brea Becerra MD at [facility] Tazydkypcoc96/24 /2019 - Krystal Stanton NKerwinP.Z00.00 Encounter for general adult medical examination without abnoComments:For your routine health maintenance: I encourage you to continue with regular exercise and healthy nutrition.Your colonoscopy is up to date. You had this in 2012, you will not need another, barring anything unforeseen.Your Tetanus immunization is up to date. You received this in 2018. It is good for 10 years unless you have a major injury, then it is good for 5 years. You received your Prevnar 13 immunization to prevent the most common strain of pneumonia in 2015. You will not require this again. You have received a Pneumovax immunization today. This is another vaccine to prevent pneumonia. You will not need this again. There is a new shingles vaccine available, Shingrix. This is a series of 2 injections given 2 - 6 months apart. This is available at the pharmacy and I urge you to get this.Immunizations/Injections:Pneumonia [id number] Essential (primary) hypertensionNew Medication:Lisinopril 40 mg - 1 by mouth every dayLisinopril 10 mg - 1 by mouth every dayComments:For your high blood pressure: I have increased your Lisinopril to 40 mg.I would like you to monitoryour blood pressure at home. If your readings at home are consistently higher than 140/90, please call the office.Follow up:HTN f/u 6 mo Medicare Wellness Visit 1 yearE78.00 Pure hypercholesterolemia, unspecifiedComments:Your recent labs to check your cholesterol looked good. I advise you to follow a low cholesterol diet.M25.512 Pain in left shoulderComments:For your shoulder pain: Please continue your current management.K59.00 Constipation, unspecifiedComments:For your constipation:Continue your current management.
[2019-01-10 14:06] VITALS: BP 141/78
--- NOTE | 2019-01-10 14:50 | UC ---
Abdominal Pain Female HPI - HPI Summary HPI Summary: 78 y/o female with long standing history of abdominal pains x years, has been seen by primary physician, GI specilists at [facility] (DR. Ricks), as well as other specialists. States increased pain in lower abdomen with nausea, no vomiting. decreased appetite. no improvement with prescribed meds including omeprazole. Patient would like an answer for her pain, was referred to [place], however unable to make the drive due to age. - recent conoloscopy ~ 1 month ago. no change in symptoms since - Blood work at [facility] ~ 4-6 weeks ago, patient states was normal. - Blood work through DR. Stanton- normal per patient - Muliple stool cultures, hemmoccult negative per patient - History of Current Complaint Chief Complaint: UCAbdominalPain Stated Complaint: ABD PAIN Time Seen by Provider: 01/10/19 14:13 Hx Obtained From: Patient, Family/Bird Cage Assembler - ?: No Onset/Duration: Sudden Onset, Lasting Weeks, Still Present Timing: Constant Severity Currently: Moderate Pain Intensity: 6 Pain Scale Used: 0-10 Numeric Location: Discrete At: RLQ, Discrete At: LLQ Radiates: No Character: Aching, Cramping Aggravating Factor(s): Food, Movement, Deep Breaths Alleviating Factor(s): Nothing Associated Signs and Symptoms: Positive: Negative. Negative: Fever, Cough Allergies/Adverse Reactions: Allergies Allergy/AdvReac Type Severity Reaction Status Date / Time buprenorphine [From Butrans] Allergy Rash Verified 01/10/19 14:06 nickel Allergy Rash Verified 01/10/19 14:06 Penicillins Allergy Rash Verified 01/10/19 14:06 sucralfate [From Carafate] Allergy Rash Verified 01/10/19 14:06 Sulfa (Sulfonamide Allergy Rash Verified 01/10/19 14:06 Antibiotics) PMH/Surg Hx/FS Hx/Imm Hx Previously Healthy: Yes - Surgical History Surgical History: Yes Surgery Procedure, Year, and Place: LEFT SHOULDER SURGERY 06/2010 [facility], left shoulder replacement 2011 [facility], Tonsillectomy, Tubal Ligation - Family History Known Family History: Positive: Hypertension, Non-Contributory - Social History Alcohol Use: None Substance Use Type: None Smoking Status (MU): Former Smoker Type: Cigarettes Amount Used/How Often: 1/2 PPWEEK 25 YRS Have You Smoked in the Last Year: No When Did the Patient Quit Smoking/Using Tobacco: 1990s - Immunization History Most Recent Influenza Vaccination: 03/2017 Most Recent Tetanus Shot: UNK Review of Systems All Other Systems Reviewed And Are Negative: Yes Constitutional: Positive: Negative. Negative: Fever, Chills Gastrointestinal: Positive: Abdominal Pain, Diarrhea - daily x 1 episode,k denies frothy, stinky, floating, oily, Nausea. Negative: Vomiting Physical Exam Triage Information Reviewed: Yes Appearance: Well-Appearing, No Pain Distress, Well-Nourished Vital Signs: Initial Vital Signs Temp 97.6 F 01/10/19 14:02 Pulse 96 01/10/19 14:02 Resp 18 01/10/19 14:02 BP 141/78 01/10/19 14:02 Pulse Ox 99 01/10/19 14:02 Vital Signs Reviewed: Yes Eyes: Positive: Conjunctiva Clear ENT: Positive: Hearing grossly normal Neck: Positive: Supple Abdomen Description: Positive: No Organomegaly, Soft, Bruit, Other: - mild TTP over lower quad b/l. Negative: CVA Tenderness (R), CVA Tenderness (L), Distended, Guarding, Hernia @, Hepatomegaly, Splenomegaly Bowel Sounds: Positive: Present Musculoskeletal Exam: Normal Neurological Exam: Normal Psychological Exam: Normal Skin Exam: Normal Skin: Positive: Other - no hernia palpated Abd Pain Female Course/Dx - Course Course Of Treatment: Due to long-standing history of abdominal pain, with multiple different doctors doing care, continue care with drs. Multiple imaging completed- no further value in repeating imaging today as no change in symptoms from prior imaging/ work up - Continue care with Dr. Ricks and Dr. Stanton for further work up - Zofran given for nausea- script sent if works well and can increase appetite - Daily multi-vitamin to help with energy levels - Increase fluid intake as much as possible to increase energy, prevent dehydration - Discuss with possibility of pancreatic insufficiency as well as possible mesenteric artery occulsion - Differential Dx/Diagnosis Differential Diagnosis: Constipation, Diverticulitis, Pneumonia, Provider Diagnosis: Abdominal pain Discharge - Sign-Out/Discharge Documenting (check all that apply): Patient Departure All imaging exams completed and their final reports reviewed: No Studies - Discharge Plan Condition: Stable Disposition: HOME Prescriptions: Ondansetron ODT TAB* [Zofran 4 MG Odt TAB*] 4 mg PO Q8H PRN #10 tab.odt PRN Reason: Nausea Patient Education Materials: Chronic Abdominal Pain (ED) Referrals: Krystal Stanton NP [Primary Care Provider] - Additional Instructions: - Continue care with Dr. Ricks and Dr. Stanton for further work up - Zofran given for nausea- script sent if works well and can increase appetite - Daily multi-vitamin to help with energy levels - Increase fluid intake as much as possible to increase energy, prevent dehydration - Discuss with possibility of pancreatic insufficiency as well as possible mesenteric artery occulsion - Billing Disposition and Condition Condition: STABLE Disposition: Home
[2019-01-10] MEDS ORDERED: Ondansetron ODT TAB* 4 MG SL ONE (14:51)
== END 2019-01-10 15:03 | disposition home or self-care (01) ==
LOC: UCEAST 13:53
DX: R10.30 Lower abdominal pain, unspecified (principal); Z88.0 Allergy status to penicillin; Z88.2 Allergy status to sulfonamides; Z87.891 Personal history of nicotine dependence
CPT/HCPCS: 99212; A9270-GY; G0463

== ENCOUNTER 2019-01-23 17:25 | Inpatient (IN) | payer MEDICARE ==
[2019-01-23] MEDS ORDERED: NS 0.9% 1000 ML** 1,000 ML IV ONE (19:26)
[2019-01-23] MEDS ORDERED: Ondansetron INJ* 2 MG/ML VIAL IV ONE (19:27)
[2019-01-23] MEDS ORDERED: Dicyclomine CAP* 10 MG PO ONE (19:27)
--- NOTE | 2019-01-23 19:34 | ED ---
Abdominal Pain/Female - HPI Summary HPI Summary: 78 year old F patient presenting to [facility] accompanied by with a chief complaint of abdominal pain since 2 days ago, 01/21/19, rated at 8/10 in severity , per triage. Patient reports nausea, feverish (feeling warm), fatigue, and loss of appetite. Patient reports feeling bad for a while and reports recent diagnosis of Irritable Bowel Syndrome. Patient reports that she has been taking many medications recently but none of them seem to help very much with the abdominal pain. Patient reports trouble with bowel movements (last time was last week) which she is taking medication for but it does not seem to help. Patient denies vomiting, CP, SOB, any leg pain, or ambulation problems. Patient admits to not drinking enough liquids. Patient reports constant pain in shoulder due to replacement surgery in the past. Symptoms aggravated by nothing. Symptoms alleviated by nothing. - History of Current Complaint Chief Complaint: EDLisa Stated Complaint: ABD PAIN/NAUSEA/CONSTIPATION PER PT Time Seen by Provider: 01/23/19 19:19 Hx Obtained From: Patient Onset/Duration: Lasting Days - 2, Still Present Pain Intensity: 8 Pain Scale Used: 0-10 Numeric Aggravating Factor(s): Nothing Alleviating Factor(s): Nothing Associated Signs and Symptoms: Positive: Fever - feels warm, Constipation, Decreased Appetite, Nausea, Other: - denies SOB, leg pain, ambulation problems. Negative: Chest Pain, Vomiting Allergies/Adverse Reactions: Allergies Allergy/AdvReac Type Severity Reaction Status Date / Time buprenorphine [From Butrans] Allergy Rash Verified 01/23/19 17:44 nickel Allergy Rash Verified 01/23/19 17:44 Penicillins Allergy Rash Verified 01/23/19 17:44 sucralfate [From Carafate] Allergy Rash Verified 01/23/19 17:44 Sulfa (Sulfonamide Allergy Rash Verified 01/23/19 17:44 Antibiotics) Home Medications: Home Medications Multivitamin [Multiple Vitamins] 1 tab PO DAILY 01/23/19 [History Confirmed 10/08] PMH/Surg Hx/FS Hx/Imm Hx Endocrine/Hematology History: Denies: Hx Diabetes, Hx Thyroid Disease Cardiovascular History: Reports: Hx Hypercholesterolemia, Hx Hypertension, Other Cardiovascular Problems/Disorders - HI CHOLESTEROL Respiratory History: Denies: Hx Asthma, Hx Chronic Obstructive Pulmonary Disease (COPD) GI History: Reports: Hx Ulcer - many years ago, Other GI Disorders - CONSTIPATION History: Denies: Hx Renal Disease Musculoskeletal History: Reports: Hx Arthritis - SHOULDERS AND BACK, NECK Sensory History: Reports: Hx Cataracts, Hx Contacts or Glasses - GLASSES Denies: Hx Hearing Aid Opthamlomology History: Reports: Hx Cataracts, Hx Contacts or Glasses - GLASSES - Cancer History Cancer Type, Location and Year: Melanoma- Hx Chemotherapy: No Hx Radiation Therapy: No - Surgical History Surgery Procedure, Year, and Place: LEFT SHOULDER SURGERY 06/2010 [facility], left shoulder replacement 2011 [facility], Tonsillectomy, Tubal Ligation Hx Anesthesia Reactions: Yes - NAUSEA Infectious Disease History: No Infectious Disease History: Denies: Hx Hepatitis, Hx Human Immunodeficiency Virus (HIV), Traveled Outside the [place] in Last 30 Days - Family History Known Family History: Positive: Hypertension, Non-Contributory - Social History Alcohol Use: None Substance Use Type: Reports: None Smoking Status (MU): Former Smoker Type: Cigarettes Amount Used/How Often: 1/2 PPWEEK 25 YRS Have You Smoked in the Last Year: No Review of Systems Positive: Fever, Fatigue, Other - loss of appetite Negative: Chest Pain Negative: Shortness Of Breath Gastrointestinal: Other - trouble with bowel movements Positive: Abdominal Pain, Nausea. Negative: Vomiting Positive: Other - denies leg pain, ambulation problems;; reports shoulder pain All Other Systems Reviewed And Are Negative: Yes Physical Exam - Summary Physical Exam Summary: Appearance: Well-appearing, Well-nourished, lying in bed comfortably Skin: Warm, dry, no obvious rash Eyes: sclera anicteric, no conjunctival pallor ENT: mucous membranes moist, pharynx appears normal Neck: Supple, nontender Respiratory: Clear to auscultation, no signs of respiratory distress Cardiovascular: Normal S1, S2. No murmurs. Normal distal pulses in tibial and radial bilaterally. Abdomen: abdomen soft Musculoskeletal: Normal, Strength/ROM Intact Neurological: A&Ox3, awake and alert, mentation is normal, speech is fluent and appropriate Psychiatric: affect is normal, does not appear anxious or depressed Triage Information Reviewed: Yes Vital Signs On Initial Exam: Initial Vitals Temp Pulse Resp BP Pulse Ox 98.9 F 95 12 155/99 99 01/23/19 17:40 01/23/19 17:40 01/23/19 17:40 01/23/19 17:40 01/23/19 17:40 Vital Signs Reviewed: Yes Diagnostics - Vital Signs Vital Signs Temp Pulse Resp BP Pulse Ox 01/23/19 18:26 105 99 01/23/19 18:24 117 177/98 99 01/23/19 17:40 98.9 F 95 12 155/99 99 - Laboratory Result Diagrams: 01/24/19 04:58 01/25/19 05:31 Lab Statement: Any lab studies that have been ordered have been reviewed, and results considered in the medical decision making process. Re-Evaluation - Re-Evaluation First Eval Re-Evaluation Time: 10:35 Comment: Physician discussed plan of care with patient. Abdominal Pain Fem Course/Dx - Course Course Of Treatment: 78 year old F patient presenting to [facility] accompanied by with a chief complaint of abdominal pain since 2 days ago, 01/21/19, rated at 8/10 in severity, per triage. Patient reports nausea, feverish ( feeling warm), fatigue, and loss of appetite. Patient reports feeling bad for a while and reports recent diagnosis of Irritable Bowel Syndrome. Patient reports trouble with bowel movements (last time was last week) which she is taking medication for but it does not seem to help. Patient denies vomiting, CP , SOB, any leg pain, or ambulation problems. Physical exam reveals no abnormalities except abdomen is soft. Blood work at 1936 (01/23/19) shows no abnormalities except for WBC 13.7 H, RDW 16 H, Plt Count 122 L, MPV 10.8 H, Absolute Neuts 12.0 H, Absolute Lymphs 0.6 L, Sodium 132 L, Chloride 99 L, BUN 34 H, Creatinine 2.69 H, and C-Reactive Protein 133.58 H. Blood work at 0458 (01/24/19) shows no abnormalities except for Hgb 11.4 L, Hct 34 L, RDW 16 H, Plt Count 116 L, MPV 11.0 H, Absolute Lymphs 0.8 L, Carbon Dioxide 19 L, BUN 31 H, Creatinine 2.43 H, and Calcium 8.1 L. Urinalysis reveals no abnormalities except for Ur Specific [place] 1.008 L, Urine Protein 1+ (30 mg/dl) A, Urine Blood 2+ A, Ur Leukocyte Esterase 3+ A, Urine WBC 3+(>20/hpf) A, Urine RBC 3+ (> 10/hpf) A, and Ur Transition Epith Cell Present A. Patient was given 0.25 mg clonazepam PO, 5,000 units of heparin sodium, 0.125 mg hyposcyamine PO, saline, 10 mg dicyclomine Hcl PO, and 8 mg ondansetron IV. Physician discusses discharge with patient who agrees to discharge. Patient will be discharged and follow up with primary care physician within 3 days. - Diagnoses Provider Diagnoses: Dehydration - Provider Notifications Discussed Care Of Patient With: Gorge Torres Time Discussed With Above Provider: 10:38 Instructed by Provider To: Admit As Inpatient Discharge - Sign-Out/Discharge Documenting (check all that apply): Patient Departure - admit Patient Received Moderate/Deep Sedation with Procedure: No - Discharge Plan Condition: Fair Disposition: ADMITTED TO [facility] - Billing Disposition and Condition Condition: FAIR Disposition: Admitted to [facility] - Attestation Statements Document Initiated by Oraliae: Yes Documenting Scribe: Juliana Ricks Provider For Whom Renzo is Documenting (Include Credential): Dr. Ed Lynn MD Scribe Attestation: Juliana Bernardo, scribed for Dr. Ed Lynn MD on 01/25/19 at 1806. Scribe Documentation Reviewed: Yes Provider Attestation: The documentation as recorded by the Juliana zamora accurately reflects the service I personally performed and the decisions made by me, Dr. Ed Lynn MD Status of Scribe Document: Viewed
[2019-01-23 19:43] LABS: Urine Appearance Cloudy; Urine Bacteria Absent (Absent); Urine Bilirubin Negative (Negative); Urine Blood 2+ (Negative); Urine Color Yellow; Urine Glucose Negative (Negative); Urine Ketones Negative (Negative); Urine Nitrite Negative (Negative); Urine Protein 1+(30 mg/dL) (Negative); Urine Red Blood Cell 3+(>10/hpf) (Absent); Urine Specific Gravity 1.008 (1.010-1.030); Urine Transitional Epithelial Present (Absent); Urine Urobilinogen Negative (Negative); Urine White Blood Cell 3+(>20/hpf) (Absent)
[2019-01-23 19:45] LABS: ABS Eosinophils 0.2 10^3/ul (0-0.6); ABS Lymphocytes 0.6 10^3/ul (1.0-4.8); ABS Monocytes 0.8 10^3/ul (0-0.8); Eosinophil % 1.7 %; Hematocrit 39 % (35-47); Hemoglobin 13.2 g/dL (12.0-16.0); Lymphocyte % 4.3 %; Mean Corpuscular HGB Conc 34 g/dL (31-36); Mean Corpuscular Hemoglobin 30 pg (27-31); Mean Corpuscular Volume 90 fL (80-97); Mean Platelet Volume 10.8 fL (7.4-10.4); Platelet Count 122 10^3/uL (150-450); Red Blood Count 4.35 10^6 /uL (3.70-4.87); Red Cell Distribution Width 16 % (10-15); White Blood Count 13.7 10^3/uL (3.5-10.8)
[2019-01-23 20:02] LABS: Albumin 3.9 g/dL (3.2-5.2); Albumin/Globulin Ratio 1.1 (1-3); BUN/Creatinine Ratio 12.6 (8-20); C Reactive Protein 133.58 mg/L (<8.01); Calcium 9.3 mg/dL (8.6-10.3); EGFR African American 20.7 (>60); EGFR Non-African American 17.1 (>60); Globulin 3.4 g/dL (2-4); Potassium 3.7 mmol/L (3.5-5.0); Total Bilirubin 0.7 mg/dL (0.2-1.0); Total Protein 7.3 g/dL (6.4-8.9)
[2019-01-23] MEDS ORDERED: NS 0.9% 1000 ML** 2,000 ML IV ONE (20:34)
[2019-01-23] MEDS ORDERED: Hyoscyamine TAB* 0.125 MG PO PRN (22:32)
[2019-01-24] MEDS: NS 0.9% 1000 ML** 1,000 ML IV SCH ×3 (00:10→21:14)
--- NOTE | 2019-01-24 00:36 | HP ---
CC: Krystal Stanton NP; Dr. Gina Lundberg * ADMISSION HISTORY AND PHYSICAL: DATE OF ADMISSION: 01/23/19 TIME OF EVALUATION: 10:40 p.m. PRIMARY CARE PROVIDER: Krystal Stanton NP CHIEF COMPLAINT: Abdominal pain. HISTORY OF PRESENT ILLNESS: This is a 78-year-old female with past medical history of dyslipidemia, has been off medications; hypertension; chronic abdominal pain for which she had multiple workups done in the past according to her including CAT scan, endoscopies, colonoscopies, was noted to have some ulcer disease and was told that she has irritable bowel syndrome, comes in with abdominal pain again at this time started on Thursday night. Pain is rated at 8-9 /10 in intensity and is accompanied by nausea, but no vomiting, and she stated that she has some loose bowel movement when it first started, but has not had a bowel movement yesterday. She denies any UTI symptoms such as burning sensation or pain with urination, but did state that she has some rash around the dean area for which she has seen a director of events and used some compound cream. She otherwise denies any other sick contacts. Denies any chest pain, shortness of breath, any leg swelling. PAST MEDICAL HISTORY: 1. As mentioned hyperlipidemia, however, has been off medications. 2. Hypertension, for which she takes lisinopril. 3. Multiple workups done for abdominal pain, at last told that it was irritable bowel syndrome. 4. History of arthritis, especially of the left shoulder, status post multiple surgeries. 5. History of anxiety disorder. 6. Ulcer disease and chronic constipation. PAST SURGICAL HISTORY: She has had 2 surgeries to the left shoulder, tonsillectomy, and tubal ligation, and also left breast biopsy, which was noted to be benign. HOME MEDICATIONS: The patient is currently on: 1. Multivitamin 1 tablet oral daily. 2. Hyoscyamine 0.125 mg oral p.r.n. for abdominal pain and spasm. 3. Vitamin D 1000 units oral daily. 4. Theratears 0.25% both eyes daily. 5. Lisinopril 40 mg oral daily. 6. Sennosides 17.2 mg oral daily. 7. Omeprazole 20 mg oral daily. 8. Clonazepam 0.25 mg oral t.i.d. p.r.n. for anxiety. 9. Nucynta 50 to 100 mg every night. ALLERGIES: The patient is allergic to multiple medications including BUPRENORPHINE, NICKEL, PENICILLIN, SUCRALFATE, and SULFA ANTIBIOTICS all of which gives her rash. REVIEW OF SYSTEMS: A 14-point review of systems did not reveal any new information other than the ones in the HPI. FAMILY HISTORY: Dad and brother both had heart attack. Mother had high blood pressure. SOCIAL HISTORY: The patient quit smoking about 30 years ago, but prior to that used to be an on-and-off smoker. Denies any alcohol or drug use. Currently, retired, lives with her . PHYSICAL EXAMINATION GENERAL: The patient is awake and oriented x3, not appeared to be in any acute respiratory distress. VITAL SIGNS: In the ER, BP was noted to be 131/71, heart rate 92, respiration rate 21, saturating 96% on room air, temperature was documented at 98.9 temporally. HEAD AND NECK: Atraumatic, normocephalic. Bilateral pupils are reactive. Oral mucosa was dry. Neck supple. No jugular venous distention. LUNGS: Clear to auscultation bilaterally. No wheezes, rhonchi, or rales. HEART: S1 and S2. Regular rate and rhythm. ABDOMEN: Soft with hypoactive bowel sounds. EXTREMITIES: No cyanosis, clubbing, or edema. LABORATORY DATA: CBC shows minimally elevated white count of 13.7, hemoglobin and hematocrit stable, platelet count minimally decreased at 122. Comprehensive blood count shows sodium at 132, chloride 99, BUN elevated at 34, creatinine elevated at 1.69 when compared to her baseline labs from July which shows creatinine of 1.26. C-reactive protein elevated at 133.58. Urinalysis was suggestive of 3+ leuk esterase, negative for nitrite, there is some protein and blood present. IMPRESSION AND PLAN: This is a 78-year-old female with hypertension, chronic abdominal pain, likely due to her irritable bowel syndrome, here due to abdominal pain, nausea, and decreased appetite, noted to have acute kidney injury on top of her chronic kidney disease. 1. Abdominal pain, exacerbation of her irritable bowel syndrome. We will consult GI to evaluate the patient and to see if any further workup is needed. In the meantime, we will keep the patient n.p.o. and start the patient on IV fluids. 2. Acute on top of chronic kidney disease, stage 3. We will continue with IV hydration and repeat labs in the morning. We will consider renal ultrasound and possible Renal consult if the creatinine does not improve. We will also follow up urine lytes, fractional excretion of sodium. 3. History of hypertension, restart home medications. 4. History of ulcer disease, on proton pump inhibitor, we will continue that. 5. History of arthritis, restart home pain medications. 6. History of dyslipidemia, not on any medications. 7. DVT prophylaxis with subcu heparin. [id number]/[facility] #: [id number] [facility]
[2019-01-24 05:19] LABS: ABS Eosinophils 0.2 10^3/ul (0-0.6); ABS Lymphocytes 0.8 10^3/ul (1.0-4.8); ABS Monocytes 0.7 10^3/ul (0-0.8); ABS Neutrophils 7.4 10^3/ul (1.5-7.7); Hematocrit 34 % (35-47); Hemoglobin 11.4 g/dL (12.0-16.0); Mean Corpuscular HGB Conc 33 g/dL (31-36); Mean Corpuscular Hemoglobin 31 pg (27-31); Mean Corpuscular Volume 92 fL (80-97); Platelet Count 116 10^3/uL (150-450); Red Blood Count 3.74 10^6 /uL (3.70-4.87); Red Cell Distribution Width 16 % (10-15); White Blood Count 9.1 10^3/uL (3.5-10.8)
[2019-01-24] MEDS: Heparin VIAL(*) 5000 UNITS/ML VIAL (FIVE THOUSAND) SUBCUT SCH ×3 (05:28→21:02)
[2019-01-24] MEDS: clonazePAM TAB(*) 0.5 MG PO PRN (05:34)
[2019-01-24 05:35] LABS: BUN/Creatinine Ratio 12.8 (8-20); Calcium 8.1 mg/dL (8.6-10.3); EGFR African American 23.2 (>60); EGFR Non-African American 19.2 (>60)
--- NOTE | 2019-01-24 08:40 | PN ---
<Harriet Rodriguez - Last Filed: 01/24/19 12:55> Subjective Date of Service: 01/24/19 Interval History: Overnight, 1L NS was given, pt was kept NPO. Labs this morning, creatine still 2.43, mild metabolic acidosis with bicarb 19 Patient complained of 8/10 pain, she said her pain worsened since last Thursday, constant, nothing makes worse or better. not sure when was the last bowel movement. 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 Objective Active Medications: Artificial Tears (Natural Balance Tears Eye Drop) 1 drop BOTH EYES DAILY [facility] Cholecalciferol (Vitamin D Tab*) 1,000 units PO DAILY [facility] Clonazepam (Klonopin Tab(*)) 0.25 mg PO TID PRN PRN Reason: ANXIETY Last Admin: 01/24/19 05:34 Dose: 0.25 mg Heparin Sodium (Porcine) (Heparin Vial(*)) 5,000 units SUBCUT Q8HR [facility] Last Admin: 01/24/19 05:28 Dose: 5,000 units Hyoscyamine (Anaspaz Tab*) 0.125 mg PO DAILY PRN PRN Reason: PAIN - MILD Last Admin: 01/24/19 00:08 Dose: 0.125 mg Sodium Chloride (Ns 0.9% 1000 Ml) 1,000 mls @ 100 mls/hr IV PER RATE [facility] Last Admin: 01/24/19 00:10 Dose: 100 mls/hr Lisinopril (Prinivil Tab*) 40 mg PO DAILY [facility] Multivitamins ( Vitamin Tab*) 1 tab PO DAILY [facility] Pantoprazole Sodium (Protonix Tab*) 40 mg PO DAILY [facility] Senna (Senokot Tab*) 2 tab PO DAILY [facility] Tapentadol (Nucynta(Nf)) 100 mg PO QPM [facility] Vital Signs - 8 hr 01/24/19 01/24/19 01/24/19 03:15 05:34 05:38 Temperature 98.2 F Pulse Rate 81 Respiratory 19 18 18 Rate Blood Pressure 129/79 (mmHg) O2 Sat by Pulse 100 Oximetry 01/24/19 07:15 Temperature 98.8 F Pulse Rate 76 Respiratory 15 Rate Blood Pressure 121/73 (mmHg) O2 Sat by Pulse 98 Oximetry Oxygen Devices in Use Now: None Exam: Not in distress Lying comfortably Heart: normal S1S2 Lung: clear Abdomen: soft, non tender, comfortable looking when palpating her abdomen Euvolemic clinically Result Diagrams: 01/24/19 04:58 01/24/19 04:58 Assess/Plan/Problems-Billing Assessment: 78 y/o female with b/g HTN, HLD, chronic abdominal pain which was contributed to irritable bowel syndrome and ulcer diseases after extensive investigation; she presented with worsening abdominal pain for 3 days duration, associated with diarrhea and nausea. She was found to have acute kidney injury on top of her chronic kidney disease, and also pyuria in urine test. Her KATHI is most likely due to dehydration at this moment, and further investigation for it will be carried out. - Patient Problems (1) Acute kidney injury Current Visit: Yes Status: Acute Code(s): N17.9 - ACUTE KIDNEY FAILURE, UNSPECIFIED SNOMED Code(s): 02431436 Comment: - start iv hydration, encourage oral intake - US kidney ordered - urine RBC, protain p (2) Abdominal pain Current Visit: Yes Status: Acute Code(s): R10.9 - UNSPECIFIED ABDOMINAL PAIN SNOMED Code(s): 66071560 Comment: - chronic abdominal pain underwent multiple investigation including CT and scope bute turned out only ulcer (3) Hypertension Current Visit: Yes Status: Acute Code(s): I10 - ESSENTIAL (PRIMARY) HYPERTENSION SNOMED Code(s): 58583400 (4) Hyperlipidemia Current Visit: Yes Status: Acute Code(s): E78.5 - HYPERLIPIDEMIA, UNSPECIFIED SNOMED Code(s): 87072381 (5) Full code status Current Visit: Yes Status: Acute Code(s): Z78.9 - OTHER SPECIFIED HEALTH STATUS SNOMED Code(s): 678510112 (6) DVT (deep venous thrombosis) Current Visit: Yes Status: Acute Code(s): I82.409 - ACUTE EMBOLISM AND THOMBOS UNSP DEEP VN UNSP LOWER EXTREMITY SNOMED Code(s): 110012380 Comment: on heparin with subcutaneous heparin Status and Disposition: still keep inpatient. <Mirela Hunt - Last Filed: 01/24/19 14:02> Objective Active Medications: Artificial Tears (Natural Balance Tears Eye Drop) 1 drop BOTH EYES DAILY [facility] Last Admin: 01/24/19 10:30 Dose: 1 drop Cholecalciferol (Vitamin D Tab*) 1,000 units PO DAILY [facility] Last Admin: 01/24/19 10:12 Dose: Not Given Clonazepam (Klonopin Tab(*)) 0.25 mg PO TID PRN PRN Reason: ANXIETY Last Admin: 01/24/19 05:34 Dose: 0.25 mg Heparin Sodium (Porcine) (Heparin Vial(*)) 5,000 units SUBCUT Q8HR [facility] Last Admin: 01/24/19 13:20 Dose: 5,000 units Hyoscyamine (Anaspaz Tab*) 0.125 mg PO DAILY PRN PRN Reason: PAIN - MILD Last Admin: 01/24/19 00:08 Dose: 0.125 mg Sodium Chloride (Ns 0.9% 1000 Ml) 1,000 mls @ 100 mls/hr IV PER RATE [facility] Last Admin: 01/24/19 10:39 Dose: 100 mls/hr Multivitamins ( Vitamin Tab*) 1 tab PO DAILY [facility] Last Admin: 01/24/19 10:12 Dose: Not Given Pantoprazole Sodium (Protonix Tab*) 40 mg PO DAILY [facility] Last Admin: 01/24/19 10:12 Dose: Not Given Senna (Senokot Tab*) 2 tab PO DAILY [facility] Last Admin: 01/24/19 10:12 Dose: Not Given Tapentadol (Nucynta(Nf)) 100 mg PO QPM [facility] Vital Signs - 8 hr 01/24/19 01/24/19 01/24/19 07:15 07:25 08:00 Temperature 98.8 F Pulse Rate 76 Respiratory 15 16 16 Rate Blood Pressure 121/73 (mmHg) O2 Sat by Pulse 98 Oximetry 01/24/19 11:15 Temperature 98.5 F Pulse Rate 71 Respiratory 16 Rate Blood Pressure 121/63 (mmHg) O2 Sat by Pulse 100 Oximetry Result Diagrams: 01/24/19 04:58 01/24/19 04:58 Assess/Plan/Problems-Billing Assessment: Attestation Documenting Resident: Michael Supervising Physician: Marilee Attending/Supervising Physician Comment: This is a 78 year old woman with history of lower abdominal pain for "years" for which she has been worked up by GI without an explanation found; their most recent consult suggests somatization, who presented last night for worsening abdominal pain since Thursday. She cannot describe the pain to me this morning, says it is the same pain as has been there for years but it is constant instead of intermittent since Thursday. Nothing makes it better, nothing makes it worse, it does not radiate, and she has had no diarrhea or fevers. She has had poor appetite for three days and has not had a bowel movement for three days. On exam, she is afebrile and normotensive. well appearing, nontoxic, comfortable, describes "some discomfort" that is not distressing to her RRR, no murmurs, abd is soft, I cannot reproduce the pain to light or to deep palpation, bowel sounds are active in all quadrants, no CVA tenderness, liver is not palpable A/ acute on chronic vague lower abdominal discomfort with a benign exam and a significantly elevated CRP P/ add on lactic now, check CT abd/pelvis (with contrast would be ideal, but we are limited by her KATHI). no stool to check stool studies. has had a recent upper gi series which was unremarkable. she does not know when her last colonoscopy was. recheck crp tomorrow. Attestation: This service has been performed in part by a resident under the direction of a teaching physician.I, Marilee, performed the service, or was physically present during the critical, or montaño portions of the service, furnished by the resident. I participated in the management of the patient.
[2019-01-24] MEDS ORDERED: Lisinopril TAB* 10 MG PO SCH (09:00)
[2019-01-24] MEDS: Pantoprazole TAB * 40 MG TAB PO SCH (10:12)
[2019-01-24] MEDS: Senna TAB 8.6 mg* TAB PO SCH (10:12)
[2019-01-24] MEDS: Prenatal Vitamin TAB PO SCH (10:12)
[2019-01-24] MEDS: Cholecalciferol TAB* 1000 UNITS PO SCH (10:12)
[2019-01-24] MEDS: Dextran 70/Hypromellose Tears Eye Drops 15 ml BTL (for Artificials Tears) BOTH EYES SCH (10:30)
[2019-01-24] MEDS: Tapentadol(NF) 50 MG TAB PO SCH ×3 (17:23→21:01)
[2019-01-24] MEDS ORDERED: Magnesium Hydroxide LIQ* 30 ML UDC PO ONE (17:33)
[2019-01-24] MEDS ORDERED: cefTRIAXone(*) 1 GM in NS 0.9% 50 ML* 50 ML IVPB SCH (18:00)
--- NOTE | 2019-01-24 19:08 | CONS ---
CC: Krystal Stanton NP * CONSULTATION REPORT: DATE OF CONSULT: 01/24/19 REQUESTING PHYSICIAN: Dr. Torres. INDICATION: Chronic abdominal pain. NARRATIVE: Mrs. Gonzalez is a pleasant 78-year-old female well known to myself. I had been seeing her for her chronic abdominal pain. She underwent a very thorough workup including a negative colonoscopy, upper endoscopy, CAT scans, breath test with no etiology found. We had tried treatment for irritable bowel syndrome. Eventually, she sought out a second opinion at [place] and did undergo an upper endoscopy that was normal, upper GI series that was normal and they referred her to [facility] for a third opinion. The patient was admitted for an acute kidney injury and is being evaluated for chronic abdominal pain of greater than 10 years of duration. She states that it really has not changed much at all in the past year since I last saw her. No new symptoms. Her weight is stable. PAST MEDICAL HISTORY: Significant for hypertension, hyperlipidemia, chronic abdominal pain, irritable bowel syndrome. MEDICATIONS: Upon admission include: 1. Klonopin. 2. Levbid. 3. Lisinopril. 4. Pantoprazole. 5. Senna. ALLERGIES: To PENICILLIN and CARAFATE. FAMILY HISTORY: No GI malignancies in the family. PHYSICAL EXAMINATION: Temperature is 98.4, blood pressure is 110/69, pulse is 81, respiratory rate of 14, O2 sat is 96%. General: Well-appearing female, lying flat in bed, alert, oriented, pleasant, fluent. HEENT: Mucous membranes are moist, without lesions, ulcers or exudate. Neck is supple. Trachea is midline. Head is normocephalic, atraumatic. Heart: Regular rate and rhythm. Lungs: Clear to auscultation. Abdomen: Positive bowel sounds, soft, very good bowel sounds. Mild tenderness throughout. No rebound, no guarding. Some distention. Skin is warm and dry. DIAGNOSTIC STUDIES/LAB DATA: Of note, white count is 9.1, hemoglobin is 11.4, platelets of 116. BUN is 31, creatinine is 2.43. She does have a CT abdomen and pelvis from earlier today without oral or IV contrast. No bowel dilatation is noted. ASSESSMENT AND PLAN: This is a pleasant 78-year-old female with chronic abdominal pain, who has undergone a very thorough workup in the past. No obvious etiology has ever been found. Presumptively, she is carries a diagnosis of irritable bowel syndrome. She is up-to-date on colonoscopies, upper endoscopies, CAT scans, upper GI series. She has been seeing the [place] physicians for her GI care. At this point, I am really not quite sure what more to offer her. We did discuss mesenteric ischemia. It is not always postprandial; however, I would like to a check mesenteric Doppler ultrasound. I will make arrangements for tomorrow and we will continue to follow along. [id number]/[facility] #: [id number] [facility]
[2019-01-25] MEDS: Heparin VIAL(*) 5000 UNITS/ML VIAL (FIVE THOUSAND) SUBCUT SCH ×3 (05:34→20:52)
[2019-01-25 06:14] LABS: BUN/Creatinine Ratio 13.6 (8-20); C Reactive Protein 87.67 mg/L (<8.01); EGFR African American 26.9 (>60); EGFR Non-African American 22.2 (>60)
[2019-01-25] MEDS: NS 0.9% 1000 ML** 1,000 ML IV SCH ×2 (08:11→21:07)
[2019-01-25] MEDS: Dextran 70/Hypromellose Tears Eye Drops 15 ml BTL (for Artificials Tears) BOTH EYES SCH (08:12)
[2019-01-25] MEDS: Pantoprazole TAB * 40 MG TAB PO SCH (11:14)
[2019-01-25] MEDS: Acetaminophen TAB* 325 MG PO PRN ×2 (11:14→15:49)
[2019-01-25] MEDS: Senna TAB 8.6 mg* TAB PO SCH (11:15)
[2019-01-25] MEDS: Prenatal Vitamin TAB PO SCH (11:15)
[2019-01-25] MEDS: Cholecalciferol TAB* 1000 UNITS PO SCH (11:15)
--- NOTE | 2019-01-25 15:00 | PN ---
<Harriet Rodriguez - Last Filed: 01/25/19 16:33> Subjective Date of Service: 01/25/19 Interval History: Patient still had chronic abdominal pain, no diarrhea, constipated most of the time, no fever. Lab: creatinine downtrending ,US mesenteric artery not reamakable. Objective Active Medications: Acetaminophen (Tylenol Tab*) 650 mg PO Q4H PRN PRN Reason: PAIN - MILD Last Admin: 01/25/19 11:14 Dose: 650 mg Artificial Tears (Natural Balance Tears Eye Drop) 1 drop BOTH EYES DAILY [facility] Last Admin: 01/25/19 08:12 Dose: 1 drop Cholecalciferol (Vitamin D Tab*) 1,000 units PO DAILY [facility] Last Admin: 01/25/19 11:15 Dose: Not Given Clonazepam (Klonopin Tab(*)) 0.25 mg PO TID PRN PRN Reason: ANXIETY Last Admin: 01/24/19 05:34 Dose: 0.25 mg Heparin Sodium (Porcine) (Heparin Vial(*)) 5,000 units SUBCUT Q8HR [facility] Last Admin: 01/25/19 05:34 Dose: 5,000 units Hyoscyamine (Anaspaz Tab*) 0.125 mg PO DAILY PRN PRN Reason: PAIN - MILD Last Admin: 01/24/19 00:08 Dose: 0.125 mg Sodium Chloride (Ns 0.9% 1000 Ml) 1,000 mls @ 100 mls/hr IV PER RATE [facility] Last Admin: 01/25/19 08:11 Dose: 100 mls/hr Multivitamins ( Vitamin Tab*) 1 tab PO DAILY [facility] Last Admin: 01/25/19 11:15 Dose: Not Given Pantoprazole Sodium (Protonix Tab*) 40 mg PO DAILY [facility] Last Admin: 01/25/19 11:14 Dose: 40 mg Senna (Senokot Tab*) 2 tab PO DAILY [facility] Last Admin: 01/25/19 11:15 Dose: Not Given Tapentadol (Nucynta(Nf)) 100 mg PO BEDTIME [facility] Last Admin: 01/24/19 21:01 Dose: 100 mg Vital Signs - 8 hr 01/25/19 01/25/19 01/25/19 07:07 08:19 11:15 Temperature 98.4 F 98.4 F Pulse Rate 75 74 Respiratory 16 18 16 Rate Blood Pressure 140/77 142/71 (mmHg) O2 Sat by Pulse 99 Oximetry Oxygen Devices in Use Now: None Exam: Pt is lying on the bed comfotably Heart S1S2 Lung clear Abdomen: BS+, no tenderness Urine bag clean Result Diagrams: 01/24/19 04:58 01/25/19 05:31 Assess/Plan/Problems-Billing Assessment: 78 y/o female with b/g HTN, HLD, chronic abdominal pain which was labelled as irritable bowel syndrome and possible somatization after extensive investigation ; she presented with worsening abdominal pain for 3 days duration. She was found to have KATHI on top of her chronic kidney disease, also elevated CRP, WBC on initial presentation for which no specific infective source was identified. - Patient Problems (1) Acute kidney injury Current Visit: Yes Status: Acute Code(s): N17.9 - ACUTE KIDNEY FAILURE, UNSPECIFIED SNOMED Code(s): 29456264 Comment: - iv hydration, encourage oral intake - no urinary obstruction seen in CT scan - workup for intrinsic KATHI ordered, screening for autoimmune causes (2) Abdominal pain Current Visit: Yes Status: Acute Code(s): R10.9 - UNSPECIFIED ABDOMINAL PAIN SNOMED Code(s): 95320325 Comment: - chronic abdominal pain underwent multiple investigation including CT and scope but turned out only ulcer - GI consulted, US mesenteric artery suggested - US mesenteric artery: unremarkable (3) Hypertension Current Visit: Yes Status: Acute Code(s): I10 - ESSENTIAL (PRIMARY) HYPERTENSION SNOMED Code(s): 71745529 (4) Hyperlipidemia Current Visit: Yes Status: Acute Code(s): E78.5 - HYPERLIPIDEMIA, UNSPECIFIED SNOMED Code(s): 06884867 (5) Full code status Current Visit: Yes Status: Acute Code(s): Z78.9 - OTHER SPECIFIED HEALTH STATUS SNOMED Code(s): 699173681 (6) DVT (deep venous thrombosis) Current Visit: Yes Status: Acute Code(s): I82.409 - ACUTE EMBOLISM AND THOMBOS UNSP DEEP VN UNSP LOWER EXTREMITY SNOMED Code(s): 856804180 Comment: on heparin with subcutaneous heparin Status and Disposition: still keep inpatient. Attestation Documenting Resident: Harriet Rodriguez Supervising Physician: Mirela Hunt Attestation: This service has been performed in part by a resident under the direction of a teaching physician.I, Mirela Hunt, performed the service, or was physically present during the critical, or montaño portions of the service, furnished by the resident. I participated in the management of the patient. <Mirela Hunt - Last Filed: 01/25/19 16:38> Objective Active Medications: Acetaminophen (Tylenol Tab*) 650 mg PO Q4H PRN PRN Reason: PAIN - MILD Last Admin: 01/25/19 15:49 Dose: 650 mg Artificial Tears (Natural Balance Tears Eye Drop) 1 drop BOTH EYES DAILY [facility] Last Admin: 01/25/19 08:12 Dose: 1 drop Cholecalciferol (Vitamin D Tab*) 1,000 units PO DAILY [facility] Last Admin: 01/25/19 11:15 Dose: Not Given Clonazepam (Klonopin Tab(*)) 0.25 mg PO TID PRN PRN Reason: ANXIETY Last Admin: 01/24/19 05:34 Dose: 0.25 mg Heparin Sodium (Porcine) (Heparin Vial(*)) 5,000 units SUBCUT Q8HR [facility] Last Admin: 01/25/19 15:48 Dose: 5,000 units Hyoscyamine (Anaspaz Tab*) 0.125 mg PO DAILY PRN PRN Reason: PAIN - MILD Last Admin: 01/24/19 00:08 Dose: 0.125 mg Sodium Chloride (Ns 0.9% 1000 Ml) 1,000 mls @ 100 mls/hr IV PER RATE [facility] Last Admin: 01/25/19 08:11 Dose: 100 mls/hr Multivitamins ( Vitamin Tab*) 1 tab PO DAILY [facility] Last Admin: 01/25/19 11:15 Dose: Not Given Pantoprazole Sodium (Protonix Tab*) 40 mg PO DAILY [facility] Last Admin: 01/25/19 11:14 Dose: 40 mg Senna (Senokot Tab*) 2 tab PO DAILY [facility] Last Admin: 01/25/19 11:15 Dose: Not Given Tapentadol (Nucynta(Nf)) 100 mg PO BEDTIME [facility] Last Admin: 01/24/19 21:01 Dose: 100 mg Vital Signs - 8 hr 01/25/19 01/25/19 11:15 15:26 Temperature 98.4 F 98.0 F Pulse Rate 74 72 Respiratory 16 16 Rate Blood Pressure 142/71 139/77 (mmHg) O2 Sat by Pulse 100 Oximetry Result Diagrams: 01/24/19 04:58 01/25/19 05:31 Assess/Plan/Problems-Billing Assessment: Attestation Attending/Supervising Physician Comment: This is a 78 year old woman with history of chronic abdominal pain who has been worked up extensively by GI without a clear explanation found, who presented to the ED on 01/23 with worsened abdominal pain which is now resolved. #acute on chronic, vague lower abdominal pain with elevated CRP CT abd/pelvis was unremarkable lactic acid was normal no stool for stool studies (in fact she is constipated) her pain is currently resolved Dr. Brady evaluated her on 01/24 and had no further recommendations will increase bowel regimen today and plan for outpatient GI follow up #KATHI initially thought to be prerenal in setting of poor po intake, but not improving as I would expect after volume resuscitation renal US showed medical renal disease work up with spep/upep, complements
[2019-01-25] MEDS: clonazePAM TAB(*) 0.5 MG PO PRN (17:30)
[2019-01-25] MEDS ORDERED: Sodium Phosphate ADULT ENEMA* 118 ml bottle PR ONE ×2 (18:12→20:00)
[2019-01-25] MEDS: Tapentadol(NF) 50 MG TAB PO SCH (20:51)
[2019-01-25 21:27] LABS: Urine Appearance Cloudy; Urine Bacteria Absent (Absent); Urine Bilirubin Negative (Negative); Urine Blood 1+ (Negative); Urine Color Yellow; Urine Glucose Negative (Negative); Urine Ketones Negative (Negative); Urine Nitrite Negative (Negative); Urine Protein Negative (Negative); Urine Red Blood Cell 2+(6-10/hpf) (Absent); Urine Specific Gravity 1.012 (1.010-1.030); Urine Urobilinogen Negative (Negative); Urine White Blood Cell 3+(>20/hpf) (Absent)
[2019-01-26] MEDS: Heparin VIAL(*) 5000 UNITS/ML VIAL (FIVE THOUSAND) SUBCUT SCH (05:23)
[2019-01-26 06:56] LABS: BUN/Creatinine Ratio 12.2 (8-20); Calcium 8.2 mg/dL (8.6-10.3); EGFR African American 34.6 (>60); EGFR Non-African American 28.6 (>60); Potassium 3.9 mmol/L (3.5-5.0)
[2019-01-26 07:20] LABS: TSH (Thyroid Stimulating Horm) 2.26 mcIU/mL (0.34-5.60)
[2019-01-26] MEDS ORDERED: Lisinopril TAB* 10 MG PO ONE (08:36)
[2019-01-26] MEDS: Prenatal Vitamin TAB PO SCH (08:40)
[2019-01-26] MEDS: NS 0.9% 1000 ML** 1,000 ML IV SCH (08:40)
[2019-01-26] MEDS: Cholecalciferol TAB* 1000 UNITS PO SCH (08:40)
[2019-01-26] MEDS: Dextran 70/Hypromellose Tears Eye Drops 15 ml BTL (for Artificials Tears) BOTH EYES SCH (08:43)
[2019-01-26] MEDS: Pantoprazole TAB * 40 MG TAB PO SCH (08:45)
[2019-01-26] MEDS: Senna TAB 8.6 mg* TAB PO SCH (09:18)
--- NOTE | 2019-01-26 09:55 | PN ---
Subjective Date of Service: 01/26/19 Interval History: Patient still felt low appetite and nausea today. She is keen for home today, and agreed to see her pcp in 1-2 week to recheck kidney function. Objective Active Medications: Acetaminophen (Tylenol Tab*) 650 mg PO Q4H PRN PRN Reason: PAIN - MILD Last Admin: 01/25/19 15:49 Dose: 650 mg Artificial Tears (Natural Balance Tears Eye Drop) 1 drop BOTH EYES DAILY [facility] Last Admin: 01/26/19 08:43 Dose: 1 drop Cholecalciferol (Vitamin D Tab*) 1,000 units PO DAILY [facility] Last Admin: 01/26/19 08:40 Dose: 1,000 units Clonazepam (Klonopin Tab(*)) 0.25 mg PO TID PRN PRN Reason: ANXIETY Last Admin: 01/25/19 17:30 Dose: 0.25 mg Heparin Sodium (Porcine) (Heparin Vial(*)) 5,000 units SUBCUT Q8HR [facility] Last Admin: 01/26/19 05:23 Dose: 5,000 units Hyoscyamine (Anaspaz Tab*) 0.125 mg PO DAILY PRN PRN Reason: PAIN - MILD Last Admin: 01/24/19 00:08 Dose: 0.125 mg Sodium Chloride (Ns 0.9% 1000 Ml) 1,000 mls @ 100 mls/hr IV PER RATE [facility] Last Admin: 01/26/19 08:40 Dose: 100 mls/hr Multivitamins ( Vitamin Tab*) 1 tab PO DAILY [facility] Last Admin: 01/26/19 08:40 Dose: 1 tab Senna (Senokot 8.6 Mg Tab*) 2 tab PO 2100 [facility] Tapentadol (Nucynta(Nf)) 100 mg PO BEDTIME [facility] Last Admin: 01/25/19 20:51 Dose: 100 mg Vital Signs - 8 hr 01/26/19 01/26/19 03:39 07:32 Temperature 98.3 F 98.7 F Pulse Rate 71 71 Respiratory 16 18 Rate Blood Pressure 147/81 158/84 (mmHg) O2 Sat by Pulse 97 100 Oximetry Oxygen Devices in Use Now: None Exam: Well looking, still in chronic pain Heart normal S1S2 Lung clear Abdomen soft, generalized tenderness, same as before Result Diagrams: 01/24/19 04:58 01/26/19 06:23 Assess/Plan/Problems-Billing Assessment: 78 y/o F presented with AOCKD likely due to dehydration, improved kidney function after hydration now, plan for discharge today. Hospital course also c/ b her chronic abdominal pain which we completed GI workup with mesenteric US, somatisation is most likely. - Patient Problems (1) Acute kidney injury Status: Acute Code(s): N17.9 - ACUTE KIDNEY FAILURE, UNSPECIFIED SNOMED Code (s): 98080802 Comment: - iv hydration, encourage oral intake - no urinary obstruction seen in CT scan - workup for intrinsic KATHI ordered, screening for autoimmune causes - PPI stopped due to concern of AIN since it's not helping anyway - creatnine improved with hydration (2) Abdominal pain Status: Acute Code(s): R10.9 - UNSPECIFIED ABDOMINAL PAIN SNOMED Code(s): 18633649 Comment: - chronic abdominal pain underwent multiple investigation including CT and scope but turned out only ulcer - GI consulted, US mesenteric artery suggested - US mesenteric artery: unremarkable - somatization most likely (3) Hypertension Status: Acute Code(s): I10 - ESSENTIAL (PRIMARY) HYPERTENSION SNOMED Code(s) : 47731463 (4) Hyperlipidemia Status: Acute Code(s): E78.5 - HYPERLIPIDEMIA, UNSPECIFIED SNOMED Code(s): 84416413 (5) Full code status Status: Acute Code(s): Z78.9 - OTHER SPECIFIED HEALTH STATUS SNOMED Code(s) : 539808183 (6) DVT (deep venous thrombosis) Status: Acute Code(s): I82.409 - ACUTE EMBOLISM AND THOMBOS UNSP DEEP VN UNSP LOWER EXTREMITY SNOMED Code(s): 670002806 Comment: on heparin with subcutaneous heparin Status and Disposition: For discharge today Attestation Documenting Resident: Harriet Rodriguez Supervising Physician: Katlyn Hunt Attestation: This service has been performed in part by a resident under the direction of a teaching physician.I, Katlyn Hunt, performed the service, or was physically present during the critical, or montaño portions of the service, furnished by the resident. I participated in the management of the patient.
[2019-01-26 11:19] VITALS: BP 142/76
--- NOTE | 2019-01-26 11:48 | DS ---
CC: Krystal Stanton NP * DISCHARGE SUMMARY: DATE OF ADMISSION: 01/23/19 DATE OF DISCHARGE: 01/26/19 PRINCIPAL DISCHARGE DIAGNOSES: 1. Acute on chronic abdominal pain. 2. Acute kidney injury. 3. Thrombocytopenia. SECONDARY DISCHARGE DIAGNOSES: 1. Hypertension. 2. History of peptic ulcer disease. 3. Anxiety. 4. Arthritis. MEDICATIONS AT THE TIME OF DISCHARGE: 1. Nucynta 50 mg q.h.s. 2. Carboxymethylcellulose 0.25% both eyes daily. 3. Vitamin D 1000 units daily. 4. Senna-Extra 17.2 mg daily. 5. Klonopin 0.25 mg t.i.d. p.r.n. anxiety. 6. Hyoscyamine 0.125 mg daily. 7. Multivitamin daily. Medications discontinued on this admission: 1. Omeprazole 20 mg daily. 2. Lisinopril 40 mg daily. Medications added on this admission: Amlodipine 5 mg daily. PHYSICAL EXAMINATION AT DISCHARGE: Temperature 98.7, heart rate 71, respiratory rate 18, pulse ox 100% on room air, blood pressure 158/84. General : Alert, well- appearing elderly female, in no distress. HEENT: Pupils equal , round, and reactive to light. Anicteric. Oral mucosa is moist. Neck: No JVP or adenopathy. Chest: She is in a regular rate and rhythm with no murmurs. Her lungs are clear bilaterally. Abdomen is soft, nontender, nondistended. Bowel sounds are normoactive. Shows no guarding or rebound. No CVA tenderness. Extremities: No edema, rashes, or ulcers. HOSPITAL COURSE BY PROBLEM: 1. Acute on chronic abdominal pain. Zamzam Vail has had chronic abdominal pain that has been extensively worked up by GI and their workup has been largely unrevealing. She came in with abdominal pain that was no different from baseline other than its time course. Her abdominal pain is typically paroxysmal , but 2 days prior to admission, it was constant and she had a poor appetite, which she says is mostly unchanged from her baseline; however, the pain that was unrelenting caused her to come to the ER. She was found to have a leukocytosis of 13.7, CRP elevated to 133, and a positive urinalysis. A CT abdomen and pelvis showed no hydronephrosis, no bowel dilatation, and no colitis. She was initially started on ceftriaxone for concern for a UTI; however, her urine culture grew no clinically significant organism. She had no stool available for culture or O and P. In fact, she was somewhat constipated, so she was treated with supportive care for her abdominal pain. GI was consulted and recommended no further workup and continuation of supportive care since they had done an extensive workup as an outpatient. Her abdominal pain resolved by day 2 of admission and she is being discharged to follow up with her primary care physician and GI as an outpatient. 2. Acute kidney injury. This was thought to be prerenal in the setting of poor p.o. intake recently. She received volume resuscitation. Her renal function did not improve as quickly as we would expect with volume resuscitation , so she did have a serologic panel sent to work this up. At the time of discharge, the following labs are pending: JONATHAN, ANCA, complements, SPEP, and UPEP. These need to be followed up after discharge. Her creatinine on the day of discharge is 1.72, her baseline is 1.2. She has a script and instruction to have her BMP checked on 01/31/19 before she sees Krystal. 3. Thrombocytopenia. She has been thrombocytopenic in the past. However, this is lower than usual at 116. Her PPI was discontinued since it was not helping her anyway and she has an order for a repeat CBC also on 01/31/19. FOLLOWUP NEEDED AT DISCHARGE: I have made a followup appointment for her with Krystal Stanton NP, on 02/01/19 and I have provided her with this appointment time and date. She is to have a CBC and a BMP checked the day before she sees Krystal and this is to be followed up in her office. She also has pending studies including JONATHAN, ANCA , complements, SPEP, and UPEP to work up her chronic kidney disease and these need to be followed up after discharge. DISPOSITION: Zamzam Vail is being discharged to home in the care of her . CONDITION AT THE TIME OF DISCHARGE: Stable. [id number]/[facility] #: [id number] MTDD
[2019-01-26] MEDS ORDERED: Senna TAB 8.6 mg* TAB PO SCH (21:00)
[2019-01-27] MEDS ORDERED: amLODIPine TAB* 5 MG PO SCH (09:00)
[2019-01-27 14:09] LABS: Complement C3 116 mg/dL (75 - 175)
[2019-01-28 12:33] LABS: Albumin 2.5 g/dL (3.4-4.7); Albumin/Globulin Ratio 0.89; Gamma Globulin 0.7 g/dL (0.6-1.6); Total Protein(PEP) 5.3 g/dL (6.3 - 7.9)
== END 2019-01-26 14:08 | disposition home or self-care (01) | DRG 683 ==
LOC: ED 17:25 → MED 22:26
PROVIDERS: ADMIT Internal Medicine; ATTEND Internal Medicine
DX: N17.9 Acute kidney failure, unspecified (principal); E87.2 Acidosis; D69.6 Thrombocytopenia, unspecified; K58.9 Irritable bowel syndrome, unspecified; E78.5 Hyperlipidemia, unspecified; I12.9 Hypertensive chronic kidney disease with stage 1 through stage 4 chronic kidney disease, or unspecified chronic kidney disease; N18.3 Chronic kidney disease, stage 3 (moderate); G89.29 Other chronic pain; E86.0 Dehydration; R10.9 Unspecified abdominal pain; M19.012 Primary osteoarthritis, left shoulder; F41.9 Anxiety disorder, unspecified; K25.9 Gastric ulcer, unspecified as acute or chronic, without hemorrhage or perforation; K59.09 Other constipation; Z79.899 Other long term (current) drug therapy; Z88.0 Allergy status to penicillin; Z88.2 Allergy status to sulfonamides; Z88.8 Allergy status to other drugs, medicaments and biological substances; Z91.048 Other nonmedicinal substance allergy status; Z82.49 Family history of ischemic heart disease and other diseases of the circulatory system; Z87.891 Personal history of nicotine dependence; Z86.718 Personal history of other venous thrombosis and embolism
CPT/HCPCS: 36415; 74176; 76775; 80048; 80053; 81003; 81015; 82436; 83516; 83520; 83605; 83690; 84133; 84155; 84165; 84300; 84443; 85025; 86038; 86140; 86160; 87086; 93975; 99284; A9270-GY; J0696; J1644; J2405

== ENCOUNTER 2019-02-18 09:04 | Emergency (ER) | payer MEDICARE ==
[2019-02-18] MEDS ORDERED: NS 0.9% 1000 ML** 1,000 ML IV ONE (09:16)
--- NOTE | 2019-02-18 09:18 | ED ---
GI/ HPI - HPI Summary HPI Summary: This patient is a 78 year old F presenting to ED with a chief complaint of constipation since one month ago. Patient has had the constipation along with nausea and abdominal cramping intermittently. She reports also having vomiting x1. In the last month, patient saw her primary care physician who performed blood work and stated she is dehydrated and has poor kidney function. Patients last bowel movement was two days ago with a suppository. The patient rates the pain 8/10 in severity. Symptoms aggravated by nothing. Symptoms alleviated by nothing. Patient denies fever. - History of Current Complaint Chief Complaint: EDAbdPain Time Seen by Provider: 02/18/19 09:12 Stated Complaint: ABD PAIN Hx Obtained From: Patient Onset/Duration: Started Weeks Ago - 1 month, Still Present Timing: Intermittent Severity: Severe Current Severity: Severe Pain Intensity: 8 Pain Characteristics: Cramping Associated Signs and Symptoms: Positive: Nausea, Vomiting - x1, Constipation. Negative: Fever Aggravating Factor(s): Nothing Alleviating Factor(s): Nothing - Additional Pertinent History Primary Care Physician: OSMIN - Allergy/Home Medications Allergies/Adverse Reactions: Allergies Allergy/AdvReac Type Severity Reaction Status Date / Time buprenorphine [From Butrans] Allergy Rash Verified 02/18/19 09:09 nickel Allergy Rash Verified 02/18/19 09:09 Penicillins Allergy Rash Verified 02/18/19 09:09 sucralfate [From Carafate] Allergy Rash Verified 02/18/19 09:09 Sulfa (Sulfonamide Allergy Rash Verified 02/18/19 09:09 Antibiotics) Home Medications: Home Medications Carboxymethylcellulose Sodium [Thera Tears] 1 each BOTH EYES DAILY 02/18/19 [ History Confirmed 02/18/19] Cholecalciferol CAP/TAB(NF) [Vitamin D3 CAP/TAB (NF)] 1,000 unit PO DAILY [History Confirmed 02/18/19] Lisinopril TAB* [Prinivil TAB 10 MG*] 20 mg PO DAILY 02/18/19 [History Confirmed 02/18/19] Omeprazole (Nf) [Prilosec (NF)] 40 mg PO DAILY 02/18/19 [History Confirmed 02/18] Potassium Chloride [Klor-Con M15] 15 meq PO DAILY 02/18/19 [History Confirmed ] Prochlorperazine SUPP* [Compazine Supp*] [address] BID PRN 02/18/19 [History Confirmed 02/18/19] Sennosides/Docusate Sodium [Senna Plus Tablet] 2 each PO DAILY PRN 02/18/19 [ History Confirmed 02/18/19] PMH/Surg Hx/FS Hx/Imm Hx Endocrine/Hematology History: Denies: Hx Diabetes, Hx Thyroid Disease Cardiovascular History: Reports: Hx Hypercholesterolemia, Hx Hypertension, Other Cardiovascular Problems/Disorders - HI CHOLESTEROL Respiratory History: Denies: Hx Asthma, Hx Chronic Obstructive Pulmonary Disease (COPD) GI History: Reports: Hx Ulcer - many years ago, Other GI Disorders - CONSTIPATION History: Denies: Hx Renal Disease Musculoskeletal History: Reports: Hx Arthritis - SHOULDERS AND BACK, NECK Sensory History: Reports: Hx Cataracts, Hx Contacts or Glasses - GLASSES Denies: Hx Hearing Aid Opthamlomology History: Reports: Hx Cataracts, Hx Contacts or Glasses - GLASSES - Cancer History Cancer Type, Location and Year: Melanoma- Hx Chemotherapy: No Hx Radiation Therapy: No - Surgical History Surgery Procedure, Year, and Place: LEFT SHOULDER SURGERY 06/2010 [facility], left shoulder replacement 2011 [facility], Tonsillectomy, Tubal Ligation Hx Anesthesia Reactions: Yes - NAUSEA Infectious Disease History: No Infectious Disease History: Denies: Hx Hepatitis, Hx Human Immunodeficiency Virus (HIV), Traveled Outside the [place] in Last 30 Days - Family History Known Family History: Positive: Hypertension - Social History Alcohol Use: None Hx Substance Use: No Substance Use Type: Reports: None Hx Tobacco Use: Yes Smoking Status (MU): Former Smoker Type: Cigarettes Amount Used/How Often: 1/2 PPWEEK 25 YRS Have You Smoked in the Last Year: No Review of Systems Negative: Fever Gastrointestinal: Other - Constipation, abdominal cramping Positive: Vomiting - x1, Nausea All Other Systems Reviewed And Are Negative: Yes Physical Exam - Summary Physical Exam Summary: VITAL SIGNS: Reviewed. GENERAL: Patient is a well-developed and nourished female who is lying comfortable in the stretcher. Patient is not in any acute respiratory distress. HEAD AND FACE: Normocephalic and atraumatic. EYES: PERRLA, EOMI x 2, No injected conjunctiva. EARS: Hearing grossly intact. Ear canals and tympanic membranes are WNL. MOUTH: Oropharynx within normal limits. NECK: Supple, trachea is midline, no adenopathy, no JVD. CHEST: Symmetric, no tenderness at palpation. LUNGS: Clear to auscultation bilaterally. No wheezing or crackles. CVS: RRR, S1 and S2 present, no murmurs or gallops appreciated. ABDOMEN: Soft, non-tender. No signs of distention. Positive bowel sounds. No rebound, no guarding, and no masses palpated. No abdominal bruit or pulsations. EXTREMITIES: FROM in all major joints, no edema, no cyanosis or clubbing. NEURO: Alert and oriented x 3. No acute neurological deficits. Speech is normal. SKIN: Dry and warm. Triage Information Reviewed: Yes Vital Signs On Initial Exam: Initial Vitals Temp Pulse Resp BP Pulse Ox 98.8 F 103 16 137/84 97 02/18/19 09:06 02/18/19 09:06 02/18/19 09:06 02/18/19 09:06 02/18/19 09:06 Vital Signs Reviewed: Yes Diagnostics - Vital Signs Vital Signs Temp Pulse Resp BP Pulse Ox 02/18/19 09:06 98.8 F 103 16 137/84 97 - Laboratory Result Diagrams: 02/18/19 09:56 02/18/19 09:56 Lab Statement: Any lab studies that have been ordered have been reviewed, and results considered in the medical decision making process. - Radiology Abdomen XR Radiology Interpretation Completed By: Radiologist Summary of Radiographic Findings: 1. Moderate sigmoidal stool volume. 2. Nonobstructive bowel gas pattern. Dr. Umaña has reviewed this radiology report. GIGU Course/Dx - Course Assessment/Plan: This patient is a 78 year old F presenting to ED with a chief complaint of constipation since one month ago. Patient has had constipation along with nausea and abdominal cramping intermittently. She reports also having vomiting x1. In the last month, patient saw her primary care physician who performed blood work and stated she is dehydrated and has poor kidney function. Patients last bowel movement was two days ago with a suppository. The patient rates the pain 8/10 in severity. Symptoms aggravated by nothing. Symptoms alleviated by nothing. Patient denies fever. Blood work without any significant abnormality except for hemoglobin 11.8, carbon dioxide 21, BUN is 31 and creatinine 2.64, glucose 112, magnesium of 1.7, CRP of 37.4. Abdominal x -ray impression: Moderate sigmoid of the stool volume. Non Obstructive bowel gas pattern. In the ED course the patient was given IV fluids, I started him magnesium citrate, lactulose, and MiraLAX. Urinalysis positive for UTI. The patient was given nitrofurantoin for the UTI. The patient had a large bowel movement and the patient is feeling much more comfortable. Therefore the patient will be discharged home with follow-up with PCP. Patient is hemodynamically stable alert and oriented 3. - Diagnoses Provider Diagnoses: Constipation, UTI (urinary tract infection) Discharge ED - Sign-Out/Discharge Documenting (check all that apply): Patient Departure Patient Received Moderate/Deep Sedation with Procedure: No - Discharge Plan Condition: Stable Disposition: HOME Prescriptions: Nitrofurantoin Macrocrystals* [Macrodantin 100 mg*] 100 mg PO BID #14 cap Polyethylene Glycol 3350* [Miralax*] 17 gm PO DAILY #12 packet Patient Education Materials: Constipation (ED), Urinary Tract Infection in Women (DC) Referrals: Krystal Stanton NP [Primary Care Provider] - Additional Instructions: Take medications as indicated. Increase her water intake. Follow-up with the primary care physician in the next 2-3 days. Return to the emergency department if any of the symptoms returns or worsens. - Billing Disposition and Condition Condition: STABLE Disposition: Home - Attestation Statements Document Initiated by Renzo: Yes Documenting Scribe: Reyes Bui Provider For Whom Renzo is Documenting (Include Credential): Krzysztof Umaña MD Scribe Attestation: I, Reyes Bui, scribed for Krzysztof Umaña MD on 02/18/19 at 1842. Scribe Documentation Reviewed: Yes Provider Attestation: The documentation as recorded by the Reyes zamora accurately reflects the service I personally performed and the decisions made by me, Krzysztof Umaña MD Status of Scribe Document: Viewed
--- OUTSIDE RECORDS SUMMARY | 2019-02-18 09:20 | XMS REPORT | Continuity of Care Document ---
:1940 External Reference #:[id number] Author Name Krystal Stanton N.P. (transmitted by agent of provider Zamzam Nugent) Address [address] [facility], [address] [place] [id number] Care Team Providers Name Role Phone Boris Romano MD - Care Team Information [employer] [phone] Ophthalmology Romelia Edge MD - Internal Care Team Information Material [employer] [phone] Medicine Crystal Bose MD - Dermatology Care Team Information [employer] Meliza Higginbotham [facility] - Family Care Team Information Material [employer] [phone] Cherelle Palma MD - Care Team Information [employer] [phone] Obstetrics & Gynecology Problems Active Problems Provider Date Benign essential hypertension Shira Murphy M.D., FACP Onset: 08/20/2010 Pure hypercholesterolemia Shira Murphy M.D., FACP Onset: 08/20/2010 Shoulder joint pain Mike Orta M.D. Onset: 12/25/2014 Social History Type Date Description Comments Sex Unknown Cigarette Use Quit - Age 49 ETOH Use Denies alcohol use Tobacco Use Start: Unknown End: Patient is a former smoker Unknown Recreational Drug Use Denies Drug Use Tobacco Use Start: Unknown Started at 20's quit late 50"s. Smoked 1 pk per week. Tobacco Use Start: Unknown Not exposed to second hand smoke. Smoking Status Reviewed: 02/16/19 Not exposed to second hand smoke. Exercise Type/Frequency Does not exercise Allergies, Adverse Reactions, Alerts Active Allergies Reaction Severity Comments Date Penicillin rash Moderate 03/28/2010 Sulfa Urticaria Severe 03/28/2010 Nickel 09/21/2017 Medications Active Medications SIG Qnty Indications Ordering Date Provider Omeprazole 1 by mouth every 30caps R10.84 Krystal 02/17/[address] jv Santiagon, N.P. 19 Prochlorperazine 1 suppository per 12units R11.0 [place] 02/17/20 25mg Suppository rectum bid prn Varn, N.P. 19 nausea Lisinopril 1 by mouth every 90tabs E87.6 [place] 02/02/20 20mg Tablets day Varn, N.P. 19 Klor-Con M15 1 by mouth every 30tabs E87.6 [place] 02/02/20 15Meq Tablets ER day Varn, N.P. 19 Senna Plus take 2 tablets by 60tabs K59.00 [place] 11/11/19 8.6-50mg Tablets mouth as needed Varn, N.P. 19 for constipation Clonazepam take 1/2 to 1 30tabs F41.9 [place] 07/15/19 0.5mg Tablets tablet as needed Varn, N.P. 19 anxiety and sleep Amlodipine Besylate 1 by mouth every 30tabs [place] 5mg Tablets day Varn, N.P. 00 Multivitamin Adult 1 by mouth every Unknown Chewtabs day 00 Sodium 0.25% in both Unknown Carboxymethylcellulose eyes daily 00 Medium Viscosity Powder Hyoscyamine Sulfate Take 1 Tablet By Unknown 0.125mg Tablets Mouth Every 4 00 Hours as Needed For Cramping Thera Tears Unknown 00 Nucynta 1-2 by mouth four Unknown 50mg Tablets times a day as 00 needed pain Vitamin D-3 1 po qd 90tabs Unknown 1000Unit Tablets 00 History Medications Omeprazole 1 by mouth every day 90caps R10.84 Krystal Stanton, 02/11/2019 - 20mg N.P. 02/16/2019 Capsules Ondansetron HCL one by mouth every 8 30tabs Krystal Stanton, 02/08/2019 - 4mg hours as needed for N.P. 02/16/2019 Tablets nausea Movantik one po daily prn 30tabs K59.00 Krystal Stanton, 02/01/2019 - 12.5mg constipation N.P. 02/16/2019 Tablets Lisinopril 1 by mouth every day 90tabs I10 Krystal Stanton, 12/13/2018 - 40mg N.P. 01/26/2019 Tablets Lisinopril 1 by mouth every day 10tabs I10 Krystal Stanton, 12/13/2018 - 10mg N.P. 12/23/2018 Tablets Omeprazole 1 by mouth every day 90caps R10.84 Krystal Stanton, 09/16/2018 - 20mg N.P. 01/26/2019 Capsules Immunizations CPT Code Status Date Vaccine Reaction Lot # 39033 Given 12/13/2018 Pneumonia Vaccine no immediate reaction [id number] noted. dg 34196 Given 12/11/2017 Tetanus And Diptheria (Td) No immediate [id number] For Adult Use Preservative reaction..jh Free Q2039 Given 04/17/2015 Flu Vaccine NOS 59443 Given 12/01/2014 Pneumococcal Conjugate [id number] Vaccine 13 Valent For Intramuscular Use 36501 Given 03/23/2013 Fluzone High Dose 08057 Given 04/07/2012 Fluzone High Dose 07523 Given 10/02/2011 Zoster (Zostavax) [id number] Q2038 Given 04/04/2011 Fluzone Vaccine 16675 Given 07/05/2009 Influenza Virus 3Yrs & Over Vital Signs Date Vital Result Comment 02/16/2019 12:01pm Height 63 inches 5'3" Weight 112.00 lb Heart Rate 92 /min BP Systolic 118 mmHg BP Diastolic 77 mmHg Body Temperature 97.4 F O2 % BldC Oximetry 98 % BMI (Body Mass Index) 19.8 kg/m2 02/01/2019 3:15pm Height 63 inches 5'3" Weight 118.00 lb Heart Rate 68 /min BP Systolic Sitting 141 mmHg BP Diastolic Sitting 89 mmHg Body Temperature 97.6 F O2 % BldC Oximetry 97 % BMI (Body Mass Index) 20.9 kg/m2 Results Test Date Facility Test Result H/L Range Note Urine Culture And 02/12/2019 [facility] Urine SEE RESULT 1 , [address] [place] [address] [phone] Poc Urinalysis 02/12/2019 [facility] Poc Glucose, Negative Negative [address] [place] [address] [phone] Poc Bilirubin, Urine Negative Negative Poc Ketone, Urine Negative Negative Poc Specific [place], Urine 1.015 Normal 1.010-1.030 Poc Blood, Urine 1+ Abnormal Negative Poc pH, Urine 5.5 Normal 5-9 Poc Protein, Urine 2+ Abnormal Negative Poc Urobilinogen, Urine 0.2 Negative Poc Nitrite, Urine Negative Negative Poc Leukocytes, Urine 2+ Abnormal Negative Poc Color, Urine Light yellow Poc Clarity, Urine Slightly Cloudy 3 Basic Metabolic 02/07/2019 [facility] Sodium 133 mmol/L Low 135-[address] [place] [address] [phone] Potassium 3.5 mmol/L Normal 3.5-5.0 Chloride 101 mmol/L Normal 101-111 Co2 Carbon Dioxide 21 mmol/L Low 22-32 Anion Gap 11 mmol/L Normal 2-11 Glucose 125 mg/dL High 70-100 Blood Urea Nitrogen 44 mg/dL High 6-24 Creatinine 3.49 mg/dL High 0.51-0.95 BUN/Creatinine Ratio 12.6 Normal 8-20 Calcium 9.1 mg/dL Normal 8.6-10.3 Egfr Non- 12.6 >60 Egfr 15.3 >60 4 CBC No Diff 01/31/2019 [facility] White Blood 6.9 10^3/uL Normal 3.5-10.[address] [place] [address] [phone] Red Blood Count 4.24 10^6/uL Normal 3.70-4.87 Hemoglobin 12.8 g/dL Normal 12.0-16.0 Hematocrit 38 % Normal 35-47 Mean Corpuscular Volume 90 fL Normal 80-97 Mean Corpuscular Hemoglobin 30 pg Normal 27-31 Mean Corpuscular HGB Conc 34 g/dL Normal 31-36 Red Cell Distribution Width 16 % High 10-15 Platelet Count 232 10^3/uL Normal 150-450 Mean Platelet Volume 10.8 fL High 7.4-10.4 Basic Metabolic 01/31/2019 [facility] Sodium 139 mmol/L Normal 135-[address] [place] [address] [phone] Potassium 3.1 mmol/L Low 3.5-5.0 Chloride 103 mmol/L Normal 101-111 Co2 Carbon Dioxide 25 mmol/L Normal 22-32 Anion Gap 11 mmol/L Normal 2-11 Glucose 91 mg/dL Normal 70-100 Blood Urea Nitrogen 14 mg/dL Normal 6-24 Creatinine 1.31 mg/dL High 0.51-0.95 BUN/Creatinine Ratio 10.7 Normal 8-20 Calcium 9.4 mg/dL Normal 8.6-10.3 Egfr Non- 39.2 >60 Egfr 47.4 >60 5 Urinalysis Profile 01/23/2019 [facility] Urine Color Yellow [address] [place] [address] [phone] Urine Appearance Cloudy Urine Specific [place] 1.008 Low 1.010-1.030 Urine pH 6.0 Normal 5-9 Urine Urobilinogen Negative Negative Urine Ketones Negative Negative Urine Protein 1+(30 mg/dL) Abnormal Negative Urine Leukocytes 3+ Abnormal Negative Urine Blood 2+ Abnormal Negative Urine Nitrite Negative Negative Urine Bilirubin Negative Negative Urine Glucose Negative Negative Urine White Blood Cell 3+(>20/hpf) Abnormal Absent Urine Red Blood Cell 3+(>10/hpf) Abnormal Absent Urine Bacteria Absent Absent Urine Transitional Epithelial Present Abnormal Absent CBC Auto 01/23/2019 [facility] White Blood 13.7 10^3/uL High 3.5-10.[address] [place] [address] [phone] Red Blood Count 4.35 10^6/uL Normal 3.70-4.87 Hemoglobin 13.2 g/dL Normal 12.0-16.0 Hematocrit 39 % Normal 35-47 Mean Corpuscular Volume 90 fL Normal 80-97 Mean Corpuscular Hemoglobin 30 pg Normal 27-31 Mean Corpuscular HGB Conc 34 g/dL Normal 31-36 Red Cell Distribution Width 16 % High 10-15 Platelet Count 122 10^3/uL Low 150-450 Mean Platelet Volume 10.8 fL High 7.4-10.4 Abs Neutrophils 12.0 10^3/uL High 1.5-7.7 Abs Lymphocytes 0.6 10^3/uL Low 1.0-4.8 Abs Monocytes 0.8 10^3/uL Normal 0-0.8 Abs Eosinophils 0.2 10^3/uL Normal 0-0.6 Abs Basophils 0.0 10^3/uL Normal 0-0.2 Abs Nucleated RBC 0.0 10^3/uL Granulocyte % 88.0 % Lymphocyte % 4.3 % Monocyte % 5.9 % Eosinophil % 1.7 % Basophil % 0.1 % Nucleated Red Blood Cells % 0.0 Comp Metabolic Panel 01/23/2019 [facility] Sodium 132 mmol/L Low 135-[address] [place] [address] [phone] Potassium 3.7 mmol/L Normal 3.5-5.0 Chloride 99 mmol/L Low 101-111 Co2 Carbon Dioxide 22 mmol/L Normal 22-32 Anion Gap 11 mmol/L Normal 2-11 Glucose 98 mg/dL Normal 70-100 Blood Urea Nitrogen 34 mg/dL High 6-24 Creatinine 2.69 mg/dL High 0.51-0.95 BUN/Creatinine Ratio 12.6 Normal 8-20 Calcium 9.3 mg/dL Normal 8.6-10.3 Total Protein 7.3 g/dL Normal 6.4-8.9 Albumin 3.9 g/dL Normal 3.2-5.2 Globulin 3.4 g/dL Normal 2-4 Albumin/Globulin Ratio 1.1 Normal 1-3 Total Bilirubin 0.70 mg/dL Normal 0.2-1.0 Alkaline Phosphatase 73 U/L Normal 34-104 Alt 16 U/L Normal 7-52 Ast 23 U/L Normal 13-39 Egfr Non- 17.1 >60 Egfr 20.7 >60 6 Laboratory test 01/23/2019 [facility] Lipase 12 U/L Normal 11.0-82.[address] [place] [address] [phone] C Reactive Protein 133.58 mg/L High <8.01 Urine Culture And 01/23/2019 [facility] Urine Culture SEE RESULT [address] [place] [address] [phone] Lipid Profile 12/06/2018 [facility] Triglycerides 88 mg/dL 8 (Trig/Chol/HDL) [address] [place] [address] [phone] Cholesterol 194 mg/dL 9 HDL Cholesterol 58.6 mg/dL 10 LDL Cholesterol 118 mg/dL 11 Drug Abuse 20 10/15/2018 [facility] Urine Amphetamine Negative ng/mL [address] [place] [address] [phone] Urine Barbiturates Negative ng/mL 13 Urine Benzodiazepines Negative ng/mL 14 Urine Cocaine Negative ng/mL 15 Urine Phencyclidine Negative ng/mL Cutoff: 25 Urine Tetrahydrocannabinol Negative ng/mL Cutoff: 50 16 Creatinine, Urine 41.4 mg/dL Specific [place] 1.006 pH 5.7 Oxidants Negative 17 Adulterants Comment Normal Codeine, Ur Not Detected ng/mL Cutoff: 25 18 Tnyoztu-2-iaqw-glucuronide, Ur Not Detected ng/mL 19 Morphine, Ur Not Detected ng/mL Cutoff: 25 20 Asgiccle-4-sfta-glucuronide, U Not Detected ng/mL 21 6-monoacetylmorphine, Ur Not Detected ng/mL Cutoff: 25 22 Hydrocodone, Ur Not Detected ng/mL Cutoff: 25 23 Norhydrocodone, Ur Not Detected ng/mL Cutoff: 25 24 Dihydrocodeine, Ur Not Detected ng/mL Cutoff: 25 25 Hydromorphone, Ur Not Detected ng/mL Cutoff: 25 26 Aygkoglusvaff1sjpgdsikwniwlrk Not Detected ng/mL 27 Oxycodone, Ur Not Detected ng/mL Cutoff: 25 28 Noroxycodone, Ur Not Detected ng/mL Cutoff: 25 29 Oxymorphone, Ur Not Detected ng/mL Cutoff: 25 30 Tlalkjljwfy-1-llvp-glucuronide Not Detected ng/mL 31 Noroxymorphone, Ur Not Detected ng/mL Cutoff: 25 32 Fentanyl, Ur Not Detected ng/mL Cutoff: 2 33 Norfentanyl, Ur Not Detected ng/mL Cutoff: 2 34 Meperidine, Ur Not Detected ng/mL Cutoff: 25 35 Normeperidine, Ur Not Detected ng/mL Cutoff: 25 36 Naloxone, Ur Not Detected ng/mL Cutoff: 25 37 Kavwmszl-2-ejag-glucuronide, U Not Detected ng/mL 38 Methadone, Ur Not Detected ng/mL Cutoff: 25 39 Eddp, Ur Not Detected ng/mL Cutoff: 25 40 Propoxyphene, Ur Not Detected ng/mL Cutoff: 25 41 Norpropoxyphene, Ur Not Detected ng/mL Cutoff: 25 42 Tramadol, Ur Not Detected ng/mL Cutoff: 25 43 O-desmethyltramadol, Ur Not Detected ng/mL Cutoff: 25 44 Tapentadol, Ur Present ng/mL Abnormal Cutoff: 25 45 N-desmethyltapentadol, Ur Present ng/mL Abnormal Cutoff: 50 46 Igauhfqcez-hkug-omghmhufkkm, U Present ng/mL Abnormal 47 Buprenorphine, Ur Not Detected ng/mL Cutoff: 5 48 Norbuprenorphine, Ur Not Detected ng/mL Cutoff: 5 49 Norbuprenorphine glucuronide Not Detected ng/mL Cutoff: 20 50 Opioid Interpretation See Comment 51 1 [id number] 2 SEE RESULT BELOW Name: ZAMZAM GONZALEZ : [address]: Earle Monahan MD Acct: [id number] Unit: [id number] AGE: 78 Location: [facility] Re02/12/19 SEX: F Status: DEP ER SPEC: [id number] IMELDA: 02/12/19-[address] [facility] [address]: Evelia Boland NP REQ: [id number] RECD: 02/13/193165 STATUS: RAGHAV PARKER DR: Earle Stanton [employer] _ SOURCE: URINE SPDESC: ORDERED: Urine Culture COMMENTS: [id number] QUERIES: Urine Source: Random Procedure Result Reported Site Urine Culture Final 02/14/19- 1218 ML No Growth (<1,000 CFU/mL) * ML - Main Lab . END OF REPORT DEPARTMENT OF PATHOLOGY, [address] [place] [address] Biju Freeman M.D. Director [facility] # [id number] 3 Vice President Underwriting: [id number] 4 Because ethnic data is not always readily [...] 15-29 5 Kidney failure <15 (or dialysis) 5 Because ethnic data is not always readily [...] 15-29 5 Kidney failure <15 (or dialysis) 6 Because ethnic data is not always readily [...] 15-29 5 Kidney failure <15 (or dialysis) 7 SEE RESULT BELOW Name: JARETHZAMZAM GUAJARDO : [address]: Mirela Hunt DO Acct: [id number] Unit: [id number] AGE: 78 Location: [facility] [id number] Re01/23/19 SEX: F Status: ADM IN SPEC: [id number] IMELDA: 01/23/[address]: Ed Lynn MD REQ: [id number] RECD: 01/23/19 STATUS: RAGHAV PARKER DR: Krystal Stanton [employer] _ SOURCE: URINE SPDESC: ORDERED: Urine Culture Procedure Result Reported Site Urine Culture Final 01/24/19- 1610 ML No growth of clinically significant organisms * ML - Main Lab . END OF REPORT DEPARTMENT OF PATHOLOGY, [address] [place] [address] Biju Freeman M.D. Director [facility] # [id number] Desirable: <150 Borderline High: 150-199 High: 200-499 Very High: >500 9 Desirable: <200 Borderline High: 200-239 High: >239 10 Low: <40 Desirable: 40-60 High: >60 11 Desirable: <100 Near Optimal: 100-129 Borderline High: 130-159 High: 160-189 Very High: >189 12 REFERENCE VALUE Cutoff: 500 13 REFERENCE VALUE Cutoff: 200 14 REFERENCE VALUE Cutoff: 100 15 REFERENCE VALUE Cutoff: 150 16 ADDITIONAL INFORMATION This report is intended for use in clinical monitoring or management of patients. It is not intended for use in employment-related testing. 17 REFERENCE VALUE Cutoff: 200 mg/L 18 Tylenol 3 19 Metabolite of codeine REFERENCE VALUE Cutoff: 100 20 Trisha Russo, MS Contin; Also a minor metabolite (10%) of codeine and can be seen in low concentrations (<2,000 ng/mL) with poppy seed ingestion. 21 Metabolite of morphine REFERENCE VALUE Cutoff: 100 22 Metabolite of heroin 23 Lortab, Hope, Vicodin; Also a very minor metabolite of codeine and impurity (<1%) of oxycodone. 24 Metabolite of hydrocodone 25 Metabolite of hydrocodone 26 Dilaudid, Exalgo; Also a metabolite of hydrocodone and a minor (<5%) metabolite of morphine. 27 Metabolite of hydromorphone REFERENCE VALUE Cutoff: 100 28 Endocet, Percocet, Oxycontin 29 Metabolite of oxycodone 30 Numorphan, Opana; Also a metabolite of oxycodone. 31 Metabolite of oxymorphone REFERENCE VALUE Cutoff: 100 32 Metabolite of oxymorphone 33 Actiq, Duragesic, Fentora 34 Metabolite of fentanyl 35 Demerol 36 Metabolite of meperidine 37 Narcan 38 Metabolite of naloxone REFERENCE VALUE Cutoff: 100 39 Dolophine 40 Metabolite of methadone 41 Darvon, Darvocet 42 Metabolite of propoxyphene 43 Tradol, Ultram, Ultracet 44 Metabolite of tramadol 45 Nucynta 46 Metabolite of tapentadol 47 Metabolite of tapentadol REFERENCE VALUE Cutoff: 100 48 Buprenex, Suboxone 49 Metabolite of buprenorphine 50 Metabolite of buprenorphine 51 Test detected the presence of tapentadol and two of its metabolites (n-desmethyltapentadol and ofjduuvqxw-bmai-zmzcmtsfptv). Suspect use of tapentadol within the past three days. ADDITIONAL INFORMATION This test was developed and its performance characteristics determined by [facility] in a manner consistent with CLIA requirements. This test has not been cleared or approved by the U.S. Food and Drug Administration. Test Performed by: [facility] [address] [place] [address] Procedures Date Code Description Status 11/02/2018 55059 Destruction Of Benign Lesions Any Method 1-14 lesions Completed 05/10/2018 44519730 Mammogram Completed 05/08/2017 95485092 Mammogram Completed 05/02/2016 45882039 Mammogram Completed 12/11/2015 758544423 Bone Mineral Density Test Completed 05/01/2015 83904164 Mammogram Completed 05/15/2014 18639816 Mammogram Completed 05/11/2013 22526100 Mammogram Completed 02/15/2013 99586160 Colonoscopy Completed 05/10/2012 05578041 Mammogram Completed 05/09/2011 69907097 Mammogram Completed 08/29/2010 272065079 Bone Mineral Density Test Completed 05/08/2010 24752654 Mammogram Completed 06/22/2007 06220865 Colonoscopy Completed Medical Devices Description No Information Available Encounters Type Date Location Provider Dx Diagnosis Office Visit 02/01/2019 Rolan Stanton, N.P. 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 general adult medical exam w/o abnormal findings I10 Essential (primary) hypertension E78.00 Pure hypercholesterolemia, unspecified M25.512 Pain in left shoulder K59.00 Constipation, unspecified Z23 Encounter for immunization Office Visit 11/02/2018 1:10p [facility] Brea Becerra, R20.2 Paresthesia of skin L82.0 Inflamed seborrheic keratosis L53.8 Other specified erythematous conditions R20.8 Other disturbances of skin sensation L29.8 Other pruritus Office Visit 09/16/2018 10:40a [facility] Krystal Stanton, R10.84 Generalized Medicine - [facility] N.P. abdominal pain Office Visit 09/02/2018 11:20a [facility] Brea R20.2 Paresthesia of MD [place] skin Assessments Date Code Description Provider 02/16/2019 R10.84 Generalized abdominal pain Krystal Stanton, N.P. 02/16/2019 R11.0 Nausea Krystal Stanton, N.P. 02/16/2019 R94.4 Abnormal results of kidney function studies Krystal Stanton, N.P. 02/01/2019 E87.6 Hypokalemia Krystal Stanton, N.P. 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 02/01/2019 I10 Essential (primary) hypertension Krystal Stanton, N.P. 02/01/2019 K59.00 Constipation, unspecified Krystal Stanton, N.P. 01/23/2019 R10.9 Unspecified abdominal pain Kylah Fisher M.D. 01/23/2019 K58.0 Irritable bowel syndrome with diarrhea Kylah Fisher M.D. 01/23/2019 N18.3 Chronic kidney disease, stage 3 (moderate) Kylah Fisher M.D. 01/23/2019 I10 Essential (primary) hypertension Kylah Fisher M.D. 01/23/2019 M13.80 Other specified arthritis, unspecified site Kylah Fisher M.D. 01/23/2019 Z87.11 Personal history of peptic ulcer disease Kylah Fisher M.D. 12/13/2018 Z00.00 Encounter for general adult medical Krystal Varn, N.P. examination without abno 12/13/2018 I10 Essential (primary) hypertension Krystal Stanton, N.P. 12/13/2018 E78.00 Pure hypercholesterolemia, unspecified Krystal Stanton, N.P. 12/13/2018 M25.512 Pain in left shoulder Krystal Stanton, N.P. 12/13/2018 K59.00 Constipation, unspecified Krystal Stanton, N.P. 12/13/2018 Z23 Encounter for immunization Krystal Stanton N.P. 11/02/2018 R20.2 Paresthesia of skin Brea Becerra MD 11/02/2018 L82.0 Inflamed seborrheic keratosis Brea Becerra MD 11/02/2018 L53.8 Other specified erythematous conditions Brea Becerra MD 11/02/2018 R20.8 Other disturbances of skin sensation Brea Becerra MD 11/02/2018 L29.8 Other pruritus Brea Becerra MD 09/16/2018 R10.84 Generalized abdominal pain Krystal Stanton N.P. 09/02/2018 R20.2 Paresthesia of skin Brea Becerra MD Plan of Treatment Future Appointment(s):12/16/2019 1:00 pm - Krystal Stanton N.P. at [facility] - [facility]06/07/2019 11:00 am - Krystal Stanton N.PKerwin at [facility] - [facility]02/16/2019 - Krystal Stanton N.PKerwinR10.84 Generalized abdominal painNew Medication:Omeprazole 40 mg - 1 by mouth every dayComments:I have increased your Omeprazole to 40 mg.Please avoid foods that irritate your stomach.R11.0 NauseaNew Medication:Prochlorperazine 25 mg - 1 suppository per rectum bid prn nauseaComments:For your nausea I have prescribed Compazine rectal suppositories. You may use 1 every 12 hours as needed.R94.4 Abnormal results of kidney function studiesComments:To further evaluate your kidney function I have ordered blood work and a 24 hour urine collection. Iwill contact you with your results. Functional Status Description No Information Available Mental Status Description No Information Available Referrals Refer to Reason for Referral Status Appt Date Josey Valentin MD Patient has been experiencing episodes of Sent intense abdominal pain. She has had a full GI workup and nothing has been found aside from constipation. 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 Patient is referred for evaluation and treatment. [address] [place] [address] [phone] Sandra Ricks MD Patient with continued issues with abdominal Closed pain. Referred for evaluation and treatment. [address] [place] [address] [phone]
[2019-02-18 10:08] LABS: ABS Eosinophils 0.1 10^3/ul (0-0.6); ABS Lymphocytes 0.6 10^3/ul (1.0-4.8); ABS Monocytes 0.7 10^3/ul (0-0.8); ABS Neutrophils 7.6 10^3/ul (1.5-7.7); Eosinophil % 0.6 %; Hematocrit 35 % (35-47); Hemoglobin 11.8 g/dL (12.0-16.0); Lymphocyte % 6.9 %; Mean Corpuscular HGB Conc 34 g/dL (31-36); Mean Corpuscular Hemoglobin 30 pg (27-31); Mean Corpuscular Volume 90 fL (80-97); Mean Platelet Volume 9.9 fL (7.4-10.4); Platelet Count 217 10^3/uL (150-450); Red Blood Count 3.87 10^6 /uL (3.70-4.87); Red Cell Distribution Width 16 % (10-15)
[2019-02-18] MEDS ORDERED: Polyethylene Glycol 3350* 17 GM PACKET PO PRN (10:21)
[2019-02-18] MEDS ORDERED: Magnesium CITRATE* 300 ML BTL PO ONE (10:21)
[2019-02-18 10:27] LABS: Albumin 3.9 g/dL (3.2-5.2); Albumin/Globulin Ratio 1.2 (1-3); BUN/Creatinine Ratio 11.7 (8-20); C Reactive Protein 37.45 mg/L (<8.01); Calcium 9.5 mg/dL (8.6-10.3); EGFR African American 21.1 (>60); EGFR Non-African American 17.4 (>60); Globulin 3.3 g/dL (2-4); Magnesium 1.7 mg/dL (1.9-2.7); Potassium 4.7 mmol/L (3.5-5.0); Total Bilirubin 0.5 mg/dL (0.2-1.0); Total Protein 7.2 g/dL (6.4-8.9)
[2019-02-18 12:58] LABS: Urine Appearance Cloudy; Urine Bacteria Absent (Absent); Urine Bilirubin Negative (Negative); Urine Blood 1+ (Negative); Urine Color Straw; Urine Glucose Negative (Negative); Urine Ketones Negative (Negative); Urine Nitrite Negative (Negative); Urine Protein Negative (Negative); Urine Red Blood Cell 2+(6-10/hpf) (Absent); Urine Specific Gravity 1.004 (1.010-1.030); Urine Urobilinogen Negative (Negative); Urine White Blood Cell 3+(>20/hpf) (Absent)
[2019-02-18] MEDS ORDERED: Nitrofurantoin Macrocrystals* 100 MG CAP PO ONE (13:29)
[2019-02-18 13:58] VITALS: BP 168/95
== END 2019-02-18 13:58 | disposition home or self-care (01) ==
LOC: ED 09:04
DX: K59.00 Constipation, unspecified (principal); N39.0 Urinary tract infection, site not specified; I10 Essential (primary) hypertension; E78.00 Pure hypercholesterolemia, unspecified; Z87.891 Personal history of nicotine dependence; Z79.899 Other long term (current) drug therapy; Z88.5 Allergy status to narcotic agent; Z88.0 Allergy status to penicillin; Z88.2 Allergy status to sulfonamides; Z88.8 Allergy status to other drugs, medicaments and biological substances; R94.4 Abnormal results of kidney function studies
CPT/HCPCS: 36415; 74019; 80053; 81003; 81015; 82550; 82575; 83605; 83690; 83735; 84156; 85025; 85730; 86140; 87086; 96360; 99284; A9270-GY

== ENCOUNTER 2019-04-27 10:38 | Observation (INO) | payer MEDICARE ==
[2019-04-27] MEDS ORDERED: Acetaminophen TAB* 325 MG PO PRN (11:37)
[2019-04-27] MEDS ORDERED: Morphine INJ* 2 MG/ML 1 ML SYRINGE (TWO MG - NEW SYRINGE VERSION) IV PRN (11:38)
--- OUTSIDE RECORDS SUMMARY | 2019-04-27 11:38 | XMS REPORT | Continuity of Care Document ---
:1940 External Reference #:[id number] Author Name Mee Rodríguez MD (transmitted by agent of provider Annette Haynes) Address [address] , [address] [address] Care Team Providers Name Role Phone Boris Romano MD - Care Team Information Chronometer Adjuster [phone] Ophthalmology Romelia Edge MD - Internal Care Team Information Chronometer Adjuster [phone] Medicine Crystal Bose MD - Dermatology Care Team Information Chronometer Adjuster [facility] Care Team Information Chronometer Adjuster Cherelle Palma MD - Care Team Information Chronometer Adjuster [phone] Obstetrics & Gynecology Problems Active Problems Provider [...] to second hand smoke. Smoking Status Reviewed: 03/25/19 Not exposed to second hand smoke. Exercise Type/Frequency Does not exercise Allergies, Adverse Reactions, Alerts Active Allergies Reaction Severity Comments Date Penicillin rash Moderate 03/28/2010 Sulfa Urticaria Severe 03/28/2010 Nickel 09/21/2017 Medications Active Medications SIG Qnty Indications Ordering Date Provider Krystal one tablet two 20tabs R11.0 Lc Rashid, 5mg Tablets times daily as ESTIMATE CLERK 9 needed for nausea. Omeprazole 1 by mouth every 90caps R10.84 [place] 40[address] Caps[address] day Varn, N.P. 9 Lisinopril 1 by mouth every 90tabs E87.6 [place] 20mg Tablets day Varn, N.P. 9 Klor-Con M15 1 by mouth every 30tabs E87.6 [place] 15Meq Tablets ER day Varn, N.P. 9 Senna Plus take 2 tablets by 60tabs K59.00 [place] 8.6-50mg Tablets mouth as needed Varn, N.P. 9 for constipation Clonazepam take 1/2 to 1 30tabs F41.9 [place] 0.5mg Tablets tablet as needed Varn, N.P. 9 anxiety and sleep Magnesium 1 by mouth every Unknown 400mg Tablets day 0 Amlodipine Besylate take 1 tablet by 90tabs [place] 5mg Tablets mouth every day Varn, N.P. 0 Multivitamin Adult 1 by mouth every Unknown Chewtabs day 0 Sodium 0.25% in both Unknown Carboxymethylcellulose eyes daily 0 Medium Viscosity Powder Hyoscyamine Sulfate Take 1 Tablet By Unknown 0.125mg Tablets Mouth Every 4 0 Hours as Needed For Cramping Thera Tears Unknown 0 Nucynta 1-2 by mouth four Unknown 50mg Tablets times a day as 0 needed pain Vitamin D-3 1 po qd 90tabs Unknown 1000Unit Tablets 0 History Medications Nitrofurantoin Monohyd take one tablet 14caps Krystla Stanton, 02/25/2019 - Macro every 12 hours N.P. 03/04/2019 100mg Capsules Prochlorperazine 1 suppository per 12units R11.0 Krystal Stanton, 2018 - 25mg rectum bid prn N.P. 03/02/2019 Suppository nausea Omeprazole 1 by mouth every 90caps R10.84 Krystal Stanton, 02/11/2019 - 20mg Capsules DR day N.P. 02/16/2019 Ondansetron HCL one by mouth every 30tabs Krystal Stanton, 02/08/2019 - 4mg Tablets 8 hours as needed N.P. 02/16/2019 for nausea Movantik one po daily prn 30tabs K59.00 Krystal Stanton, 02/01/2019 - 12.5mg Tablets constipation N.P. 02/16/2019 Lisinopril 1 by mouth every 90tabs I10 Krystal Stanton, 12/13/2018 - 40mg Tablets day N.P. 01/26/2019 Lisinopril 1 by mouth every 10tabs I10 Krystal Stanton, 12/13/2018 - 10mg Tablets day N.P. 12/23/2018 Immunizations CPT Code Status Date Vaccine Reaction Lot # [id number] Given 12/13/2018 Pneumonia Vaccine no immediate reaction [id number] noted. dg 21392 Given 12/11/2017 Tetanus And Diptheria (Td) No immediate [id number] For Adult Use Preservative reaction..jh Free Q2039 Given 04/17/2015 Flu Vaccine NOS 94360 Given 12/01/2014 Pneumococcal Conjugate [id number] Vaccine 13 Valent For Intramuscular Use 13661 Given 03/23/2013 Fluzone High Dose 67173 Given 04/07/2012 Fluzone High Dose 28679 Given 10/02/2011 Zoster (Zostavax) [id number] Q2038 Given 04/04/2011 Fluzone Vaccine 34299 Given 07/05/2009 Influenza Virus 3Yrs & Over Vital Signs Date Vital Result Comment 03/25/2019 11:04am Height 63 inches 5'3" Weight 109.00 lb Heart Rate 82 /min BP Systolic Sitting 113 mmHg BP Diastolic Sitting 75 mmHg O2 % BldC Oximetry 97 % BMI (Body Mass Index) 19.3 kg/m2 03/02/2019 2:27pm Height 63 inches 5'3" Weight 107.50 lb Heart Rate 102 /min BP Systolic 114 mmHg BP Diastolic 71 mmHg Body Temperature 96.9 F O2 % BldC Oximetry 97 % BMI (Body Mass Index) 19.0 kg/m2 Results Test Date Facility Test Result H/L Range Note Laboratory test 03/14/2019 [facility] Magnesium 1.8 mg/dL Low 1.9-2.[address] [place] [address] [phone] CBC Auto Diff 03/14/2019 [facility] White Blood 8.8 10^3/uL Normal 3.5-10.[address] [place] [address] [phone] Red Blood Count 3.61 10^6/uL Low 3.70-4.87 Hemoglobin 10.9 g/dL Low 12.0-16.0 Hematocrit 32 % Low 35-47 Mean Corpuscular Volume 90 fL Normal 80-97 Mean Corpuscular Hemoglobin 30 pg Normal 27-31 Mean Corpuscular HGB Conc 34 g/dL Normal 31-36 Red Cell Distribution Width 17 % High 10-15 Platelet Count 219 10^3/uL Normal 150-450 Mean Platelet Volume 10.7 fL High 7.4-10.4 Abs Neutrophils 6.7 10^3/uL Normal 1.5-7.7 Abs Lymphocytes 1.1 10^3/uL Normal 1.0-4.8 Abs Monocytes 0.6 10^3/uL Normal 0-0.8 Abs Eosinophils 0.3 10^3/uL Normal 0-0.6 Abs Basophils 0.1 10^3/uL Normal 0-0.2 Abs Nucleated RBC 0.0 10^3/uL Granulocyte % 76.1 % Lymphocyte % 12.6 % Monocyte % 7.4 % Eosinophil % 3.2 % Basophil % 0.7 % Nucleated Red Blood Cells % 0.0 Laboratory test 03/14/2019 [facility] Erythrocyte Sed 59 mm/Hr High 0-[address] [place] [address] [phone] C Reactive Protein 4.13 mg/L Normal <8.01 Protein 03/14/2019 [facility] Immunofixation See Comment [address] [place] [address] [phone] Total Protein(Pep) 7.2 g/dL 6.3 - 7.9 Albumin 3.3 g/dL Abnormal 3.4-4.7 Alpha-1 Globulin 0.3 g/dL 0.1-0.3 Alpha-2 Globulin 1.1 g/dL Abnormal 0.6-1.0 Beta Globulin 1.0 g/dL 0.7-1.2 Gamma Globulin 1.6 g/dL 0.6-1.6 Albumin/Globulin Ratio 0.83 Impression See Comment 2 Iron & Iron Binding 03/14/2019 [facility] Iron 68 g/dL Normal 50-[address] [place] [address] [phone] Unsaturated Iron Binding < 243 g/dL Total Iron Binding Capacity 258 g/dL Normal 250-450 Transferrin 184 mg/dL Low 203-362 % Iron Saturation 26 % Normal 15-55 Laboratory test 03/14/2019 [facility] Ferritin 371.0 High 11- [address] ng/[place] [address] [phone] Vitamin B12 And 03/14/2019 [facility] Vitamin B12 227 pg/mL Normal 180-914 3 Folate Serum [facility] [place] [address] [phone] Folic Acid (Folate) > 20.00 ng/mL >3.99 Urinalysis Profile 03/14/2019 [facility] Urine Color Yellow [address] [place] [address] [phone] Urine Appearance Cloudy Urine Specific [place] 1.012 Normal 1.010-1.030 Urine pH 6.0 Normal 5-9 Urine Urobilinogen Negative Negative Urine Ketones Negative Negative Urine Protein 1+(30 mg/dL) Abnormal Negative Urine Leukocytes 3+ Abnormal Negative Urine Blood Negative Negative Urine Nitrite Negative Negative Urine Bilirubin Negative Negative Urine Glucose Negative Negative Urine White Blood Cell 3+(>20/hpf) Abnormal Absent Urine Red Blood Cell 2+(6-10/hpf) Abnormal Absent Urine Bacteria Absent Absent Urine Culture And 03/14/2019 [facility] Urine SEE RESULT [address] [place] [address] [phone] Creatinine 02/18/2019 [facility] Creatinine, 2.73 mg/dL High 0.51- Clearance [address] Serum 0.95 [place] [address] [phone] Urine Collection Time 24 hr Urine Total Volume 2300 mL Urine Creatinine Concentration 32.39 mg/dL Creatinine Clearance 19 mL/min Low 88-128 Total Protein 24HR 02/18/2019 [facility] Urine Collection Time 24 hr Urine [address] [place] [address] [phone] Urine Total Volume 2300 mL Urine TP Concentration 27 mg/dL Urine Total Protein/24HR 621 mg/24Hr High 0-165 Urine Culture And 02/18/2019 [facility] Urine Culture SEE RESULT [address] [place] [address] [phone] Urinalysis Profile 02/18/2019 [facility] Urine Color [address]raw [address] [place] [address] [phone] Urine Appearance Cloudy Urine Specific [place] 1.004 Low 1.010-1.030 Urine pH 7.0 Normal 5-9 Urine Urobilinogen Negative Negative Urine Ketones Negative Negative Urine Protein Negative Negative Urine Leukocytes 3+ Abnormal Negative Urine Blood 1+ Abnormal Negative Urine Nitrite Negative Negative Urine Bilirubin Negative Negative Urine Glucose Negative Negative Urine White Blood Cell 3+(>20/hpf) Abnormal Absent Urine Red Blood Cell 2+(6-10/hpf) Abnormal Absent Urine Bacteria Absent Absent Laboratory test 02/18/2019 [facility] Magnesium 1.7 mg/dL Low 1.9-2.7 finding [address] [place] [address] [phone] Lipase 32 U/L Normal 11.0-82.0 Creatine Kinase(CK) 31 U/L Normal 10-223 C Reactive Protein 37.45 mg/L High <8.01 Partial Thrombo Time PTT 29.1 seconds Normal 26.0-38.0 Comp Metabolic 02/18/2019 [facility] Sodium 135 mmol/L Normal 135-145 Panel [address] [place] [address] [phone] Potassium 4.7 mmol/L Normal 3.5-5.0 Chloride 106 mmol/L Normal 101-111 Co2 Carbon Dioxide 21 mmol/L Low 22-32 Anion Gap 8 mmol/L Normal 2-11 Glucose 112 mg/dL High 70-100 Blood Urea Nitrogen 31 mg/dL High 6-24 Creatinine 2.64 mg/dL High 0.51-0.95 BUN/Creatinine Ratio 11.7 Normal 8-20 Calcium 9.5 mg/dL Normal 8.6-10.3 Total Protein 7.2 g/dL Normal 6.4-8.9 Albumin 3.9 g/dL Normal 3.2-5.2 Globulin 3.3 g/dL Normal 2-4 Albumin/Globulin Ratio 1.2 Normal 1-3 Total Bilirubin 0.50 mg/dL Normal 0.2-1.0 Alkaline Phosphatase 77 U/L Normal 34-104 Alt 11 U/L Normal 7-52 Ast 14 U/L Normal 13-39 Egfr Non- 17.4 >60 Egfr 21.1 >60 6 Laboratory test 02/18/2019 [facility] Lactic Acid 1.0 mmol/L Normal 0.5-2.0 [address] [place] [address] [phone] CBC Auto Diff 02/18/2019 [facility] White Blood 9.0 10^3/uL Normal 3.5-10.[address] [place] [address] [phone] Red Blood Count 3.87 10^6/uL Normal 3.70-4.87 Hemoglobin 11.8 g/dL Low 12.0-16.0 Hematocrit 35 % Normal 35-47 Mean Corpuscular Volume 90 fL Normal 80-97 Mean Corpuscular Hemoglobin 30 pg Normal 27-31 Mean Corpuscular HGB Conc 34 g/dL Normal 31-36 Red Cell Distribution Width 16 % High 10-15 Platelet Count 217 10^3/uL Normal 150-450 Mean Platelet Volume 9.9 fL Normal 7.4-10.4 Abs Neutrophils 7.6 10^3/uL Normal 1.5-7.7 Abs Lymphocytes 0.6 10^3/uL Low 1.0-4.8 Abs Monocytes 0.7 10^3/uL Normal 0-0.8 Abs Eosinophils 0.1 10^3/uL Normal 0-0.6 Abs Basophils 0.0 10^3/uL Normal 0-0.2 Abs Nucleated RBC 0.0 10^3/uL Granulocyte % 85.0 % Lymphocyte % 6.9 % Monocyte % 7.2 % Eosinophil % 0.6 % Basophil % 0.3 % Nucleated Red Blood Cells % 0.0 Creatinine 02/16/2019 [facility] Creatinine 2.19 mg/dL High 0.51-0.[address] [place] [address] [phone] Egfr Non- 21.6 >60 Egfr 26.2 >60 8 Urine Culture And 02/12/2019 [facility] Urine SEE RESULT 9 , [address] [place] [place] [address] [phone] Poc Urinalysis 02/12/2019 [facility] Poc Negative Negative [address] Glucose, [place] [address] Urine [phone] Poc Bilirubin, Urine Negative Negative Poc Ketone, Urine Negative Negative Poc Specific [place], Urine 1.015 Normal 1.010-1.030 Poc Blood, Urine 1+ Abnormal Negative Poc pH, Urine 5.5 Normal 5-9 Poc Protein, Urine 2+ Abnormal Negative Poc Urobilinogen, Urine 0.2 Negative Poc Nitrite, Urine Negative Negative Poc Leukocytes, Urine 2+ Abnormal Negative Poc Color, Urine Light yellow Poc Clarity, Urine Slightly Cloudy 11 Basic Metabolic 02/07/2019 [facility] Sodium 133 mmol/L Low 135-[address] [place] [address] [phone] Potassium 3.5 mmol/L Normal 3.5-5.0 Chloride 101 mmol/L Normal 101-111 Co2 Carbon Dioxide 21 mmol/L Low 22-32 Anion Gap 11 mmol/L Normal 2-11 Glucose 125 mg/dL High 70-100 Blood Urea Nitrogen 44 mg/dL High 6-24 Creatinine 3.49 mg/dL High 0.51-0.95 BUN/Creatinine Ratio 12.6 Normal 8-20 Calcium 9.1 mg/dL Normal 8.6-10.3 Egfr Non- 12.6 >60 Egfr 15.3 >60 12 CBC No Diff 01/31/2019 [facility] White Blood 6.9 10^3/uL Normal 3.5-10.[address] [place] [address] [phone] Red Blood Count 4.24 10^6/uL Normal 3.70-4.87 Hemoglobin 12.8 g/dL Normal 12.0-16.0 Hematocrit 38 % Normal 35-47 Mean Corpuscular Volume 90 fL Normal 80-97 Mean Corpuscular Hemoglobin 30 pg Normal 27-31 Mean Corpuscular HGB Conc 34 g/dL Normal 31-36 Red Cell Distribution Width 16 % High 10-15 Platelet Count 232 10^3/uL Normal 150-450 Mean Platelet Volume 10.8 fL High 7.4-10.4 Basic Metabolic 01/31/2019 [facility] Sodium 139 mmol/L Normal 135-[address] [place] [address] [phone] Potassium 3.1 mmol/L Low 3.5-5.0 Chloride 103 mmol/L Normal 101-111 Co2 Carbon Dioxide 25 mmol/L Normal 22-32 Anion Gap 11 mmol/L Normal 2-11 Glucose 91 mg/dL Normal 70-100 Blood Urea Nitrogen 14 mg/dL Normal 6-24 Creatinine 1.31 mg/dL High 0.51-0.95 BUN/Creatinine Ratio 10.7 Normal 8-20 Calcium 9.4 mg/dL Normal 8.6-10.3 Egfr Non- 39.2 >60 Egfr 47.4 >60 13 Urinalysis Profile 01/23/2019 [facility] Urine Color Yellow [address] [place] [address] [phone] Urine Appearance Cloudy Urine Specific [place] 1.008 Low 1.010-1.030 Urine pH 6.0 Normal [...] Epithelial Present Abnormal Absent CBC Auto 01/23/2019 [facility] White Blood 13.7 10^3/uL High 3.5-10.[address] [place] [address] [phone] Red Blood Count 4.35 10^6/uL Normal 3.70-4.87 [...] Cells % 0.0 Comp Metabolic Panel 01/23/2019 [facility] Sodium 132 mmol/L Low 135-[address] [place] [address] [phone] Potassium 3.7 mmol/L Normal 3.5-5.0 Chloride 99 [...] Egfr Non- 17.1 >60 Egfr 20.7 >60 14 Laboratory test 01/23/2019 [facility] Lipase 12 U/L Normal 11.0-82.[address] [place] [address] [phone] C Reactive Protein 133.58 mg/L High <8.01 Urine Culture And 01/23/2019 [facility] Urine Culture SEE RESULT [address] [place] [address] [phone] Lipid Profile 12/06/2018 [facility] Triglycerides 88 mg/dL 16 (Trig/Chol/HDL) [address] [place] [address] [phone] Cholesterol 194 mg/dL 17 HDL Cholesterol 58.6 mg/dL 18 LDL Cholesterol 118 mg/dL 19 Drug Abuse 20 10/15/2018 [facility] Urine Amphetamine Negative ng/mL [address] [place] [address] [phone] Urine Barbiturates Negative ng/mL 21 Urine Benzodiazepines Negative ng/mL 22 Urine Cocaine Negative ng/mL 23 Urine Phencyclidine Negative ng/mL Cutoff: 25 Urine Tetrahydrocannabinol Negative ng/mL Cutoff: 50 24 Creatinine, Urine 41.4 mg/dL Specific [place] 1.006 pH 5.7 Oxidants Negative 25 Adulterants Comment Normal Codeine, Ur Not Detected ng/mL Cutoff: 25 26 Liyqsfr-1-qavn-glucuronide, Ur Not Detected ng/mL 27 Morphine, Ur Not Detected ng/mL Cutoff: 25 28 Helvzhvd-0-iyse-glucuronide, U Not Detected ng/mL 29 6-monoacetylmorphine, Ur Not Detected ng/mL Cutoff: 25 30 Hydrocodone, Ur Not Detected ng/mL Cutoff: 25 31 Norhydrocodone, Ur Not Detected ng/mL Cutoff: 25 32 Dihydrocodeine, Ur Not Detected ng/mL Cutoff: 25 33 Hydromorphone, Ur Not Detected ng/mL Cutoff: 25 34 Gabazgzruhtum2ucxhkghcztawbpt Not Detected ng/mL 35 Oxycodone, Ur Not Detected ng/mL Cutoff: 25 36 Noroxycodone, Ur Not Detected ng/mL Cutoff: 25 37 Oxymorphone, Ur Not Detected ng/mL Cutoff: 25 38 Oqozgwbwkyn-7-wdcl-glucuronide Not Detected ng/mL 39 Noroxymorphone, Ur Not Detected ng/mL Cutoff: 25 40 Fentanyl, Ur Not Detected ng/mL Cutoff: 2 41 Norfentanyl, Ur Not Detected ng/mL Cutoff: 2 42 Meperidine, Ur Not Detected ng/mL Cutoff: 25 43 Normeperidine, Ur Not Detected ng/mL Cutoff: 25 44 Naloxone, Ur Not Detected ng/mL Cutoff: 25 45 Fvnzcbov-9-zxmy-glucuronide, U Not Detected ng/mL 46 Methadone, Ur Not Detected ng/mL Cutoff: 25 47 Eddp, Ur Not Detected ng/mL Cutoff: 25 48 Propoxyphene, Ur Not Detected ng/mL Cutoff: 25 49 Norpropoxyphene, Ur Not Detected ng/mL Cutoff: 25 50 Tramadol, Ur Not Detected ng/mL Cutoff: 25 51 O-desmethyltramadol, Ur Not Detected ng/mL Cutoff: 25 52 Tapentadol, Ur Present ng/mL Abnormal Cutoff: 25 53 N-desmethyltapentadol, Ur Present ng/mL Abnormal Cutoff: 50 54 Jhsicmibkz-ibth-wlpfuqzhuhb, U Present ng/mL Abnormal 55 Buprenorphine, Ur Not Detected ng/mL Cutoff: 5 56 Norbuprenorphine, Ur Not Detected ng/mL Cutoff: 5 57 Norbuprenorphine glucuronide Not Detected ng/mL Cutoff: 20 58 Opioid Interpretation See Comment 59 1 RESULT: No monoclonal protein detected. Test Performed by: [place] [address] Travel Journalist: Ilya Faulkner M.D. Ph.D.; CLIA# [id number] 2 Small abnormality in gamma fraction. See Immunofixation. Test Performed by: [place] [address] Travel Journalist: Ilya Faulkner M.D. Ph.D.; CLIA# [id number] 3 Normal Range 180 to 914 Indeterminate Range 145 to 180 Deficient Range <145 4 SEE RESULT BELOW Name: ZAMZAM GONZALEZ : [address]: Lc Rashid NP Acct: [id number] Unit: [id number] AGE: 78 Location: [facility] Re03/14/19 SEX: F Status: REG REF SPEC: [id number] MIELDA: 03/14/[address]: Lc Rashid ESTIMATE CLERK REQ: [id number] RECD: 03/14/19 STATUS: COMP _ SOURCE: URINE SPDESC: ORDERED: Urine Culture Procedure Result Reported Site Urine Culture Final 03/15/19- 1603 ML No Growth (<1,000 CFU/mL) * ML - Main Lab . END OF REPORT DEPARTMENT OF PATHOLOGY, [address] [place] [address] Biju Freeman M.D. Director [facility] # [id number] 5 SEE RESULT BELOW Name: ZAMZAM GONZALEZ : [address]: Krzysztof Umaña MD Acct: [id number] Unit: [id number] AGE: 78 Location: ED Re02/18/19 SEX: F Status: REG ER SPEC: [id number] IMELDA: 02/18/19-[address] [facility] [address]: Krzysztof Umaña MD REQ: [id number] RECD: 02/18/19 STATUS: RAGHAV PARKER DR: Krystal Stanton ESTIMATE CLERK _ SOURCE: URINE SPDESC: ORDERED: Urine Culture Procedure Result Reported Site Urine Culture Final 02/19/19- 1222 ML No Growth (<1,000 CFU/mL) * ML - Main Lab . END OF REPORT DEPARTMENT OF PATHOLOGY, [address] [place] [address] Biju Freeman M.D. Director [facility] # [id number] 6 Because ethnic data is not always [...] 5 Kidney failure <15 (or dialysis) 7 [facility] Severe Sepsis and Septic Shock Management Bundle Measure requires all lactic acids initially measuring >2.0 mmol/L be repeated. 8 Because ethnic data is not always readily [...] 15-29 5 Kidney failure <15 (or dialysis) 9 [id number] 10 SEE RESULT BELOW Name: ZAMZAM GONZALEZ : [address]: Earle Monahan MD Acct: [id number] Unit: [id number] AGE: 78 Location: [facility] Re02/12/19 SEX: F Status: DEP ER SPEC: [id number] IMELDA: 02/12/19-[address] [facility] [address]: Evelia Boland ESTIMATE CLERK REQ: [id number] RECD: 02/13/19 STATUS: RAGHAV PARKER DR: Earle Stanton ESTIMATE CLERK _ SOURCE: URINE SPDESC: ORDERED: Urine Culture COMMENTS: [id number] QUERIES: Urine Source: Random Procedure Result Reported Site Urine Culture Final 02/14/19- 1218 ML No Growth (<1,000 CFU/mL) * ML - Main Lab . END OF REPORT DEPARTMENT OF PATHOLOGY, [address] [place] [address] Biju Freeman M.D. Director [facility] # [id number] 11 Tar Heater Operator: [id number] 12 Because ethnic data is not always readily [...] 15-29 5 Kidney failure <15 (or dialysis) 13 Because ethnic data is not always readily [...] 15-29 5 Kidney failure <15 (or dialysis) 14 Because ethnic data is not always readily [...] 15-29 5 Kidney failure <15 (or dialysis) 15 SEE RESULT BELOW Name: ZAMZAM GONZALEZ : [address]: Mirela Hunt DO Acct: [id number] Unit: [id number] AGE: 78 Location: [facility] Re01/23/19 SEX: F Status: ADM IN SPEC: [id number] IMELDA: 08/ SUBM DR: Ed Lynn MD REQ: [id number] RECD: 01/23/19 STATUS: RAGHAV BEAN : Krystal Stanton ESTIMATE CLERK _ SOURCE: URINE SPDESC: ORDERED: Urine Culture Procedure Result Reported Site Urine Culture Final 01/24/19- 1610 ML No growth of clinically significant organisms * ML - Main Lab . END OF REPORT DEPARTMENT OF PATHOLOGY, [address] [place] [address] Biju Freeman M.D. Director [facility] # [id number] 16 Desirable: <150 Borderline High: 150-199 High: 200-499 Very High: >500 17 Desirable: <200 Borderline High: 200-239 High: >239 18 Low: <40 Desirable: 40-60 High: >60 19 Desirable: <100 Near Optimal: 100-129 Borderline High: 130-159 High: 160-189 Very High: >189 20 REFERENCE VALUE Cutoff: 500 21 REFERENCE VALUE Cutoff: 200 22 REFERENCE VALUE Cutoff: 100 23 REFERENCE VALUE Cutoff: 150 24 ADDITIONAL INFORMATION This report is intended for use in clinical monitoring or management of patients. It is not intended for use in employment-related testing. 25 REFERENCE VALUE Cutoff: 200 mg/L 26 Tylenol 3 27 Metabolite of codeine REFERENCE VALUE Cutoff: 100 28 Trisha Russo, MS Contin; Also a minor metabolite (10%) of codeine and can be seen in low concentrations (<2,000 ng/mL) with poppy seed ingestion. 29 Metabolite of morphine REFERENCE VALUE Cutoff: 100 30 Metabolite of heroin 31 Lortab, [place], Vicodin; Also a very minor metabolite of codeine and impurity (<1%) of oxycodone. 32 Metabolite of hydrocodone 33 Metabolite of hydrocodone 34 Dilaudid, Exalgo; Also a metabolite of hydrocodone and a minor (<5%) metabolite of morphine. 35 Metabolite of hydromorphone REFERENCE VALUE Cutoff: 100 36 Endocet, Percocet, Oxycontin 37 Metabolite of oxycodone 38 Numorphan, Opana; Also a metabolite of oxycodone. 39 Metabolite of oxymorphone REFERENCE VALUE Cutoff: 100 40 Metabolite of oxymorphone 41 Actiq, Duragesic, Fentora 42 Metabolite of fentanyl 43 Demerol 44 Metabolite of meperidine 45 Narcan 46 Metabolite of naloxone REFERENCE VALUE Cutoff: 100 47 Dolophine 48 Metabolite of methadone 49 Darvon, Darvocet 50 Metabolite of propoxyphene 51 Tradol, Ultram, Ultracet 52 Metabolite of tramadol 53 Nucynta 54 Metabolite of tapentadol 55 Metabolite of tapentadol REFERENCE VALUE Cutoff: 100 56 Buprenex, Suboxone 57 Metabolite of buprenorphine 58 Metabolite of buprenorphine 59 Test detected the presence of tapentadol and two of its metabolites (n-desmethyltapentadol and nraczpeeqr-xrst-tptysqzqvgc). Suspect use of tapentadol within the past three days. ADDITIONAL INFORMATION This test was developed and its performance characteristics determined by [facility] in a manner consistent with CLIA requirements. This test has not been cleared or approved by the U.S. Food and Drug Administration. Test Performed by: [facility] [address] [facility], [place] [address] Procedures Date Code Description Status 11/02/2018 35058 Destruction Of Benign Lesions Any Method 1-14 lesions Completed 05/10/2018 [id number] Mammogram Completed 05/08/2017 [id number] Mammogram Completed 05/02/2016 [id number] Mammogram Completed 12/11/2015 [id number] Bone Mineral Density Test Completed 05/01/2015 [id number] Mammogram Completed 05/15/2014 [id number] Mammogram Completed 05/11/2013 [id number] Mammogram Completed 02/15/2013 [id number] Colonoscopy Completed 05/10/2012 [id number] Mammogram Completed 05/09/2011 [id number] Mammogram Completed 08/29/2010 [id number] Bone Mineral Density Test Completed 05/08/2010 [id number] Mammogram Completed 06/22/2007 [id number] Colonoscopy Completed Medical Devices Description No Information Available Encounters Type Date Location Provider Dx Diagnosis Office Visit 03/02/2019 2:20p [facility] Internal Medicine - Lc Rashid NP R11.0 Nausea Ccmob D64.9 Anemia, unspecified E83.42 Hypomagnesemia R63.4 Abnormal weight loss N39.0 Urinary tract infection, site not specified Office Visit 02/16/2019 11:20a [facility] Internal Krystal Stanton, R10.84 Generalized Medicine - N.P. abdominal pain Ccmob R11.0 Nausea R94.4 Abnormal results of kidney function studies Office Visit 02/01/2019 3:20p [facility] Internal Krystal Stanton, E87.6 Hypokalemia Medicine - Ccmob N.P. 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 abdominal pain Hospitalists K58.0 Irritable bowel syndrome with diarrhea N18.3 Chronic kidney disease, stage 3 (moderate) I10 Essential (primary) hypertension M13.80 Other specified arthritis, unspecified site Z87.11 Personal history of peptic ulcer disease Office Visit 12/13/2018 11:00a [facility] Internal Krystal Stanton, Z00.00 Encntr for Medicine - [facility] N.P. general adult medical exam w/o abnormal findings I10 Essential (primary) hypertension E78.00 Pure hypercholesterolemia, unspecified M25.512 Pain in left shoulder K59.00 Constipation, unspecified Z23 Encounter for immunization Office Visit 11/02/2018 1:10p [facility] Dermatology Brea Becerra, R20.2 Paresthesia of MD skin L82.0 Inflamed seborrheic keratosis L53.8 Other specified erythematous conditions R20.8 Other disturbances of skin sensation L29.8 Other pruritus Assessments Date Code Description Provider 03/25/2019 N17.9 Acute kidney failure, unspecified Mee Rodríguez MD 03/25/2019 E87.6 Hypokalemia Mee Rodríguez MD 03/25/2019 E83.42 Hypomagnesemia Mee Rodríguez MD 03/25/2019 D64.9 Anemia, unspecified Mee Rodríguez MD 03/25/2019 I10 Essential (primary) hypertension Mee Rodríguez MD 03/02/2019 R11.0 Nausea Lc Rachid, ESTIMATE CLERK 03/02/2019 D64.9 Anemia, unspecified Lclashonda Rashid, TRISH 03/02/2019 E83.42 Hypomagnesemia Lc Rashid, TRISH 03/02/2019 R63.4 Abnormal weight loss Lc Rashid, TRISH 03/02/2019 N39.0 Urinary tract infection, site not specified Lclashonda Rashid, TRISH 02/16/2019 R10.84 Generalized abdominal pain Krystal Stanton, [...] Z00.00 Encounter for general adult medical Krystal Stanton N.PKerwin examination without abno 12/13/2018 I10 Essential (primary) hypertension Krystal Stanton N.P. 12/13/2018 E78.00 Pure hypercholesterolemia, unspecified Krystal Stanton, N.P. 12/13/2018 M25.512 Pain in left shoulder Krystal Stanton N.P. 12/13/2018 K59.00 Constipation, unspecified Krystal Stanton, N.P. 12/13/2018 Z23 Encounter for immunization Krystal Stanton N.P. 11/02/2018 R20.2 Paresthesia of skin Brea Becerra MD 11/02/2018 L82.0 Inflamed seborrheic keratosis Brea Becerra MD 11/02/2018 L53.8 Other specified erythematous conditions Brea Becerra MD 11/02/2018 R20.8 Other disturbances of skin sensation Brea Becerra MD 11/02/2018 L29.8 Other pruritus Brea Becerra MD Plan of Treatment Future Appointment(s):04/01/2019 11:30 am - Mee Rodríguez MD at [facility] Pmlgoossrb46/26/2020 1:00 pm - Krystal Stanton N.PKerwin [facility] - Krystal Stanton N.PKerwin [facility] - Mee Rodríguez MDN17.9 Acute kidney failure, unspecifiedNew Xrays:US Renal Complete, Ordered: 03/25/19Comments:Do labs todayDecrease Lisinopril 10 mg dailyAvoid Non steroidalFollow up:1 week f/ uE87.6 RzvfgohcbjnJ40.42 OsjhgenyjvgaguR94.9 Anemia, wdnmpwueotbU14 Essential ( primary) hypertension Functional Status Description No Information Available Mental Status Description No Information Available Referrals Refer to Dr Reason for Referral Status Appt Date Sandra Ricks MD Sent [address] [place] [address] [phone] Lore Gunter MD Patient with elevated Creatinine and abnormal Sent 24 hour urines referred for evaluation and treatment. Thank you for seeing this pleasant patient. [address] [place] [id number] [phone] Josey Valentin MD Patient has been experiencing episodes of intense Sent abdominal pain. She has had a full GI workup and nothing has been found aside from constipation. 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 Patient is referred for evaluation and treatment. [address] [place] [address] [phone] Sandra Ricks MD Patient with continued issues with abdominal Closed pain. Referred for evaluation and treatment. [address] [place] [address] [phone]
--- OUTSIDE RECORDS SUMMARY | 2019-04-27 11:38 | XMS REPORT | Continuity of Care Document ---
:1940 External Reference #:[id number] Author Name Mee Rodríguez MD (transmitted by agent of provider Annette Haynes) Address [address] , [address] [address] Care Team Providers Name Role Phone Boris Romano MD - Care Team Information Parts Facilitator [phone] Ophthalmology Romelia Edge MD - Internal Care Team Information Parts Facilitator [phone] Medicine Crystal Bose MD - Dermatology Care Team Information Parts Facilitator [phone] Meliza Higginbotham [facility] - Family Care Team Information Parts Facilitator [phone] Cherelle Palma MD - Care Team Information Parts Facilitator [phone] Obstetrics & Gynecology Problems Active Problems Provider [...] to second hand smoke. Smoking Status Reviewed: 04/01/19 Not exposed to second hand smoke. Exercise Type/Frequency Does not exercise Allergies, Adverse Reactions, Alerts Active Allergies Reaction Severity Comments Date Penicillin rash Moderate 03/28/2010 Sulfa Urticaria Severe 03/28/2010 Nickel 09/21/2017 Medications Active Medications SIG Qnty Indications Ordering Date Provider Ferrousul 1 tab by mouth 3 45tabs N17.9 Mee Diallo 325(65Fe) mg Tablets times a week MD Marcos 9 Reglan one tablet two 20tabs R11.0 Lc Rashid, 5mg Tablets times daily as DIGITAL CARTOGRAPHER 9 needed for nausea. Omeprazole 1 by mouth every 90caps R10.[address] [place] [address] jv Stanton, N.P. 9 Klor-Con M15 1 by mouth every 30tabs E87.6 [place] 15Meq Tablets ER day Varn, N.P. 9 Senna Plus take 2 tablets by 60tabs K59.00 [place] 8.6-50mg Tablets mouth as needed Varn, N.P. 9 for constipation Clonazepam take 1/2 to 1 30tabs F41.9 [place] 0.5mg Tablets tablet as needed Varn, N.P. 9 anxiety and sleep Magnesium 1 by mouth every Unknown 400mg Tablets day 0 Amlodipine Besylate take 1 tablet by 90tabs Krystal 5mg Tablets mouth every day Varn, N.P. [...] Medications Nitrofurantoin Monohyd take one tablet 14caps Krystal Stanton, 02/25/2019 - Macro every 12 hours [...] hours as needed N.P. 02/16/2019 for nausea Lisinopril 1 by mouth every 90tabs E87.6 Krystal Stanton, 02/01/2019 - 20mg Tablets day N.P. 04/01/2019 Movantik one po daily prn 30tabs K59.00 Krystal Stanton, 02/01/2019 - 12.5mg Tablets constipation N.P. 02/16/2019 Lisinopril 1 by mouth every 90tabs I10 Krystal Stanton, 12/13/2018 - 40mg Tablets day N.P. 01/26/2019 Lisinopril 1 by mouth every 10tabs I10 Krystal Stanton, 12/13/2018 - 10mg Tablets day N.P. 12/23/2018 Immunizations CPT Code Status Date Vaccine Reaction Lot # 53652 Given 12/13/2018 Pneumonia Vaccine no immediate reaction [id number] noted. dg 48490 Given 12/11/2017 Tetanus And Diptheria (Td) No immediate [id number] For Adult Use Preservative reaction..jh Free Q2039 Given 04/17/2015 Flu Vaccine NOS 62620 Given 12/01/2014 Pneumococcal Conjugate [id number] Vaccine 13 Valent For Intramuscular Use 47910 Given 03/23/2013 Fluzone High Dose 62881 Given 04/07/2012 Fluzone High Dose 61396 Given 10/02/2011 Zoster (Zostavax) [id number] Q2038 Given 04/04/2011 Fluzone Vaccine 21368 Given 07/05/2009 Influenza Virus 3Yrs & Over Vital Signs Date Vital Result Comment 04/01/2019 11:35am Height 63 inches 5'3" Weight 110.00 lb Heart Rate 101 /min BP Systolic Sitting 129 mmHg BP Diastolic Sitting 74 mmHg O2 % BldC Oximetry 98 % BMI (Body Mass Index) 19.5 kg/m2 03/25/2019 11:04am Height 63 inches 5'3" Weight 109.00 lb Heart Rate 82 /min BP Systolic Sitting 113 mmHg BP Diastolic Sitting 75 mmHg O2 % BldC Oximetry 97 % BMI (Body Mass Index) 19.3 kg/m2 Results Test Date Facility Test Result H/L Range Note Urine Culture [facility] Urine Culture SEE RESULT 1 And [address] [place] [address] [phone] HIV 1&[address] [facility] HIV 4th Nonreactive Nonreactive Screen [address] [place] [address] [phone] [facility] Phospholipase A2 Negative Negative 2 Receptor AB [address] [place] [address] [phone] Phospholipase A2 ReceptorELISA <2 RU/mL 3 Protein 03/25/2019 [facility] Total 7.8 g/dL 6.3 - Electrophoresis [address] Protein(Pep) 7.9 [place] [address] [phone] Albumin 3.4 g/dL 3.4-4.7 Alpha-1 Globulin 0.3 g/dL 0.1-0.3 Alpha-2 Globulin 1.2 g/dL Abnormal 0.6-1.0 Beta Globulin 1.1 g/dL 0.7-1.2 Gamma Globulin 1.8 g/dL Abnormal 0.6-1.6 Albumin/Globulin Ratio 0.76 Impression See Comment 4 [place]/Lambda Free 03/25/2019 [facility] [place] Free 4.22 mg/dL Abnormal 5 Light Chains Ser [address] [place] [address] [phone] Lambda Free Light Chain 3.33 mg/dL Abnormal 6 [place]/Lambda Free Light Chain 1.27 7 Cryoglobulin & 03/25/2019 [facility] Cryoglobulin Negative Negative [address] %[place] [address] [phone] Cryofibrinogen Negative Negative 9 Neph Routine 03/25/2019 [facility] Total Protein Random 41 mg/ dL [address] [place] [address] [phone] Creatinine Random Urine 95.75 mg/dL CBC Auto 03/25/2019 [facility] White Blood 5.2 10^3/uL Normal 3.5-10.[address] [place] [address] [phone] Red Blood Count 3.43 10^6/uL Low 3.70-4.87 Hemoglobin 10.2 g/dL Low 12.0-16.0 Hematocrit 31 % Low 35-47 Mean Corpuscular Volume 91 fL Normal 80-97 Mean Corpuscular Hemoglobin 30 pg Normal 27-31 Mean Corpuscular HGB Conc 33 g/dL Normal 31-36 Red Cell Distribution Width 17 % High 10-15 Platelet Count 192 10^3/uL Normal 150-450 Mean Platelet Volume 10.1 fL Normal 7.4-10.4 Abs Neutrophils 3.9 10^3/uL Normal 1.5-7.7 Abs Lymphocytes 0.8 10^3/uL Low 1.0-4.8 Abs Monocytes 0.4 10^3/uL Normal 0-0.8 Abs Eosinophils 0.1 10^3/uL Normal 0-0.6 Abs Basophils 0.0 10^3/uL Normal 0-0.2 Abs Nucleated RBC 0.0 10^3/uL Granulocyte % 74.3 % Lymphocyte % 15.6 % Monocyte % 7.4 % Eosinophil % 1.8 % Basophil % 0.9 % Nucleated Red Blood Cells % 0.0 Basic Metabolic 03/25/2019 [facility] Sodium 132 mmol/L Low 135-[address] [place] [address] [phone] Potassium 4.4 mmol/L Normal 3.5-5.0 Chloride 100 mmol/L Low 101-111 Co2 Carbon Dioxide 24 mmol/L Normal 22-32 Anion Gap 8 mmol/L Normal 2-11 Glucose 90 mg/dL Normal 70-100 Blood Urea Nitrogen 28 mg/dL High 6-24 Creatinine 2.11 mg/dL High 0.51-0.95 BUN/Creatinine Ratio 13.3 Normal 8-20 Calcium 9.4 mg/dL Normal 8.6-10.3 Egfr Non- 22.6 >60 Egfr 27.3 >60 10 Hepatitis C Antibody 03/25/2019 [facility] HCV Index 0.02 s/c [address] [place] [address] [phone] Hepatitis C Antibody Negative Negative Neutrophil Cytoplasmic 03/25/2019 [facility] C-Anca Negative Negative AB [address] [place] [address] [phone] P-Anca Negative Negative 11 Urinalysis Profile 03/25/2019 [facility] Urine Color Yellow [address] [place] [address] [phone] Urine Appearance Clear Urine Specific [place] 1.011 Normal 1.010-1.030 Urine pH 6.0 Normal 5-9 Urine Urobilinogen Negative Negative Urine Ketones Negative Negative Urine Protein Negative Negative Urine Leukocytes 3+ Abnormal Negative Urine Blood Negative Negative Urine Nitrite Negative Negative Urine Bilirubin Negative Negative Urine Glucose Negative Negative Urine White Blood Cell 3+(>20/hpf) Abnormal Absent Urine Red Blood Cell Absent Absent Urine Bacteria 1+ Abnormal Absent GN Serology 03/25/2019 [facility] Anti Double Stranded <12.3 IU/ mL [address] [place] [address] [phone] Complement C3 120 mg/dL 75 - 175 13 Complement C4 42 mg/dL Abnormal 14 - 40 14 Glomerular Basement Membrane <0.2 U 15 Anti Nuclear Antibody 0.4 U 16 Myeloperoxidase AB <0.2 U 17 Proteinase 3 <0.2 U 18 Hepatitis B Surface Ag Nonreactive Nonreactive Hepatitis B Core AB Total Negative Negative 19 Histone Antibody <0.5 U 20 Rheumatoid Factor < 10 IU/mL Normal <15 Erythrocyte Sed Rate 58 mm/Hr High 0-29 C Reactive Protein 2.41 mg/L Normal <8.01 Hepatitis B Alexandr AB Titer Immune Immune Urine Culture And 03/14/2019 [facility] Urine Culture SEE RESULT [address] [place] [address] [phone] Urinalysis Profile 03/14/2019 [facility] Urine Color Yellow [address] [place] [address] [phone] Urine Appearance Cloudy Urine Specific [place] 1.012 Normal 1.010-1.030 Urine pH 6.0 Normal 5-9 Urine Urobilinogen Negative Negative Urine Ketones Negative Negative Urine Protein 1+(30 mg/dL) Abnormal Negative Urine Leukocytes 3+ Abnormal Negative Urine Blood Negative Negative Urine Nitrite Negative Negative Urine Bilirubin Negative Negative Urine Glucose Negative Negative Urine White Blood Cell 3+(>20/hpf) Abnormal Absent Urine Red Blood Cell 2+(6-10/hpf) Abnormal Absent Urine Bacteria Absent Absent Vitamin B12 03/14/2019 [facility] Vitamin B12 227 pg/mL Normal 180-914 22 And Folate [address] [place] [address] [phone] Folic Acid (Folate) > 20.00 ng/mL >3.99 Laboratory test 03/14/2019 [facility] Ferritin 371.0 High 11- [address] ng/[place] [address] [phone] Laboratory test 03/14/2019 [facility] Magnesium 1.8 mg/dL Low 1.9-2.[address] [place] [address] [phone] CBC Auto Diff 03/14/2019 [facility] White Blood 8.8 Normal 3.5 -10.[address] Count 10^3/[place] [address] [phone] Red Blood Count 3.61 10^6/uL Low 3.70-4.87 [...] % Nucleated Red Blood Cells % 0.0 Iron & Iron Binding 03/14/2019 [facility] Iron 68 g/dL Normal 50-[address] [place] [address] [phone] Unsaturated Iron Binding < 243 g/dL Total Iron Binding Capacity 258 g/dL Normal 250-450 Transferrin 184 mg/dL Low 203-362 % Iron Saturation 26 % Normal 15-55 Laboratory test 03/14/2019 [facility] Erythrocyte Sed 59 mm/Hr High 0-[address] [place] [address] [phone] C Reactive Protein 4.13 mg/L Normal <8.01 Protein 03/14/2019 [facility] Immunofixation See Comment [address] [place] [address] [phone] Total Protein(Pep) 7.2 g/dL 6.3 - 7.9 Albumin 3.3 g/dL Abnormal 3.4-4.7 Alpha-1 Globulin 0.3 g/dL 0.1-0.3 Alpha-2 Globulin 1.1 g/dL Abnormal 0.6-1.0 Beta Globulin 1.0 g/dL 0.7-1.2 Gamma Globulin 1.6 g/dL 0.6-1.6 Albumin/Globulin Ratio 0.83 Impression See Comment 24 Creatinine 02/18/2019 [facility] Creatinine, 2.73 High 0.51- 0.[address] Serum mg/[place] [address] [phone] Urine Collection Time 24 hr Urine Total Volume 2300 mL Urine Creatinine Concentration 32.39 mg/dL Creatinine Clearance 19 mL/min Low 88-128 Total Protein 24HR 02/18/2019 [facility] Urine Collection Time 24 hr Urine [address] [place] [address] [phone] Urine Total Volume 2300 mL Urine TP Concentration 27 mg/dL Urine Total Protein/24HR 621 mg/24Hr High 0-165 Urine Culture And 02/18/2019 [facility] Urine SEE RESULT [address] [place] [address] [phone] CBC Auto Diff 02/18/2019 [facility] White Blood 9.0 10^3/uL Normal 3.5- [address] Count 10.8 [place] [address] [phone] Red Blood Count 3.87 10^6/uL Normal 3.70-4.87 [...] Red Blood Cells % 0.0 Laboratory test 02/18/2019 [facility] Lactic Acid 1.0 mmol/L Normal 0.5-2.0 26 finding 101 [place] [address] [phone] Comp Metabolic 02/18/2019 [facility] Sodium 135 mmol/L Normal 135-145 Panel 101 [place] [address] [phone] Potassium 4.7 mmol/L Normal 3.5-5.0 Chloride 106 [...] Egfr Non- 17.4 >60 Egfr 21.1 >60 27 Laboratory test 02/18/2019 [facility] Magnesium 1.7 mg/dL Low 1.9-2.[address] [place], [place] [address] [phone] Lipase 32 U/L Normal 11.0-82.0 Creatine Kinase(CK) 31 U/L Normal 10-223 C Reactive Protein 37.45 mg/L High <8.01 Partial Thrombo Time PTT 29.1 seconds Normal 26.0-38.0 Urinalysis Profile 02/18/2019 [facility] Urine Color Straw [address] [place] [address] [phone] Urine Appearance Cloudy Urine Specific [place] 1.004 Low 1.010-1.030 Urine pH 7.0 Normal 5-9 Urine Urobilinogen Negative Negative Urine Ketones Negative Negative Urine Protein Negative Negative Urine Leukocytes 3+ Abnormal Negative Urine Blood 1+ Abnormal Negative Urine Nitrite Negative Negative Urine Bilirubin Negative Negative Urine Glucose Negative Negative Urine White Blood Cell 3+(>20/hpf) Abnormal Absent Urine Red Blood Cell 2+(6-10/hpf) Abnormal Absent Urine Bacteria Absent Absent Creatinine 02/16/2019 [facility] Creatinine 2.19 mg/dL High 0.51-0.[address] [place] [address] [phone] Egfr Non- 21.6 >60 Egfr 26.2 >60 28 Urine Culture And 02/12/2019 [facility] Urine SEE RESULT 29 , [address] [place] [address] [phone] Poc Urinalysis 02/12/2019 [facility] Poc Negative Negative [address] Glucose, [place] [address] Urine [phone] Poc Bilirubin, Urine Negative Negative Poc Ketone, Urine Negative Negative Poc Specific [place], Urine 1.015 Normal 1.010-1.030 Poc Blood, Urine 1+ Abnormal Negative Poc pH, Urine 5.5 Normal 5-9 Poc Protein, Urine 2+ Abnormal Negative Poc Urobilinogen, Urine 0.2 Negative Poc Nitrite, Urine Negative Negative Poc Leukocytes, Urine 2+ Abnormal Negative Poc Color, Urine Light yellow Poc Clarity, Urine Slightly Cloudy 31 Basic Metabolic 02/07/2019 [facility] Sodium 133 mmol/L Low 135-[address] [place] [address] [phone] Potassium 3.5 mmol/L Normal 3.5-5.0 Chloride 101 mmol/L Normal 101-111 Co2 Carbon Dioxide 21 mmol/L Low 22-32 Anion Gap 11 mmol/L Normal 2-11 Glucose 125 mg/dL High 70-100 Blood Urea Nitrogen 44 mg/dL High 6-24 Creatinine 3.49 mg/dL High 0.51-0.95 BUN/Creatinine Ratio 12.6 Normal 8-20 Calcium 9.1 mg/dL Normal 8.6-10.3 Egfr Non- 12.6 >60 Egfr 15.3 >60 32 CBC No Diff 01/31/2019 [facility] White Blood 6.9 10^3/uL Normal 3.5-10.[address] [place] [address] [phone] Red Blood Count 4.24 10^6/uL Normal 3.70-4.87 [...] fL High 7.4-10.4 Basic Metabolic 01/31/2019 [facility] Sodium 139 mmol/L Normal 135-145 Panel [facility] [place] [address] [phone] Potassium 3.1 mmol/L Low 3.5-5.0 Chloride 103 mmol/L Normal 101-111 Co2 Carbon Dioxide 25 mmol/L Normal 22-32 Anion Gap 11 mmol/L Normal 2-11 Glucose 91 mg/dL Normal 70-100 Blood Urea Nitrogen 14 mg/dL Normal 6-24 Creatinine 1.31 mg/dL High 0.51-0.95 BUN/Creatinine Ratio 10.7 Normal 8-20 Calcium 9.4 mg/dL Normal 8.6-10.3 Egfr Non- 39.2 >60 Egfr 47.4 >60 33 Urinalysis Profile 01/23/2019 [facility] Urine Color Yellow [address] [place] [address] [phone] Urine Appearance Cloudy Urine Specific [place] 1.008 Low 1.010-1.030 Urine pH 6.0 Normal [...] Present Abnormal Absent CBC Auto 01/23/2019 [facility] White Blood 13.7 10^3/uL High 3.5-10.[address] [place] [address] [phone] Red Blood Count 4.35 10^6/uL Normal 3.70-4.87 [...] % 0.0 Comp Metabolic Panel 01/23/2019 [facility] Sodium 132 mmol/L Low 135-[address] [place] [address] [phone] Potassium 3.7 mmol/L Normal 3.5-5.0 Chloride 99 [...] Egfr Non- 17.1 >60 Egfr 20.7 >60 34 Laboratory test 01/23/2019 [facility] Lipase 12 U/L Normal 11.0-82.0 finding [address] [place] [address] [phone] C Reactive Protein 133.58 mg/L High <8.01 Urine Culture And 01/23/2019 [facility] Urine Culture SEE RESULT [address] [place] [address] [phone] Lipid Profile 12/06/2018 [facility] Triglycerides 88 mg/dL 36 (Trig/Chol/HDL) [address] [place] [address] [phone] Cholesterol 194 mg/dL 37 HDL Cholesterol 58.6 mg/dL 38 LDL Cholesterol 118 mg/dL 39 Drug Abuse 20 10/15/2018 [facility] Urine Amphetamine Negative ng/mL 40 Urine [address] [place] [address] [phone] Urine Barbiturates Negative ng/mL 41 Urine Benzodiazepines Negative ng/mL 42 Urine Cocaine Negative ng/mL 43 Urine Phencyclidine Negative ng/mL Cutoff: 25 Urine Tetrahydrocannabinol Negative ng/mL Cutoff: 50 44 Creatinine, Urine 41.4 mg/dL Specific [place] 1.006 pH 5.7 Oxidants Negative 45 Adulterants Comment Normal Codeine, Ur Not Detected ng/mL Cutoff: 25 46 Xtdzfto-3-hbps-glucuronide, Ur Not Detected ng/mL 47 Morphine, Ur Not Detected ng/mL Cutoff: 25 48 Hsyrgodj-7-dbli-glucuronide, U Not Detected ng/mL 49 6-monoacetylmorphine, Ur Not Detected ng/mL Cutoff: 25 50 Hydrocodone, Ur Not Detected ng/mL Cutoff: 25 51 Norhydrocodone, Ur Not Detected ng/mL Cutoff: 25 52 Dihydrocodeine, Ur Not Detected ng/mL Cutoff: 25 53 Hydromorphone, Ur Not Detected ng/mL Cutoff: 25 54 Cfwldlsyvpgkf9wqjaxwbobkqvtrc Not Detected ng/mL 55 Oxycodone, Ur Not Detected ng/mL Cutoff: 25 56 Noroxycodone, Ur Not Detected ng/mL Cutoff: 25 57 Oxymorphone, Ur Not Detected ng/mL Cutoff: 25 58 Qlswvbojyvt-0-cakr-glucuronide Not Detected ng/mL 59 Noroxymorphone, Ur Not Detected ng/mL Cutoff: 25 60 Fentanyl, Ur Not Detected ng/mL Cutoff: 2 61 Norfentanyl, Ur Not Detected ng/mL Cutoff: 2 62 Meperidine, Ur Not Detected ng/mL Cutoff: 25 63 Normeperidine, Ur Not Detected ng/mL Cutoff: 25 64 Naloxone, Ur Not Detected ng/mL Cutoff: 25 65 Pipfwkcs-2-nugu-glucuronide, U Not Detected ng/mL 66 Methadone, Ur Not Detected ng/mL Cutoff: 25 67 Eddp, Ur Not Detected ng/mL Cutoff: 25 68 Propoxyphene, Ur Not Detected ng/mL Cutoff: 25 69 Norpropoxyphene, Ur Not Detected ng/mL Cutoff: 25 70 Tramadol, Ur Not Detected ng/mL Cutoff: 25 71 O-desmethyltramadol, Ur Not Detected ng/mL Cutoff: 25 72 Tapentadol, Ur Present ng/mL Abnormal Cutoff: 25 73 N-desmethyltapentadol, Ur Present ng/mL Abnormal Cutoff: 50 74 Zpxceethem-eaam-aqiilyhiigv, U Present ng/mL Abnormal 75 Buprenorphine, Ur Not Detected ng/mL Cutoff: 5 76 Norbuprenorphine, Ur Not Detected ng/mL Cutoff: 5 77 Norbuprenorphine glucuronide Not Detected ng/mL Cutoff: 20 78 Opioid Interpretation See Comment 79 1 SEE RESULT BELOW Name: ZAMZAM GONZALEZ : [address]: Mee Rodríguez MD Acct: [id number] Unit: [id number] AGE: 78 Location: LAB Re03/25/19 SEX: F Status: REG REF SPEC: [id number] IMELDA: 03/25/19-[address]: Mee Rodríguez MD REQ: [id number] RECD: 03/25/19 STATUS: COMP _ SOURCE: URINE SPDESC: ORDERED: Urine Culture Procedure Result Reported Site Urine Culture Final 03/26/19- 1245 ML No Growth (<1,000 CFU/mL) * ML - Main Lab . END OF REPORT DEPARTMENT OF PATHOLOGY, [address] [place] [id number] Biju Freeman M.D. Director [facility] # [id number] 2 ADDITIONAL INFORMATION This test was developed and its performance characteristics determined by [facility] in a manner consistent with CLIA requirements. This test has not been cleared or approved by the U.S. Food and Drug Administration. 3 REFERENCE VALUE <14 RU/mL: Negative 14-19 RU/mL: Borderline >19 RU/mL: Positive Test Performed by: [place] [address] Sustainability Executive Director: Ilya Faulkner M.D. 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 Ph.D.; CLIA# [id number] 5 REFERENCE VALUE 0.3300-1.94 6 REFERENCE VALUE 0.5700-2.63 7 REFERENCE VALUE 0.2600-1.65 Test Performed by: [place] [address] Sustainability Executive Director: Ilya Faulkner M.D. Ph.D.; CLIA# [id number] 8 This test is negative at 24 hours. All samples are held and reviewed again at 7 days. If delayed precipitation occurs after 7 days, Immunofixation will be performed and an additional report will follow. 9 Test Performed by: [facility] [place] [address] Sustainability Executive Director: Ilya Faulkner M.D. Ph.D.; CLIA# [id number] 10 Because ethnic data is not always readily [...] 15-29 5 Kidney failure <15 (or dialysis) 11 Negative for cANCA and pANCA patterns by immunofluorescence. ADDITIONAL INFORMATION This test was developed and its performance characteristics determined by [facility] in a manner consistent with CLIA requirements. This test has not been cleared or approved by the U.S. Food and Drug Administration. Test Performed by: [facility] [place] [address] Sustainability Executive Director: Ilya Faulkner M.D. Ph.D.; CLIA# [id number] 12 REFERENCE VALUE <30.0 (Negative) Test Performed by: [place] [address] Sustainability Executive Director: Ilya Faulkner M.D. Ph.D.; CLIA# [id number] 13 Test Performed by: [place] [address] Sustainability Executive Director: Ilya Faulkner M.D. Ph.D.; CLIA# [id number] 14 Test Performed by: [place] [address] Sustainability Executive Director: Ilya Faulkner M.D. Ph.D.; CLIA# [id number] 15 REFERENCE VALUE <1.0 (Negative) Test Performed by: [place] [address] Sustainability Executive Director: Ilya Faulkner M.D. Ph.D.; CLIA# [id number] 16 REFERENCE VALUE <=1.0 (Negative) Test Performed by: [place] [address] Sustainability Executive Director: Ilya Faulkner M.D. Ph.D.; CLIA# [id number] 17 REFERENCE VALUE <0.4 (Negative) Test Performed by: [place] [address] Sustainability Executive Director: Iyla Faulkner M.D. Ph.D.; CLIA# [id number] 18 REFERENCE VALUE <0.4 (Negative) Test Performed by: [place] [id number] Sustainability Executive Director: Ilya Faulkner M.D. Ph.D.; CLIA# [id number] 19 Test Performed by: [facility] [place] [address] Sustainability Executive Director: Ilya Faulkner M.D. Ph.D.; CLIA# [id number] 20 REFERENCE VALUE <1.0 (Negative) Test Performed by: [facility] [place] [address] Sustainability Executive Director: Ilya Faulkner M.D. Ph.D.; CLIA# [id number] 21 SEE RESULT BELOW Name: ZAMZAM GONZALEZ : [address]: Lc Rashid NP Acct: [id number] Unit: [id number] AGE: 78 Location: [facility] Re03/14/19 SEX: F Status: REG REF SPEC: [id number] IMELDA: 03/14/[address]: Lc Rashid NP REQ: [id number] RECD: 03/14/19 STATUS: COMP _ SOURCE: URINE SPDESC: ORDERED: Urine Culture Procedure Result Reported Site Urine Culture Final 03/15/19- 1603 ML No Growth (<1,000 CFU/mL) * ML - Main Lab . END OF REPORT DEPARTMENT OF PATHOLOGY, [address] [place] [address] Biju Freeman M.D. Director CLIA # [id number] 22 Normal Range 180 to 914 Indeterminate Range 145 to 180 Deficient Range <145 23 RESULT: No monoclonal protein detected. Test Performed by: [place] [address] Sustainability Executive Director: Ilya Faulkner M.D. Ph.D.; CLIA# [id number] 24 Small abnormality in gamma fraction. See Immunofixation. Test Performed by: [place] [address] Sustainability Executive Director: Ilya Faulkner M.D. Ph.D.; CLIA# [id number] 25 SEE RESULT BELOW Name: ZAMZAM GONZALEZ : [address]: Krzysztof Umaña MD Acct: [id number] Unit: [id number] AGE: 78 Location: ED Re02/18/19 SEX: F Status: REG ER SPEC: [id number] IMELDA: 02/18/191239 SUBM DR: Krzysztof Umaña MD REQ: [id number] RECD: 02/18/19 STATUS: COMP KEITH DR: Krystal Stanton DIGITAL CARTOGRAPHER _ SOURCE: URINE SPDESC: ORDERED: Urine Culture Procedure Result Reported Site Urine Culture Final 02/19/19- 1222 ML No Growth (<1,000 CFU/mL) * ML - Main Lab . END OF REPORT DEPARTMENT OF PATHOLOGY, [address] [place] [address] Biju Freeman M.D. Director [facility] # [id number] 26 [facility] Severe Sepsis and Septic Shock Management Bundle Measure requires all lactic acids initially measuring >2.0 mmol/L be repeated. 27 Because ethnic data is not always readily [...] 15-29 5 Kidney failure <15 (or dialysis) 28 Because ethnic data is not always readily [...] 15-29 5 Kidney failure <15 (or dialysis) 29 [id number] 30 SEE RESULT BELOW Name: ZAMZAM GONZALEZ : [address]: Earle Monahan MD Acct: [id number] Unit: [id number] AGE: 78 Location: [facility] Re02/12/19 SEX: F Status: DEP ER SPEC: [id number] IMELDA: 02/12/19-[address] [facility] [address]: Evelia Boland NP REQ: [id number] RECD: 02/13/19 STATUS: RAGHAV PARKER DR: Earle Stanton DIGITAL CARTOGRAPHER _ SOURCE: URINE SPDESC: ORDERED: Urine Culture COMMENTS: [id number] QUERIES: Urine Source: Random Procedure Result Reported Site Urine Culture Final 02/14/19- 1218 ML No Growth (<1,000 CFU/mL) * ML - Main Lab . END OF REPORT DEPARTMENT OF PATHOLOGY, [address] [place] [address] Biju Freeman M.D. Director [facility] # [id number] 31 [employer]ity Prospecting Operator: [id number] 32 Because ethnic data is not always readily [...] 15-29 5 Kidney failure <15 (or dialysis) 33 Because ethnic data is not always readily [...] 15-29 5 Kidney failure <15 (or dialysis) 34 Because ethnic data is not always readily [...] 15-29 5 Kidney failure <15 (or dialysis) 35 SEE RESULT BELOW Name: ZAMZAM GONZALEZ : [address]: Mirela Hunt DO Acct: [id number] Unit: [id number] AGE: 78 Location: [place] [address] Re01/23/19 SEX: F Status: ADM IN SPEC: [id number] IMELDA: 01/23/[address] [facility] [address]: Ed Lynn MD REQ: [id number] RECD: 01/23/19 STATUS: RAGHAV PARKER DR: Krystal Stanton DIGITAL CARTOGRAPHER _ SOURCE: URINE SPDESC: ORDERED: Urine Culture Procedure Result Reported Site Urine Culture Final 01/24/19- 1610 ML No growth of clinically significant organisms * ML - Main Lab . END OF REPORT DEPARTMENT OF PATHOLOGY, [address] [place] [address] Biju Freeman M.D. Director [facility] # [id number] 36 Desirable: <150 Borderline High: 150-199 High: 200-499 Very High: >500 37 Desirable: <200 Borderline High: 200-239 High: >239 38 Low: <40 Desirable: 40-60 High: >60 39 Desirable: <100 Near Optimal: 100-129 Borderline High: 130-159 High: 160-189 Very High: >189 40 REFERENCE VALUE Cutoff: 500 41 REFERENCE VALUE Cutoff: 200 42 REFERENCE VALUE Cutoff: 100 43 REFERENCE VALUE Cutoff: 150 44 ADDITIONAL INFORMATION This report is intended for use in clinical monitoring or management of patients. It is not intended for use in employment-related testing. 45 REFERENCE VALUE Cutoff: 200 mg/L 46 Tylenol 3 47 Metabolite of codeine REFERENCE VALUE Cutoff: 100 48 Trisha Russo, Contin; Also a minor metabolite (10%) of codeine and can be seen in low concentrations (<2,000 ng/mL) with poppy seed ingestion. 49 Metabolite of morphine REFERENCE VALUE Cutoff: 100 50 Metabolite of heroin 51 Lortab, [place], Vicodin; Also a very minor metabolite of codeine and impurity (<1%) of oxycodone. 52 Metabolite of hydrocodone 53 Metabolite of hydrocodone 54 Dilaudid, Exalgo; Also a metabolite of hydrocodone and a minor (<5%) metabolite of morphine. 55 Metabolite of hydromorphone REFERENCE VALUE Cutoff: 100 56 Endocet, Percocet, Oxycontin 57 Metabolite of oxycodone 58 Numorphan, Opana; Also a metabolite of oxycodone. 59 Metabolite of oxymorphone REFERENCE VALUE Cutoff: 100 60 Metabolite of oxymorphone 61 Actiq, Duragesic, [place] 62 Metabolite of fentanyl 63 Demerol 64 Metabolite of meperidine 65 Narcan 66 Metabolite of naloxone REFERENCE VALUE Cutoff: 100 67 Dolophine 68 Metabolite of methadone 69 Darvon, Darvocet 70 Metabolite of propoxyphene 71 Tradol, Ultram, Ultracet 72 Metabolite of tramadol 73 Nucynta 74 Metabolite of tapentadol 75 Metabolite of tapentadol REFERENCE VALUE Cutoff: 100 76 Buprenex, Suboxone 77 Metabolite of buprenorphine 78 Metabolite of buprenorphine 79 Test detected the presence of tapentadol and two of its metabolites (n-desmethyltapentadol and ennkihsxrh-hvgn-qobqipqlvfa). Suspect use of tapentadol within the past three days. ADDITIONAL INFORMATION This test was developed and its performance characteristics determined by [facility] in a manner consistent with CLIA requirements. This test has not been cleared or approved by the U.S. Food and Drug Administration. Test Performed by: [facility] [address] [place] [address] Procedures Date Code Description Status 11/02/2018 72338 Destruction Of Benign Lesions Any Method 1-14 lesions Completed 05/10/2018 [id number] Mammogram Completed 05/08/2017 [id number] Mammogram Completed 05/02/2016 [id number] Mammogram Completed 12/11/2015 [id number] Bone Mineral Density Test Completed 05/01/2015 [id number] Mammogram Completed 05/15/2014 [id number] Mammogram Completed 05/11/2013 [id number] Mammogram Completed 02/15/2013 [id number] Colonoscopy Completed 05/10/2012 [id number] Mammogram Completed 05/09/2011 [id number] Mammogram Completed 08/29/2010 [id number] Bone Mineral Density Test Completed 05/08/2010 [id number] Mammogram Completed 06/22/2007 [id number] Colonoscopy Completed Medical Devices Description No Information Available Encounters Type Date Location Provider Dx Diagnosis Office Visit 03/02/2019 2:20p [facility] Internal Medicine - Lc Rashid NP R11.0 Nausea Ccmob D64.9 Anemia, unspecified E83.42 Hypomagnesemia R63.4 Abnormal weight loss N39.0 Urinary tract infection, site not specified Office Visit 02/16/2019 11:20a [facility] Internal Krystal Stanton, R10.84 Generalized Medicine - N.P. abdominal pain Ccmob R11.0 Nausea R94.4 Abnormal results of kidney function studies Office Visit 02/01/2019 3:20p [facility] Internal Krystal Stanton, E87.6 Hypokalemia Medicine - Ccmob N.P. 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 Kylah Fisher, R10.9 Unspecified 9:15a [facility] abdominal pain Hospitalists K58.0 Irritable bowel syndrome with diarrhea N18.3 Chronic kidney disease, stage 3 (moderate) I10 Essential (primary) hypertension M13.80 Other specified arthritis, unspecified site Z87.11 Personal history of peptic ulcer disease Office Visit 12/13/2018 11:00a [facility] Internal Krystal Stanton, Z00.00 Encntr for Medicine - Ccmob N.P. general adult medical exam w/o abnormal findings I10 Essential (primary) hypertension E78.00 Pure hypercholesterolemia, unspecified M25.512 Pain in left shoulder K59.00 Constipation, unspecified Z23 Encounter for immunization Office Visit 11/02/2018 1:10p [facility] Dermatology Brea Becerra, R20.2 Paresthesia of skin L82.0 Inflamed seborrheic keratosis L53.8 Other specified erythematous conditions R20.8 Other disturbances of skin sensation L29.8 Other pruritus Assessments Date Code Description Provider 04/01/2019 N17.9 Acute kidney failure, unspecified Mee Rodríguez MD 04/01/2019 I10 Essential (primary) hypertension Mee Rodríguez MD 04/01/2019 N18.4 Chronic kidney disease, stage 4 (severe) Mee Rodríguez MD 03/25/2019 N17.9 Acute kidney failure, unspecified Mee Rodríguez MD 03/25/2019 E87.6 Hypokalemia Mee Rodríguez MD 03/25/2019 E83.42 Hypomagnesemia Mee Rodríguez MD 03/25/2019 D64.9 Anemia, unspecified Mee Rodríguez MD 03/25/2019 I10 Essential (primary) hypertension Mee Rodrígeuz MD 03/02/2019 R11.0 Nausea Lclashonda Rashid, TRISH 03/02/2019 D64.9 Anemia, unspecified Lclashonda Rashid NP 03/02/2019 E83.42 Hypomagnesemia Lc Rashid NP 03/02/2019 R63.4 Abnormal weight loss Lc Rashid NP 03/02/2019 N39.0 Urinary tract infection, site not [...] Encounter for general adult medical Krystal Stanton N.Ranulfo examination without abno 12/13/2018 I10 Essential (primary) hypertension Krystal Stanton, N.P. 12/13/2018 E78.00 Pure hypercholesterolemia, unspecified Krystal Stanton, N.P. 12/13/2018 M25.512 Pain in left shoulder Krystal Stanton, N.P. 12/13/2018 K59.00 Constipation, unspecified Krystal Stanton, N.P. 12/13/2018 Z23 Encounter for immunization Krystal Stanton, N.P. 11/02/2018 R20.2 Paresthesia of skin Brea Becerra MD 11/02/2018 L82.0 Inflamed seborrheic keratosis Brea Becerra MD 11/02/2018 L53.8 Other specified erythematous conditions Brea Becerra MD 11/02/2018 R20.8 Other disturbances of skin sensation Brea Becerra MD 11/02/2018 L29.8 Other pruritus Brea Becerra MD Plan of Treatment Future Appointment(s):04/08/2019 11:30 am - Mee Rodríguez MD at [facility] Bszhrdpfag75/26/2020 1:00 pm - Krystal Stanton N.P. at [facility] - Krystal Stanton N.P. at [facility] - Mee Rodríguez MDN17.9 Acute kidney failure, unspecifiedNew Medication:Ferrousul 325(65 Fe) mg - 1 tab by mouth 3 times a weekFollow up:1 weekI10 Essential (primary) isbaptljbpgaJ72.4 Chronic kidney disease, stage 4 (severe) Functional Status Description No Information Available Mental Status Description No Information Available Referrals Refer to Reason for Referral Status Appt Date Sandra Ricks MD called nothing scheduled yet 03/25/2019 Sent [address] [place] [address] [phone] Lore Gunter MD Patient with elevated Creatinine and abnormal Sent 24 hour urines referred for evaluation and treatment. Thank you for seeing this pleasant patient. [address] [facility] [address] [phone] Josey Valentin MD Patient has been experiencing episodes of intense Sent abdominal pain. She has had a full GI workup and nothing has been found aside from constipation. 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 Patient is referred for evaluation and treatment. [address] [place] [address] [phone]
--- OUTSIDE RECORDS SUMMARY | 2019-04-27 11:38 | XMS REPORT | Continuity of Care Document ---
:1940 External Reference #:[id number] Author Name Lc Rashid NP (transmitted by agent of provider Shima Denton) Address [address] [facility], [place] [address] Care Team Providers Name Role Phone Boris Romano MD - Care Team Information Architecture Faculty Member [phone] Ophthalmology Romelia Edge MD - Internal Care Team Information Architecture Faculty Member [phone] Medicine Crystal Bose MD - Dermatology Care Team Information Architecture Faculty Member [phone] [facility]ginbotham [facility] - Family Care Team Information Architecture Faculty Member Cherelle Palma MD - Care Team Information Architecture Faculty Member [phone] Obstetrics & Gynecology Problems Active Problems Provider [...] to second hand smoke. Smoking Status Reviewed: 03/02/19 Not exposed to second hand smoke. Exercise Type/Frequency Does not exercise Allergies, Adverse Reactions, Alerts Active Allergies Reaction Severity Comments Date Penicillin rash Moderate 03/28/2010 Sulfa Urticaria Severe 03/28/2010 Nickel 09/21/2017 Medications Active Medications SIG Qnty Indications Ordering Date Provider Krystal one tablet two 20tabs R11.0 Lc Rashid, 5mg Tablets times daily as [employer] 9 needed for nausea. Nitrofurantoin Monohyd take one tablet 14caps [place] Macro every 12 hours Varn, N.P. 9 100mg Capsules Omeprazole 1 by mouth every 90caps R10.84 [place] 40mg Capsules DR day Varn, N.P. 9 Lisinopril 1 by mouth every 90tabs E87.6 [place] 20mg Tablets day Varn, N.P. 9 Klor-Con M15 1 by mouth every 30tabs E87.6 [place] 15Meq Tablets ER day Varn, N.P. 9 Senna Plus take 2 tablets by 60tabs K59.00 [place] 8.6-50mg Tablets mouth as needed Varn, N.P. 9 for constipation Clonazepam take 1/2 to 1 30tabs F41.9 [place] 0.5mg Tablets tablet as needed Varn, N.P. 9 anxiety and sleep Amlodipine Besylate Take 1 Tablet By 30tabs [place] 5mg Tablets Mouth Every Day Varn, N.P. 0 Multivitamin Adult 1 by [...] 90tabs Unknown 1000Unit Tablets 0 History Medications Prochlorperazine 1 suppository per 12units R11.0 [place] Romy, 2018 - 25mg rectum bid prn N.P. 03/02/2019 Suppository nausea Omeprazole 1 by mouth every 90caps R10.84 Krystal Stanton, 02/11/2019 - 20mg Capsules day N.P. 02/16/2019 Ondansetron HCL one by mouth every 30tabs Krystal Stanton, 02/08/2019 - 4mg 8 hours as needed N.P. 02/16/2019 Tablets for nausea Movantik one po daily prn 30tabs K59.00 Krystal Santiagon, 02/01/2019 - 12.5mg Tablets constipation N.P. 02/16/2019 Lisinopril 1 by mouth every 90tabs I10 Krystal Santiagon, 12/13/2018 - 40mg Tablets day N.P. 01/26/2019 Lisinopril 1 by mouth every 10tabs I10 Krystal Santiagon, 12/13/2018 - 10mg Tablets day N.P. 12/23/2018 Omeprazole 1 by mouth every 90caps R10.84 Krystal Santiagon, 09/16/2018 - 20mg Capsules day N.P. 01/26/2019 Immunizations CPT Code Status Date Vaccine Reaction Lot # 28468 Given 12/13/2018 Pneumonia Vaccine no immediate reaction [id number] noted. dg 81202 Given 12/11/2017 Tetanus And Diptheria (Td) No immediate [id number] For Adult Use Preservative reaction..jh Free Q2039 Given 04/17/2015 Flu Vaccine NOS 67672 Given 12/01/2014 Pneumococcal Conjugate [id number] Vaccine 13 Valent For Intramuscular Use 35291 Given 03/23/2013 Fluzone High Dose 39668 Given 04/07/2012 Fluzone High Dose 01786 Given 10/02/2011 Zoster (Zostavax) [id number] Q2038 Given 04/04/2011 Fluzone Vaccine 48784 Given 07/05/2009 Influenza Virus 3Yrs & Over Vital Signs Date Vital Result Comment 03/02/2019 2:27pm Height 63 inches 5'3" Weight 107.50 lb Heart Rate 102 /min BP Systolic 114 mmHg BP Diastolic 71 mmHg Body Temperature 96.9 F O2 % BldC Oximetry 97 % BMI (Body Mass Index) 19.0 kg/m2 02/16/2019 12:01pm Height 63 inches 5'3" Weight 112.00 lb Heart Rate 92 /min BP Systolic 118 mmHg BP Diastolic 77 mmHg Body Temperature 97.4 F O2 % BldC Oximetry 98 % BMI (Body Mass Index) 19.8 kg/m2 Results Test Date Facility Test Result H/L Range Note CBC Auto 02/18/2019 [facility] White Blood 9.0 10^3/uL Normal 3.5-10.[address] [place] [address] [phone] Red Blood Count 3.87 10^6/uL Normal 3.70-4.87 [...] Blood Cells % 0.0 Laboratory test 02/18/2019 [facility] Lactic Acid 1.0 mmol/L Normal 0.5-2.0 1 finding [address] [place] [address] [phone] Comp Metabolic 02/18/2019 [facility] Sodium 135 mmol/L Normal 135-145 Panel [address] [place] [address] [phone] Potassium 4.7 mmol/L Normal 3.5-5.0 Chloride 106 [...] Egfr Non- 17.4 >60 Egfr 21.1 >60 2 Laboratory test 02/18/2019 [facility] Magnesium 1.7 mg/dL Low 1.9-2.[address] [place] [address] [phone] Lipase 32 U/L Normal 11.0-82.0 Creatine Kinase(CK) 31 U/L Normal 10-223 C Reactive Protein 37.45 mg/L High <8.01 Partial Thrombo Time PTT 29.1 seconds Normal 26.0-38.0 Urinalysis Profile 02/18/2019 [facility] Urine Color Straw [address] [place] [address] [phone] Urine Appearance Cloudy Urine Specific [place] 1.004 Low 1.010-1.030 Urine pH 7.0 Normal 5-9 Urine Urobilinogen Negative Negative Urine Ketones Negative Negative Urine Protein Negative Negative Urine Leukocytes 3+ Abnormal Negative Urine Blood 1+ Abnormal Negative Urine Nitrite Negative Negative Urine Bilirubin Negative Negative Urine Glucose Negative Negative Urine White Blood Cell 3+(>20/hpf) Abnormal Absent Urine Red Blood Cell 2+(6-10/hpf) Abnormal Absent Urine Bacteria Absent Absent Urine Culture And 02/18/2019 [facility] Urine Culture SEE RESULT [address] [place] [address] [phone] Total Protein 24HR 02/18/2019 [facility] Urine Collection 24 hr Urine [address] [place] [address] [phone] Urine Total Volume 2300 mL Urine TP Concentration 27 mg/dL Urine Total Protein/24HR 621 mg/24Hr High 0-165 Creatinine 02/18/2019 [facility] Creatinine, 2.73 High 0.51- 0.[address] Serum mg/[place] [address] [phone] Urine Collection Time 24 hr Urine Total Volume 2300 mL Urine Creatinine Concentration 32.39 mg/dL Creatinine Clearance 19 mL/min Low 88-128 Creatinine 02/16/2019 [facility] Creatinine 2.19 mg/dL High 0.51-0.[address] [place] [address] [phone] Egfr Non- 21.6 >60 Egfr 26.2 >60 4 Poc Urinalysis 02/12/2019 [facility] Poc Glucose, Negative Negative [address] [place] [address] [phone] Poc Bilirubin, Urine Negative Negative Poc Ketone, Urine Negative Negative Poc Specific [place], Urine 1.015 Normal 1.010-1.030 Poc Blood, Urine 1+ Abnormal Negative Poc pH, Urine 5.5 Normal 5-9 Poc Protein, Urine 2+ Abnormal Negative Poc Urobilinogen, Urine 0.2 Negative Poc Nitrite, Urine Negative Negative Poc Leukocytes, Urine 2+ Abnormal Negative Poc Color, Urine Light yellow Poc Clarity, Urine Slightly Cloudy 5 Urine Culture And 02/12/2019 [facility] Urine SEE RESULT 6 , [address] [place] [address] [phone] Basic Metabolic 02/07/2019 [facility] Sodium 133 mmol/L Low 135-[address] [place] [address] [phone] Potassium 3.5 mmol/L Normal 3.5-5.0 Chloride 101 mmol/L Normal 101-111 Co2 Carbon Dioxide 21 mmol/L Low 22-32 Anion Gap 11 mmol/L Normal 2-11 Glucose 125 mg/dL High 70-100 Blood Urea Nitrogen 44 mg/dL High 6-24 Creatinine 3.49 mg/dL High 0.51-0.95 BUN/Creatinine Ratio 12.6 Normal 8-20 Calcium 9.1 mg/dL Normal 8.6-10.3 Egfr Non- 12.6 >60 Egfr 15.3 >60 8 CBC No Diff 01/31/2019 [facility] White Blood 6.9 10^3/uL Normal 3.5-10.[address] [place] [address] [phone] Red Blood Count 4.24 10^6/uL Normal 3.70-4.87 Hemoglobin 12.8 g/dL Normal 12.0-16.0 Hematocrit 38 % Normal 35-47 Mean Corpuscular Volume 90 fL Normal 80-97 Mean Corpuscular Hemoglobin 30 pg Normal 27-31 Mean Corpuscular HGB Conc 34 g/dL Normal 31-36 Red Cell Distribution Width 16 % High 10-15 Platelet Count 232 10^3/uL Normal 150-450 Mean Platelet Volume 10.8 fL High 7.4-10.4 Basic Metabolic 01/31/2019 [facility] Sodium 139 mmol/L Normal 135-[address] [place] [address] [phone] Potassium 3.1 mmol/L Low 3.5-5.0 Chloride 103 mmol/L Normal 101-111 Co2 Carbon Dioxide 25 mmol/L Normal 22-32 Anion Gap 11 mmol/L Normal 2-11 Glucose 91 mg/dL Normal 70-100 Blood Urea Nitrogen 14 mg/dL Normal 6-24 Creatinine 1.31 mg/dL High 0.51-0.95 BUN/Creatinine Ratio 10.7 Normal 8-20 Calcium 9.4 mg/dL Normal 8.6-10.3 Egfr Non- 39.2 >60 Egfr 47.4 >60 9 Urinalysis Profile 01/23/2019 [facility] Urine Color Yellow [address] [place] [address] [phone] Urine Appearance Cloudy Urine Specific [place] 1.008 Low 1.010-1.030 Urine pH 6.0 Normal [...] Epithelial Present Abnormal Absent CBC Auto 01/23/2019 [facility] White Blood 13.7 10^3/uL High 3.5-10.[address] [place] [address] [phone] Red Blood Count 4.35 10^6/uL Normal 3.70-4.87 [...] Cells % 0.0 Comp Metabolic Panel 01/23/2019 [facility] Sodium 132 mmol/L Low 135-[address] [place] [id number] [phone] Potassium 3.7 mmol/L Normal 3.5-5.0 Chloride 99 [...] Egfr Non- 17.1 >60 Egfr 20.7 >60 10 Laboratory test 01/23/2019 [facility] Lipase 12 U/L Normal 11.0-82.[address] [place] [address] [phone] C Reactive Protein 133.58 mg/L High <8.01 Urine Culture And 01/23/2019 [facility] Urine Culture SEE RESULT [address] [place] [address] [phone] Lipid Profile 12/06/2018 [facility] Triglycerides 88 mg/dL 12 (Trig/Chol/HDL) [address] [place] [address] [phone] Cholesterol 194 mg/dL 13 HDL Cholesterol 58.6 mg/dL 14 LDL Cholesterol 118 mg/dL 15 Drug Abuse 20 10/15/2018 [facility] Urine Amphetamine Negative ng/mL [address] [place] [address] [phone] Urine Barbiturates Negative ng/mL 17 Urine Benzodiazepines Negative ng/mL 18 Urine Cocaine Negative ng/mL 19 Urine Phencyclidine Negative ng/mL Cutoff: 25 Urine Tetrahydrocannabinol Negative ng/mL Cutoff: 50 20 Creatinine, Urine 41.4 mg/dL Specific [place] 1.006 pH 5.7 Oxidants Negative 21 Adulterants Comment Normal Codeine, Ur Not Detected ng/mL Cutoff: 25 22 Yakyjho-5-taxe-glucuronide, Ur Not Detected ng/mL 23 Morphine, Ur Not Detected ng/mL Cutoff: 25 24 Kziknkuq-6-tdbi-glucuronide, U Not Detected ng/mL 25 6-monoacetylmorphine, Ur Not Detected ng/mL Cutoff: 25 26 Hydrocodone, Ur Not Detected ng/mL Cutoff: 25 27 Norhydrocodone, Ur Not Detected ng/mL Cutoff: 25 28 Dihydrocodeine, Ur Not Detected ng/mL Cutoff: 25 29 Hydromorphone, Ur Not Detected ng/mL Cutoff: 25 30 Efiossmtdzsmp9zpchynepikhwuol Not Detected ng/mL 31 Oxycodone, Ur Not Detected ng/mL Cutoff: 25 32 Noroxycodone, Ur Not Detected ng/mL Cutoff: 25 33 Oxymorphone, Ur Not Detected ng/mL Cutoff: 25 34 Uakguqnqdsh-2-rlba-glucuronide Not Detected ng/mL 35 Noroxymorphone, Ur Not Detected ng/mL Cutoff: 25 36 Fentanyl, Ur Not Detected ng/mL Cutoff: 2 37 Norfentanyl, Ur Not Detected ng/mL Cutoff: 2 38 Meperidine, Ur Not Detected ng/mL Cutoff: 25 39 Normeperidine, Ur Not Detected ng/mL Cutoff: 25 40 Naloxone, Ur Not Detected ng/mL Cutoff: 25 41 Wlgqjiop-3-oxsx-glucuronide, U Not Detected ng/mL 42 Methadone, Ur Not Detected ng/mL Cutoff: 25 43 Eddp, Ur Not Detected ng/mL Cutoff: 25 44 Propoxyphene, Ur Not Detected ng/mL Cutoff: 25 45 Norpropoxyphene, Ur Not Detected ng/mL Cutoff: 25 46 Tramadol, Ur Not Detected ng/mL Cutoff: 25 47 O-desmethyltramadol, Ur Not Detected ng/mL Cutoff: 25 48 Tapentadol, Ur Present ng/mL Abnormal Cutoff: 25 49 N-desmethyltapentadol, Ur Present ng/mL Abnormal Cutoff: 50 50 Mexxfqibbd-fako-zmbmooqrwgv, U Present ng/mL Abnormal 51 Buprenorphine, Ur Not Detected ng/mL Cutoff: 5 52 Norbuprenorphine, Ur Not Detected ng/mL Cutoff: 5 53 Norbuprenorphine glucuronide Not Detected ng/mL Cutoff: 20 54 Opioid Interpretation See Comment 55 1 [facility] Severe Sepsis and Septic Shock Management Bundle Measure requires all lactic acids initially measuring >2.0 mmol/L be repeated. 2 Because ethnic data is not always readily [...] 15-29 5 Kidney failure <15 (or dialysis) 3 SEE RESULT BELOW Name: ZAMZAM GONZALEZ : [address]: Krzysztof Umaña MD Acct: [id number] Unit: [id number] AGE: 78 Location: ED Re02/18/19 SEX: F Status: REG ER SPEC: [id number] IMELDA: 02/18/19-[address]: Krzysztof Umaña MD REQ: [id number] RECD: 02/18/19 STATUS: RAGHAV PARKER DR: Krystal Stanton [employer] _ SOURCE: URINE SPDESC: ORDERED: Urine Culture Procedure Result Reported Site Urine Culture Final 02/19/19- 1222 ML No Growth (<1,000 CFU/mL) * ML - [facility] . END OF REPORT DEPARTMENT OF PATHOLOGY, [address] [place] [address] Biju Freeman M.D. Director [facility] # [id number] 4 Because ethnic data is not always [...] 5 Kidney failure <15 (or dialysis) 5 Crocodile Farmer: [id number] 7 SEE RESULT BELOW Name: ZAMZAM GONZALEZ : [address]: Earle oMnahan MD Acct: [id number] Unit: [id number] AGE: 78 Location: [facility] Re02/12/19 SEX: F Status: DEP ER SPEC: [id number] IMELDA: 02/12/19-[address] [facility] [address]: Evelia Boland NP REQ: [id number] RECD: 02/13/19 STATUS: RAGHAV PARKER DR: Earle Stanton [employer] _ SOURCE: URINE SPDESC: ORDERED: Urine Culture COMMENTS: [id number] QUERIES: Urine Source: Random Procedure Result Reported Site Urine Culture Final 02/14/19- 1218 ML No Growth (<1,000 CFU/mL) * ML - Main Lab . END OF REPORT DEPARTMENT OF PATHOLOGY, [address] [place] [address] Biju Freeman M.D. Director [facility] # [id number] 8 Because ethnic data is not always [...] 5 Kidney failure <15 (or dialysis) 9 Because ethnic data is not always readily [...] 15-29 5 Kidney failure <15 (or dialysis) 10 Because ethnic data is not always [...] 5 Kidney failure <15 (or dialysis) 11 SEE RESULT BELOW Name: ZAMZAM GONZALEZ : [address]: Mirela Hunt DO Acct: [id number] Unit: [id number] AGE: 78 Location: [place] [address] Re01/23/19 SEX: F Status: ADM IN SPEC: [id number] IMELDA: 01/23/[address]: Ed Lynn MD REQ: [id number] RECD: 01/23/19 STATUS: RAGHAV PARKER DR: Krystal Stanton [employer] _ SOURCE: URINE SPDESC: ORDERED: Urine Culture Procedure Result Reported Site Urine Culture Final 01/24/19- 1610 ML No growth of clinically significant organisms * ML - Main Lab . END OF REPORT DEPARTMENT OF PATHOLOGY, [address] [place] [address] Biju Freeman M.D. Director [facility] # [id number] 12 Desirable: <150 Borderline High: 150-199 High: 200-499 Very High: >500 13 Desirable: <200 Borderline High: 200-239 High: >239 14 Low: <40 Desirable: 40-60 High: >60 15 Desirable: <100 Near Optimal: 100-129 Borderline High: 130-159 High: 160-189 Very High: >189 16 REFERENCE VALUE Cutoff: 500 17 REFERENCE VALUE Cutoff: 200 18 REFERENCE VALUE Cutoff: 100 19 REFERENCE VALUE Cutoff: 150 20 ADDITIONAL INFORMATION This report is intended for use in clinical monitoring or management of patients. It is not intended for use in employment-related testing. 21 REFERENCE VALUE Cutoff: 200 mg/L 22 Tylenol 3 23 Metabolite of codeine REFERENCE VALUE Cutoff: 100 24 Trisha Russo MS Contin; Also a minor metabolite (10%) of codeine and can be seen in low concentrations (<2,000 ng/mL) with poppy seed ingestion. 25 Metabolite of morphine REFERENCE VALUE Cutoff: 100 26 Metabolite of heroin 27 Lortab, [place], Vicodin; Also a very minor metabolite of codeine and impurity (<1%) of oxycodone. 28 Metabolite of hydrocodone 29 Metabolite of hydrocodone 30 Dilaudid, Exalgo; Also a metabolite of hydrocodone and a minor (<5%) metabolite of morphine. 31 Metabolite of hydromorphone REFERENCE VALUE Cutoff: 100 32 Endocet, Percocet, Oxycontin 33 Metabolite of oxycodone 34 Numorphan, Opana; Also a metabolite of oxycodone. 35 Metabolite of oxymorphone REFERENCE VALUE Cutoff: 100 36 Metabolite of oxymorphone 37 Actiq, Duragesic, [place] 38 Metabolite of fentanyl 39 Demerol 40 Metabolite of meperidine 41 Narcan 42 Metabolite of naloxone REFERENCE VALUE Cutoff: 100 43 Dolophine 44 Metabolite of methadone 45 Darvon, Darvocet 46 Metabolite of propoxyphene 47 Tradol, Ultram, Ultracet 48 Metabolite of tramadol 49 Nucynta 50 Metabolite of tapentadol 51 Metabolite of tapentadol REFERENCE VALUE Cutoff: 100 52 Buprenex, Suboxone 53 Metabolite of buprenorphine 54 Metabolite of buprenorphine 55 Test detected the presence of tapentadol and two of its metabolites (n-desmethyltapentadol and scyevmeyby-xcfe-roksavcwybw). Suspect use of tapentadol within the past three days. ADDITIONAL INFORMATION This test was developed and its performance characteristics determined by [facility] in a manner consistent with CLIA requirements. This test has not been cleared or approved by the U.S. Food and Drug Administration. Test Performed by: [facility] - [facility] [address] [place] [address] Procedures Date Code Description Status 11/02/2018 93070 Destruction Of Benign Lesions Any Method 1-14 lesions Completed 05/10/2018 52725400 Mammogram Completed 05/08/2017 11024612 Mammogram Completed 05/02/2016 82429630 Mammogram Completed 12/11/2015 043680818 Bone Mineral Density Test Completed 05/01/2015 42611215 Mammogram Completed 05/15/2014 30518623 Mammogram Completed 05/11/2013 74580866 Mammogram Completed 02/15/2013 86630201 Colonoscopy Completed 05/10/2012 33490512 Mammogram Completed 05/09/2011 01721364 Mammogram Completed 08/29/2010 825373324 Bone Mineral Density Test Completed 05/08/2010 19376945 Mammogram Completed 06/22/2007 96667160 Colonoscopy Completed Medical Devices Description No Information Available Encounters Type Date Location Provider Dx Diagnosis Office Visit 02/16/2019 [facility] Internal Krystal Stanton, R10.84 Generalized 11:20a Medicine - Ccmob N.P. abdominal pain R11.0 Nausea R94.4 Abnormal results of kidney function studies Office Visit 02/01/2019 3:20p [facility] Internal Krystal Stanton, E87.6 Hypokalemia Medicine - Ccmob N.P. 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 abdominal pain Hospitalists K58.0 Irritable bowel syndrome with diarrhea N18.3 Chronic kidney disease, stage 3 (moderate) I10 Essential (primary) hypertension M13.80 Other specified arthritis, unspecified site Z87.11 Personal history of peptic ulcer disease Office Visit 12/13/2018 11:00a [facility] Internal Krystal Stanton, Z00.00 Encntr for Medicine - Ccmob N.P. general adult medical exam w/o abnormal findings I10 Essential (primary) hypertension E78.00 Pure hypercholesterolemia, unspecified M25.512 Pain in left shoulder K59.00 Constipation, unspecified Z23 Encounter for immunization Office Visit 11/02/2018 1:10p [facility] Dermatology Brea Becerra, R20.2 Paresthesia of MD skin L82.0 Inflamed seborrheic keratosis L53.8 Other specified erythematous conditions R20.8 Other disturbances of skin sensation L29.8 Other pruritus Office Visit 09/16/2018 10:40a [facility] Internal Krystal Stanton, R10.84 Generalized Medicine - Ccmob N.P. abdominal pain Office Visit 09/02/2018 11:20a [facility] Dermatology Brea R20.2 Paresthesia of MD [place] skin Assessments Date Code Description Provider 03/02/2019 R11.0 Nausea Lc Rachid, [employer] 03/02/2019 D64.9 Anemia, unspecified Lc Rachid, [employer] 03/02/2019 E83.42 Hypomagnesemia Lc Rachid, [employer] 03/02/2019 R63.4 Abnormal weight loss Lc Rachid, [employer] 03/02/2019 N39.0 Urinary tract infection, site not specified Lc Rachid, [employer] 02/16/2019 R10.84 Generalized abdominal pain Krystal Stanton, N.P. 02/16/2019 R11.0 Nausea Krystal Stanton, N.P. 02/16/2019 R94.4 Abnormal results of kidney function studies Krystal Stanton, N.P. 02/01/2019 E87.6 Hypokalemia Krystal Satnton, N.P. 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 examination without abno 12/13/2018 I10 Essential [...] Future Appointment(s):12/16/2019 1:00 pm - Krystal Stanton NLindsay at [facility] Internal Medicine - [facility]06/07/2019 11:00 am - Krystal Stanton N.P. at [facility] Internal Medicine - [facility]03/02/2019 - Lc Rashid NPR11.0 NauseaNew Medication:Reglan 5 mg - one tablet two times daily as needed for nausea.Comments:Try the Reglan to see if there is any benefit. I have referred you to a GI specialist for further evaluation of this persistent nausea. If symptoms worsen significantly or if there is no improvement please let us know.Referral:Sandra Ricks MD, LvfwdgxerkvbjoejY16.9 Anemia, lpgfvjovqcbI33.42 KvjtbdjfkfvyrpH06.4 Abnormal weight lossN39.0 Urinary tract infection, site not specifiedNew Labs:Urinalysis Profile, Ordered: 03/02/19Comments:We should recheck a urine test a week after completing the antibiotic. Functional Status Description No Information Available Mental Status Description No Information Available Referrals Refer to Reason for Referral Status Appt Date Sandra Ricks MD Created [address] [place] [address] [phone] Lore Gunter MD Patient with elevated Creatinine and abnormal Sent 24 hour urines referred for evaluation and treatment. Thank you for seeing this pleasant patient. [address] [place] [id number] [phone] Josey Valentin MD Patient has been experiencing episodes of intense Sent abdominal pain. She has had a full GI workup and nothing has been found aside from constipation. 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 Patient is referred for evaluation and treatment. [address] [place] [address] [phone] Sandra Ricks MD Patient with continued issues with abdominal Closed pain. Referred for evaluation and treatment. [address] [place] [address] [phone]
--- OUTSIDE RECORDS SUMMARY | 2019-04-27 11:38 | XMS REPORT | Continuity of Care Document ---
:1940 External Reference #:[id number] Author Name Mee Rodríguez MD (transmitted by agent of provider Annette Haynes) Address [address] , [address] [address] Care Team Providers Name Role Phone Boris Romano MD - Care Team Information Case Worker [phone] Ophthalmology Romelia Edge MD - Internal Care Team Information Case Worker Medicine Crystal Bose MD - Dermatology Care Team Information Case Worker [facility] Family Care Team Information Case Worker [phone] Cherelle Palma MD - Care Team Information Case Worker [phone] Obstetrics & Gynecology Problems Active Problems Provider [...] to second hand smoke. Smoking Status Reviewed: 04/08/19 Not exposed to second hand smoke. Exercise [...] Lc Rashid, 5mg Tablets times daily as HAIR DESIGNER 9 needed for nausea. Omeprazole 1 by mouth every 90caps R10.84 [place] 40mg Caps[address] day Varn, N.P. 9 Senna Plus take 2 tablets by 60tabs K59.00 [place] 8.6-50mg Tablets mouth as needed Varn, N.P. 9 for constipation Clonazepam take 1/2 to 1 30tabs F41.9 [place] 0.5mg Tablets tablet as needed Varn, N.P. 9 anxiety and sleep Magnesium 1 by mouth every Unknown 400mg Tablets day 0 Amlodipine Besylate take 1 tablet by 90tabs [place] 5mg Tablets mouth every day Varn, N.P. [...] 02/01/2019 - 20mg Tablets day N.P. 04/01/2019 Klor-Con M15 1 by mouth every 30tabs E87.6 Krystal Stanton, 02/01/2019 - 15Meq Tablets day N.P. 04/08/2019 ER Movantik one po daily prn 30tabs K59.00 Krystal Stanton, 02/01/2019 - 12.5mg Tablets constipation N.P. 02/16/2019 Lisinopril 1 by mouth every 90tabs I10 Krystal Stanton, 12/13/2018 - 40mg Tablets day N.P. 01/26/2019 Lisinopril 1 by mouth every 10tabs I10 Krystal Stanton, 12/13/2018 - 10mg Tablets day N.P. 12/23/2018 Immunizations CPT Code Status Date Vaccine Reaction Lot # [id number] Given 12/13/2018 Pneumonia Vaccine no immediate reaction [id number] noted. dg 65905 Given 12/11/2017 Tetanus And Diptheria (Td) No immediate [id number] For Adult Use Preservative reaction..jh Free Q2039 Given 04/17/2015 Flu Vaccine NOS 69510 Given 12/01/2014 Pneumococcal Conjugate [id number] Vaccine 13 Valent For Intramuscular Use 18770 Given 03/23/2013 Fluzone High Dose 22874 Given 04/07/2012 Fluzone High Dose 89210 Given 10/02/2011 Zoster (Zostavax) 1603aa Q2038 Given 04/04/2011 Fluzone Vaccine 92530 Given 07/05/2009 Influenza Virus 3Yrs & Over Vital Signs Date Vital Result Comment 04/08/2019 11:31am Height 63 inches 5'3" Weight 110.00 lb Heart Rate 92 /min BP Systolic Sitting 116 mmHg L arm BP Diastolic Sitting 71 mmHg L arm O2 % BldC Oximetry 96 % BMI (Body Mass Index) 19.5 kg/m2 04/01/2019 11:35am Height 63 inches 5'3" Weight 110.00 lb Heart Rate 101 /min BP Systolic Sitting 129 mmHg BP Diastolic Sitting 74 mmHg O2 % BldC Oximetry 98 % BMI (Body Mass Index) 19.5 kg/m2 Results Test Date Facility Test Result H/L Range Note Neph Routine 04/07/2019 [facility] Total Protein 55 mg/dL [address] [place] [address] [phone] Creatinine Random Urine 157.71 mg/dL CBC Auto 04/07/2019 [facility] White Blood 6.7 10^3/uL Normal 3.5-10.[address] [place] [address] [phone] Red Blood Count 3.43 10^6/uL Low 3.70-4.87 Hemoglobin 10.3 g/dL Low 12.0-16.0 Hematocrit 32 % Low 35-47 Mean Corpuscular Volume 92 fL Normal 80-97 Mean Corpuscular Hemoglobin 30 pg Normal 27-31 Mean Corpuscular HGB Conc 33 g/dL Normal 31-36 Red Cell Distribution Width 18 % High 10-15 Platelet Count 219 10^3/uL Normal 150-450 Mean Platelet Volume 10.6 fL High 7.4-10.4 Abs Neutrophils 4.7 10^3/uL Normal 1.5-7.7 Abs Lymphocytes 1.2 10^3/uL Normal 1.0-4.8 Abs Monocytes 0.5 10^3/uL Normal 0-0.8 Abs Eosinophils 0.2 10^3/uL Normal 0-0.6 Abs Basophils 0.0 10^3/uL Normal 0-0.2 Abs Nucleated RBC 0.0 10^3/uL Granulocyte % 70.6 % Lymphocyte % 18.2 % Monocyte % 7.4 % Eosinophil % 3.3 % Basophil % 0.5 % Nucleated Red Blood Cells % 0.0 Basic Metabolic 04/07/2019 [facility] Sodium 132 mmol/L Low 135-[address] [place] [address] [phone] Chloride 103 mmol/L Normal 101-111 Co2 Carbon Dioxide 23 mmol/L Normal 22-32 Glucose 107 mg/dL High 70-100 Blood Urea Nitrogen 28 mg/dL High 6-24 Creatinine 2.21 mg/dL High 0.51-0.95 BUN/Creatinine Ratio 12.7 Normal 8-20 Calcium 9.4 mg/dL Normal 8.6-10.3 Egfr Non- 21.4 >60 Egfr 25.9 >60 1 Potassium 5.1 mmol/L High 3.5-5.0 Anion Gap 6 mmol/L Normal 2-11 Urinalysis Profile 04/07/2019 [facility] Urine Color Yellow [address] [place] [address] [phone] Urine Appearance Cloudy Urine Specific [place] 1.014 Normal 1.010-1.030 Urine pH 6.0 Normal 5-9 Urine Urobilinogen Negative Negative Urine Ketones Negative Negative Urine Protein Negative Negative Urine Leukocytes 3+ Abnormal Negative Urine Blood Negative Negative Urine Nitrite Negative Negative Urine Bilirubin Negative Negative Urine Glucose Negative Negative Urine White Blood Cell 3+(>20/hpf) Abnormal Absent Urine Red Blood Cell 2+(6-10/hpf) Abnormal Absent Urine Bacteria Absent Absent Urine Squamous Epithelial Cell Present Abnormal Absent Urine Hyaline Casts Present Abnormal Absent Urine Granular Casts Present Abnormal Absent Laboratory test 04/07/2019 [facility] Albumin 4.0 g/dL Normal 3.2-5.2 finding [address] [place] [address] [phone] Ferritin 371.3 ng/mL High 11-307 Iron & Iron Binding 04/07/2019 [facility] Iron 73 g/dL Normal 50-[address] [place] [address] [phone] Unsaturated Iron Binding < 290 g/dL Total Iron Binding Capacity 305 g/dL Normal 250-450 Transferrin 218 mg/dL Normal 203-362 % Iron Saturation 24 % Normal 15-55 Neph Routine 03/25/2019 [facility] Total Protein Random 41 mg/ dL [address] [place] [address] [phone] Creatinine Random Urine 95.75 mg/dL Urine Culture 03/25/2019 [facility] Urine Culture SEE RESULT [address] [place] [address] [phone] HIV 1&2 p24 03/25/2019 [facility] HIV 4th Nonreactive Nonreactive Screen [address] [place] [address] [phone] Phospholipase 03/25/2019 [facility] Phospholipase Negative Negative 3 A2 Receptor AB [address] A2 [place] [address] [phone] Phospholipase A2 ReceptorELISA <2 RU/mL 4 Protein 03/25/2019 [facility] Total 7.8 g/dL 6.3 - Electrophoresis [address] Protein(Pep) 7.9 [place] [address] [phone] Albumin 3.4 g/dL 3.4-4.7 Alpha-1 Globulin 0.3 g/dL 0.1-0.3 Alpha-2 Globulin 1.2 g/dL Abnormal 0.6-1.0 Beta Globulin 1.1 g/dL 0.7-1.2 Gamma Globulin 1.8 g/dL Abnormal 0.6-1.6 Albumin/Globulin Ratio 0.76 Impression See Comment 5 [place]/Lambda Free 03/25/2019 [facility] [place] Free 4.22 mg/dL Abnormal 6 Light Chains Ser [address] [place] [address] [phone] Lambda Free Light Chain 3.33 mg/dL Abnormal 7 [place]/Lambda Free Light Chain 1.27 8 CBC Auto 03/25/2019 [facility] White Blood 5.2 10^3/uL Normal 3.5-10.[address] [place] [address] [phone] Red Blood Count 3.43 10^6/uL Low 3.70-4.87 [...] Blood Cells % 0.0 Basic Metabolic 03/25/2019 [facility] Sodium 132 mmol/L Low 135-[address] [place] [address] [phone] Potassium 4.4 mmol/L Normal 3.5-5.0 Chloride 100 mmol/L Low 101-111 Co2 Carbon Dioxide 24 mmol/L Normal 22-32 Anion Gap 8 mmol/L Normal 2-11 Glucose 90 mg/dL Normal 70-100 Blood Urea Nitrogen 28 mg/dL High 6-24 Creatinine 2.11 mg/dL High 0.51-0.95 BUN/Creatinine Ratio 13.3 Normal 8-20 Calcium 9.4 mg/dL Normal 8.6-10.3 Egfr Non- 22.6 >60 Egfr 27.3 >60 9 Urinalysis Profile 03/25/2019 [facility] Urine Color Yellow [address] [place] [address] [phone] Urine Appearance Clear Urine Specific [place] 1.011 Normal 1.010-1.030 Urine pH 6.0 Normal 5-9 Urine Urobilinogen Negative Negative Urine Ketones Negative Negative Urine Protein Negative Negative Urine Leukocytes 3+ Abnormal Negative Urine Blood Negative Negative Urine Nitrite Negative Negative Urine Bilirubin Negative Negative Urine Glucose Negative Negative Urine White Blood Cell 3+(>20/hpf) Abnormal Absent Urine Red Blood Cell Absent Absent Urine Bacteria 1+ Abnormal Absent Cryoglobulin & 03/25/2019 [facility] Cryoglobulin Negative Negative [address] %[place] [address] [phone] Cryofibrinogen Negative Negative 11 Hepatitis C Antibody 03/25/2019 [facility] HCV Index 0.02 s/c [address] [place] [address] [phone] Hepatitis C Antibody Negative Negative GN Serology 03/25/2019 [facility] Anti Double Stranded <12.3 IU/ mL [address] [place] [address] [phone] Complement C3 120 mg/dL 75 - 175 [...] Hepatitis B Alexandr AB Titer Immune Immune Neutrophil Cytoplasmic 03/25/2019 [facility] C-Anca Negative Negative AB [address] [place] [address] [phone] P-Anca Negative Negative 21 Urine Culture And 03/14/2019 [facility] Urine Culture SEE RESULT [address] [place] [address] [phone] Urinalysis Profile 03/14/2019 [facility] Urine Color Yellow [address] [place] [address] [phone] Urine Appearance Cloudy Urine Specific [place] 1.012 Normal 1.010-1.030 Urine pH 6.0 Normal [...] Urine Bacteria Absent Absent Vitamin B12 03/14/2019 [facility] Vitamin B12 227 pg/mL Normal 180-914 [address] [place] [address] [phone] Folic Acid (Folate) > 20.00 ng/mL >3.99 Laboratory test 03/14/2019 [facility] Ferritin 371.0 High 11- [address] ng/[place] [address] [phone] Laboratory test 03/14/2019 [facility] Magnesium 1.8 mg/dL Low 1.9-2.[address] [place] [address] [phone] CBC Auto Diff 03/14/2019 [facility] White Blood 8.8 Normal 3.5 -10.8 DRIVE Count 10^3/[place] [address] [phone] Red Blood Count 3.61 10^6/uL Low 3.70-4.87 [...] % 0.0 Iron & Iron Binding 03/14/2019 [facility] Iron 68 g/dL Normal 50-[address] [place] [address] [phone] Unsaturated Iron Binding < 243 g/dL Total Iron Binding Capacity 258 g/dL Normal 250-450 Transferrin 184 mg/dL Low 203-362 % Iron Saturation 26 % Normal 15-55 Laboratory test 03/14/2019 [facility] Erythrocyte Sed 59 mm/Hr High 0-[address] [place] [address] [phone] C Reactive Protein 4.13 mg/L Normal <8.01 Protein 03/14/2019 [facility] Immunofixation See Comment [address] [place] [address] [phone] Total Protein(Pep) 7.2 g/dL 6.3 - 7.9 Albumin 3.3 g/dL Abnormal 3.4-4.7 Alpha-1 Globulin 0.3 g/dL 0.1-0.3 Alpha-2 Globulin 1.1 g/dL Abnormal 0.6-1.0 Beta Globulin 1.0 g/dL 0.7-1.2 Gamma Globulin 1.6 g/dL 0.6-1.6 Albumin/Globulin Ratio 0.83 Impression See Comment 25 Creatinine 02/18/2019 [facility] Creatinine, 2.73 High 0.51- 0.[address] Serum mg/[place] [address] [phone] Urine Collection Time 24 hr Urine Total Volume 2300 mL Urine Creatinine Concentration 32.39 mg/dL Creatinine Clearance 19 mL/min Low 88-128 Total Protein 24HR 02/18/2019 [facility] Urine Collection Time [address] [place] [address] [phone] Urine Total Volume 2300 mL Urine TP Concentration 27 mg/dL Urine Total Protein/24HR 621 mg/24Hr High 0-165 Urine Culture And 02/18/2019 [facility] Urine Culture SEE RESULT [address] [place] [address] [phone] Urinalysis Profile 02/18/2019 [facility] Urine Color Straw [address] [place] [address] [phone] Urine Appearance Cloudy Urine Specific [place] 1.004 Low 1.010-1.030 Urine pH 7.0 Normal 5-9 Urine Urobilinogen Negative Negative Urine Ketones Negative Negative Urine Protein Negative Negative Urine Leukocytes 3+ Abnormal Negative Urine Blood 1+ Abnormal Negative Urine Nitrite Negative Negative Urine Bilirubin Negative Negative Urine Glucose Negative Negative Urine White Blood Cell 3+(>20/hpf) Abnormal Absent Urine Red Blood Cell 2+(6-10/hpf) Abnormal Absent Urine Bacteria Absent Absent Laboratory test 02/18/2019 [facility] Magnesium 1.7 mg/dL Low 1.9-2.[address] [place] [address] [phone] Lipase 32 U/L Normal 11.0-82.0 Creatine Kinase(CK) 31 U/L Normal 10-223 C Reactive Protein 37.45 mg/L High <8.01 Partial Thrombo Time PTT 29.1 seconds Normal 26.0-38.0 Laboratory test 02/18/2019 [facility] Lactic Acid 1.0 mmol/L Normal 0.5-2.[address] [place] [address] [phone] CBC Auto Diff 02/18/2019 [facility] White Blood 9.0 Normal 3.5 -10.[address] Count 10^3/[place] [address] [phone] Red Blood Count 3.87 10^6/uL Normal 3.70-4.87 [...] Red Blood Cells % 0.0 Comp Metabolic 02/18/2019 [facility] Sodium 135 mmol/L Normal 135-[address] [place] [address] [phone] Potassium 4.7 mmol/L Normal 3.5-5.0 Chloride 106 [...] Egfr Non- 17.4 >60 Egfr 21.1 >60 28 Creatinine 02/16/2019 [facility] Creatinine 2.19 mg/dL High 0.51-0.[address] [place] [address] [phone] Egfr Non- 21.6 >60 Egfr 26.2 >60 29 Urine Culture And 02/12/2019 [facility] Urine SEE RESULT 30 , [address] [place] [address] [phone] Poc Urinalysis 02/12/2019 [facility] Poc Negative Negative [address] Glucose, [place] [address] Urine [phone] Poc Bilirubin, Urine Negative Negative Poc Ketone, Urine Negative Negative Poc Specific [place], Urine 1.015 Normal 1.010-1.030 Poc Blood, Urine 1+ Abnormal Negative Poc pH, Urine 5.5 Normal 5-9 Poc Protein, Urine 2+ Abnormal Negative Poc Urobilinogen, Urine 0.2 Negative Poc Nitrite, Urine Negative Negative Poc Leukocytes, Urine 2+ Abnormal Negative Poc Color, Urine Light yellow Poc Clarity, Urine Slightly Cloudy 32 Basic Metabolic 02/07/2019 [facility] Sodium 133 mmol/L Low 135-[address] [place] [address] [phone] Potassium 3.5 mmol/L Normal 3.5-5.0 Chloride 101 mmol/L Normal 101-111 Co2 Carbon Dioxide 21 mmol/L Low 22-32 Anion Gap 11 mmol/L Normal 2-11 Glucose 125 mg/dL High 70-100 Blood Urea Nitrogen 44 mg/dL High 6-24 Creatinine 3.49 mg/dL High 0.51-0.95 BUN/Creatinine Ratio 12.6 Normal 8-20 Calcium 9.1 mg/dL Normal 8.6-10.3 Egfr Non- 12.6 >60 Egfr 15.3 >60 33 CBC No Diff 01/31/2019 [facility] White Blood 6.9 10^3/uL Normal 3.5-10.[address] [place] [address] [phone] Red Blood Count 4.24 10^6/uL Normal 3.70-4.87 Hemoglobin 12.8 g/dL Normal 12.0-16.0 Hematocrit 38 % Normal 35-47 Mean Corpuscular Volume 90 fL Normal 80-97 Mean Corpuscular Hemoglobin 30 pg Normal 27-31 Mean Corpuscular HGB Conc 34 g/dL Normal 31-36 Red Cell Distribution Width 16 % High 10-15 Platelet Count 232 10^3/uL Normal 150-450 Mean Platelet Volume 10.8 fL High 7.4-10.4 Basic Metabolic 01/31/2019 [facility] Sodium 139 mmol/L Normal 135-[address] [place] [address] [phone] Potassium 3.1 mmol/L Low 3.5-5.0 Chloride 103 mmol/L Normal 101-111 Co2 Carbon Dioxide 25 mmol/L Normal 22-32 Anion Gap 11 mmol/L Normal 2-11 Glucose 91 mg/dL Normal 70-100 Blood Urea Nitrogen 14 mg/dL Normal 6-24 Creatinine 1.31 mg/dL High 0.51-0.95 BUN/Creatinine Ratio 10.7 Normal 8-20 Calcium 9.4 mg/dL Normal 8.6-10.3 Egfr Non- 39.2 >60 Egfr 47.4 >60 34 Laboratory test 01/23/2019 [facility] Lipase 12 U/L Normal 11.0-82.[address] [place] [address] [phone] C Reactive Protein 133.58 mg/L High <8.01 Urine Culture And 01/23/2019 [facility] Urine Culture SEE RESULT [address] [place] [address] [phone] Urinalysis Profile 01/23/2019 [facility] Urine Color Yellow [address] [place] [address] [phone] Urine Appearance Cloudy Urine Specific [place] 1.008 Low 1.010-1.030 Urine pH 6.0 Normal [...] Epithelial Present Abnormal Absent CBC Auto 01/23/2019 [facility] White Blood 13.7 10^3/uL High 3.5-10.[address] [place] [address] [phone] Red Blood Count 4.35 10^6/uL Normal 3.70-4.87 [...] Cells % 0.0 Comp Metabolic Panel 01/23/2019 [facility] Sodium 132 mmol/L Low 135-[address] [place] [address] [phone] Potassium 3.7 mmol/L Normal 3.5-5.0 Chloride 99 [...] Egfr Non- 17.1 >60 Egfr 20.7 >60 36 Lipid Profile 12/06/2018 [facility] Triglycerides 88 mg/dL 37 (Trig/Chol/HDL) [address] [place] [address] [phone] Cholesterol 194 mg/dL 38 HDL Cholesterol 58.6 mg/dL 39 LDL Cholesterol 118 mg/dL 40 Drug Abuse 20 10/15/2018 [facility] Urine Amphetamine Negative ng/mL [address] [place] [address] [phone] Urine Barbiturates Negative ng/mL 42 Urine Benzodiazepines Negative ng/mL 43 Urine Cocaine Negative ng/mL 44 Urine Phencyclidine Negative ng/mL Cutoff: 25 Urine Tetrahydrocannabinol Negative ng/mL Cutoff: 50 45 Creatinine, Urine 41.4 mg/dL Specific [place] 1.006 pH 5.7 Oxidants Negative 46 Adulterants Comment Normal Codeine, Ur Not Detected ng/mL Cutoff: 25 47 Jdjqunq-2-ojip-glucuronide, Ur Not Detected ng/mL 48 Morphine, Ur Not Detected ng/mL Cutoff: 25 49 Ymeyzsba-1-jwti-glucuronide, U Not Detected ng/mL 50 6-monoacetylmorphine, Ur Not Detected ng/mL Cutoff: 25 51 Hydrocodone, Ur Not Detected ng/mL Cutoff: 25 52 Norhydrocodone, Ur Not Detected ng/mL Cutoff: 25 53 Dihydrocodeine, Ur Not Detected ng/mL Cutoff: 25 54 Hydromorphone, Ur Not Detected ng/mL Cutoff: 25 55 Bmvtrddvesazz0qabbyjhredrayma Not Detected ng/mL 56 Oxycodone, Ur Not Detected ng/mL Cutoff: 25 57 Noroxycodone, Ur Not Detected ng/mL Cutoff: 25 58 Oxymorphone, Ur Not Detected ng/mL Cutoff: 25 59 Pfnlrtwzudr-2-ymav-glucuronide Not Detected ng/mL 60 Noroxymorphone, Ur Not Detected ng/mL Cutoff: 25 61 Fentanyl, Ur Not Detected ng/mL Cutoff: 2 62 Norfentanyl, Ur Not Detected ng/mL Cutoff: 2 63 Meperidine, Ur Not Detected ng/mL Cutoff: 25 64 Normeperidine, Ur Not Detected ng/mL Cutoff: 25 65 Naloxone, Ur Not Detected ng/mL Cutoff: 25 66 Xctsiogc-8-rrzm-glucuronide, U Not Detected ng/mL 67 Methadone, Ur Not Detected ng/mL Cutoff: 25 68 Eddp, Ur Not Detected ng/mL Cutoff: 25 69 Propoxyphene, Ur Not Detected ng/mL Cutoff: 25 70 Norpropoxyphene, Ur Not Detected ng/mL Cutoff: 25 71 Tramadol, Ur Not Detected ng/mL Cutoff: 25 72 O-desmethyltramadol, Ur Not Detected ng/mL Cutoff: 25 73 Tapentadol, Ur Present ng/mL Abnormal Cutoff: 25 74 N-desmethyltapentadol, Ur Present ng/mL Abnormal Cutoff: 50 75 Xtdtcvuwkx-wiom-urelcskmcai, U Present ng/mL Abnormal 76 Buprenorphine, Ur Not Detected ng/mL Cutoff: 5 77 Norbuprenorphine, Ur Not Detected ng/mL Cutoff: 5 78 Norbuprenorphine glucuronide Not Detected ng/mL Cutoff: 20 79 Opioid Interpretation See Comment 80 1 Because ethnic data is not always readily [...] 15-29 5 Kidney failure <15 (or dialysis) 2 SEE RESULT BELOW Name: ZAMZAM GONZALEZ : [address]: Mee Rodríguez MD Acct: [id number] Unit: [id number] AGE: 78 Location: LAB Re03/25/19 SEX: F Status: REG REF SPEC: [id number] IMELDA: 03/25/19-[address]: Mee Rodríguez MD REQ: [id number] RECD: 03/25/19 STATUS: COMP _ SOURCE: URINE SPDESC: ORDERED: Urine Culture Procedure Result Reported Site Urine Culture Final 03/26/19- 1245 ML No Growth (<1,000 CFU/mL) * ML - Main Lab . END OF REPORT DEPARTMENT OF PATHOLOGY, [address] [place] [address] Biju Freeman M.D. Director JOSE ALBERTO # [id number] 3 ADDITIONAL INFORMATION This test was developed and its performance characteristics determined by [facility] in a manner consistent with CLIA requirements. This test has not been cleared or approved by the U.S. Food and Drug Administration. 4 REFERENCE VALUE <14 RU/mL: Negative 14-19 RU/mL: Borderline >19 RU/mL: Positive Test Performed by: [place] [address] Cosmetic Account Coordinator: Ilya Faulkner M.D. Ph.D.; CLIA# [id number] 5 RESULT: Polyclonal hypergammaglobulinemia Test Performed by: [facility] [place] [address] Cosmetic Account Coordinator: Ilya Faulkner M.D. Ph.D.; CLIA# [id number] 6 REFERENCE VALUE 0.3300-1.94 7 REFERENCE VALUE 0.5700-2.63 8 REFERENCE VALUE 0.2600-1.65 Test Performed by: [facility] [place] [address] Cosmetic Account Coordinator: Ilya Faulkner M.D. Ph.D.; CLIA# [id number] 9 Because ethnic data is not always [...] 5 Kidney failure <15 (or dialysis) 10 This test is negative at 24 hours. All samples are held and reviewed again at 7 days. If delayed precipitation occurs after 7 days, Immunofixation will be performed and an additional report will follow. 11 Test Performed by: [place] [address] Cosmetic Account Coordinator: Ilya Faulkner M.D. Ph.D.; CLIA# [id number] 12 REFERENCE VALUE <30.0 (Negative) Test Performed by: [place] [address] Cosmetic Account Coordinator: Ilya Faulkner M.D. Ph.D.; CLIA# [id number] 13 Test Performed by: [place] [address] Cosmetic Account Coordinator: Ilya Faulkner M.D. Ph.D.; CLIA# [id number] 14 Test Performed by: [place] [address] Cosmetic Account Coordinator: Ilya Faulkner M.D. Ph.D.; CLIA# [id number] 15 REFERENCE VALUE <1.0 (Negative) Test Performed by: [facility] [place] [address] Cosmetic Account Coordinator: Ilya Faulkner M.D. Ph.D.; CLIA# [id number] 16 REFERENCE VALUE <=1.0 (Negative) Test Performed by: [facility] [place] [address] Cosmetic Account Coordinator: Ilya Faulkner M.D. Ph.D.; CLIA# [id number] 17 REFERENCE VALUE <0.4 (Negative) Test Performed by: [place] [address] Cosmetic Account Coordinator: Ilya Faulkner M.D. Ph.D.; CLIA# [id number] 18 REFERENCE VALUE <0.4 (Negative) Test Performed by: [place] [address] Cosmetic Account Coordinator: Ilya Faulkner M.D. Ph.D.; CLIA# [id number] 19 Test Performed by: [place] [address] Cosmetic Account Coordinator: Ilya Faulkner M.D. Ph.D.; CLIA# [id number] 20 REFERENCE VALUE <1.0 (Negative) Test Performed by: [place] [id number] Cosmetic Account Coordinator: Ilya Faulkner M.D. Ph.D.; CLIA# [id number] 21 Negative for cANCA and pANCA patterns by immunofluorescence. ADDITIONAL INFORMATION This test was developed and its performance characteristics determined by [facility] in a manner consistent with CLIA requirements. This test has not been cleared or approved by the U.S. Food and Drug Administration. Test Performed by: [facility] [place] [address] Cosmetic Account Coordinator: Ilya Faulkner M.D. Ph.D.; CLIA# [id number] 22 SEE RESULT BELOW Name: ZAMZAM GONZALEZ : [address]: Lc Rashid NP Acct: [id number] Unit: [id number] AGE: 78 Location: [facility] Re03/14/19 SEX: F Status: REG REF SPEC: [id number] IMELDA: 03/14/[address]: Lc Rashid NP REQ: [id number] RECD: 03/14/19 STATUS: COMP _ SOURCE: URINE SPDESC: ORDERED: Urine Culture Procedure Result Reported Site Urine Culture Final 03/15/19- 1603 ML No Growth (<1,000 CFU/mL) * ML - Main Lab . END OF REPORT DEPARTMENT OF PATHOLOGY, [address] [place] [address] Biju Freeman M.D. Director CLIA # [id number] 23 Normal Range 180 to 914 Indeterminate Range 145 to 180 Deficient Range <145 24 RESULT: No monoclonal protein detected. Test Performed by: [place] [address] Cosmetic Account Coordinator: Ilya Faulkner M.D. Ph.D.; CLIA# [id number] 25 Small abnormality in gamma fraction. See Immunofixation. Test Performed by: [place] [address] Cosmetic Account Coordinator: Ilya Faulkner M.D. Ph.D.; CLIA# [id number] 26 SEE RESULT BELOW Name: ZAMZAM GONZALEZ : [address]: Krzysztof Umaña MD Acct: [id number] Unit: [id number] AGE: 78 Location: ED Re02/18/19 SEX: F Status: REG ER SPEC: [id number] IMELDA: 02/18/19-[address]: Krzysztof Umaña MD REQ: [id number] RECD: 02/18/19 STATUS: COMP KEITH DR: Krystal Stanton HAIR DESIGNER _ SOURCE: URINE SPDESC: ORDERED: Urine Culture Procedure Result Reported Site Urine Culture Final 02/19/19- 1222 ML No Growth (<1,000 CFU/mL) * ML - Main Lab . END OF REPORT DEPARTMENT OF PATHOLOGY, [address] [place] [address] Biju Freeman M.D. Director [facility] # [id number] 27 [facility] Severe Sepsis and Septic Shock Management Bundle Measure requires all lactic acids initially measuring >2.0 mmol/L be repeated. 28 Because ethnic data is not always [...] 5 Kidney failure <15 (or dialysis) 29 Because ethnic data is not always readily [...] 15-29 5 Kidney failure <15 (or dialysis) 30 [id number] 31 SEE RESULT BELOW Name: ZAMZAM GONZALEZ : [address]: Earle Monahan MD Acct: [id number] Unit: [id number] AGE: 78 Location: [facility] Re02/12/19 SEX: F Status: DEP ER SPEC: [id number] IMELDA: 02/12/19-[address] [facility] [address]: Evelia Boland NP REQ: [id number] RECD: 02/13/195 STATUS: RAGHAV PARKER DR: Earle Stanton HAIR DESIGNER _ SOURCE: URINE SPDESC: ORDERED: Urine Culture COMMENTS: [id number] QUERIES: Urine Source: Random Procedure Result Reported Site Urine Culture Final 02/14/19- 1218 ML No Growth (<1,000 CFU/mL) * ML - Main Lab . END OF REPORT DEPARTMENT OF PATHOLOGY, [address] [place] [address] Biju Freeman M.D. Director [facility] # [id number] 32 Technical Agronomist: [id number] 33 Because ethnic data is not always [...] [address]: Mirela Hunt DO Acct: [id number] Unit: [id number] AGE: 78 Location: [place] [address] Re01/23/19 SEX: F Status: ADM IN SPEC: [id number] IMELDA: 01/23/[address] [facility] [address]: Ed Lynn MD REQ: [id number] RECD: 01/23/19 STATUS: RAGHAV PARKER DR: Krystal Stanton HAIR DESIGNER _ SOURCE: URINE SPDESC: ORDERED: Urine Culture Procedure Result Reported Site Urine Culture Final 01/24/19- 1610 ML No growth of clinically significant organisms * ML - Main Lab . END OF REPORT DEPARTMENT OF PATHOLOGY, [address] [place] [address] Biju Freeman M.D. Director [facility] # [id number] 36 Because ethnic data is not always readily [...] 15-29 5 Kidney failure <15 (or dialysis) 37 Desirable: <150 Borderline High: 150-199 High: 200-499 Very High: >500 38 Desirable: <200 Borderline High: 200-239 High: >239 39 Low: <40 Desirable: 40-60 High: >60 40 Desirable: <100 Near Optimal: 100-129 Borderline High: 130-159 High: 160-189 Very High: >189 41 REFERENCE VALUE Cutoff: 500 42 REFERENCE VALUE Cutoff: 200 43 REFERENCE VALUE Cutoff: 100 44 REFERENCE VALUE Cutoff: 150 45 ADDITIONAL INFORMATION This report is intended for use in clinical monitoring or management of patients. It is not intended for use in employment-related testing. 46 REFERENCE VALUE Cutoff: 200 mg/L 47 Tylenol 3 48 Metabolite of codeine REFERENCE VALUE Cutoff: 100 49 Trisha Russo, Contin; Also a minor metabolite (10%) of codeine and can be seen in low concentrations (<2,000 ng/mL) with poppy seed ingestion. 50 Metabolite of morphine REFERENCE VALUE Cutoff: 100 51 Metabolite of heroin 52 Lortab, [place], Vicodin; Also a very minor metabolite of codeine and impurity (<1%) of oxycodone. 53 Metabolite of hydrocodone 54 Metabolite of hydrocodone 55 Dilaudid, Exalgo; Also a metabolite of hydrocodone and a minor (<5%) metabolite of morphine. 56 Metabolite of hydromorphone REFERENCE VALUE Cutoff: 100 57 Endocet, Percocet, Oxycontin 58 Metabolite of oxycodone 59 Numorphan, Opana; Also a metabolite of oxycodone. 60 Metabolite of oxymorphone REFERENCE VALUE Cutoff: 100 61 Metabolite of oxymorphone 62 Actiq, Duragesic, Fentora 63 Metabolite of fentanyl 64 Demerol 65 Metabolite of meperidine 66 Narcan 67 Metabolite of naloxone REFERENCE VALUE Cutoff: 100 68 Dolophine 69 Metabolite of methadone 70 Darvon, Darvocet 71 Metabolite of propoxyphene 72 Tradol, Ultram, Ultracet 73 Metabolite of tramadol 74 Nucynta 75 Metabolite of tapentadol 76 Metabolite of tapentadol REFERENCE VALUE Cutoff: 100 77 Buprenex, Suboxone 78 Metabolite of buprenorphine 79 Metabolite of buprenorphine 80 Test detected the presence of tapentadol and two of its metabolites (n-desmethyltapentadol and rczyfyikga-tqfg-tcyenbzenrl). Suspect use of tapentadol within the past three days. ADDITIONAL INFORMATION This test was developed and its performance characteristics determined by [facility] in a manner consistent with CLIA requirements. This test has not been cleared or approved by the U.S. Food and Drug Administration. Test Performed by: [facility] [place] [address] [place] [address] Procedures Date Code Description Status 11/02/2018 14018 Destruction Of Benign Lesions Any Method 1-14 lesions Completed 05/10/2018 [id number] Mammogram Completed 05/08/2017 [id number] Mammogram Completed 05/02/2016 [id number] Mammogram Completed 12/11/2015 [id number] Bone Mineral Density Test Completed 05/01/2015 [id number] Mammogram Completed 05/15/2014 [id number] Mammogram Completed 05/11/2013 [id number] Mammogram Completed 02/15/2013 [id number] Colonoscopy Completed 05/10/2012 [id number] Mammogram Completed 05/09/2011 [id number] Mammogram Completed 08/29/2010 [id number] Bone Mineral Density Test Completed 05/08/2010 [id number] Mammogram Completed 06/22/2007 [id number] Colonoscopy Completed Medical Devices Description No Information Available Encounters Type Date Location Provider Dx Diagnosis Office Visit 03/25/2019 [facility] Mee Diallo N17.9 Acute kidney 11:00a MD Marcos failure, unspecified E87.6 Hypokalemia E83.42 Hypomagnesemia I10 Essential (primary) hypertension D64.9 Anemia, unspecified Office Visit 03/02/2019 2:20p [facility] - Lc Rashid NP R11.0 Nausea Ccmob D64.9 Anemia, unspecified E83.42 Hypomagnesemia R63.4 Abnormal weight loss N39.0 Urinary tract infection, site not specified Office Visit 02/16/2019 11:20a [facility] Krystal Stanton, R10.84 Generalized Medicine - N.P. abdominal pain Ccmob R11.0 Nausea R94.4 Abnormal results of kidney function studies Office Visit 02/01/2019 3:20p [facility] Krystal Stanton, E87.6 Hypokalemia Medicine - Ccmob N.P. 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 abdominal pain Hospitalists K58.0 Irritable bowel syndrome with diarrhea N18.3 Chronic kidney disease, stage 3 (moderate) I10 Essential (primary) hypertension M13.80 Other specified arthritis, unspecified site Z87.11 Personal history of peptic ulcer disease Office Visit 12/13/2018 11:00a [facility] Krystal Santiagojignesh, Z00.00 Encntr for Medicine - Ccmob N.P. general adult medical exam w/o abnormal findings I10 Essential (primary) hypertension E78.00 Pure hypercholesterolemia, unspecified M25.512 Pain in left shoulder K59.00 Constipation, unspecified Z23 Encounter for immunization Office Visit 11/02/2018 1:10p [facility] Brea Becerra, R20.2 Paresthesia of MD skin L82.0 Inflamed seborrheic keratosis L53.8 Other specified erythematous conditions R20.8 Other disturbances of skin sensation L29.8 Other pruritus Assessments Date Code Description Provider 04/08/2019 N18.4 Chronic kidney disease, stage 4 (severe) Mee Rodríguez MD 04/08/2019 I12.9 Hypertensive chronic kidney disease with Mee Rodríguez MD stage 1 through stage 4 chronic kidney disease, or unspecified chronic kidney disease 04/08/2019 E87.5 Hyperkalemia Mee Rodríguez MD 04/08/2019 N17.9 Acute kidney failure, unspecified Mee Rodríguez MD 04/08/2019 D64.9 Anemia, unspecified Mee Rodríguez MD 04/08/2019 R11.0 Nausea Mee Rodríguez MD 04/01/2019 N17.9 Acute kidney failure, unspecified Mee Rodríguez MD 04/01/2019 I10 Essential (primary) hypertension Mee Rodríguez MD 04/01/2019 N18.4 Chronic kidney disease, stage 4 (severe) Mee Rodríguez MD 03/25/2019 N17.9 Acute kidney failure, unspecified Mee Rodríguez MD 03/25/2019 E87.6 Hypokalemia Mee Rodríguez MD 03/25/2019 E83.42 Hypomagnesemia Mee Rodríguez MD 03/25/2019 I10 Essential (primary) hypertension Mee Rodríguez MD 03/25/2019 D64.9 Anemia, unspecified Mee Rodríguez MD 03/02/2019 R11.0 Nausea Lc Rachid, HAIR DESIGNER 03/02/2019 D64.9 Anemia, unspecified Lc Rachid, HAIR DESIGNER 03/02/2019 E83.42 Hypomagnesemia Lc Rachid, HAIR DESIGNER 03/02/2019 R63.4 Abnormal weight loss Lc Rachid, HAIR DESIGNER 03/02/2019 N39.0 Urinary tract infection, site not specified Lc Rachid, HAIR DESIGNER 02/16/2019 R10.84 Generalized abdominal pain Krystal Stanton, [...] Brea Becerra MD Plan of Treatment Future Appointment(s):05/06/2019 11:30 am - Mee Rodríguez MD at [facility] Rcjgfdvxlq86/26/2020 1:00 pm - [facility]ign[facility] am - [facility]rystal [facility] N[facility] - Mee Rodríguez MDN18.4 Chronic kidney disease, stage 4 ( severe)Follow up:1 jhgxcA12.9 Hypertensive chronic kidney disease with stage 1 through stage 4 chronic kidney disease, or unspecified chronic kidney hghhuouK30.5 SeszaoaoaanzE01.9 Acute kidney failure, oynotfyzmenZ01.9 Anemia, abuucjfvoxuJ43.0 Nausea Functional Status Description No Information Available Mental Status Description No Information Available Referrals Refer to Dr Reason for Referral Status Appt Date Sandra Ricks MD called nothing scheduled yet 03/25/2019 Sent [address] [place] [address] [phone] Lore Gunter MD Patient with elevated Creatinine and abnormal Sent 24 hour urines referred for evaluation and treatment. Thank you for seeing this pleasant patient. [address] [facility] [id number] [phone] Josey Valentin MD Patient has been experiencing episodes of intense Sent abdominal pain. She has had a full GI workup and nothing has been found aside from constipation. 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 Patient is referred for evaluation and treatment. [address] [place] [address] [phone]
--- NOTE | 2019-04-27 13:00 | DS ---
Discharge Summary s/p Kidney Biopsy for Observation She was admitted to Obs for [address] Rina Rodríguez, [facility] 04/27/2019 Had Kidney Bx today am Kept in supine position for 6Hr. Did very well, stable vitals and no hematuria No pain Ok to go home with f/u phone call from my office in am and f/u i renal clinic next week. May She was advised to monitor for Pain and Urine color Seek medical attention if gets hematuria, dizziness, palpitations, or Lt Flank Pain Keep in supine position for 24 Hr at home No pain meds at home, may use OTC Tylenol 650 QID PRN pain Avoid excessive physical activities for 1 week after biopsy. She was informed about results & prognosis. All questions were answered. She was made part of the treatment plan
[2019-04-27 15:48] VITALS: BP 119/68
== END 2019-04-27 16:10 | disposition home or self-care (01) ==
LOC: SSU 11:34
PROVIDERS: ADMIT Internal Medicine Nephrology; ATTEND Internal Medicine Nephrology
DX: N17.9 Acute kidney failure, unspecified (principal); I13.0 Hypertensive heart and chronic kidney disease with heart failure and stage 1 through stage 4 chronic kidney disease, or unspecified chronic kidney disease; I50.9 Heart failure, unspecified; E11.22 Type 2 diabetes mellitus with diabetic chronic kidney disease; N18.9 Chronic kidney disease, unspecified; Z79.4 Long term (current) use of insulin; E78.5 Hyperlipidemia, unspecified; I25.10 Atherosclerotic heart disease of native coronary artery without angina pectoris; Z87.448 Personal history of other diseases of urinary system; Z88.0 Allergy status to penicillin; Z88.2 Allergy status to sulfonamides
CPT/HCPCS: 88300; 88329; 96374; A9270-GY; G0378; J2270; J2310; J2597; J3010

== ENCOUNTER 2019-09-15 14:00 | Emergency (ER) | payer MEDICARE ==
--- OUTSIDE RECORDS SUMMARY | 2019-09-15 14:25 | XMS REPORT | Continuity of Care Document ---
:1940 External Reference #:[id number] Author Name Mee Rodríguez MD (transmitted by agent of provider Ladonna Frazier) Address [address] [address] Care Team Providers Name Role Phone Boris Romano MD - Care Team Information Publicity Person [phone] Ophthalmology Romelia Edge MD - Internal Care Team Information Publicity Person [phone] Medicine Crystal Bose MD - Dermatology Care Team Information Publicity Person [phone] [facility]both[facility] - Family Care Team Information Publicity Person Cherelle Palma MD - Care Team Information Publicity Person [phone] Obstetrics & Gynecology Problems Active Problems Provider Date Chronic kidney disease stage 4 Krystal Stanton N.P. Onset: 06/13/2019 Benign essential hypertension Shira Murphy M.D., FACP [...] to second hand smoke. Smoking Status Reviewed: 08/26/19 Not exposed to second hand smoke. Exercise Type/Frequency Does not exercise Allergies, Adverse Reactions, Alerts Active Allergies Reaction Severity Comments Date Penicillin rash Moderate 03/28/2010 Sulfa Urticaria Severe 03/28/2010 Nickel 09/21/2017 Medications Active Medications SIG Qnty Indications Ordering Date Provider Metoprolol Succinate ER Take 1 Tablet By 90Tablet Marcammad A. 09/05/19 100mg Mouth Every Day MD Marcos 20 Tablets ER 24HR AT Bedtime Furosemide Take 1 tab by 60tabs Marcammaaissatou A. 08/17/19 20mg Tablets mouth twice daily MD Marcos 20 for 4 days, and by Monday 08/21 take 1 tablet by mouth every morning Ferrousul 1 tab by mouth 3 45tabs N17.9 Mohammad A. 04/01/20 325(65Fe) mg Tablets times a week MD Marcos 19 Senna Plus take 2 tablets by 60tabs K59.00 Krystal 11/11/19 8.6-50mg Tablets mouth as needed Varn, N.P. 19 for constipation Clonazepam take 1/2 to 1 30tabs F41.9 Krystal 07/15/19 0.5mg Tablets tablet as needed Varn, N.P. 19 anxiety and sleep Vitamin D-3 1 po qd 90tabs Unknown 1000Unit Tablets 00 Nucynta 1-2 by mouth four Unknown 50mg Tablets times a day as 00 needed pain Thera Tears Unknown 00 Sodium 0.25% in both Unknown Carboxymethylcellulose eyes daily 00 Medium Viscosity Powder Vitamin B 12 1 by mouth every Unknown 500mcg Tablets day 00 History Medications Amlodipine Besylate 1 tab by mouth 30tabs Marcammaaissatou A. 08/17/2019 - once a day MD Marcos 08/26/2019 5mg Tablets Amlodipine Besylate take 1 tablet by 90Tablet Mee Denise. 07/15/2019 - mouth daily at MD Marcos 08/17/2019 10mg Tablets bedtime Furosemide 1 tab by mouth 3 90tabs Marcammad A. 07/12/2019 - 20mg times a week, MD Marcos 08/17/2019 Tablets mwf Metoprolol Succinate 1 tablet by 90tabs N12 Mee A. 07/12/2019 - ER mouth every day MD Marcos 09/04/2019 100mg Tablets ER at bedtime 24HR Prednisone 3 tabs by mouth 21tabs Marcammad A. 07/01/2019 - 10mg every day x 1 MD Marcos 07/12/2019 Tablets week 07/02- Prednisone 2 tablets by 14tabs Mohammad A. 07/01/2019 - 10mg mouth daily with MD Marcos 08/16/2019 Tablets food x 1 week 07/09- Prednisone 1 tab PO every 7tabs Mohammad A. 07/01/2019 - 10mg day x 1 week MD Marcos 08/16/2019 Tablets 07/16- Prednisone 1 tab PO every 7tabs Mohammad A. 07/01/2019 - 5mg day X 1 week MD Marcos 08/16/2019 Tablets 07/23-07/29 Amlodipine Besylate 1 tablet by 90tabs Marcammad A. 06/20/2019 - mouth at bedtime MD Marcos 07/14/2019 10mg Tablets Metoprolol Succinate 1 tab by mouth 30tabs N12 Mohammad A. 05/11/2019 - ER every day at MD Marcos 07/12/2019 50mg Tablets ER bedtime 24HR Metoprolol Succinate 1 tab by mouth 30tabs N12 Mohammad A. 05/06/2019 - ER daily at bedtime MD Marcos 05/11/2019 25mg Tablets ER 24HR Prednisone 2 tabs daily: 60tabs Mohammad A. 05/03/2019 - 20mg total 40 mg by MD Marcos 05/03/2019 Tablets mouth daily for 8 weeks Mepron 1500 mg by mouth 300ml Mohammad A. 05/03/2019 - 750mg/5ML daily/10 ml MD Marcos 05/03/2019 Suspension daily Prednisone 4 tabs by mouth 120tabs Marcammad A. 05/03/2019 - 10mg every day MD Marcos 07/01/2019 Tablets Immunizations CPT Code Status Date Vaccine Reaction Lot # [id number] Given 12/13/2018 Pneumonia Vaccine no immediate reaction [id number] noted. dg [id number] Given 12/11/2017 Tetanus And Diptheria (Td) No immediate [id number] For Adult Use Preservative reaction..jh Free Q2039 Given 04/17/2015 Flu Vaccine NOS 29087 Given 12/01/2014 Pneumococcal Conjugate [id number] Vaccine 13 Valent For Intramuscular Use 53749 Given 03/23/2013 Fluzone High Dose 81405 Given 04/07/2012 Fluzone High Dose 73405 Given 10/02/2011 Zoster (Zostavax) [id number] Q2038 Given 04/04/2011 Fluzone Vaccine 96008 Given 07/05/2009 Influenza Virus 3Yrs & Over Vital Signs Date Vital Result Comment 08/26/2019 11:31am Height 63 inches 5'3" Weight 116.00 lb Heart Rate 63 /min BP Systolic Sitting 134 mmHg L arm BP Diastolic Sitting 76 mmHg L arm O2 % BldC Oximetry 94 % BMI (Body Mass Index) 20.5 kg/m2 08/17/2019 3:42pm Height 63 inches 5'3" Weight 116.00 lb Heart Rate 80 /min BP Systolic Sitting 116 mmHg L arm BP Diastolic Sitting 71 mmHg L arm O2 % BldC Oximetry 96 % BMI (Body Mass Index) 20.5 kg/m2 Results Test Acquired Date Facility Test Result H/L Range Note Laboratory test 08/25/2019 [facility] Albumin 4.0 g/dL Normal 3.2-5.[address] [place] [address] [phone] Neph Routine 08/25/2019 [facility] Total 21 mg/dL [address] [place] [address] Random Urine [phone] Creatinine Random Urine 129.35 mg/dL CBC Auto 08/25/2019 [facility] White Blood 5.9 10^3/uL Normal 3.5-10.[address] Count [place], [place] [id number] [phone] Red Blood Count 3.61 10^6/uL Low 3.70-4.87 Hemoglobin 11.4 g/dL Low 12.0-16.0 Hematocrit 34 % Low 35-47 Mean Corpuscular Volume 93 fL Normal 80-97 Mean Corpuscular Hemoglobin 32 pg High 27-31 Mean Corpuscular HGB Conc 34 g/dL Normal 31-36 Red Cell Distribution Width 15 % Normal 10-15 Platelet Count 188 10^3/uL Normal 150-450 Mean Platelet Volume 10.9 fL High 7.4-10.4 Abs Neutrophils 3.9 10^3/uL Normal 1.5-7.7 Abs Lymphocytes 1.2 10^3/uL Normal 1.0-4.8 Abs Monocytes 0.6 10^3/uL Normal 0-0.8 Abs Eosinophils 0.1 10^3/uL Normal 0-0.6 Abs Basophils 0.1 10^3/uL Normal 0-0.2 Abs Nucleated RBC 0.0 10^3/uL Granulocyte % 65.6 % Lymphocyte % 20.8 % Monocyte % 10.5 % Eosinophil % 2.1 % Basophil % 1.0 % Nucleated Red Blood Cells % 0.0 Basic Metabolic 08/25/2019 [facility] Sodium 135 mmol/L Normal 135-[address] [place] [address] [phone] Potassium 4.3 mmol/L Normal 3.5-5.0 Chloride 101 mmol/L Normal 101-111 Co2 Carbon Dioxide 28 mmol/L Normal 22-32 Anion Gap 6 mmol/L Normal 2-11 Glucose 87 mg/dL Normal 70-100 Blood Urea Nitrogen 26 mg/dL High 6-24 Creatinine 1.40 mg/dL High 0.51-0.95 BUN/Creatinine Ratio 18.6 Normal 8-20 Calcium 9.1 mg/dL Normal 8.6-10.3 Egfr Non- 36.2 >60 Egfr 43.8 >60 1 Urinalysis Profile 08/25/2019 [facility] Urine Color Yellow [address] [place], [place] [id number] [phone] Urine Appearance Cloudy Urine Specific Alexander 1.015 Normal 1.010-1.030 Urine pH 6.0 Normal 5-9 Urine Urobilinogen Negative Negative Urine Ketones Negative Negative Urine Protein Negative Negative Urine Leukocytes 1+ Abnormal Negative Urine Blood Negative Negative Urine Nitrite Negative Negative Urine Bilirubin Negative Negative Urine Glucose Negative Negative Urine White Blood Cell 2+(11-20/hpf) Abnormal Absent Urine Red Blood Cell Absent Absent Urine Bacteria Absent Absent Laboratory test 08/25/2019 [facility] B-Type 277 pg/mL High <= [address] [place] [address] Peptide BNP [phone] Urine Culture And 08/25/2019 [facility] Urine Culture SEE [address] [place] [address] BELOW [phone] Laboratory test 08/17/2019 [facility] Albumin 3.9 g/dL Normal 3.2-5.2 finding [address] [place] [address] [phone] Urinalysis 08/17/2019 [facility] Urine Color Yellow Profile [address] [place] [address] [phone] Urine Appearance Cloudy Urine Specific Alexander 1.014 Normal 1.010-1.030 Urine pH 6.0 Normal 5-9 Urine Urobilinogen Negative Negative Urine Ketones Negative Negative Urine Protein Negative Negative Urine Leukocytes Negative Negative Urine Blood Negative Negative Urine Nitrite Negative Negative Urine Bilirubin Negative Negative Urine Glucose Negative Negative Basic Metabolic 08/17/2019 [facility] Sodium 136 mmol/L Normal 135-145 Panel [address] [place] [address] [phone] Potassium 4.3 mmol/L Normal 3.5-5.0 Chloride 103 mmol/L Normal 101-111 Co2 Carbon Dioxide 26 mmol/L Normal 22-32 Anion Gap 7 mmol/L Normal 2-11 Glucose 91 mg/dL Normal 70-100 Blood Urea Nitrogen 21 mg/dL Normal 6-24 Creatinine 1.48 mg/dL High 0.51-0.95 BUN/Creatinine Ratio 14.2 Normal 8-20 Calcium 9.1 mg/dL Normal 8.6-10.3 Egfr Non- 34.0 >60 Egfr 41.2 >60 3 CBC Auto 08/17/2019 [facility] White Blood 6.4 10^3/uL Normal 3.5-10.[address] [place] [address] [phone] Red Blood Count 3.39 10^6/uL Low 3.70-4.87 Hemoglobin 10.5 g/dL Low 12.0-16.0 Hematocrit 32 % Low 35-47 Mean Corpuscular Volume 93 fL Normal 80-97 Mean Corpuscular Hemoglobin 31 pg Normal 27-31 Mean Corpuscular HGB Conc 33 g/dL Normal 31-36 Red Cell Distribution Width 15 % Normal 10-15 Platelet Count 214 10^3/uL Normal 150-450 Mean Platelet Volume 9.7 fL Normal 7.4-10.4 Abs Neutrophils 4.5 10^3/uL Normal 1.5-7.7 Abs Lymphocytes 1.1 10^3/uL Normal 1.0-4.8 Abs Monocytes 0.6 10^3/uL Normal 0-0.8 Abs Eosinophils 0.1 10^3/uL Normal 0-0.6 Abs Basophils 0.1 10^3/uL Normal 0-0.2 Abs Nucleated RBC 0.0 10^3/uL Granulocyte % 70.6 % Lymphocyte % 16.6 % Monocyte % 9.8 % Eosinophil % 2.2 % Basophil % 0.8 % Nucleated Red Blood Cells % 0.1 Neph Routine 08/17/2019 [facility] Total Protein Random 22 mg/ dL [address] [place] [address] [phone] Creatinine Random Urine 172.64 mg/dL Laboratory test 07/19/2019 [facility] Albumin 3.8 g/dL Normal 3.2-5.[address] [place] [address] [phone] Neph Routine 07/19/2019 [facility] Total 12 mg/dL [address] [place] [address] Random Urine [phone] Creatinine Random Urine 121.42 mg/dL CBC Auto 07/19/2019 [facility] White Blood 9.6 10^3/uL Normal 3.5-10.[address] [place] [address] [phone] Red Blood Count 3.90 10^6/uL Normal 3.70-4.87 Hemoglobin 12.2 g/dL Normal 12.0-16.0 Hematocrit 37 % Normal 35-47 Mean Corpuscular Volume 95 fL Normal 80-97 Mean Corpuscular Hemoglobin 31 pg Normal 27-31 Mean Corpuscular HGB Conc 33 g/dL Normal 31-36 Red Cell Distribution Width 15 % Normal 10-15 Platelet Count Platelets clumpe <SEE NOTE> 10^3/uL High 150-450 4 Abs Neutrophils 8.1 10^3/uL High 1.5-7.7 Abs Lymphocytes 0.8 10^3/uL Low 1.0-4.8 Abs Monocytes 0.5 10^3/uL Normal 0-0.8 Abs Eosinophils 0.1 10^3/uL Normal 0-0.6 Abs Basophils 0.0 10^3/uL Normal 0-0.2 Abs Nucleated RBC 0.0 10^3/uL Granulocyte % 85.8 % Lymphocyte % 8.0 % Monocyte % 5.3 % Eosinophil % 0.5 % Basophil % 0.4 % Nucleated Red Blood Cells % 0.0 Basic Metabolic 07/19/2019 [facility] Sodium 132 mmol/L Low 135-[address] [place] [address] [phone] Potassium 4.8 mmol/L Normal 3.5-5.0 Chloride 97 mmol/L Low 101-111 Co2 Carbon Dioxide 27 mmol/L Normal 22-32 Anion Gap 8 mmol/L Normal 2-11 Glucose 88 mg/dL Normal 70-100 Blood Urea Nitrogen 28 mg/dL High 6-24 Creatinine 2.06 mg/dL High 0.51-0.95 BUN/Creatinine Ratio 13.6 Normal 8-20 Calcium 9.0 mg/dL Normal 8.6-10.3 Egfr Non- 23.2 >60 Egfr 28.1 >60 5 Urinalysis Profile 07/19/2019 [facility] Urine Color Yellow [address] [place] [address] [phone] Urine Appearance Clear Urine Specific Alexander 1.010 Normal 1.010-1.030 Urine pH 6.0 Normal 5-9 Urine Urobilinogen Negative Negative Urine Ketones Negative Negative Urine Protein Negative Negative Urine Leukocytes Trace Abnormal Negative Urine Blood Negative Negative Urine Nitrite Negative Negative Urine Bilirubin Negative Negative Urine Glucose Negative Negative Urine White Blood Cell Trace(0-5/hpf) Absent Urine Red Blood Cell Trace(0-2/hpf) Absent Urine Bacteria Absent Absent Urine Hyaline Casts Present Abnormal Absent Laboratory test 07/19/2019 [facility] B-Type 92 pg/mL <=[address] [place] [address] Peptide BNP [phone] Manual 07/19/2019 [facility] Immature 10.0 % High 0-[address] [place] [address] [phone] Neutrophil % 78.0 % Band % 10.0 % High 0-8 Lymphocytes % 8.0 % Monocytes % 4.0 % Toxic Granulation 1+ Urine Culture And 07/19/2019 [facility] Urine Culture SEE RESULT [address] [place] [address] [phone] Laboratory test 07/12/2019 [facility] Ferritin 329.9 ng/mL High 11-[address] [place] [address] [phone] Albumin 3.8 g/dL Normal 3.2-5.2 Magnesium 2.1 mg/dL Normal 1.9-2.7 Iron & Iron Binding 07/12/2019 [facility] Iron 62 g/dL Normal 50-[address] [place] [address] [phone] Unsaturated Iron Binding < 301 g/dL Total Iron Binding Capacity 316 g/dL Normal 250-450 Transferrin 226 mg/dL Normal 203-362 % Iron Saturation 20 % Normal 15-55 Urinalysis Profile 07/12/2019 [facility] Urine Color Straw [address] [place] [address] [phone] Urine Appearance Clear Urine Specific Alexander 1.005 Low 1.010-1.030 Urine pH 6.0 Normal 5-9 Urine Urobilinogen Negative Negative Urine Ketones Negative Negative Urine Protein Negative Negative Urine Leukocytes Negative Negative Urine Blood 1+ Abnormal Negative Urine Nitrite Negative Negative Urine Bilirubin Negative Negative Urine Glucose Negative Negative Urine White Blood Cell Absent Absent Urine Red Blood Cell Trace(0-2/hpf) Absent Urine Bacteria Absent Absent Basic Metabolic 07/12/2019 [facility] Sodium 135 mmol/L Normal 135-[address] [place] [address] [phone] Potassium 4.1 mmol/L Normal 3.5-5.0 Chloride 101 mmol/L Normal 101-111 Co2 Carbon Dioxide 25 mmol/L Normal 22-32 Anion Gap 9 mmol/L Normal 2-11 Glucose 110 mg/dL High 70-100 Blood Urea Nitrogen 25 mg/dL High 6-24 Creatinine 1.56 mg/dL High 0.51-0.95 BUN/Creatinine Ratio 16.0 Normal 8-20 Calcium 9.0 mg/dL Normal 8.6-10.3 Egfr Non- 32.0 >60 Egfr 38.7 >60 7 CBC Auto 07/12/2019 [facility] White Blood 11.2 10^3/uL High 3.5-10.[address] [place] [address] [phone] Red Blood Count 3.75 10^6/uL Normal 3.70-4.87 Hemoglobin 12.0 g/dL Normal 12.0-16.0 Hematocrit 35 % Normal 35-47 Mean Corpuscular Volume 94 fL Normal 80-97 Mean Corpuscular Hemoglobin 32 pg High 27-31 Mean Corpuscular HGB Conc 34 g/dL Normal 31-36 Red Cell Distribution Width 15 % Normal 10-15 Platelet Count 172 10^3/uL Normal 150-450 Mean Platelet Volume 9.5 fL Normal 7.4-10.4 Abs Neutrophils 10.2 10^3/uL High 1.5-7.7 Abs Lymphocytes 0.6 10^3/uL Low 1.0-4.8 Abs Monocytes 0.3 10^3/uL Normal 0-0.8 Abs Eosinophils 0.0 10^3/uL Normal 0-0.6 Abs Basophils 0.0 10^3/uL Normal 0-0.2 Abs Nucleated RBC 0.0 10^3/uL Granulocyte % 91.3 % Lymphocyte % 5.4 % Monocyte % 3.0 % Eosinophil % 0.1 % Basophil % 0.2 % Nucleated Red Blood Cells % 0.0 Neph Routine 07/12/2019 [facility] Total Protein Random 15 mg/ dL [address] [place] [address] [phone] Creatinine Random Urine 48.15 mg/dL Urine Culture And 06/30/2019 [facility] Urine Culture SEE RESULT [address] [place] [address] [phone] Laboratory test 06/30/2019 [facility] Magnesium 2.5 mg/dL Normal 1.9- finding [address] 2.7 [place] [address] [phone] Urinalysis Profile 06/30/2019 [facility] Urine Color Yellow [address] [place] [address] [phone] Urine Appearance Clear Urine Specific Alexander 1.012 Normal 1.010-1.030 Urine pH 6.0 Normal 5-9 Urine Urobilinogen Negative Negative Urine Ketones Negative Negative Urine Protein Negative Negative Urine Leukocytes Trace Abnormal Negative Urine Blood Negative Negative Urine Nitrite Negative Negative Urine Bilirubin Negative Negative Urine Glucose Negative Negative Urine White Blood Cell Trace(0-5/hpf) Absent Urine Red Blood Cell Absent Absent Urine Bacteria Absent Absent Basic Metabolic 06/30/2019 [facility] Sodium 132 mmol/L Low 135-[address] [place] [address] [phone] Potassium 4.7 mmol/L Normal 3.5-5.0 Chloride 98 mmol/L Low 101-111 Co2 Carbon Dioxide 28 mmol/L Normal 22-32 Anion Gap 6 mmol/L Normal 2-11 Glucose 92 mg/dL Normal 70-100 Blood Urea Nitrogen 33 mg/dL High 6-24 Creatinine 1.74 mg/dL High 0.51-0.95 BUN/Creatinine Ratio 19.0 Normal 8-20 Calcium 9.1 mg/dL Normal 8.6-10.3 Egfr Non- 28.2 >60 Egfr 34.2 >60 9 CBC Auto 06/30/2019 [facility] White Blood 12.7 10^3/uL High 3.5-10.[address] [place] [address] [phone] Red Blood Count 3.85 10^6/uL Normal 3.70-4.87 Hemoglobin 12.1 g/dL Normal 12.0-16.0 Hematocrit 37 % Normal 35-47 Mean Corpuscular Volume 95 fL Normal 80-97 Mean Corpuscular Hemoglobin 31 pg Normal 27-31 Mean Corpuscular HGB Conc 33 g/dL Normal 31-36 Red Cell Distribution Width 15 % Normal 10-15 Platelet Count 189 10^3/uL Normal 150-450 Mean Platelet Volume 9.8 fL Normal 7.4-10.4 Abs Neutrophils 11.6 10^3/uL High 1.5-7.7 Abs Lymphocytes 0.6 10^3/uL Low 1.0-4.8 Abs Monocytes 0.5 10^3/uL Normal 0-0.8 Abs Eosinophils 0.0 10^3/uL Normal 0-0.6 Abs Basophils 0.0 10^3/uL Normal 0-0.2 Abs Nucleated RBC 0.0 10^3/uL Granulocyte % 91.1 % Lymphocyte % 4.8 % Monocyte % 3.8 % Eosinophil % 0.2 % Basophil % 0.1 % Nucleated Red Blood Cells % 0.0 Neph Routine 06/30/2019 [facility] Total Protein Random 24 mg/ dL [address] [place] [address] [phone] Creatinine Random Urine 105.50 mg/dL Neph Routine 05/26/2019 [facility] Total Protein Random 9 mg/dL [address] [place] [address] [phone] Creatinine Random Urine 37.17 mg/dL CBC Auto 05/26/2019 [facility] White Blood 9.8 10^3/uL Normal 3.5-10.[address] [place] [address] [phone] Red Blood Count 3.72 10^6/uL Normal 3.70-4.87 Hemoglobin 11.9 g/dL Low 12.0-16.0 Hematocrit 36 % Normal 35-47 Mean Corpuscular Volume 96 fL Normal 80-97 Mean Corpuscular Hemoglobin 32 pg High 27-31 Mean Corpuscular HGB Conc 33 g/dL Normal 31-36 Red Cell Distribution Width 17 % High 10-15 Platelet Count 198 10^3/uL Normal 150-450 Mean Platelet Volume 10.8 fL High 7.4-10.4 Abs Neutrophils 9.0 10^3/uL High 1.5-7.7 Abs Lymphocytes 0.6 10^3/uL Low 1.0-4.8 Abs Monocytes 0.2 10^3/uL Normal 0-0.8 Abs Eosinophils 0.0 10^3/uL Normal 0-0.6 Abs Basophils 0.0 10^3/uL Normal 0-0.2 Abs Nucleated RBC 0.0 10^3/uL Granulocyte % 91.5 % Lymphocyte % 6.5 % Monocyte % 1.7 % Eosinophil % 0.1 % Basophil % 0.2 % Nucleated Red Blood Cells % 0.0 Basic Metabolic 05/26/2019 [facility] Sodium 134 mmol/L Low 135-145 Panel [address] [place] [address] [phone] Potassium 4.5 mmol/L Normal 3.5-5.0 Chloride 102 mmol/L Normal 101-111 Co2 Carbon Dioxide 23 mmol/L Normal 22-32 Anion Gap 9 mmol/L Normal 2-11 Glucose 105 mg/dL High 70-100 Blood Urea Nitrogen 36 mg/dL High 6-24 Creatinine 1.71 mg/dL High 0.51-0.95 BUN/Creatinine Ratio 21.1 High 8-20 Calcium 9.1 mg/dL Normal 8.6-10.3 Egfr Non- 28.8 >60 Egfr 34.8 >60 10 Urinalysis Profile 05/26/2019 [facility] Urine Color Straw [address] [place], [place] [address] [phone] Urine Appearance Clear Urine Specific Alexander 1.005 Low 1.010-1.030 Urine pH 6.0 Normal 5-9 Urine Urobilinogen Negative Negative Urine Ketones Negative Negative Urine Protein Negative Negative Urine Leukocytes Trace Abnormal Negative Urine Blood Negative Negative Urine Nitrite Negative Negative Urine Bilirubin Negative Negative Urine Glucose Negative Negative Urine White Blood Cell Trace(0-5/hpf) Absent Urine Red Blood Cell Trace(0-2/hpf) Absent Urine Bacteria Absent Absent Urine Culture And 05/26/2019 [facility] Urine Culture SEE RESULT [address] [place], [place] [id number] [phone] Urine Culture And 05/10/2019 [facility] Urine Culture SEE RESULT [address] [place], [place] [id number] [phone] Laboratory test 05/10/2019 [facility] Miscellaneous Test See Comment [address] [place] [address] [phone] Magnesium 2.1 mg/dL Normal 1.9-2.7 Neph Routine 05/10/2019 [facility] Total Protein Random 24 mg/ dL [address] Urine [place], [place] [address] [phone] Creatinine Random Urine 75.32 mg/dL CBC Auto 05/10/2019 [facility] White Blood 8.7 10^3/uL Normal 3.5-10.[address] Count [place], [place] [address] [phone] Red Blood Count 3.42 10^6/uL Low 3.70-4.87 Hemoglobin 10.4 g/dL Low 12.0-16.0 Hematocrit 32 % Low 35-47 Mean Corpuscular Volume 94 fL Normal 80-97 Mean Corpuscular Hemoglobin 31 pg Normal 27-31 Mean Corpuscular HGB Conc 33 g/dL Normal 31-36 Red Cell Distribution Width 17 % High 10-15 Platelet Count 244 10^3/uL Normal 150-450 Mean Platelet Volume 10.2 fL Normal 7.4-10.4 Abs Neutrophils 8.0 10^3/uL High 1.5-7.7 Abs Lymphocytes 0.6 10^3/uL Low 1.0-4.8 Abs Monocytes 0.1 10^3/uL Normal 0-0.8 Abs Eosinophils 0.0 10^3/uL Normal 0-0.6 Abs Basophils 0.0 10^3/uL Normal 0-0.2 Abs Nucleated RBC 0.0 10^3/uL Granulocyte % 91.4 % Lymphocyte % 7.3 % Monocyte % 1.1 % Eosinophil % 0.1 % Basophil % 0.1 % Nucleated Red Blood Cells % 0.0 Basic Metabolic 05/10/2019 [facility] Sodium 133 mmol/L Low 135-[address] [place] [address] [phone] Potassium 4.4 mmol/L Normal 3.5-5.0 Chloride 102 mmol/L Normal 101-111 Co2 Carbon Dioxide 24 mmol/L Normal 22-32 Anion Gap 7 mmol/L Normal 2-11 Glucose 184 mg/dL High 70-100 Blood Urea Nitrogen 36 mg/dL High 6-24 Creatinine 1.76 mg/dL High 0.51-0.95 BUN/Creatinine Ratio 20.5 High 8-20 Calcium 9.4 mg/dL Normal 8.6-10.3 Egfr Non- 27.9 >60 Egfr 33.7 >60 14 Urinalysis Profile 05/10/2019 [facility] Urine Color Yellow [address] [place] [address] [phone] Urine Appearance Clear Urine Specific Alexander 1.011 Normal 1.010-1.030 Urine pH 6.0 Normal 5-9 Urine Urobilinogen Negative Negative Urine Ketones Negative Negative Urine Protein Negative Negative Urine Leukocytes 1+ Abnormal Negative Urine Blood Negative Negative Urine Nitrite Negative Negative Urine Bilirubin Negative Negative Urine Glucose Negative Negative Urine White Blood Cell Trace(0-5/hpf) Absent Urine Red Blood Cell Trace(0-2/hpf) Absent Urine Bacteria Absent Absent Neph Routine 05/05/2019 [facility] Total Protein Random 17 mg/ dL [address] [place] [address] [phone] Creatinine Random Urine 63.74 mg/dL CBC Auto 05/05/2019 [facility] White Blood 6.3 10^3/uL Normal 3.5-10.[address] [place] [address] [phone] Red Blood Count 3.32 10^6/uL Low 3.70-4.87 Hemoglobin 10.6 g/dL Low 12.0-16.0 Hematocrit 31 % Low 35-47 Mean Corpuscular Volume 94 fL Normal 80-97 Mean Corpuscular Hemoglobin 32 pg High 27-31 Mean Corpuscular HGB Conc 34 g/dL Normal 31-36 Red Cell Distribution Width 18 % High 10-15 Platelet Count 195 10^3/uL Normal 150-450 Mean Platelet Volume 10.5 fL High 7.4-10.4 Abs Neutrophils 4.5 10^3/uL Normal 1.5-7.7 Abs Lymphocytes 1.0 10^3/uL Normal 1.0-4.8 Abs Monocytes 0.6 10^3/uL Normal 0-0.8 Abs Eosinophils 0.1 10^3/uL Normal 0-0.6 Abs Basophils 0.0 10^3/uL Normal 0-0.2 Abs Nucleated RBC 0.0 10^3/uL Granulocyte % 71.6 % Lymphocyte % 16.6 % Monocyte % 9.0 % Eosinophil % 2.1 % Basophil % 0.7 % Nucleated Red Blood Cells % 0.0 Basic Metabolic 05/05/2019 [facility] Sodium 132 mmol/L Low 135-145 Panel [facility] [place] [address] [phone] Potassium 4.3 mmol/L Normal 3.5-5.0 Chloride 102 mmol/L Normal 101-111 Co2 Carbon Dioxide 24 mmol/L Normal 22-32 Anion Gap 6 mmol/L Normal 2-11 Glucose 105 mg/dL High 70-100 Blood Urea Nitrogen 26 mg/dL High 6-24 Creatinine 1.63 mg/dL High 0.51-0.95 BUN/Creatinine Ratio 16.0 Normal 8-20 Calcium 9.2 mg/dL Normal 8.6-10.3 Egfr Non- 30.4 >60 Egfr 36.8 >60 15 Urinalysis Profile 05/05/2019 [facility] Urine Color Yellow [address] [place] [address] [phone] Urine Appearance Clear Urine Specific Alexander 1.008 Low 1.010-1.030 Urine pH 6.0 Normal 5-9 Urine Urobilinogen Negative Negative Urine Ketones Negative Negative Urine Protein Negative Negative Urine Leukocytes 1+ Abnormal Negative Urine Blood 1+ Abnormal Negative Urine Nitrite Negative Negative Urine Bilirubin Negative Negative Urine Glucose Negative Negative Urine White Blood Cell Trace(0-5/hpf) Absent Urine Red Blood Cell 1+(3-5/hpf) Abnormal Absent Urine Bacteria Absent Absent Urine Culture And 05/05/2019 [facility] Urine Culture SEE RESULT [address] [place] [address] [phone] Surgical Pathology 04/27/2019 [facility] Surgical SEE RESULT [address] [place] [address] [phone] PDFReport SEE IMAGE Neph Routine 04/07/2019 [facility] Total Protein Random 55 mg/ dL [address] [place] [address] [phone] Creatinine Random Urine 157.71 mg/dL CBC Auto 04/07/2019 [facility] White Blood 6.7 10^3/uL Normal 3.5-10.[address] [place] [address] [phone] Red Blood Count 3.43 10^6/uL Low 3.70-4.87 [...] Blood Cells % 0.0 Basic Metabolic 04/07/2019 [facility] Sodium 132 mmol/L Low 135-[address] [place] [address] [phone] Chloride 103 mmol/L Normal 101-111 Co2 Carbon Dioxide 23 mmol/L Normal 22-32 Glucose 107 mg/dL High 70-100 Blood Urea Nitrogen 28 mg/dL High 6-24 Creatinine 2.21 mg/dL High 0.51-0.95 BUN/Creatinine Ratio 12.7 Normal 8-20 Calcium 9.4 mg/dL Normal 8.6-10.3 Egfr Non- 21.4 >60 Egfr 25.9 >60 18 Potassium 5.1 mmol/L High 3.5-5.0 Anion Gap 6 mmol/L Normal 2-11 Urinalysis Profile 04/07/2019 [facility] Urine Color Yellow [address] [place] [address] [phone] Urine Appearance Cloudy Urine Specific Alexander 1.014 Normal 1.010-1.030 Urine pH 6.0 Normal [...] Casts Present Abnormal Absent Laboratory test 04/07/2019 [facility] Albumin 4.0 g/dL Normal 3.2-5.[address] [place] [address] [phone] Ferritin 371.3 ng/mL High 11-307 Iron & Iron Binding 04/07/2019 [facility] Iron 73 g/dL Normal 50-[address] [place] [address] [phone] Unsaturated Iron Binding < 290 g/dL Total Iron Binding Capacity 305 g/dL Normal 250-450 Transferrin 218 mg/dL Normal 203-362 % Iron Saturation 24 % Normal 15-55 Urine Culture And 04/07/2019 [facility] Urine Culture SEE RESULT [address] [place] [address] [phone] Neph Routine 03/25/2019 [facility] Total Protein 41 mg/dL [address] [place] [address] [phone] Creatinine Random Urine 95.75 mg/dL CBC Auto 03/25/2019 [facility] White Blood 5.2 10^3/uL Normal 3.5-10.[address] [place] [address] [phone] Red Blood Count 3.43 10^6/uL Low 3.70-4.87 [...] % Nucleated Red Blood Cells % 0.0 Urine Culture 03/25/2019 [facility] Urine Culture SEE RESULT [address] [place] [address] [phone] HIV 1&2 p24 03/25/2019 [facility] HIV 4th Nonreactive Nonreactive Screen [address] [place] [address] [phone] Phospholipase 03/25/2019 [facility] Phospholipase Negative Negative 21 A2 Receptor AB [address] [place] [address] [phone] Phospholipase A2 ReceptorELISA <2 RU/mL 22 Protein 03/25/2019 [facility] Total 7.8 g/dL 6.3 - Electrophoresis [address] Protein(Pep) 7.9 [place] [address] [phone] Albumin 3.4 g/dL 3.4-4.7 Alpha-1 Globulin 0.3 g/dL 0.1-0.3 Alpha-2 Globulin 1.2 g/dL Abnormal 0.6-1.0 Beta Globulin 1.1 g/dL 0.7-1.2 Gamma Globulin 1.8 g/dL Abnormal 0.6-1.6 Albumin/Globulin Ratio 0.76 Impression See Comment 23 [place]/Lambda Free 03/25/2019 [facility] [place] Free 4.22 mg/dL Abnormal [address] [place] [address] [phone] Lambda Free Light Chain 3.33 mg/dL Abnormal 25 [place]/Lambda Free Light Chain 1.27 26 Cryoglobulin & 03/25/2019 [facility] Cryoglobulin Negative Negative [address] %[place] [address] [phone] Cryofibrinogen Negative Negative 28 Hepatitis C Antibody 03/25/2019 [facility] HCV Index 0.02 s/c [address] [place] [address] [phone] Hepatitis C Antibody Negative Negative Neutrophil Cytoplasmic 03/25/2019 [facility] C-Anca Negative Negative AB [address] [place] [address] [phone] P-Anca Negative Negative 29 GN Serology 03/25/2019 [facility] Anti Double Stranded <12.3 IU/ mL [address] [place] [address] [phone] Complement C3 120 mg/dL 75 - 175 31 Complement C4 42 mg/dL Abnormal 14 - 40 32 Glomerular Basement Membrane <0.2 U 33 Anti Nuclear Antibody 0.4 U 34 Myeloperoxidase AB <0.2 U 35 Proteinase 3 <0.2 U 36 Hepatitis B Surface Ag Nonreactive Nonreactive Hepatitis B Core AB Total Negative Negative 37 Histone Antibody <0.5 U 38 Rheumatoid Factor < 10 IU/mL Normal <15 Erythrocyte Sed Rate 58 mm/Hr High 0-29 C Reactive Protein 2.41 mg/L Normal <8.01 Hepatitis B Alexandr AB Titer Immune Immune Urinalysis Profile 03/25/2019 [facility] Urine Color Yellow [address] [place] [address] [phone] Urine Appearance Clear Urine Specific Alexander 1.011 Normal 1.010-1.030 Urine pH 6.0 Normal 5-9 Urine Urobilinogen Negative Negative Urine Ketones Negative Negative Urine Protein Negative Negative Urine Leukocytes 3+ Abnormal Negative Urine Blood Negative Negative Urine Nitrite Negative Negative Urine Bilirubin Negative Negative Urine Glucose Negative Negative Urine White Blood Cell 3+(>20/hpf) Abnormal Absent Urine Red Blood Cell Absent Absent Urine Bacteria 1+ Abnormal Absent Basic Metabolic 03/25/2019 [facility] Sodium 132 mmol/L Low 135-[address] [place] [address] [phone] Potassium 4.4 mmol/L Normal 3.5-5.0 Chloride 100 mmol/L Low 101-111 Co2 Carbon Dioxide 24 mmol/L Normal 22-32 Anion Gap 8 mmol/L Normal 2-11 Glucose 90 mg/dL Normal 70-100 Blood Urea Nitrogen 28 mg/dL High 6-24 Creatinine 2.11 mg/dL High 0.51-0.95 BUN/Creatinine Ratio 13.3 Normal 8-20 Calcium 9.4 mg/dL Normal 8.6-10.3 Egfr Non- 22.6 >60 Egfr 27.3 >60 39 Laboratory test 03/14/2019 [facility] Magnesium 1.8 mg/dL Low 1.9-2.[address] [place] [address] [phone] CBC Auto Diff 03/14/2019 [facility] White Blood 8.8 Normal 3.5 -10.[address] Count 10^3/[place] [address] [phone] Red Blood Count 3.61 10^6/uL Low 3.70-4.87 [...] Blood Cells % 0.0 Laboratory test 03/14/2019 [facility] Erythrocyte Sed 59 mm/Hr High 0-[address] [place] [address] [phone] C Reactive Protein 4.13 mg/L Normal <8.01 Protein 03/14/2019 [facility] Immunofixation See Comment 40 Electrophoresis [address] [place] [address] [phone] Total Protein(Pep) 7.2 g/dL 6.3 - 7.9 Albumin 3.3 g/dL Abnormal 3.4-4.7 Alpha-1 Globulin 0.3 g/dL 0.1-0.3 Alpha-2 Globulin 1.1 g/dL Abnormal 0.6-1.0 Beta Globulin 1.0 g/dL 0.7-1.2 Gamma Globulin 1.6 g/dL 0.6-1.6 Albumin/Globulin Ratio 0.83 Impression See Comment 41 Iron & Iron Binding 03/14/2019 [facility] Iron 68 g/dL Normal 50-212 Capacity [address] [place] [address] [phone] Unsaturated Iron Binding < 243 g/dL Total Iron Binding Capacity 258 g/dL Normal 250-450 Transferrin 184 mg/dL Low 203-362 % Iron Saturation 26 % Normal 15-55 Laboratory test 03/14/2019 [facility] Ferritin 371.0 High 11- 307 finding [address] [facility] ng/[place] [address] [phone] Vitamin B12 And 03/14/2019 [facility] Vitamin B12 227 pg/mL Normal 180-914 42 Folate Serum [address] [place] [address] [phone] Folic Acid (Folate) > 20.00 ng/mL >3.99 Urinalysis Profile 03/14/2019 [facility] Urine Color Yellow [address] [place] [address] [phone] Urine Appearance Cloudy Urine Specific Alexander 1.012 Normal 1.010-1.030 Urine pH 6.0 Normal [...] Bacteria Absent Absent Urine Culture And 03/14/2019 [facility] Urine Culture SEE RESULT [address] [place] [address] [phone] 1 Because ethnic data is not always [...] [address]: Mee Rodríguez MD Acct: [id number] Unit: [id number] AGE: 79 Location: [facility] Re08/25/19 SEX: F Status: REG REF SPEC: [id number] IMELDA: 08/25/19-[address]: Mee Rodríguez MD REQ: [id number] RECD: 08/25/19 STATUS: COMP _ SOURCE: URINE SPDESC: ORDERED: Urine Culture Procedure Result Reported Site Urine Culture Final 08/26/19- 1313 ML No Growth (<1,000 CFU/mL) * ML - Main Lab . END OF REPORT DEPARTMENT OF PATHOLOGY, [address] [place] [address] Biju Freeman M.D. Director [facility] # [id number] 3 Because ethnic data is not always [...] 5 Kidney failure <15 (or dialysis) 4 Platelets clumped. Unable to perform accurate count. 5 Because ethnic data is not always [...] 5 Kidney failure <15 (or dialysis) 6 SEE RESULT BELOW Name: ZAMZAM GONZALEZ : [address]: Mee Rodríguez MD Acct: [id number] Unit: [id number] AGE: 78 Location: [facility] Re07/19/19 SEX: F Status: REG REF SPEC: [id number] IMELDA: 07/19/[address]: Mee Rodríguez MD REQ: [id number] RECD: 07/19/19 STATUS: COMP _ SOURCE: URINE SPDESC: ORDERED: Urine Culture Procedure Result Reported Site Urine Culture Final 07/21/19- 1011 ML No growth of clinically significant organisms * ML - Main Lab . END OF REPORT DEPARTMENT OF PATHOLOGY, [address] [place] [address] Biju Freeman M.D. Director [facility] # [id number] 7 Because ethnic data is not always readily [...] 15-29 5 Kidney failure <15 (or dialysis) 8 SEE RESULT BELOW Name: ZAMZAM GONZALEZ : [address]: Mee Rodríguez MD Acct: [id number] Unit: [id number] AGE: 78 Location: [facility] Re06/30/19 SEX: F Status: REG REF SPEC: [id number] IMELDA: 06/30/[address]: Mee Rodríguez MD REQ: [id number] RECD: 06/30/19 STATUS: COMP _ SOURCE: URINE SPDESC: ORDERED: Urine Culture Procedure Result Reported Site Urine Culture Final 07/02/19- 1032 ML No Growth (<1,000 CFU/mL) * ML - Main Lab . END OF REPORT DEPARTMENT OF PATHOLOGY, [address] [place] [address] Biju Freeman M.D. Director [facility] # [id number] 9 Because ethnic data is not always [...] [address]: Mee Rodríguez MD Acct: [id number] Unit: [id number] AGE: 78 Location: [facility] Re05/26/19 SEX: F Status: REG REF SPEC: [id number] IMELDA: 05/26/[address]: Mee Rodríguez MD REQ: [id number] RECD: 05/26/19 STATUS: COMP _ SOURCE: URINE SPDESC: ORDERED: Urine Culture Procedure Result Reported Site Urine Culture Final 05/27/19- 1550 ML No Growth (<1,000 CFU/mL) * ML - Main Lab . END OF REPORT DEPARTMENT OF PATHOLOGY, [address] [place] [address] Biju Freeman M.D. Director [facility] # [id number] 12 SEE RESULT BELOW Name: ZAMZAM GONZALEZ : [address]: Mee Rodríguez MD Acct: [id number] Unit: [id number] AGE: 78 Location: [facility] Re05/10/19 SEX: F Status: REG REF SPEC: [id number] IMELDA: 05/10/[address]: Mee Rodríguez MD REQ: [id number] RECD: 05/10/19 STATUS:COMP _ SOURCE: URINE SPDESC: ORDERED: Urine Culture Procedure Result Reported Site Urine Culture Final 05/11/19- 1416 ML No Growth (<1,000 CFU/mL) * ML - Main Lab . END OF REPORT DEPARTMENT OF PATHOLOGY, [address] [place] [address] Biju Freeman M.D. Director [facility] # [id number] 13 Test Result Flag Unit RefValue Immunoglobulin Subclass 17.4 mg/dL IgG4, S REFERENCE VALUE 2.4 - 121.0 Test Performed by: [facility] [place] [address] Field Marketer: Ilya Faulkner M.D. Ph.D.; CLIA# [id number] 14 Because ethnic data is not always [...] 5 Kidney failure <15 (or dialysis) 15 Because ethnic data is not always readily [...] 15-29 5 Kidney failure <15 (or dialysis) 16 SEE RESULT BELOW Name: ZAMZAM GONZALEZ : [address]: Mee Rodríguez MD Acct: [id number] Unit: [id number] AGE: 78 Location: [facility] Re05/05/19 SEX: F Status: REG REF SPEC: [id number] IMELDA: 05/05/[address]: Mee Rodríguez MD REQ: [id number] RECD: 05/05/19 STATUS:COMP _ SOURCE: URINE SPDESC: ORDERED: Urine Culture Procedure Result Reported Site Urine Culture Final 05/06/19- 1258 ML No Growth (<1,000 CFU/mL) * ML - Main Lab . END OF REPORT DEPARTMENT OF PATHOLOGY, [address] [place] [address] Biju Freeman M.D. Director [facility] # [id number] 17 SEE RESULT BELOW Name: ZAMZAM GONZALEZ : [address]: Mee Rodríguez MD Acct: [id number] Unit: [id number] AGE: 78 Location: [facility] Re04/27/19 SEX: F Status: REG REF SPEC: [id number] IMELDA: 04/27/19-[address] [facility] DR: Mee Rodríguez MD REQ: [id number] RECD: 04/27/194 STATUS: SOUT _ ORDERED: PTH HANDLING CH, LEVEL 1, INTRAOP CON-GR ADDENDUM Consultation with Candi Grady at [facility], [place], [place], outside accession number [id number], our surgical number [id number]. The consultation reveals: / / / / (Original consultation report scanned into Pathology Consults.) Addendum Signed (signature on file) Mony Parker MD 1458 FINAL DIAGNOSIS Kidney, left, biopsy: Pending diagnosis from [facility] Renal Pathology. PRE-OPERATIVE DIAGNOSIS Rule out ischemic nephropathy CONTINUED ON NEXT PAGE DEPARTMENT OF PATHOLOGY, [address] [place] [address] Biju Freeman M.D. Director [facility] # [id number] GROSS DESCRIPTION The specimen is received fresh labeled, Left Kidney, and consists of four tejada -pink soft tissue cores ranging from 0.2 x 0.1 cm to 1.2 x 0.1 cm admixed with scant red -brown blood clot. The specimen is entirely submitted to [facility] for renal analysis. Per established hospital medical staff protocol, no tissue is submitted. Gross only. Signed by and Reported on: Mony Parker MD 04/27/19 1115 END OF REPORT DEPARTMENT OF PATHOLOGY, [address] [place] [address] Biju Freeman M.D. Director [facility] # [id number] 18 Because ethnic data is not always readily [...] 15-29 5 Kidney failure <15 (or dialysis) 19 SEE RESULT BELOW Name: ZAMZAM GONZALEZ : [address]: Mee Rodríguez MD Acct: [id number] Unit: [id number] AGE: 78 [facility] SEX: F Status: REG REF SPEC: [id number] IMELDA: 04/07/[address]: Mee Rodríguez MD REQ: [id number] RECD: 04/07/19 STATUS: COMP _ SOURCE: URINE SPDESC: ORDERED: Urine Culture Procedure Result Reported Site Urine Culture Final 04/08/19- 1224 ML No Growth (<1,000 CFU/mL) * ML - Main Lab . END OF REPORT DEPARTMENT OF PATHOLOGY, [address] [place] [address] Biju Freeman M.D. Director [facility] # [id number] 20 SEE RESULT BELOW Name: ZAMZAM GONZALEZ : [address]: Mee Rodríguez MD Acct: [id number] Unit: [id number] AGE: 78 Location: [facility] Re03/25/19 SEX: F Status: REG REF SPEC: [id number] IMELDA: 03/25/19-[address]: Mee Rodríguez MD REQ: [id number] RECD: 03/25/19 STATUS: COMP _ SOURCE: URINE SPDESC: ORDERED: Urine Culture Procedure Result Reported Site Urine Culture Final 03/26/19- 1245 ML No Growth (<1,000 CFU/mL) * ML - Main Lab . END OF REPORT DEPARTMENT OF PATHOLOGY, [address] [place] [address] Biju Freeman M.D. Director [facility] # [id number] 21 ADDITIONAL INFORMATION This test was developed and its performance characteristics determined by [facility] in a manner consistent with CLIA requirements. This test has not been cleared or approved by the U.S. Food and Drug Administration. 22 REFERENCE VALUE <14 RU/mL: Negative 14-19 RU/mL: Borderline >19 RU/mL: Positive Test Performed by: [place] [address] Field Marketer: Ilya Faulkner M.D. Ph.D.; CLIA# [id number] 23 RESULT: Polyclonal hypergammaglobulinemia Test Performed by: [facility] [place] [address] Field Marketer: Ilya Faulkner M.D. Ph.D.; CLIA# [id number] 24 REFERENCE VALUE 0.3300-1.94 25 REFERENCE VALUE 0.5700-2.63 26 REFERENCE VALUE 0.2600-1.65 Test Performed by: [facility] [place] [address] Field Marketer: Ilya Faulkner M.D. Ph.D.; CLIA# [id number] 27 This test is negative at 24 hours. All samples are held and reviewed again at 7 days. If delayed precipitation occurs after 7 days, Immunofixation will be performed and an additional report will follow. 28 Test Performed by: [place] [address] Field Marketer: Ilya Faulkner M.D. Ph.D.; CLIA# [id number] 29 Negative for cANCA and pANCA patterns by immunofluorescence. ADDITIONAL INFORMATION This test was developed and its performance characteristics determined by [facility] in a manner consistent with CLIA requirements. This test has not been cleared or approved by the U.S. Food and Drug Administration. Test Performed by: [place] [address] Field Marketer: Ilya Faulkner M.D. Ph.D.; CLIA# [id number] 30 REFERENCE VALUE <30.0 (Negative) Test Performed by: [place] [address] Field Marketer: Ilya Faulkner M.D. Ph.D.; CLIA# [id number] 31 Test Performed by: [place] [address] Field Marketer: Ilya Faulkner M.D. Ph.D.; CLIA# [id number] 32 Test Performed by: [place] [address] Field Marketer: Ilya Faulkner M.D. Ph.D.; CLIA# [id number] 33 REFERENCE VALUE <1.0 (Negative) Test Performed by: [place] [address] Field Marketer: Ilya Faulkner M.D. Ph.D.; CLIA# [id number] 34 REFERENCE VALUE <=1.0 (Negative) Test Performed by: [facility] [place] [address] Field Marketer: Ilya Faulkner M.D. Ph.D.; CLIA# [id number] 35 REFERENCE VALUE <0.4 (Negative) Test Performed by: [place] [address] Field Marketer: Ilya Faulkner M.D. Ph.D.; CLIA# [id number] 36 REFERENCE VALUE <0.4 (Negative) Test Performed by: [place] [address] Field Marketer: Ilya Faulkner M.D. Ph.D.; CLIA# [id number] 37 Test Performed by: [place] [address] Field Marketer: Ilya Faulkner M.D. Ph.D.; CLIA# [id number] 38 REFERENCE VALUE <1.0 (Negative) Test Performed by: [place] [address] Field Marketer: Ilya Faulkner M.D. Ph.D.; CLIA# [id number] 39 Because ethnic data is not always readily [...] 15-29 5 Kidney failure <15 (or dialysis) 40 RESULT: No monoclonal protein detected. Test Performed by: [place] [address] Field Marketer: Ilya Faulkner M.D. Ph.D.; CLIA# [id number] 41 Small abnormality in gamma fraction. See Immunofixation. Test Performed by: [place] [address] Field Marketer: Ilya Faulkner M.D. Ph.D.; CLIA# [id number] 42 Normal Range 180 to 914 Indeterminate Range 145 to 180 Deficient Range <145 43 SEE RESULT BELOW Name: ZAMZAM GONZALEZ : [address]: Lc Rashid NP Acct: [id number] Unit: [id number] AGE: 78 Location: [facility] Re03/14/19 SEX: F Status: REG REF SPEC: [id number] IMELDA: 03/14/[address]: Lc Rashid NP REQ: [id number] RECD: 03/14/19-1529 STATUS: COMP _ SOURCE: URINE SPDESC: ORDERED: Urine Culture Procedure Result Reported Site Urine Culture Final 03/15/19- 1603 ML No Growth (<1,000 CFU/mL) * ML - Main Lab . END OF REPORT DEPARTMENT OF PATHOLOGY, [address] [place] [address] Biju Freeman M.D. Director [facility] # [id number] Procedures Date Code Description Status 05/11/2019 [id number] Mammogram Completed 04/27/2019 22323 US Guide Lisa [facility] Imaging Supervise & Interp Completed 04/27/2019 66801 Biopsy Renal Percutaneous Completed 05/10/2018 [id number] Mammogram Completed 05/08/2017 [id number] Mammogram Completed 05/02/2016 [id number] Mammogram Completed 12/11/2015 [id number] Bone Mineral Density Test Completed 05/01/2015 [id number] Mammogram Completed 05/15/2014 [id number] Mammogram Completed 05/11/2013 [id number] Mammogram Completed 02/15/2013 [id number] Colonoscopy Completed 05/10/2012 [id number] Mammogram Completed 05/09/2011 [id number] Mammogram Completed 08/29/2010 [id number] Bone Mineral Density Test Completed 05/08/2010 [id number] Mammogram Completed 06/22/2007 [id number] Colonoscopy Completed Medical Devices Description No Information Available Encounters Type Date Location Provider Dx Diagnosis Office Visit 08/26/2019 [facility] Nephrology Mee Rodríguez, N18.4 Chronic kidney 11:40a disease, stage 4 (severe) N12 Tubulo-interstitial nephritis, 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 E87.70 Fluid overload, unspecified D63.1 Anemia in chronic kidney disease Office Visit 08/17/2019 3:40p [facility] Nephrology Mee Diallo N18.4 Chronic kidney MD Marcos disease, stage 4 (severe) N12 Tubulo-interstitial nephritis, 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 E87.70 Fluid overload, unspecified Office Visit 07/20/2019 [facility] Nephrology Mee Diallo N12 Tubulo-interstitial 11:40a MD Marcos nephritis, 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 N17.9 Acute kidney failure, unspecified N18.4 Chronic kidney disease, stage 4 (severe) E87.70 Fluid overload, unspecified Office Visit 07/12/2019 [facility] Nephrology Mee Diallo N12 Tubulo-interstitial 3:00p MD Marcos nephritis, 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 N18.4 Chronic kidney disease, stage 4 (severe) D63.1 Anemia in chronic kidney disease I10 Essential (primary) hypertension E87.70 Fluid overload, unspecified Office Visit 07/01/2019 [facility] Nephrology Mee Diallo N12 Tubulo-interstitial 11:40a MD Marcos nephritis, 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 N18.4 Chronic kidney disease, stage 4 (severe) D63.1 Anemia in chronic kidney disease I10 Essential (primary) hypertension Office Visit 06/13/2019 1:40p [facility] Internal Krystal Jackn, I10 Essential ( primary) Medicine - Ccmob N.P. hypertension K59.00 Constipation, unspecified N18.4 Chronic kidney disease, stage 4 (severe) Office Visit 05/30/2019 [facility] Nephrology Mee Diallo N12 Tubulo-interstitial 11:20a MD Marcos nephritis, 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 I12.9 Hypertensive chronic kidney disease w stg 1-4/unsp chr kdny N18.4 Chronic kidney disease, stage 4 (severe) D63.1 Anemia in chronic kidney disease Office Visit 05/11/2019 [facility] Nephrology Mee Diallo N12 Tubulo-interstitial 2:00p MD Marcos nephritis, 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 I12.9 Hypertensive chronic kidney disease w stg 1-4/unsp chr kdny N18.4 Chronic kidney disease, stage 4 (severe) D63.1 Anemia in chronic kidney disease D64.9 Anemia, unspecified Office Visit 05/06/2019 [facility] Nephrology Mee Diallo N12 Tubulo-interstitial 11:30a MD Marcos nephritis, 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 I12.9 Hypertensive chronic kidney disease w stg 1-4/unsp chr kdny N18.4 Chronic kidney disease, stage 4 (severe) E87.5 Hyperkalemia D64.9 Anemia, unspecified R63.4 Abnormal weight loss R10.84 Generalized abdominal pain Office Visit 04/08/2019 11:30a [facility] Nephrology Mee Diallo N17.9 Acute kidney MD Marcos failure, unspecified I12.9 Hypertensive chronic kidney disease w stg 1-4/unsp chr kdny N18.4 Chronic kidney disease, stage 4 (severe) E87.5 Hyperkalemia D64.9 Anemia, unspecified R11.0 Nausea Office Visit 04/01/2019 11:30a [facility] Nephsarmad Diallo N17.9 Acute kidney MD Marcos failure, unspecified I12.9 Hypertensive chronic kidney disease w stg 1-4/unsp chr kdny N18.4 Chronic kidney disease, stage 4 (severe) I10 Essential (primary) hypertension Office Visit 03/25/2019 11:00a [facility] Nephsarmad Diallo N17.9 Acute kidney MD Marcos failure, unspecified E87.6 Hypokalemia E83.42 Hypomagnesemia I10 Essential (primary) hypertension D64.9 Anemia, unspecified Assessments Date Code Description Provider 08/26/2019 N18.4 Chronic kidney disease, stage 4 (severe) Mee Rodríguez MD 08/26/2019 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 Tubulo-interstitial nephritis, not specified Mee Rodríguez MD as acute or chronic 08/26/2019 E87.70 Fluid overload, unspecified Mee Rodríguez MD 08/26/2019 D63.1 Anemia in chronic kidney disease Mee Rodríguez MD 08/17/2019 N18.4 Chronic kidney disease, stage 4 (severe) Mee Rodríguez MD 08/17/2019 N12 Tubulo-interstitial nephritis, not specified Mee Rodríguez MD as acute or chronic 08/17/2019 E87.70 Fluid overload, unspecified Mee Rodríguez MD 07/20/2019 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 Tubulo-interstitial nephritis, not specified Mee Rodríguez MD as acute or chronic 07/20/2019 N17.9 Acute kidney failure, unspecified Mee Rodríguez MD 07/20/2019 N18.4 Chronic kidney disease, stage 4 (severe) Mee Rodríguez MD 07/20/2019 E87.70 Fluid overload, unspecified Mee Rodríguez MD 07/12/2019 N12 Tubulo-interstitial nephritis, not specified Mee Rodríguez MD as acute or chronic 07/12/2019 N18.4 Chronic kidney disease, stage 4 (severe) Mee Rodríguez MD 07/12/2019 D63.1 Anemia in chronic kidney disease Mee Rodríguez MD 07/12/2019 I10 Essential (primary) hypertension Mee Rodríguez MD 07/12/2019 E87.70 Fluid overload, unspecified Mee Rodríguez MD 07/01/2019 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 06/13/2019 K59.00 Constipation, unspecified Krystal Stanton, N.P. 06/13/2019 N18.4 Chronic kidney disease, stage 4 (severe) Krystal Stanton, N.P. 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 Tubulo-interstitial nephritis, not specified Mee Rodríguez MD as acute or chronic 05/30/2019 I12.9 Hypertensive chronic kidney disease with Mee Rodríguez MD stage 1 through stage 4 chronic kidney disease, or unspecified chronic kidney disease 05/30/2019 N18.4 Chronic kidney disease, stage 4 (severe) Mee Rodríguez MD 05/30/2019 D63.1 Anemia in chronic kidney disease Mee Rodríguez MD 05/11/2019 N12 Tubulo-interstitial nephritis, not specified Mee Rodríguez MD as acute or chronic 05/11/2019 I12.9 Hypertensive chronic kidney disease with Mee Rodríguez MD stage 1 through stage 4 chronic kidney disease, or unspecified chronic kidney disease 05/11/2019 N18.4 Chronic kidney disease, stage 4 (severe) Mee Rodríguez MD 05/11/2019 D63.1 Anemia in chronic kidney disease Mee Rodríguez MD 05/11/2019 D64.9 Anemia, unspecified Mee Rodríguez MD 05/06/2019 N12 Tubulo-interstitial nephritis, not specified Mee Rodríguez MD as acute or chronic 05/06/2019 I12.9 Hypertensive chronic kidney disease with Mee Rodríguez MD stage 1 through stage 4 chronic kidney disease, or unspecified chronic kidney disease 05/06/2019 N18.4 Chronic kidney disease, stage 4 (severe) Mee Rodríguez MD 05/06/2019 E87.5 Hyperkalemia Mee Rodríguez MD 05/06/2019 D64.9 Anemia, unspecified Mee Rodríguez MD 05/06/2019 R63.4 Abnormal weight loss Mee Rodríguez MD 05/06/2019 R10.84 Generalized abdominal pain Mee Rodríguez MD 04/27/2019 N18.4 Chronic kidney disease, stage 4 (severe) Mee Rodríguez MD 04/08/2019 N17.9 Acute kidney failure, unspecified Mee Rodríguez MD 04/08/2019 I12.9 Hypertensive chronic kidney disease with Mee Rodríguez MD stage 1 through stage 4 chronic kidney disease, or unspecified chronic kidney disease 04/08/2019 N18.4 Chronic kidney disease, stage 4 (severe) Mee Rodríguez MD 04/08/2019 E87.5 Hyperkalemia Mee Rodríguez MD 04/08/2019 D64.9 Anemia, unspecified Mee Rodríguez MD 04/08/2019 R11.0 Nausea Mee Rodríguez MD 04/01/2019 N17.9 Acute kidney failure, ranjanaified Mee Rodríguez MD 04/01/2019 I12.9 Hypertensive chronic kidney disease with Mee Rodríguez MD stage 1 through stage 4 chronic kidney disease, or unspecified chronic kidney disease 04/01/2019 N18.4 Chronic kidney disease, stage 4 (severe) Mee Rodríguez MD 04/01/2019 I10 Essential (primary) hypertension Mee Rodríguez MD 03/25/2019 N17.9 Acute kidney failure, ranjanaified Mee Rodríguez MD 03/25/2019 E87.6 Hypokalemia Mee Rodríguez MD 03/25/2019 E83.42 Hypomagnesemia Mee Rodríguez MD 03/25/2019 I10 Essential (primary) hypertension Mee Rodríguez MD 03/25/2019 D64.9 Anemia, unspecified Mee Rodríguez MD Plan of Treatment Future Appointment(s):12/26/2019 11:00 am - Krystal Stanton N.P. at [facility] Internal Medicine - [facility]09/09/2019 11:40 am - Mee Rodríguez MD at [facility] [id number]/ 06/2020 - Mee Rodríguez MDN18.4 Chronic kidney disease, stage 4 (severe) Follow up:2 weeks f/uN12 Tubulo-interstitial nephritis, not specified as acute or [id number] Fluid overload, [id number] Anemia in chronic kidney disease Functional Status Description No Information Available Mental Status Description No Information Available Referrals Description No Information Available
--- OUTSIDE RECORDS SUMMARY | 2019-09-15 14:25 | XMS REPORT | Continuity of Care Document ---
:1940 External Reference #:[id number] Author Name Mee Rodríguez MD (transmitted by agent of provider Annette Haynes) Address [address] , [address] [address] Care Team Providers Name Role Phone Boris Romano MD - Care Team Information [facility] [phone] Ophthalmology Romelia Edge MD - Internal Care Team Information [facility] Medicine Crystal Bose MD - Dermatology Care Team Information [facility] [phone] [facility]both[facility] - [facility] Care Team Information [facility] [phone] Cherelle Palma MD - Care Team Information [facility] [phone] Obstetrics & Gynecology Problems Active Problems Provider Date Chronic kidney disease stage 4 Krystal Stanton N.PKerwin Onset: 06/13/2019 Benign essential hypertension Shira Murphy [...] to second hand smoke. Smoking Status Reviewed: 07/20/19 Not exposed to second hand smoke. Exercise Type/Frequency Does not exercise Allergies, Adverse Reactions, Alerts Active Allergies Reaction Severity Comments Date Penicillin rash Moderate 03/28/2010 Sulfa Urticaria Severe 03/28/2010 Nickel 09/21/2017 Medications Active Medications SIG Qnty Indications Ordering Date Provider Amlodipine Besylate Take 1 Tablet By 90Tablet Mohammad A. 07/15/19 10mg Tablets Mouth Daily AT MD Marcos 20 Bedtime Metoprolol Succinate ER 1 tablet by mouth 90tabs N12 Marcammaaissatou A. 07/12/19 100mg every day at MD Marcos 20 Tablets ER 24HR bedtime Furosemide 1 tab by mouth 3 90tabs Mohammad A. 07/12/19 20mg Tablets times a week, [facility] MD Marcos 20 Prednisone 2 tablets by 14tabs Marcammaaissatou A. 07/01/19 10mg Tablets mouth daily with MD Marcos 20 food x 1 week 07/09- Prednisone 1 tab PO every 7tabs Mohammad A. 07/01/19 10mg Tablets day x 1 week MD Marcos 20 07/16- Prednisone 1 tab PO every 7tabs Marcammad A. 07/01/19 5mg Tablets day X 1 week MD Marcos 20 07/23-07/29 Ferrousul 1 tab by mouth 3 45tabs N17.9 Marcammad A. 04/01/20 325(65Fe) mg Tablets times a [...] Carboxymethylcellulose eyes daily 00 Medium Viscosity Powder History Medications Prednisone 3 tabs by mouth 21tabs Marcammad A. 07/01/2019 - 10mg Tablets every day x 1 week MD Marcos 07/12/201907/02- Amlodipine Besylate 1 tablet by mouth 90tabs [facility] 06/20/2019 - 10mg at bedtime MD Marcos 07/14/2019 Tablets Metoprolol Succinate ER 1 tab by mouth 30tabs N12 Marcammad A. 05/11/2019 - every day at MD Marcos 07/12/2019 50mg Tablets ER 24HR bedtime Metoprolol Succinate ER 1 tab by mouth 30tabs N12 Mee A. 05/06/2019 - daily at bedtime MD Marcos 05/11/2019 25mg Tablets ER 24HR Prednisone 2 tabs daily: 60tabs Mee A. 05/03/2019 - 20mg Tablets total 40 mg by MD Marcos 05/03/2019 mouth daily for 8 weeks Mepron 1500 [facility]2019 - 750mg/5ML Suspension daily/10 ml daily MD Marcos 05/03/2019 Prednisone 4 tabs by mouth 120tabs [facility] 05/03/2019 - 10mg Tablets every day MD Marcos 07/01/2019 Reglan one tablet two 20tabs R11.0 Lc Rashid NP 03/02/2019 - 5mg Tablets times daily as 04/22/2019 needed for nausea. Nitrofurantoin Monohyd take one tablet 14caps Krystal Stanton, 02/25/2019 - Macro every 12 hours N.P. 03/04/2019 100mg Capsules Omeprazole 1 by mouth every 90caps R10.84 Krystal Stanton, 02/16/2019 - 40mg Capsules DR day N.P. 05/11/2019 Prochlorperazine 1 suppository per 12units R11.0 Krystal [...] 02/01/2019 - 12.5mg Tablets constipation N.P. 02/16/2019 Immunizations CPT Code Status Date Vaccine Reaction Lot # [id number] Given 12/13/2018 Pneumonia Vaccine no immediate reaction [id number] noted. dg [id number] Given 12/11/2017 Tetanus And Diptheria (Td) No immediate [id number] For Adult Use Preservative reaction..jh Free Q2039 Given 04/17/2015 Flu Vaccine NOS 46932 Given 12/01/2014 Pneumococcal Conjugate [id number] Vaccine 13 Valent For Intramuscular Use 03043 Given 03/23/2013 Fluzone High Dose 03156 Given 04/07/2012 Fluzone High Dose 78020 Given 10/02/2011 Zoster (Zostavax) [id number] Q2038 Given 04/04/2011 Fluzone Vaccine 14147 Given 07/05/2009 Influenza Virus 3Yrs & Over Vital Signs Date Vital Result Comment 07/20/2019 11:35am Height 63 inches 5'3" Weight 116.00 lb BMI (Body Mass Index) 20.5 kg/m2 07/12/2019 2:46pm Height 63 inches 5'3" Weight 118.00 lb Heart Rate 84 /min BP Systolic Sitting 123 mmHg L arm BP Diastolic Sitting 71 mmHg L arm O2 % BldC Oximetry 93 % BMI (Body Mass Index) 20.9 kg/m2 Results Test Acquired Date Facility Test Result H/L Range Note Laboratory test 07/19/2019 [facility] Albumin 3.8 g/dL Normal 3.2-5.[address] [place] [address] [phone] Neph Routine 07/19/2019 [facility] Total 12 mg/dL [address] [place] [address] Random Urine [phone] Creatinine Random Urine 121.42 mg/dL CBC Auto 07/19/2019 [facility] White Blood 9.6 10^3/uL Normal 3.5-10.[address] [place] [address] [phone] Red Blood Count 3.90 10^6/uL Normal 3.70-4.87 Hemoglobin 12.2 g/dL Normal 12.0-16.0 Hematocrit 37 % Normal 35-47 Mean Corpuscular Volume 95 fL Normal 80-97 Mean Corpuscular Hemoglobin 31 pg Normal 27-31 Mean Corpuscular HGB Conc 33 g/dL Normal 31-36 Red Cell Distribution Width 15 % Normal 10-15 Platelet Count Platelets clumpe <SEE NOTE> 10^3/uL High 150-450 1 Abs Neutrophils 8.1 10^3/uL High 1.5-7.7 Abs [...] Blood Cells % 0.0 Basic Metabolic 07/19/2019 [facility] Sodium 132 mmol/L Low 135-[address] [place] [address] [phone] Potassium 4.8 mmol/L Normal 3.5-5.0 Chloride 97 mmol/L Low 101-111 Co2 Carbon Dioxide 27 mmol/L Normal 22-32 Anion Gap 8 mmol/L Normal 2-11 Glucose 88 mg/dL Normal 70-100 Blood Urea Nitrogen 28 mg/dL High 6-24 Creatinine 2.06 mg/dL High 0.51-0.95 BUN/Creatinine Ratio 13.6 Normal 8-20 Calcium 9.0 mg/dL Normal 8.6-10.3 Egfr Non- 23.2 >60 Egfr 28.1 >60 2 Urinalysis Profile 07/19/2019 [facility] Urine Color Yellow [address] [place] [address] [phone] Urine Appearance Clear Urine Specific Taylor 1.010 Normal 1.010-1.030 Urine pH 6.0 Normal [...] Casts Present Abnormal Absent Laboratory test 07/19/2019 [facility] B-Type 92 pg/mL <=[address] [place] [address] Peptide BNP [phone] Manual 07/19/2019 [facility] Immature 10.0 % High 0-9 Differential 101 [facility] [place] [address] [phone] Neutrophil % 78.0 % Band % 10.0 % High 0-8 Lymphocytes % 8.0 % Monocytes % 4.0 % Toxic Granulation 1+ Laboratory test 07/12/2019 [facility] Ferritin 329.9 ng/mL High 11-307 finding [address] [place] [address] [phone] Albumin 3.8 g/dL Normal 3.2-5.2 Magnesium 2.1 mg/dL Normal 1.9-2.7 Iron & Iron Binding 07/12/2019 [facility] Iron 62 g/dL Normal 50-212 Capacity [address] [place] [address] [phone] Unsaturated Iron Binding < 301 g/dL Total Iron Binding Capacity 316 g/dL Normal 250-450 Transferrin 226 mg/dL Normal 203-362 % Iron Saturation 20 % Normal 15-55 Urinalysis Profile 07/12/2019 [facility] Urine Color Straw [address] [place] [address] [phone] Urine Appearance Clear Urine Specific Taylor 1.005 Low 1.010-1.030 Urine pH 6.0 Normal 5-9 Urine Urobilinogen Negative Negative Urine Ketones Negative Negative Urine Protein Negative Negative Urine Leukocytes Negative Negative Urine Blood 1+ Abnormal Negative Urine Nitrite Negative Negative Urine Bilirubin Negative Negative Urine Glucose Negative Negative Urine White Blood Cell Absent Absent Urine Red Blood Cell Trace(0-2/hpf) Absent Urine Bacteria Absent Absent Basic Metabolic 07/12/2019 [facility] Sodium 135 mmol/L Normal 135-145 Panel [address] [place] [address] [phone] Potassium 4.1 mmol/L Normal 3.5-5.0 Chloride 101 mmol/L Normal 101-111 Co2 Carbon Dioxide 25 mmol/L Normal 22-32 Anion Gap 9 mmol/L Normal 2-11 Glucose 110 mg/dL High 70-100 Blood Urea Nitrogen 25 mg/dL High 6-24 Creatinine 1.56 mg/dL High 0.51-0.95 BUN/Creatinine Ratio 16.0 Normal 8-20 Calcium 9.0 mg/dL Normal 8.6-10.3 Egfr Non- 32.0 >60 Egfr 38.7 >60 3 CBC Auto 07/12/2019 [facility] White Blood 11.2 10^3/uL High 3.5-10.[address] [place] [address] [phone] Red Blood Count 3.75 10^6/uL Normal 3.70-4.87 [...] Blood Cells % 0.0 Neph Routine 07/12/2019 [facility] Total Protein Random 15 mg/ dL [address] [place] [address] [phone] Creatinine Random Urine 48.15 mg/dL Neph Routine 06/30/2019 [facility] Total Protein Random 24 mg/ dL [address] [place] [address] [phone] Creatinine Random Urine 105.50 mg/dL CBC Auto 06/30/2019 [facility] White Blood 12.7 10^3/uL High 3.5-10.[address] [place] [address] [phone] Red Blood Count 3.85 10^6/uL Normal 3.70-4.87 [...] Red Blood Cells % 0.0 Basic Metabolic 06/30/2019 [facility] Sodium 132 mmol/L Low 135-[address] [place] [address] [phone] Potassium 4.7 mmol/L Normal 3.5-5.0 Chloride 98 mmol/L Low 101-111 Co2 Carbon Dioxide 28 mmol/L Normal 22-32 Anion Gap 6 mmol/L Normal 2-11 Glucose 92 mg/dL Normal 70-100 Blood Urea Nitrogen 33 mg/dL High 6-24 Creatinine 1.74 mg/dL High 0.51-0.95 BUN/Creatinine Ratio 19.0 Normal 8-20 Calcium 9.1 mg/dL Normal 8.6-10.3 Egfr Non- 28.2 >60 Egfr 34.2 >60 4 Urinalysis Profile 06/30/2019 [facility] Urine Color Yellow [address] [place] [address] [phone] Urine Appearance Clear Urine Specific Taylor 1.012 Normal 1.010-1.030 Urine pH 6.0 Normal 5-9 Urine Urobilinogen Negative Negative Urine Ketones Negative Negative Urine Protein Negative Negative Urine Leukocytes Trace Abnormal Negative Urine Blood Negative Negative Urine Nitrite Negative Negative Urine Bilirubin Negative Negative Urine Glucose Negative Negative Urine White Blood Cell Trace(0-5/hpf) Absent Urine Red Blood Cell Absent Absent Urine Bacteria Absent Absent Laboratory test 06/30/2019 [facility] Magnesium 2.5 mg/dL Normal 1.9-2.[address] [place] [address] [phone] Urine Culture And 06/30/2019 [facility] Urine Culture SEE [address] [place] [address] BELOW [phone] Urine Culture And 05/26/2019 [facility] Urine Culture SEE [address] [place] [address] BELOW [phone] Urinalysis 05/26/2019 [facility] Urine Color Straw Profile [address] [place] [address] [phone] Urine Appearance Clear Urine Specific Taylor 1.005 Low 1.010-1.030 Urine pH 6.0 Normal 5-9 Urine Urobilinogen Negative Negative Urine Ketones Negative Negative Urine Protein Negative Negative Urine Leukocytes Trace Abnormal Negative Urine Blood Negative Negative Urine Nitrite Negative Negative Urine Bilirubin Negative Negative Urine Glucose Negative Negative Urine White Blood Cell Trace(0-5/hpf) Absent Urine Red Blood Cell Trace(0-2/hpf) Absent Urine Bacteria Absent Absent Basic Metabolic 05/26/2019 [facility] Sodium 134 mmol/L Low 135-[address] [place] [address] [phone] Potassium 4.5 mmol/L Normal 3.5-5.0 Chloride 102 mmol/L Normal 101-111 Co2 Carbon Dioxide 23 mmol/L Normal 22-32 Anion Gap 9 mmol/L Normal 2-11 Glucose 105 mg/dL High 70-100 Blood Urea Nitrogen 36 mg/dL High 6-24 Creatinine 1.71 mg/dL High 0.51-0.95 BUN/Creatinine Ratio 21.1 High 8-20 Calcium 9.1 mg/dL Normal 8.6-10.3 Egfr Non- 28.8 >60 Egfr 34.8 >60 7 CBC Auto 05/26/2019 [facility] White Blood 9.8 10^3/uL Normal 3.5-10.[address] [place] [address] [phone] Red Blood Count 3.72 10^6/uL Normal 3.70-4.87 [...] Red Blood Cells % 0.0 Neph Routine 05/26/2019 [facility] Total Protein Random 9 mg/dL [address] [place] [address] [phone] Creatinine Random Urine 37.17 mg/dL Neph Routine 05/10/2019 [facility] Total Protein Random 24 mg/ dL [address] [place] [address] [phone] Creatinine Random Urine 75.32 mg/dL Urine Culture And 05/10/2019 [facility] Urine Culture SEE RESULT [address] [place] [address] [phone] Laboratory test 05/10/2019 [facility] Miscellaneous Test See Comment [address] [place] [address] [phone] Magnesium 2.1 mg/dL Normal 1.9-2.7 CBC Auto 05/10/2019 [facility] White Blood 8.7 10^3/uL Normal 3.5-10.[address] [place] [address] [phone] Red Blood Count 3.42 10^6/uL Low 3.70-4.87 [...] Blood Cells % 0.0 Basic Metabolic 05/10/2019 [facility] Sodium 133 mmol/L Low 135-[address] [place] [address] [phone] Potassium 4.4 mmol/L Normal 3.5-5.0 Chloride 102 mmol/L Normal 101-111 Co2 Carbon Dioxide 24 mmol/L Normal 22-32 Anion Gap 7 mmol/L Normal 2-11 Glucose 184 mg/dL High 70-100 Blood Urea Nitrogen 36 mg/dL High 6-24 Creatinine 1.76 mg/dL High 0.51-0.95 BUN/Creatinine Ratio 20.5 High 8-20 Calcium 9.4 mg/dL Normal 8.6-10.3 Egfr Non- 27.9 >60 Egfr 33.7 >60 10 Urinalysis Profile 05/10/2019 [facility] Urine Color Yellow [address] [place] [address] [phone] Urine Appearance Clear Urine Specific Taylor 1.011 Normal 1.010-1.030 Urine pH 6.0 Normal 5-9 Urine Urobilinogen Negative Negative Urine Ketones Negative Negative Urine Protein Negative Negative Urine Leukocytes 1+ Abnormal Negative Urine Blood Negative Negative Urine Nitrite Negative Negative Urine Bilirubin Negative Negative Urine Glucose Negative Negative Urine White Blood Cell Trace(0-5/hpf) Absent Urine Red Blood Cell Trace(0-2/hpf) Absent Urine Bacteria Absent Absent Neph Routine 05/05/2019 [facility] Total Protein Random 17 mg/ dL [address] [place] [address] [phone] Creatinine Random Urine 63.74 mg/dL CBC Auto 05/05/2019 [facility] White Blood 6.3 10^3/uL Normal 3.5-10.[address] [place] [address] [phone] Red Blood Count 3.32 10^6/uL Low 3.70-4.87 [...] Blood Cells % 0.0 Basic Metabolic 05/05/2019 [facility] Sodium 132 mmol/L Low 135-[address] [place] [address] [phone] Potassium 4.3 mmol/L Normal 3.5-5.0 Chloride 102 mmol/L Normal 101-111 Co2 Carbon Dioxide 24 mmol/L Normal 22-32 Anion Gap 6 mmol/L Normal 2-11 Glucose 105 mg/dL High 70-100 Blood Urea Nitrogen 26 mg/dL High 6-24 Creatinine 1.63 mg/dL High 0.51-0.95 BUN/Creatinine Ratio 16.0 Normal 8-20 Calcium 9.2 mg/dL Normal 8.6-10.3 Egfr Non- 30.4 >60 Egfr 36.8 >60 11 Urinalysis Profile 05/05/2019 [facility] Urine Color Yellow [address] [place], [place] [id number] [phone] Urine Appearance Clear Urine Specific Taylor 1.008 Low 1.010-1.030 Urine pH 6.0 Normal 5-9 Urine Urobilinogen Negative Negative Urine Ketones Negative Negative Urine Protein Negative Negative Urine Leukocytes 1+ Abnormal Negative Urine Blood 1+ Abnormal Negative Urine Nitrite Negative Negative Urine Bilirubin Negative Negative Urine Glucose Negative Negative Urine White Blood Cell Trace(0-5/hpf) Absent Urine Red Blood Cell 1+(3-5/hpf) Abnormal Absent Urine Bacteria Absent Absent Urine Culture And 05/05/2019 [facility] Urine Culture SEE RESULT [address] [place] [address] [phone] Surgical Pathology 04/27/2019 [facility] Surgical SEE RESULT [address] [place] [address] [phone] PDFReport SEE IMAGE Neph Routine 04/07/2019 [facility] Total Protein Random 55 mg/ dL [address] [place] [address] [phone] Creatinine Random Urine 157.71 mg/dL CBC Auto 04/07/2019 [facility] White Blood 6.7 10^3/uL Normal 3.5-10.[address] [place] [address] [phone] Red Blood Count 3.43 10^6/uL Low 3.70-4.87 [...] Blood Cells % 0.0 Basic Metabolic 04/07/2019 [facility] Sodium 132 mmol/L Low 135-[address] [place] [address] [phone] Chloride 103 mmol/L Normal 101-111 Co2 Carbon Dioxide 23 mmol/L Normal 22-32 Glucose 107 mg/dL High 70-100 Blood Urea Nitrogen 28 mg/dL High 6-24 Creatinine 2.21 mg/dL High 0.51-0.95 BUN/Creatinine Ratio 12.7 Normal 8-20 Calcium 9.4 mg/dL Normal 8.6-10.3 Egfr Non- 21.4 >60 Egfr 25.9 >60 14 Potassium 5.1 mmol/L High 3.5-5.0 Anion Gap 6 mmol/L Normal 2-11 Urinalysis Profile 04/07/2019 [facility] Urine Color Yellow [address] [place] [address] [phone] Urine Appearance Cloudy Urine Specific Taylor 1.014 Normal 1.010-1.030 Urine pH 6.0 Normal [...] Casts Present Abnormal Absent Laboratory test 04/07/2019 [facility] Albumin 4.0 g/dL Normal 3.2-5.[address] [place] [address] [place] [address] [phone] Ferritin 371.3 ng/mL High 11-307 Iron & Iron Binding 04/07/2019 [facility] Iron 73 g/dL Normal 50-[address] [place] [address] [phone] Unsaturated Iron Binding < 290 g/dL Total Iron Binding Capacity 305 g/dL Normal 250-450 Transferrin 218 mg/dL Normal 203-362 % Iron Saturation 24 % Normal 15-55 Urine Culture And 04/07/2019 [facility] Urine Culture SEE RESULT [address] [place] [address] [phone] Neph Routine 03/25/2019 [facility] Total Protein 41 mg/dL [address] [place] [address] [phone] Creatinine Random Urine 95.75 mg/dL CBC Auto 03/25/2019 [facility] White Blood 5.2 10^3/uL Normal 3.5-10.[address] [place] [address] [phone] Red Blood Count 3.43 10^6/uL Low 3.70-4.87 [...] Blood Cells % 0.0 Urine Culture 03/25/2019 [facility] Urine Culture SEE RESULT [address] [place] [address] [phone] HIV 1&2 p24 03/25/2019 [facility] HIV 4th Nonreactive Nonreactive Screen [address] [place] [address] [phone] Phospholipase 03/25/2019 [facility] Phospholipase Negative Negative 17 A2 Receptor AB [address] A2 [place] [address] [phone] Phospholipase A2 ReceptorELISA <2 RU/mL 18 Protein 03/25/2019 [facility] Total 7.8 g/dL 6.3 - Electrophoresis [address] Protein(Pep) 7.9 [place] [address] [phone] Albumin 3.4 g/dL 3.4-4.7 Alpha-1 Globulin 0.3 g/dL 0.1-0.3 Alpha-2 Globulin 1.2 g/dL Abnormal 0.6-1.0 Beta Globulin 1.1 g/dL 0.7-1.2 Gamma Globulin 1.8 g/dL Abnormal 0.6-1.6 Albumin/Globulin Ratio 0.76 Impression See Comment 19 Basic Metabolic 03/25/2019 [facility] Sodium 132 mmol/L Low 135-[address] [place] [address] [phone] Potassium 4.4 mmol/L Normal 3.5-5.0 Chloride 100 mmol/L Low 101-111 Co2 Carbon Dioxide 24 mmol/L Normal 22-32 Anion Gap 8 mmol/L Normal 2-11 Glucose 90 mg/dL Normal 70-100 Blood Urea Nitrogen 28 mg/dL High 6-24 Creatinine 2.11 mg/dL High 0.51-0.95 BUN/Creatinine Ratio 13.3 Normal 8-20 Calcium 9.4 mg/dL Normal 8.6-10.3 Egfr Non- 22.6 >60 Egfr 27.3 >60 20 Urinalysis Profile 03/25/2019 [facility] Urine Color Yellow [address] [place] [address] [phone] Urine Appearance Clear Urine Specific Taylor 1.011 Normal 1.010-1.030 Urine pH 6.0 Normal 5-9 Urine Urobilinogen Negative Negative Urine Ketones Negative Negative Urine Protein Negative Negative Urine Leukocytes 3+ Abnormal Negative Urine Blood Negative Negative Urine Nitrite Negative Negative Urine Bilirubin Negative Negative Urine Glucose Negative Negative Urine White Blood Cell 3+(>20/hpf) Abnormal Absent Urine Red Blood Cell Absent Absent Urine Bacteria 1+ Abnormal Absent GN Serology 03/25/2019 [facility] Anti Double Stranded <12.3 IU/ mL [address] [place] [address] [phone] Complement C3 120 mg/dL 75 - 175 22 Complement C4 42 mg/dL Abnormal 14 - 40 23 Glomerular Basement Membrane <0.2 U 24 Anti Nuclear Antibody 0.4 U 25 Myeloperoxidase AB <0.2 U 26 Proteinase 3 <0.2 U 27 Hepatitis B Surface Ag Nonreactive Nonreactive Hepatitis B Core AB Total Negative Negative 28 Histone Antibody <0.5 U 29 Rheumatoid Factor < 10 IU/mL Normal <15 Erythrocyte Sed Rate 58 mm/Hr High 0-29 C Reactive Protein 2.41 mg/L Normal <8.01 Hepatitis B Alexandr AB Titer Immune Immune [place]/Lambda Free 03/25/2019 [facility] [place] Free 4.22 mg/dL Abnormal 30 Light Chains Ser [address] [place] [address] [phone] Lambda Free Light Chain 3.33 mg/dL Abnormal 31 [place]/Lambda Free Light Chain 1.27 32 Cryoglobulin & 03/25/2019 [facility] Cryoglobulin Negative Negative [address] %[place] [address] [phone] Cryofibrinogen Negative Negative 34 Neutrophil Cytoplasmic 03/25/2019 [facility] C-Anca Negative Negative AB [address] [place] [address] [phone] P-Anca Negative Negative 35 Hepatitis C Antibody 03/25/2019 [facility] HCV Index 0.02 s/c [address] [place] [address] [phone] Hepatitis C Antibody Negative Negative Urine Culture And 03/14/2019 [facility] Urine Culture SEE RESULT [address] [place] [address] [phone] Urinalysis Profile 03/14/2019 [facility] Urine Color Yellow [address] [place] [address] [phone] Urine Appearance Cloudy Urine Specific Taylor 1.012 Normal 1.010-1.030 Urine pH 6.0 Normal [...] Urine Bacteria Absent Absent Vitamin B12 03/14/2019 [facility] Vitamin B12 227 pg/mL Normal 180-914 37 [address] [place] [address] [phone] Folic Acid (Folate) > 20.00 ng/mL >3.99 Laboratory test 03/14/2019 [facility] Magnesium 1.8 mg/dL Low 1.9-2.[address] [place] [address] [phone] CBC Auto Diff 03/14/2019 [facility] White Blood 8.8 Normal 3.5 -10.[address] Count 10^3/[place] [address] [phone] Red Blood Count 3.61 10^6/uL Low 3.70-4.87 [...] Blood Cells % 0.0 Laboratory test 03/14/2019 [facility] Erythrocyte Sed 59 mm/Hr High 0-[address] [place] [address] [phone] C Reactive Protein 4.13 mg/L Normal <8.01 Laboratory test 03/14/2019 [facility] Ferritin 371.0 ng/mL High 11-[address] [place] [address] [phone] Iron & Iron 03/14/2019 [facility] Iron 68 g/dL Normal 50- [address] [place] [address] [phone] Unsaturated Iron Binding < 243 g/dL Total Iron Binding Capacity 258 g/dL Normal 250-450 Transferrin 184 mg/dL Low 203-362 % Iron Saturation 26 % Normal 15-55 Protein 03/14/2019 [facility] Immunofixation See Comment [address] [place] [address] [phone] Total Protein(Pep) 7.2 g/dL 6.3 - 7.9 Albumin 3.3 g/dL Abnormal 3.4-4.7 Alpha-1 Globulin 0.3 g/dL 0.1-0.3 Alpha-2 Globulin 1.1 g/dL Abnormal 0.6-1.0 Beta Globulin 1.0 g/dL 0.7-1.2 Gamma Globulin 1.6 g/dL 0.6-1.6 Albumin/Globulin Ratio 0.83 Impression See Comment 39 CBC Auto 02/18/2019 [facility] White Blood 9.0 10^3/uL Normal 3.5-10.[address] [place] [address] [phone] Red Blood Count 3.87 10^6/uL Normal 3.70-4.87 [...] Nucleated Red Blood Cells % 0.0 Creatinine 02/18/2019 [facility] Creatinine, 2.73 High 0.51- 0.[address] Serum mg/[place] [address] [phone] Urine Collection Time 24 hr Urine Total Volume 2300 mL Urine Creatinine Concentration 32.39 mg/dL Creatinine Clearance 19 mL/min Low 88-128 Total Protein 24HR 02/18/2019 [facility] Urine Collection Time [address] [place] [address] [phone] Urine Total Volume 2300 mL Urine TP Concentration 27 mg/dL Urine Total Protein/24HR 621 mg/24Hr High 0-165 Laboratory test 02/18/2019 [facility] Lactic Acid 1.0 mmol/L Normal 0.5-2.0 40 finding [address] [place] [address] [phone] Comp Metabolic 02/18/2019 [facility] Sodium 135 mmol/L Normal 135-145 Panel [address] [place] [address] [phone] Potassium 4.7 mmol/L Normal 3.5-5.0 Chloride 106 [...] Egfr Non- 17.4 >60 Egfr 21.1 >60 41 Laboratory test 02/18/2019 [facility] Magnesium 1.7 mg/dL Low 1.9-2.[address] [place] [address] [phone] Lipase 32 U/L Normal 11.0-82.0 Creatine Kinase(CK) 31 U/L Normal 10-223 C Reactive Protein 37.45 mg/L High <8.01 Partial Thrombo Time PTT 29.1 seconds Normal 26.0-38.0 Urinalysis Profile 02/18/2019 [facility] Urine Color Straw [address] [place], [place] [address] [phone] Urine Appearance Cloudy Urine Specific Taylor 1.004 Low 1.010-1.030 Urine pH 7.0 Normal [...] Bacteria Absent Absent Urine Culture And 02/18/2019 [facility] Urine Culture SEE RESULT [address] BEL[address] [place], [place] [id number] [phone] Creatinine 02/16/2019 [facility] Creatinine 2.19 mg/dL High 0.[address] -0.9 [place] [address] 5 [phone] Egfr Non- 21.6 >60 Egfr 26.2 >60 43 Urine Culture And 02/12/2019 [facility] Urine SEE RESULT 44 , [address] Culture BELOW [place], [place] [id number] [phone] Poc Urinalysis 02/12/2019 [facility] Poc Negative Negative [address] Glucose, [place] [address] Urine [phone] Poc Bilirubin, Urine Negative Negative Poc Ketone, Urine Negative Negative Poc Specific Taylor, Urine 1.015 Normal 1.010-1.030 Poc Blood, Urine 1+ Abnormal Negative Poc pH, Urine 5.5 Normal 5-9 Poc Protein, Urine 2+ Abnormal Negative Poc Urobilinogen, Urine 0.2 Negative Poc Nitrite, Urine Negative Negative Poc Leukocytes, Urine 2+ Abnormal Negative Poc Color, Urine Light yellow Poc Clarity, Urine Slightly Cloudy 46 Basic Metabolic 02/07/2019 [facility] Sodium 133 mmol/L Low 135-[address] [place] [address] [phone] Potassium 3.5 mmol/L Normal 3.5-5.0 Chloride 101 mmol/L Normal 101-111 Co2 Carbon Dioxide 21 mmol/L Low 22-32 Anion Gap 11 mmol/L Normal 2-11 Glucose 125 mg/dL High 70-100 Blood Urea Nitrogen 44 mg/dL High 6-24 Creatinine 3.49 mg/dL High 0.51-0.95 BUN/Creatinine Ratio 12.6 Normal 8-20 Calcium 9.1 mg/dL Normal 8.6-10.3 Egfr Non- 12.6 >60 Egfr 15.3 >60 47 CBC No Diff 01/31/2019 [facility] White Blood 6.9 10^3/uL Normal 3.5-10.[address] [place] [address] [phone] Red Blood Count 4.24 10^6/uL Normal 3.70-4.87 Hemoglobin 12.8 g/dL Normal 12.0-16.0 Hematocrit 38 % Normal 35-47 Mean Corpuscular Volume 90 fL Normal 80-97 Mean Corpuscular Hemoglobin 30 pg Normal 27-31 Mean Corpuscular HGB Conc 34 g/dL Normal 31-36 Red Cell Distribution Width 16 % High 10-15 Platelet Count 232 10^3/uL Normal 150-450 Mean Platelet Volume 10.8 fL High 7.4-10.4 Basic Metabolic 01/31/2019 [facility] Sodium 139 mmol/L Normal 135-145 Panel [address] [place] [address] [phone] Potassium 3.1 mmol/L Low 3.5-5.0 Chloride 103 mmol/L Normal 101-111 Co2 Carbon Dioxide 25 mmol/L Normal 22-32 Anion Gap 11 mmol/L Normal 2-11 Glucose 91 mg/dL Normal 70-100 Blood Urea Nitrogen 14 mg/dL Normal 6-24 Creatinine 1.31 mg/dL High 0.51-0.95 BUN/Creatinine Ratio 10.7 Normal 8-20 Calcium 9.4 mg/dL Normal 8.6-10.3 Egfr Non- 39.2 >60 Egfr 47.4 >60 48 Urinalysis Profile 01/23/2019 [facility] Urine Color Yellow [address] [place] [address] [phone] Urine Appearance Cloudy Urine Specific Taylor 1.008 Low 1.010-1.030 Urine pH 6.0 Normal [...] Epithelial Present Abnormal Absent CBC Auto 01/23/2019 [facility] White Blood 13.7 10^3/uL High 3.5-10.[address] [place] [address] [phone] Red Blood Count 4.35 10^6/uL Normal 3.70-4.87 [...] Cells % 0.0 Comp Metabolic Panel 01/23/2019 [facility] Sodium 132 mmol/L Low 135-[address] [place] [address] [phone] Potassium 3.7 mmol/L Normal 3.5-5.0 Chloride 99 [...] Egfr Non- 17.1 >60 Egfr 20.7 >60 49 Laboratory test 01/23/2019 [facility] Lipase 12 U/L Normal 11.0-82.[address] [place] [address] [phone] C Reactive Protein 133.58 mg/L High <8.01 Urine Culture And 01/23/2019 [facility] Urine Culture SEE RESULT [address] [place] [address] [phone] 1 Platelets clumped. Unable to perform accurate count. 2 Because ethnic data is not always [...] 5 Kidney failure <15 (or dialysis) 3 Because ethnic data is not always [...] 5 Kidney failure <15 (or dialysis) 4 Because ethnic data is not always [...] 5 Kidney failure <15 (or dialysis) 5 SEE RESULT BELOW Name: ZAMZAM GONZALEZ : [address]: Mee Rodríguez MD Acct: [id number] Unit: [id number] AGE: 78 Location: [facility] Re06/30/19 SEX: F Status: REG REF SPEC: [id number] IMELDA: 06/30/[address]: Mee Rodríguez MD REQ: [id number] RECD: 06/30/19 STATUS: COMP _ SOURCE: URINE SPDC: ORDERED: Urine Culture Procedure Result Reported Site Urine Culture Final 07/02/19- 1032 ML No Growth (<1,000 CFU/mL) * ML - Main Lab . END OF REPORT DEPARTMENT OF PATHOLOGY, [address] [place] [address] Biju Freeman M.D. Director [facility] # [id number] 6 SEE RESULT BELOW Name: ZAMZAM GONZALEZ : [address]: Mee Rodríguez MD Acct: [id number] Unit: [id number] AGE: 78 Location: [facility] Re05/26/19 SEX: F Status: REG REF SPEC: [id number] IMELDA: 05/26/[address]: Mee Rodríguez MD REQ: [id number] RECD: 05/26/19 STATUS: COMP _ SOURCE: URINE SPDESC: ORDERED: Urine Culture Procedure Result Reported Site Urine Culture Final 05/27/19- 1550 ML No Growth (<1,000 CFU/mL) * - [facility] . END OF REPORT DEPARTMENT OF PATHOLOGY, [address] [place] [address] Biju Freeman M.D. Director [facility] # [id number] 7 Because ethnic data is not always [...] [address]: Mee Rodríguez MD Acct: [id number] Unit: [id number] AGE: 78 Location: [facility] Re05/10/19 SEX: F Status: REG REF SPEC: [id number] IMELDA: 05/10/19-13[address] [facility] [address]: Mee Rodríguez MD REQ: [id number] RECD: 05/10/190717 STATUS:COMP _ SOURCE: URINE SPDESC: ORDERED: Urine Culture Procedure Result Reported Site Urine Culture Final 05/11/19- 1416 ML No Growth (<1,000 CFU/mL) * ML - Main Lab . END OF REPORT DEPARTMENT OF PATHOLOGY, [address] [place] [address] Biju Freeman M.D. Director [facility] # [id number] 9 Test Result Flag Unit RefValue Immunoglobulin Subclass 17.4 mg/dL IgG4, S REFERENCE VALUE 2.4 - 121.0 Test Performed by: [facility] [address] [place] [address] Soil Analyst: Ilya Faulkner M.D. Ph.D.; CLIA# [id number] 10 Because ethnic data is not always [...] 5 Kidney failure <15 (or dialysis) 11 Because ethnic data is not always readily [...] 15-29 5 Kidney failure <15 (or dialysis) 12 SEE RESULT BELOW Name: ZAMZAM GONZALEZ : [address]: Mee Rodríguez MD Acct: [id number] Unit: [id number] AGE: 78 Location: [facility] Re05/05/19 SEX: F Status: REG REF SPEC: [id number] IMELDA: 05/05/19-[address]: Mee Rodríguez MD REQ: [id number] RECD: 05/05/19 STATUS:COMP _ SOURCE: URINE SPDESC: ORDERED: Urine Culture Procedure Result Reported Site Urine Culture Final 05/06/19- 1258 ML No Growth (<1,000 CFU/mL) * ML - Main Lab . END OF REPORT DEPARTMENT OF PATHOLOGY, [address] [place] [address] Biju Freeman M.D. Director [facility] # [id number] 13 SEE RESULT BELOW Name: ZAMZAM GONZALEZ : [address]: Mee Rodríguez MD Acct: [id number] Unit: [id number] AGE: 78 Location: Re04/27/19 SEX: F Status: REG REF SPEC: [id number] IMELDA: 04/27/[address]: Mee Rodríguez MD REQ: [id number] RECD: 04/27/19 STATUS: SOUT _ ORDERED: PTH HANDLING CH, LEVEL 1, INTRAOP CON-GR ADDENDUM Consultation with Candi Grady at [facility], [place], [place], outside accession number [id number], our surgical number [id number]. The consultation reveals: / / / / (Original consultation report scanned into Pathology Consults.) Addendum Signed (signature on file) Mony Parker MD 1458 FINAL DIAGNOSIS Kidney, left, biopsy: Pending diagnosis from [facility] Renal Pathology. PRE-OPERATIVE DIAGNOSIS Rule out ischemic nephropathy CONTINUED ON NEXT PAGE DEPARTMENT OF PATHOLOGY, [address] [place] [address] Biju Freeman M.D. Director [facility] # [id number] GROSS DESCRIPTION The specimen is received fresh labeled, Left Kidney, and consists of four tejada -pink soft tissue cores ranging from 0.2 x 0.1 cm to 1.2 x 0.1 cm admixed with scant red -brown blood clot. The specimen is entirely submitted to [facility] for renal analysis. Per established hospital medical staff protocol, no tissue is submitted. Gross only. Signed by and Reported on: Mony Parker MD 04/27/19 1115 END OF REPORT DEPARTMENT OF PATHOLOGY, [address] [place] [address] Biju Freeman M.D. Director [facility] # [id number] 14 Because ethnic data is not always [...] [address]: Mee Rodríguez MD Acct: [id number] Unit: [id number] AGE: 78 Location: [facility] Re04/07/19 SEX: F Status: REG REF SPEC: [id number] IMELDA: 04/07/[address]: Mee Rodríguez MD REQ: [id number] RECD: 04/07/19 STATUS: COMP _ SOURCE: URINE SPDESC: ORDERED: Urine Culture Procedure Result Reported Site Urine Culture Final 04/08/19- 1224 ML No Growth (<1,000 CFU/mL) * ML - Main Lab . END OF REPORT DEPARTMENT OF PATHOLOGY, [address] [place] [address] Biju Freeman M.D. Director [facility] # [id number] 16 SEE RESULT BELOW Name: ZAMZAM GONZALEZ : [address]: Mee Rodríguez MD Acct: [id number] Unit: [id number] AGE: 78 Location: LAB Re03/25/19 SEX: F Status: REG REF SPEC: [id number] IMELDA: 03/25/191232 SUBM DR: Mee Rodríguez MD REQ: [id number] RECD: 03/25/19 STATUS: COMP _ SOURCE: URINE SPDESC: ORDERED: Urine Culture Procedure Result Reported Site Urine Culture Final 03/26/19- 1245 ML No Growth (<1,000 CFU/mL) * ML - Main Lab . END OF REPORT DEPARTMENT OF PATHOLOGY, [address] [place] [address] Biju Freeman M.D. Director CLIA # [id number] 17 ADDITIONAL INFORMATION This test was developed and its performance characteristics determined by [facility] in a manner consistent with CLIA requirements. This test has not been cleared or approved by the U.S. Food and Drug Administration. 18 REFERENCE VALUE <14 RU/mL: Negative 14-19 RU/mL: Borderline >19 RU/mL: Positive Test Performed by: [facility] [address] [place] [address] Soil Analyst: Ilya Faulkner M.D. Ph.D.; CLIA# [id number] 19 RESULT: Polyclonal hypergammaglobulinemia Test Performed by: [facility] [address] [place] [address] Soil Analyst: Ilya Faulkner M.D. Ph.D.; CLIA# [id number] 20 Because ethnic data is not always readily [...] 15-29 5 Kidney failure <15 (or dialysis) 21 REFERENCE VALUE <30.0 (Negative) Test Performed by: [place] [address] Soil Analyst: Ilya Faulkner M.D. Ph.D.; CLIA# [id number] 22 Test Performed by: [place] [address] Soil Analyst: Ilya Faulkner M.D. Ph.D.; CLIA# [id number] 23 Test Performed by: [place] [address] Soil Analyst: Ilya Faulkner M.D. Ph.D.; CLIA# [id number] 24 REFERENCE VALUE <1.0 (Negative) Test Performed by: [place] [address] Soil Analyst: Ilya Faulkner M.D. Ph.D.; CLIA# [id number] 25 REFERENCE VALUE <=1.0 (Negative) Test Performed by: [facility] [address] Soil Analyst: Ilya Faulkner M.D. Ph.D.; CLIA# [id number] 26 REFERENCE VALUE <0.4 (Negative) Test Performed by: [facility] [address] Soil Analyst: Ilya Faulkner M.D. Ph.D.; CLIA# [id number] 27 REFERENCE VALUE <0.4 (Negative) Test Performed by: [place] [address] Soil Analyst: Ilya Faulkner M.D. Ph.D.; [place]# [id number] 28 Test Performed by: [place] [address] Soil Analyst: Ilya Faulkner M.D. Ph.D.; [place]IA# [id number] 29 REFERENCE VALUE <1.0 (Negative) Test Performed by: [facility] [address] Soil Analyst: Ilya Faulkner M.D. Ph.D.; CLIA# [id number] 30 REFERENCE VALUE 0.3300-1.94 31 REFERENCE VALUE 0.5700-2.63 32 REFERENCE VALUE 0.2600-1.65 Test Performed by: [place] [address] Soil Analyst: Ilya Faulkner M.D. Ph.D.; CLIA# [id number] 33 This test is negative at 24 hours. All samples are held and reviewed again at 7 days. If delayed precipitation occurs after 7 days, Immunofixation will be performed and an additional report will follow. 34 Test Performed by: [facility] [address] Soil Analyst: Ilya Faulkner M.D. Ph.D.; CLIA# [id number] 35 Negative for cANCA and pANCA patterns by immunofluorescence. ADDITIONAL INFORMATION This test was developed and its performance characteristics determined by [facility] in a manner consistent with CLIA requirements. This test has not been cleared or approved by the U.S. Food and Drug Administration. Test Performed by: [place] [address] Soil Analyst: Ilya Faulkner M.D. Ph.D.; CLIA# [id number] 36 SEE RESULT BELOW Name: ZAMZAM GONZALEZ : [address]: Lc Rashid NP Acct: [id number] Unit: [id number] AGE: 78 Location: [facility] Re03/14/19 SEX: F Status: REG REF SPEC: [id number] IMELDA: 03/14/[address]: Lc Rashid NP REQ: [id number] RECD: 03/14/19 STATUS: COMP _ SOURCE: URINE SPDESC: ORDERED: Urine Culture Procedure Result Reported Site Urine Culture Final 03/15/19- 1603 ML No Growth (<1,000 CFU/mL) * ML - Main Lab . END OF REPORT DEPARTMENT OF PATHOLOGY, [address] [place] [address] Biju Freeman M.D. Director [facility] # [id number] 37 Normal Range 180 to 914 Indeterminate Range 145 to 180 Deficient Range <145 38 RESULT: No monoclonal protein detected. Test Performed by: [facility] [address] Soil Analyst: Ilya Faulkner M.D. Ph.D.; CLIA# [id number] 39 Small abnormality in gamma fraction. See Immunofixation. Test Performed by: [facility] [address] Soil Analyst: Ilya Faulkner M.D. Ph.D.; CLIA# [id number] 40 [facility] Severe Sepsis and Septic Shock Management Bundle Measure requires all lactic acids initially measuring >2.0 mmol/L be repeated. 41 Because ethnic data is not always readily [...] 15-29 5 Kidney failure <15 (or dialysis) 42 SEE RESULT BELOW Name: ZAMZAM GONZALEZ : [address]: Krzysztof Umaña MD Acct: [id number] Unit: [id number] AGE: 78 Location: ED Re02/18/19 SEX: F Status: REG ER SPEC: [id number] IMELDA: 02/18/[address] [facility] [address]: Krzysztof Umaña MD REQ: [id number] RECD: 02/18/19 STATUS: RAGHAV [facility] DR: Krystal Stanton MANAGER OF FINANCIAL _ SOURCE: URINE SPDESC: ORDERED: Urine Culture Procedure Result Reported Site Urine Culture Final 02/19/19- 1222 ML No Growth (<1,000 CFU/mL) * ML - Main Lab . END OF REPORT DEPARTMENT OF PATHOLOGY, [address] [place] [address] Biju Freeman M.D. Director [facility] # [id number] 43 Because ethnic data is not always readily [...] 15-29 5 Kidney failure <15 (or dialysis) 44 [id number] 45 SEE RESULT BELOW Name: ZAMZAM GONZALEZ : [address]: Earle Monahan MD Acct: [id number] Unit: [id number] AGE: 78 Location: [facility] Re02/12/19 SEX: F Status: DEP ER SPEC: [id number] IMELDA: 02/12/19-[address]: Evelia Boland NP REQ: [id number] RECD: 02/13/19 STATUS: RAGHAV PARKER DR: Earle Stanton MANAGER OF FINANCIAL _ SOURCE: URINE [facility]: ORDERED: Urine Culture COMMENTS: [id number] QUERIES: Urine Source: Random Procedure Result Reported Site Urine Culture Final 02/14/19- 1218 ML No Growth (<1,000 CFU/mL) * ML - Main Lab . END OF REPORT DEPARTMENT OF PATHOLOGY, [address] [place] [address] Biju Freeman M.D. Director [facility] # [id number] 46 Nutrition Manager: [id number] 47 Because ethnic data is not always readily [...] 15-29 5 Kidney failure <15 (or dialysis) 48 Because ethnic data is not always readily [...] 15-29 5 Kidney failure <15 (or dialysis) 49 Because ethnic data is not always readily [...] 15-29 5 Kidney failure <15 (or dialysis) 50 SEE RESULT BELOW Name: ZAMZAM GONZALEZ : [address]: Mirela Hunt DO Acct: [id number] Unit: [id number] AGE: 78 Location: [place] [address]- Re01/23/19 SEX: F Status: ADM IN SPEC: [id number] IMELDA: 01/23/[address] [facility] [address]: Ed Lynn MD REQ: [id number] RECD: 01/23/19 STATUS: RAGHAV PARKER DR: Krystal Stanton MANAGER OF FINANCIAL _ SOURCE: URINE SPDESC: ORDERED: Urine Culture Procedure Result Reported Site Urine Culture Final 01/24/19- 1610 ML No growth of clinically significant organisms * ML - Main Lab . END OF REPORT DEPARTMENT OF PATHOLOGY, [address] [place] [address] Biju Freeman M.D. Director [facility] # [id number] Procedures Date Code Description Status 05/11/2019 [id number] Mammogram Completed 04/27/2019 41140 US Guide Ndle [facility] Imaging Supervise & Interp Completed 04/27/2019 02459 Biopsy Renal Percutaneous Completed 05/10/2018 [id number] Mammogram Completed 05/08/2017 [id number] Mammogram Completed 05/02/2016 [id number] Mammogram Completed 12/11/2015 [id number] Bone Mineral Density Test Completed 05/01/2015 [id number] Mammogram Completed 05/15/2014 [id number] Mammogram Completed 05/11/2013 [id number] Mammogram Completed 02/15/2013 [id number] Colonoscopy Completed 05/10/2012 [id number] Mammogram Completed 05/09/2011 [id number] Mammogram Completed 08/29/2010 [id number] Bone Mineral Density Test Completed 05/08/2010 [id number] Mammogram Completed 06/22/2007 25662985 Colonoscopy Completed Medical Devices Description No Information Available Encounters Type Date Location Provider Dx Diagnosis Office Visit 07/01/2019 [facility] Nephrology Mee Rodríguez, 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 Tubulo-interstitial 11:20a MD Marcos nephritis, 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 I12.9 Hypertensive chronic kidney disease w stg 1-4/unsp chr kdny N18.4 Chronic kidney disease, stage 4 (severe) D63.1 Anemia in chronic kidney disease Office Visit 05/11/2019 [facility] Mee Diallo N12 Tubulo-interstitial 2:00p MD [place] nephritis, 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 I12.9 Hypertensive chronic kidney disease w stg 1-4/unsp chr kdny N18.4 Chronic kidney disease, stage 4 (severe) D63.1 Anemia in chronic kidney disease D64.9 Anemia, unspecified Office Visit 05/06/2019 [facility] Mee Diallo N12 Tubulo-interstitial 11:30a MD [place] nephritis, 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 I12.9 Hypertensive chronic kidney disease w stg 1-4/unsp chr kdny N18.4 Chronic kidney disease, stage 4 (severe) E87.5 Hyperkalemia D64.9 Anemia, unspecified R63.4 Abnormal weight loss R10.84 Generalized abdominal pain Office Visit 04/08/2019 11:30a [facility]rology Mee Diallo N17.9 Acute kidney MD Marcos failure, unspecified I12.9 Hypertensive chronic kidney disease w stg 1-4/unsp chr kdny N18.4 Chronic kidney disease, stage 4 (severe) E87.5 Hyperkalemia D64.9 Anemia, unspecified R11.0 Nausea Office Visit 04/01/2019 11:30a [facility] Nephsarmad Diallo N17.9 Acute kidney MD Marcos failure, unspecified I12.9 Hypertensive chronic kidney disease w stg 1-4/unsp chr kdny N18.4 Chronic kidney disease, stage 4 (severe) I10 Essential (primary) hypertension Office Visit 03/25/2019 11:00a [facility] Nephsarmad Diallo N17.9 Acute kidney MD [place]cos failure, unspecified E87.6 Hypokalemia E83.42 Hypomagnesemia I10 Essential (primary) hypertension D64.9 Anemia, unspecified Office Visit 03/02/2019 2:20p [facility] Internal Medicine - Lc Rashid, MANAGER OF FINANCIAL R11.0 Nausea Ccmob D64.9 Anemia, unspecified E83.42 Hypomagnesemia R63.4 Abnormal weight loss N39.0 Urinary tract infection, site not specified Office Visit 02/16/2019 11:20a [facility] Krystal Santiagojignesh, R10.84 Generalized Medicine - N.P. abdominal pain Ccmob R11.0 Nausea R94.4 Abnormal results of kidney function studies Office Visit 02/01/2019 3:20p [facility] Krystal Stanton, E87.6 Hypokalemia Medicine - Ccmob N.P. 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, R10.9 Unspecified 9:15a juan a Rossi M.D. 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 06/13/2019 K59.00 Constipation, unspecified Krystal Varn, N.P. 06/13/2019 N18.4 Chronic kidney disease, stage [...] kidney failure, unspecified Mee Rodríguez MD 04/01/2019 I12.9 Hypertensive chronic [...] Mee Rodríguez MD 03/02/2019 R11.0 Nausea Lc Rashid, MANAGER OF FINANCIAL 03/02/2019 D64.9 Anemia, unspecified Lc Rashid, MANAGER OF FINANCIAL 03/02/2019 E83.42 Hypomagnesemia Lc Rashid, MANAGER OF FINANCIAL 03/02/2019 R63.4 Abnormal weight loss Lc Rashid, MANAGER OF FINANCIAL 03/02/2019 N39.0 Urinary tract infection, site not specified Lc Rashid, MANAGER OF FINANCIAL 02/16/2019 R10.84 Generalized abdominal pain Krystal Stanton, [...] of peptic ulcer disease Kylah Fisher M.D. Plan of Treatment Future Appointment(s):09/09/2019 11:40 am - Mee Rodríguez MD at [facility] Qzckrgytlb45/29/2020 - Mee Rodríguez MDN12 Tubulo-interstitial nephritis, not specified as acute or [id number] Chronic kidney disease, stage 4 (severe) E87.70 Fluid overload, unspecified Functional Status Description No Information Available Mental Status Description No Information Available Referrals Refer to Dr Reason for Referral Status Appt Date Sandra Ricks MD called nothing scheduled yet 03/25/2019 Sent [address] [place] [address] [phone] Lore Gunter MD Patient with elevated Creatinine and abnormal Sent 24 hour urines referred for evaluation and treatment. Thank you for seeing this pleasant patient. [address] [facility] [address] [phone] Josey Valentin MD Patient has been experiencing episodes of intense Sent abdominal pain. She has had a full GI workup and nothing has been found aside from constipation. 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 Patient is referred for evaluation and treatment. [address] [place] [address] [phone]
--- OUTSIDE RECORDS SUMMARY | 2019-09-15 14:25 | XMS REPORT | Continuity of Care Document ---
:1940 External Reference #:[id number] Author Name Micah Vogel, OD Address [address] [place] [address] Care Team Providers Name Role Phone Shira Murphy MD - Internal Medicine Care Team Information Lining Printer Krystal Stanton NP - Family Care Team Information Lining Printer [phone] Problems Active Problems Provider Date Presence of intraocular lens Micah Hughes O.D. Onset: 06/26/2015 Vitreous degeneration Micah Hughes O.D. 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 Solution Vitamin D Unknown Amlodipine Besylate Unknown 10mg Tablets Furosemide Unknown 20mg Tablets Ferrous Sulfate 1 by mouth every Unknown 325(65Fe) day mg Tablets Metoprolol Succinate Unknown ER 100mg Tablets ER 24HR Nucynta take one Unknown 50mg Tablets capsule/tab every 8 hours (total of 3 per day) as needed for pain (if not too soon) Senna Plus 1 by mouth every Unknown 8.6-50mg day Tablets Vitamin B-12 ER 1 by mouth every Unknown 1000mcg day Tablets ER Immunizations Description No Information Available Vital Signs Date Vital Result Comment 08/04/2019 2:07pm Intraocular Pressure Right Eye 14 mmHg Intraocular Pressure Left Eye 14 mmHg 02/24/2018 3:28pm Intraocular Pressure Right Eye 15 mmHg Intraocular Pressure Left Eye 15 mmHg Results Description No Information Available Procedures Date Code Description Status 08/04/2019 28970 Fundus Photography W/Interpretation & Report Completed 08/04/2019 51064 Eye Exam Est Comprehensive Completed Medical Devices Description No Information Available Encounters Description No Information Available Assessments Date Code Description Provider 08/04/2019 H43.813 Vitreous degeneration, bilateral Micah Vogel, OD 08/04/2019 H40.013 Open angle with borderline findings, low risk, Micah Vogel, OD bilateral 08/04/2019 H52.4 Presbyopia Micah Vogel, OD 08/04/2019 H04.123 Dry eye syndrome of bilateral lacrimal glands Micah Vogel, OD 08/04/2019 Z96.1 Presence of intraocular lens Micah Vogel, OD Plan of Treatment 08/04/2019 - Micah Vogel, ODH43.813 Vitreous degeneration, pqnglrmooY50.013 Open angle with borderline findings, low risk, pmhbfdatdQ14.4 PfkgwxppxyW73.123 Dry eye syndrome of bilateral lacrimal fgsxhzJ64.1 Presence of intraocular lensFollow up:yearly full, sooner PRN Functional Status Description No Information Available Mental Status Description No Information Available Referrals Description No Information Available
--- OUTSIDE RECORDS SUMMARY | 2019-09-15 14:25 | XMS REPORT | Continuity of Care Document ---
:1940 External Reference #:[id number] Author Name Mee Rodríguez MD (transmitted by agent of provider Annette Haynes) Address [address] , [address] [address] Care Team Providers Name Role Phone Boris Romano MD - Care Team Information Bul[facility] Sealer [phone] Ophthalmology Romelia Edge MD - Internal Care Team Information Bulk Sealer Medicine Crystal Bose MD - Dermatology Care Team Information Bulk Sealer [facility] Care Team Information Bulk Sealer Cherelle Palma MD - Care Team Information Bulk Sealer [phone] Obstetrics & Gynecology Problems Active Problems Provider [...] to second hand smoke. Smoking Status Reviewed: 08/17/19 Not exposed to second hand smoke. Exercise Type/Frequency Does not exercise Allergies, Adverse Reactions, Alerts Active Allergies Reaction Severity Comments Date Penicillin rash Moderate 03/28/2010 Sulfa Urticaria Severe 03/28/2010 Nickel 09/21/2017 Medications Active Medications SIG Qnty Indications Ordering Date Provider Amlodipine Besylate 1 tab by mouth 30tabs Mohammad A. 5mg Tablets once a day MD Marcos 0 Furosemide Take 1 tab by 60tabs [facility]. 20mg Tablets mouth twice daily MD Marcos 0 for 4 days, and by Monday 08/21 take 1 tablet by mouth every morning Metoprolol Succinate ER 1 tablet by mouth 90tabs N12 [facility]. 100mg every day at MD Marcos 0 Tablets ER 24HR bedtime Ferrousul 1 tab by mouth 3 45tabs N17.9 [facility]. 325(65Fe) mg Tablets times a week MD Marcos 9 Senna Plus take 2 tablets by 60tabs K59.00 [place] 8.6-50mg Tablets mouth as needed Varn, N.P. 9 for constipation Clonazepam take 1/2 to 1 30tabs F41.9 Krystal 0.5mg Tablets tablet as needed Varn, N.P. 9 anxiety and sleep Vitamin D-3 1 po qd 90tabs Unknown 1000Unit Tablets 0 Nucynta 1-2 by mouth four Unknown 50mg Tablets times a day as 0 needed pain Thera Tears Unknown 0 Sodium 0.25% in both Unknown Carboxymethylcellulose eyes daily 0 Medium Viscosity Powder Vitamin B 12 1 by mouth every Unknown 500mcg Tablets day 0 History Medications Amlodipine Besylate take 1 tablet by 90Tablet Marcammad A. 07/15/2019 - 10mg mouth daily at MD Marcos 08/17/2019 Tablets bedtime Furosemide 1 tab by mouth 3 90tabs [facility]. 07/12/2019 - 20mg Tablets times a week, mw MD Marcos 08/17/2019 Prednisone 1 tab PO every 7tabs [facility]. 07/01/2019 - 5mg Tablets day X 1 week MD Marcos 08/16/201907/23-07/29 Prednisone 1 tab PO every 7tabs Mohammad A. 07/01/2019 - 10mg Tablets day x 1 week MD Marcos 08/16/201907/16- Prednisone 2 tablets by 14tabs Mee Denise. 07/01/2019 - 10mg Tablets mouth daily with MD Marcos 08/16/2019 food x 1 week 07/09- Prednisone 3 tabs by mouth 21tabs Marcammad A. 07/01/2019 - 10mg Tablets every day x 1 MD Marcos 07/12/2019 week 07/02- Amlodipine Besylate 1 tablet by mouth 90tabs Marcammad A. 06/20/2019 - 10mg at bedtime MD Marcos 07/14/2019 Tablets Metoprolol Succinate ER 1 tab by mouth 30tabs N12 Marcammad A. 05/11/2019 - every day at MD Marcos 07/12/2019 50mg Tablets ER 24HR bedtime Metoprolol Succinate ER 1 tab by mouth 30tabs N12 Marcammad A. 05/06/2019 - daily at bedtime MD Marcos 05/11/2019 25mg Tablets ER 24HR Prednisone 2 tabs daily: 60tabs Marcammad A. 05/03/2019 - 20mg Tablets total 40 mg by MD Marcos 05/03/2019 mouth daily for 8 weeks Mepron 1500 mg by mouth 300ml [facility]. 05/03/2019 - 750mg/5ML Suspension daily/10 ml daily MD Marcos 05/03/2019 Prednisone 4 tabs by mouth 120tabs Marcammad A. 05/03/2019 - 10mg Tablets every day [...] rectum bid prn N.P. 03/02/2019 Suppository nausea Immunizations CPT Code Status Date Vaccine Reaction Lot # [id number] Given 12/13/2018 Pneumonia Vaccine no immediate reaction [id number] noted. dg 04205 Given 12/11/2017 Tetanus And Diptheria (Td) No immediate [id number] For Adult Use Preservative reaction..jh Free Q2039 Given 04/17/2015 Flu Vaccine NOS 66205 Given 12/01/2014 Pneumococcal Conjugate [id number] Vaccine 13 Valent For Intramuscular Use 57227 Given 03/23/2013 Fluzone High Dose 32149 Given 04/07/2012 Fluzone High Dose 38017 Given 10/02/2011 Zoster (Zostavax) [id number] Q2038 Given 04/04/2011 Fluzone Vaccine 23695 Given 07/05/2009 Influenza Virus 3Yrs & Over Vital Signs Date Vital Result Comment 08/17/2019 3:42pm Height 63 inches 5'3" Weight 116.00 lb Heart Rate 80 /min BP Systolic Sitting 116 mmHg L arm BP Diastolic Sitting 71 mmHg L arm O2 % BldC Oximetry 96 % BMI (Body Mass Index) 20.5 kg/m2 07/20/2019 11:35am Height 63 inches 5'3" Weight 111.00 lb BMI (Body Mass Index) 19.7 kg/m2 Results Test Acquired Date Facility Test Result H/L Range Note CBC Auto 08/17/2019 [facility] White Blood 6.4 10^3/uL Normal 3.5-10.[address] [place] [address] [phone] Red Blood Count 3.39 10^6/uL Low 3.70-4.87 [...] % Nucleated Red Blood Cells % 0.1 Basic Metabolic 08/17/2019 [facility] Sodium 136 mmol/L Normal 135-145 [place] [address] [phone] Potassium 4.3 mmol/L Normal 3.5-5.0 Chloride 103 mmol/L Normal 101-111 Co2 Carbon Dioxide 26 mmol/L Normal 22-32 Anion Gap 7 mmol/L Normal 2-11 Glucose 91 mg/dL Normal 70-100 Blood Urea Nitrogen 21 mg/dL Normal 6-24 Creatinine 1.48 mg/dL High 0.51-0.95 BUN/Creatinine Ratio 14.2 Normal 8-20 Calcium 9.1 mg/dL Normal 8.6-10.3 Egfr Non- 34.0 >60 Egfr 41.2 >60 1 Urinalysis Profile 08/17/2019 [facility] [place] [address] [phone] Urine Appearance Cloudy Urine Specific [place] 1.014 Normal 1.010-1.030 Urine pH 6.0 Normal 5-9 Urine Urobilinogen Negative Negative Urine Ketones Negative Negative Urine Protein Negative Negative Urine Leukocytes Negative Negative Urine Blood Negative Negative Urine Nitrite Negative Negative Urine Bilirubin Negative Negative Urine Glucose Negative Negative Laboratory test 08/17/2019 [facility] Albumin 3.9 g/dL Normal 3.2-5.[address] [place] [address] [phone] Urine Culture 07/19/2019 [facility] Urine Culture SEE [address] [place] [address] BELOW [phone] Manual 07/19/2019 [facility] Immature 10.0 % High 0-9 Differential [facility] [place] [address] [phone] Neutrophil % 78.0 % Band % 10.0 % High 0-8 Lymphocytes % 8.0 % Monocytes % 4.0 % Toxic Granulation 1+ Laboratory test 07/19/2019 [facility] B-Type 92 pg/mL <=[address] [place] [address] Peptide BNP [phone] Urinalysis 07/19/2019 [facility] Urine Color Yellow Profile [address] [place] [address] [phone] Urine Appearance Clear Urine Specific [place] 1.010 Normal 1.010-1.030 Urine pH 6.0 Normal 5-9 Urine Urobilinogen Negative Negative Urine Ketones Negative Negative Urine Protein Negative Negative Urine Leukocytes Trace Abnormal Negative Urine Blood Negative Negative Urine Nitrite Negative Negative Urine Bilirubin Negative Negative Urine Glucose Negative Negative Urine White Blood Cell Trace(0-5/hpf) Absent Urine Red Blood Cell Trace(0-2/hpf) Absent Urine Bacteria Absent Absent Urine Hyaline Casts Present Abnormal Absent Basic Metabolic 07/19/2019 [facility] Sodium 132 mmol/L Low 135-[address] [place] [address] [phone] Potassium 4.8 mmol/L Normal 3.5-5.0 Chloride 97 mmol/L Low 101-111 Co2 Carbon Dioxide 27 mmol/L Normal 22-32 Anion Gap 8 mmol/L Normal 2-11 Glucose 88 mg/dL Normal 70-100 Blood Urea Nitrogen 28 mg/dL High 6-24 Creatinine 2.06 mg/dL High 0.51-0.95 BUN/Creatinine Ratio 13.6 Normal 8-20 Calcium 9.0 mg/dL Normal 8.6-10.3 Egfr Non- 23.2 >60 Egfr 28.1 >60 3 CBC Auto 07/19/2019 [facility] White Blood 9.6 10^3/uL Normal 3.5-10.[address] [place] [address] [phone] Red Blood Count 3.90 10^6/uL Normal 3.70-4.87 [...] Red Blood Cells % 0.0 Neph Routine 07/19/2019 [facility] Total Protein Random 12 mg/ dL [address] [place] [address] [phone] Creatinine Random Urine 121.42 mg/dL Laboratory test 07/19/2019 [facility] Albumin 3.8 g/dL Normal 3.2-5.[address] [place], [place] [address] [phone] Neph Routine 07/12/2019 [facility] Total 15 mg/dL [address] [place] [address] Random Urine [phone] Creatinine Random Urine 48.15 mg/dL CBC Auto 07/12/2019 [facility] White Blood 11.2 10^3/uL High 3.5-10.[address] [place] [address] [phone] Red Blood Count 3.75 10^6/uL Normal 3.70-4.87 [...] Red Blood Cells % 0.0 Basic Metabolic 07/12/2019 [facility] Sodium 135 mmol/L Normal 135-145 Panel [address] [place] [address] [phone] Potassium 4.1 mmol/L Normal 3.5-5.0 Chloride 101 mmol/L Normal 101-111 Co2 Carbon Dioxide 25 mmol/L Normal 22-32 Anion Gap 9 mmol/L Normal 2-11 Glucose 110 mg/dL High 70-100 Blood Urea Nitrogen 25 mg/dL High 6-24 Creatinine 1.56 mg/dL High 0.51-0.95 BUN/Creatinine Ratio 16.0 Normal 8-20 Calcium 9.0 mg/dL Normal 8.6-10.3 Egfr Non- 32.0 >60 Egfr 38.7 >60 5 Urinalysis Profile 07/12/2019 [facility] Urine Color Straw [address] [place] [address] [phone] Urine Appearance Clear Urine Specific [place] 1.005 Low 1.010-1.030 Urine pH 6.0 Normal 5-9 Urine Urobilinogen Negative Negative Urine Ketones Negative Negative Urine Protein Negative Negative Urine Leukocytes Negative Negative Urine Blood 1+ Abnormal Negative Urine Nitrite Negative Negative Urine Bilirubin Negative Negative Urine Glucose Negative Negative Urine White Blood Cell Absent Absent Urine Red Blood Cell Trace(0-2/hpf) Absent Urine Bacteria Absent Absent Iron & Iron Binding 07/12/2019 [facility] Iron 62 g/dL Normal 50-212 Capacity [address] [place] [address] [phone] Unsaturated Iron Binding < 301 g/dL Total Iron Binding Capacity 316 g/dL Normal 250-450 Transferrin 226 mg/dL Normal 203-362 % Iron Saturation 20 % Normal 15-55 Laboratory test 07/12/2019 [facility] Ferritin 329.9 ng/mL High 11-307 finding [address] [place] [address] [phone] Albumin 3.8 g/dL Normal 3.2-5.2 Magnesium 2.1 mg/dL Normal 1.9-2.7 Urine Culture And 06/30/2019 [facility] Urine Culture SEE RESULT [address] [place] [address] [phone] Laboratory test 06/30/2019 [facility] Magnesium 2.5 mg/dL Normal 1.9- finding [address] 2.7 [place] [address] [phone] Urinalysis Profile 06/30/2019 [facility] Urine Color Yellow [address] [place] [address] [phone] Urine Appearance Clear Urine Specific [place] 1.012 Normal 1.010-1.030 Urine pH 6.0 Normal 5-9 Urine Urobilinogen Negative Negative Urine Ketones Negative Negative Urine Protein Negative Negative Urine Leukocytes Trace Abnormal Negative Urine Blood Negative Negative Urine Nitrite Negative Negative Urine Bilirubin Negative Negative Urine Glucose Negative Negative Urine White Blood Cell Trace(0-5/hpf) Absent Urine Red Blood Cell Absent Absent Urine Bacteria Absent Absent Basic Metabolic 06/30/2019 [facility] Sodium 132 mmol/L Low 135-[address] [place] [address] [phone] Potassium 4.7 mmol/L Normal 3.5-5.0 Chloride 98 mmol/L Low 101-111 Co2 Carbon Dioxide 28 mmol/L Normal 22-32 Anion Gap 6 mmol/L Normal 2-11 Glucose 92 mg/dL Normal 70-100 Blood Urea Nitrogen 33 mg/dL High 6-24 Creatinine 1.74 mg/dL High 0.51-0.95 BUN/Creatinine Ratio 19.0 Normal 8-20 Calcium 9.1 mg/dL Normal 8.6-10.3 Egfr Non- 28.2 >60 Egfr 34.2 >60 7 CBC Auto 06/30/2019 [facility] White Blood 12.7 10^3/uL High 3.5-10.[address] [place] [address] [phone] Red Blood Count 3.85 10^6/uL Normal 3.70-4.87 [...] Blood Cells % 0.0 Neph Routine 06/30/2019 [facility] Total Protein Random 24 mg/ dL [address] [place] [address] [phone] Creatinine Random Urine 105.50 mg/dL Neph Routine 05/26/2019 [facility] Total Protein Random 9 mg/dL [address] [place] [address] [phone] Creatinine Random Urine 37.17 mg/dL CBC Auto 05/26/2019 [facility] White Blood 9.8 10^3/uL Normal 3.5-10.[address] [place] [address] [phone] Red Blood Count 3.72 10^6/uL Normal 3.70-4.87 [...] Blood Cells % 0.0 Basic Metabolic 05/26/2019 [facility] Sodium 134 mmol/L Low 135-[address] [place] [address] [phone] Potassium 4.5 mmol/L Normal 3.5-5.0 Chloride 102 mmol/L Normal 101-111 Co2 Carbon Dioxide 23 mmol/L Normal 22-32 Anion Gap 9 mmol/L Normal 2-11 Glucose 105 mg/dL High 70-100 Blood Urea Nitrogen 36 mg/dL High 6-24 Creatinine 1.71 mg/dL High 0.51-0.95 BUN/Creatinine Ratio 21.1 High 8-20 Calcium 9.1 mg/dL Normal 8.6-10.3 Egfr Non- 28.8 >60 Egfr 34.8 >60 8 Urinalysis Profile 05/26/2019 [facility] Urine Color Straw [address] [place] [address] [phone] Urine Appearance Clear Urine Specific [place] 1.005 Low 1.010-1.030 Urine pH 6.0 Normal 5-9 Urine Urobilinogen Negative Negative Urine Ketones Negative Negative Urine Protein Negative Negative Urine Leukocytes Trace Abnormal Negative Urine Blood Negative Negative Urine Nitrite Negative Negative Urine Bilirubin Negative Negative Urine Glucose Negative Negative Urine White Blood Cell Trace(0-5/hpf) Absent Urine Red Blood Cell Trace(0-2/hpf) Absent Urine Bacteria Absent Absent Urine Culture And 05/26/2019 [facility] Urine Culture SEE RESULT [address] [place] [address] [phone] Urine Culture And 05/10/2019 [facility] Urine Culture SEE RESULT [address] [place] [address] [phone] Laboratory test 05/10/2019 [facility] Miscellaneous Test See Comment [address] [place] [address] [phone] Magnesium 2.1 mg/dL Normal 1.9-2.7 Urinalysis Profile 05/10/2019 [facility] Urine Color Yellow [address] [place] [address] [phone] Urine Appearance Clear Urine Specific [place] 1.011 Normal 1.010-1.030 Urine pH 6.0 Normal 5-9 Urine Urobilinogen Negative Negative Urine Ketones Negative Negative Urine Protein Negative Negative Urine Leukocytes 1+ Abnormal Negative Urine Blood Negative Negative Urine Nitrite Negative Negative Urine Bilirubin Negative Negative Urine Glucose Negative Negative Urine White Blood Cell Trace(0-5/hpf) Absent Urine Red Blood Cell Trace(0-2/hpf) Absent Urine Bacteria Absent Absent Basic Metabolic 05/10/2019 [facility] Sodium 133 mmol/L Low 135-[address] [place] [address] [phone] Potassium 4.4 mmol/L Normal 3.5-5.0 Chloride 102 mmol/L Normal 101-111 Co2 Carbon Dioxide 24 mmol/L Normal 22-32 Anion Gap 7 mmol/L Normal 2-11 Glucose 184 mg/dL High 70-100 Blood Urea Nitrogen 36 mg/dL High 6-24 Creatinine 1.76 mg/dL High 0.51-0.95 BUN/Creatinine Ratio 20.5 High 8-20 Calcium 9.4 mg/dL Normal 8.6-10.3 Egfr Non- 27.9 >60 Egfr 33.7 >60 12 CBC Auto 05/10/2019 [facility] White Blood 8.7 10^3/uL Normal 3.5-10.[address] [place] [address] [phone] Red Blood Count 3.42 10^6/uL Low 3.70-4.87 [...] Red Blood Cells % 0.0 Neph Routine 05/10/2019 [facility] Total Protein Random 24 mg/ dL [address] [place] [address] [phone] Creatinine Random Urine 75.32 mg/dL Neph Routine 05/05/2019 [facility] Total Protein Random 17 mg/ dL [address] [place] [address] [phone] Creatinine Random Urine 63.74 mg/dL CBC Auto 05/05/2019 [facility] White Blood 6.3 10^3/uL Normal 3.5-10.[address] [place] [address] [phone] Red Blood Count 3.32 10^6/uL Low 3.70-4.87 [...] Blood Cells % 0.0 Basic Metabolic 05/05/2019 [facility] Sodium 132 mmol/L Low 135-[address] [place] [address] [phone] Potassium 4.3 mmol/L Normal 3.5-5.0 Chloride 102 mmol/L Normal 101-111 Co2 Carbon Dioxide 24 mmol/L Normal 22-32 Anion Gap 6 mmol/L Normal 2-11 Glucose 105 mg/dL High 70-100 Blood Urea Nitrogen 26 mg/dL High 6-24 Creatinine 1.63 mg/dL High 0.51-0.95 BUN/Creatinine Ratio 16.0 Normal 8-20 Calcium 9.2 mg/dL Normal 8.6-10.3 Egfr Non- 30.4 >60 Egfr 36.8 >60 13 Urinalysis Profile 05/05/2019 [facility] Urine Color Yellow [address] [place] [address] [phone] Urine Appearance Clear Urine Specific [place] 1.008 Low 1.010-1.030 Urine pH 6.0 Normal 5-9 Urine Urobilinogen Negative Negative Urine Ketones Negative Negative Urine Protein Negative Negative Urine Leukocytes 1+ Abnormal Negative Urine Blood 1+ Abnormal Negative Urine Nitrite Negative Negative Urine Bilirubin Negative Negative Urine Glucose Negative Negative Urine White Blood Cell Trace(0-5/hpf) Absent Urine Red Blood Cell 1+(3-5/hpf) Abnormal Absent Urine Bacteria Absent Absent Urine Culture And 05/05/2019 [facility] Urine Culture SEE RESULT [address] [place] [address] [phone] Surgical Pathology 04/27/2019 [facility] Surgical SEE RESULT [address] [place] [address] [phone] PDFReport SEE IMAGE Urine Culture And 04/07/2019 [facility] Urine SEE RESULT [address] [place] [address] [phone] Iron & Iron 04/07/2019 [facility] Iron 73 g/dL Normal 50-2 Binding Capacity [address] [place] [address] [phone] Unsaturated Iron Binding < 290 g/dL Total Iron Binding Capacity 305 g/dL Normal 250-450 Transferrin 218 mg/dL Normal 203-362 % Iron Saturation 24 % Normal 15-55 Laboratory test 04/07/2019 [facility] Albumin 4.0 g/dL Normal 3.2-5.[address] [place] [address] [phone] Ferritin 371.3 ng/mL High 11-307 Urinalysis Profile 04/07/2019 [facility] Urine Color Yellow [address] [place] [address] [phone] Urine Appearance Cloudy Urine Specific [place] 1.014 Normal 1.010-1.030 Urine pH 6.0 Normal [...] Absent Urine Granular Casts Present Abnormal Absent Basic Metabolic 04/07/2019 [facility] Sodium 132 mmol/L Low 135-145 Panel [address] [place] [address] [phone] Chloride 103 mmol/L Normal 101-111 Co2 Carbon Dioxide 23 mmol/L Normal 22-32 Glucose 107 mg/dL High 70-100 Blood Urea Nitrogen 28 mg/dL High 6-24 Creatinine 2.21 mg/dL High 0.51-0.95 BUN/Creatinine Ratio 12.7 Normal 8-20 Calcium 9.4 mg/dL Normal 8.6-10.3 Egfr Non- 21.4 >60 Egfr 25.9 >60 17 Potassium 5.1 mmol/L High 3.5-5.0 Anion Gap 6 mmol/L Normal 2-11 CBC Auto 04/07/2019 [facility] White Blood 6.7 10^3/uL Normal 3.5-10.[address] [place] [address] [phone] Red Blood Count 3.43 10^6/uL Low 3.70-4.87 [...] Red Blood Cells % 0.0 Neph Routine 04/07/2019 [facility] Total Protein Random 55 mg/ dL [address] [place] [address] [phone] Creatinine Random Urine 157.71 mg/dL Neph Routine 03/25/2019 [facility] Total Protein Random 41 mg/ dL [address] [place] [address] [phone] Creatinine Random Urine 95.75 mg/dL CBC Auto 03/25/2019 [facility] White Blood 5.2 10^3/uL Normal 3.5-10.[address] [place] [address] [phone] Red Blood Count 3.43 10^6/uL Low 3.70-4.87 [...] Blood Cells % 0.0 Urine Culture 03/25/2019 [facility] Urine Culture SEE RESULT [address] [place] [address] [phone] HIV 1&2 p24 03/25/2019 [facility] HIV 4th Nonreactive Nonreactive Screen [address] [place] [address] [phone] Phospholipase 03/25/2019 [facility] Phospholipase Negative Negative 19 A2 Receptor AB [address] A2 [place] [address] [phone] Phospholipase A2 ReceptorELISA <2 RU/mL 20 Protein 03/25/2019 [facility] Total 7.8 g/dL 6.3 - Electrophoresis [address] Protein(Pep) 7.9 [place] [address] [phone] Albumin 3.4 g/dL 3.4-4.7 Alpha-1 Globulin 0.3 g/dL 0.1-0.3 Alpha-2 Globulin 1.2 g/dL Abnormal 0.6-1.0 Beta Globulin 1.1 g/dL 0.7-1.2 Gamma Globulin 1.8 g/dL Abnormal 0.6-1.6 Albumin/Globulin Ratio 0.76 Impression See Comment 21 Basic Metabolic 03/25/2019 [facility] Sodium 132 mmol/L Low 135-[address] [place] [address] [phone] Potassium 4.4 mmol/L Normal 3.5-5.0 Chloride 100 mmol/L Low 101-111 Co2 Carbon Dioxide 24 mmol/L Normal 22-32 Anion Gap 8 mmol/L Normal 2-11 Glucose 90 mg/dL Normal 70-100 Blood Urea Nitrogen 28 mg/dL High 6-24 Creatinine 2.11 mg/dL High 0.51-0.95 BUN/Creatinine Ratio 13.3 Normal 8-20 Calcium 9.4 mg/dL Normal 8.6-10.3 Egfr Non- 22.6 >60 Egfr 27.3 >60 22 Urinalysis Profile 03/25/2019 [facility] Urine Color Yellow [address] [place] [address] [phone] Urine Appearance Clear Urine Specific [place] 1.011 Normal 1.010-1.030 Urine pH 6.0 Normal 5-9 Urine Urobilinogen Negative Negative Urine Ketones Negative Negative Urine Protein Negative Negative Urine Leukocytes 3+ Abnormal Negative Urine Blood Negative Negative Urine Nitrite Negative Negative Urine Bilirubin Negative Negative Urine Glucose Negative Negative Urine White Blood Cell 3+(>20/hpf) Abnormal Absent Urine Red Blood Cell Absent Absent Urine Bacteria 1+ Abnormal Absent GN Serology 03/25/2019 [facility] Anti Double Stranded <12.3 IU/ mL [address] [place] [address] [phone] Complement C3 120 mg/dL 75 - 175 24 Complement C4 42 mg/dL Abnormal 14 - 40 25 Glomerular Basement Membrane <0.2 U 26 Anti Nuclear Antibody 0.4 U 27 Myeloperoxidase AB <0.2 U 28 Proteinase 3 <0.2 U 29 Hepatitis B Surface Ag Nonreactive Nonreactive Hepatitis B Core AB Total Negative Negative 30 Histone Antibody <0.5 U 31 Rheumatoid Factor < 10 IU/mL Normal <15 Erythrocyte Sed Rate 58 mm/Hr High 0-29 C Reactive Protein 2.41 mg/L Normal <8.01 Hepatitis B Alexandr AB Titer Immune Immune [place]/Lambda Free 03/25/2019 [facility] [place] Free 4.22 mg/dL Abnormal [address] Ser [address] [place] [address] [phone] Lambda Free Light Chain 3.33 mg/dL Abnormal 33 [place]/Lambda Free Light Chain 1.27 34 Cryoglobulin & 03/25/2019 [facility] Cryoglobulin Negative Negative [address] %[place] [address] [phone] Cryofibrinogen Negative Negative 36 Neutrophil Cytoplasmic 03/25/2019 [facility] C-Anca Negative Negative AB [address] [place] [address] [phone] P-Anca Negative Negative 37 Hepatitis C Antibody 03/25/2019 [facility] HCV Index 0.02 s/c [address] [place] [address] [phone] Hepatitis C Antibody Negative Negative Urine Culture And 03/14/2019 [facility] Urine Culture SEE RESULT [address] [place] [address] [phone] Urinalysis Profile 03/14/2019 [facility] Urine Color Yellow [address] [place] [address] [phone] Urine Appearance Cloudy Urine Specific [place] 1.012 Normal 1.010-1.030 Urine pH 6.0 Normal [...] Bacteria Absent Absent Vitamin B12 03/14/2019 [facility] Vitamin B12 227 pg/mL Normal 180-914 39 And Folate [address] [place] [address] [phone] Folic Acid (Folate) > 20.00 ng/mL >3.99 Laboratory test 03/14/2019 [facility] Magnesium 1.8 mg/dL Low 1.9-2.[address] [place] [address] [phone] CBC Auto Diff 03/14/2019 [facility] White Blood 8.8 Normal 3.5 -10.[address] Count 10^3/[place] [address] [phone] Red Blood Count 3.61 10^6/uL Low 3.70-4.87 [...] Cells % 0.0 Laboratory test 03/14/2019 [facility] Erythrocyte Sed 59 mm/Hr High 0-[address] [place] [address] [phone] C Reactive Protein 4.13 mg/L Normal <8.01 Protein 03/14/2019 [facility] Immunofixation See Comment [address] [place] [address] [phone] Total Protein(Pep) 7.2 g/dL 6.3 - 7.9 Albumin 3.3 g/dL Abnormal 3.4-4.7 Alpha-1 Globulin 0.3 g/dL 0.1-0.3 Alpha-2 Globulin 1.1 g/dL Abnormal 0.6-1.0 Beta Globulin 1.0 g/dL 0.7-1.2 Gamma Globulin 1.6 g/dL 0.6-1.6 Albumin/Globulin Ratio 0.83 Impression See Comment 41 Iron & Iron Binding 03/14/2019 [facility] Iron 68 g/dL Normal 50-[address] [place] [address] [phone] Unsaturated Iron Binding < 243 g/dL Total Iron Binding Capacity 258 g/dL Normal 250-450 Transferrin 184 mg/dL Low 203-362 % Iron Saturation 26 % Normal 15-55 Laboratory test 03/14/2019 [facility] Ferritin 371.0 High 11- [address] ng/[place] [address] [phone] CBC Auto Diff 02/18/2019 [facility] White Blood 9.0 Normal 3.5 -10.[address] Count 10^3/[place] [address] [phone] Red Blood Count 3.87 10^6/uL Normal 3.70-4.87 [...] Cells % 0.0 Laboratory test 02/18/2019 [facility] Lactic Acid 1.0 mmol/L Normal 0.5-2.0 42 finding [address] [place] [address] [phone] Comp Metabolic 02/18/2019 [facility] Sodium 135 mmol/L Normal 135-145 Panel [address] [place] [address] [phone] Potassium 4.7 mmol/L Normal 3.5-5.0 Chloride 106 [...] Egfr Non- 17.4 >60 Egfr 21.1 >60 43 Laboratory test 02/18/2019 [facility] Magnesium 1.7 mg/dL Low 1.9-2.[address] [place] [address] [phone] Lipase 32 U/L Normal 11.0-82.0 Creatine Kinase(CK) 31 U/L Normal 10-223 C Reactive Protein 37.45 mg/L High <8.01 Partial Thrombo Time PTT 29.1 seconds Normal 26.0-38.0 Urinalysis Profile 02/18/2019 [facility] Urine Color Straw [address] [place] [address] [phone] Urine Appearance Cloudy Urine Specific [place] 1.004 Low 1.010-1.030 Urine pH 7.0 Normal [...] Bacteria Absent Absent Urine Culture And 02/18/2019 [facility] Urine Culture SEE RESULT [address] [place] [address] [phone] Total Protein 24HR 02/18/2019 [facility] Urine Collection 24 hr Urine [address] [place] [address] [phone] Urine Total Volume 2300 mL Urine TP Concentration 27 mg/dL Urine Total Protein/24HR 621 mg/24Hr High 0-165 Creatinine 02/18/2019 [facility] Creatinine, 2.73 High 0.51- 0.[address] Serum mg/[place] [address] [phone] Urine Collection Time 24 hr Urine Total Volume 2300 mL Urine Creatinine Concentration 32.39 mg/dL Creatinine Clearance 19 mL/min Low 88-128 Creatinine 02/16/2019 [facility] Creatinine 2.19 mg/dL High 0.51-0.[address] [place] [address] [phone] Egfr Non- 21.6 >60 Egfr 26.2 >60 45 1 Because ethnic data is not always [...] [address]: Mee Rodríguez MD Acct: [id number] Unit: [id number] AGE: 78 Location: [facility] Re07/19/19 SEX: F Status: REG REF SPEC: [id number] IMELDA: 07/19/[address]: Mee Rodríguez MD REQ: [id number] RECD: 07/19/19 STATUS: COMP _ SOURCE: URINE SPDESC: ORDERED: Urine Culture Procedure Result Reported Site Urine Culture Final 07/21/19- 1011 ML No growth of clinically significant organisms * ML - Main Lab . END OF REPORT DEPARTMENT OF PATHOLOGY, [address] [place] [address] Biju Freeman M.D. Director [facility] # [id number] 3 Because ethnic data is not always [...] [address]: Mee Rodríguez MD Acct: [id number] Unit: [id number] AGE: 78 Location: [facility] Re06/30/19 SEX: F Status: REG REF SPEC: [id number] IMELDA: 06/30/[address]: Mee Rodríguez MD REQ: [id number] RECD: 06/30/19 STATUS: COMP _ SOURCE: URINE SPDESC: ORDERED: Urine Culture Procedure Result Reported Site Urine Culture Final 07/02/19- 1032 ML No Growth (<1,000 CFU/mL) * ML - Main Lab . END OF REPORT DEPARTMENT OF PATHOLOGY, [address] [place] [address] Biju Freeman M.D. Director [facility] # [id number] 7 Because ethnic data is not always [...] 5 Kidney failure <15 (or dialysis) 8 Because ethnic data is not always [...] 5 Kidney failure <15 (or dialysis) 9 SEE RESULT BELOW Name: ZAMZAM GONZALEZ : [address]: Mee Rodríguez MD Acct: [id number] Unit: [id number] AGE: 78 Location: [facility] Re05/26/19 SEX: F Status: REG REF SPEC: [id number] IMELDA: 05/26/[address]: Mee Rodríguez MD REQ: [id number] RECD: 05/26/19 STATUS: COMP _ SOURCE: URINE SPDESC: ORDERED: Urine Culture Procedure Result Reported Site Urine Culture Final 05/27/19- 1550 ML No Growth (<1,000 CFU/mL) * ML - Main Lab . END OF REPORT DEPARTMENT OF PATHOLOGY, [address] [place] [address] Biju rFeeman M.D. Director [facility] # [id number] 10 SEE RESULT BELOW Name: ZAMZAM GONZALEZ : [address]: Mee Rodríguez MD Acct: [id number] Unit: [id number] AGE: 78 [facility] SEX: F Status: REG REF SPEC: [id number] IMELDA: 05/10/[address]: Mee Rodríguez MD REQ: [id number] RECD: 05/10/19 STATUS:COMP _ SOURCE: URINE SPDESC: ORDERED: Urine Culture Procedure Result Reported Site Urine Culture Final 05/11/19- 1416 ML No Growth (<1,000 CFU/mL) * ML - Main Lab . END OF REPORT DEPARTMENT OF PATHOLOGY, [address] [place] [address] Biju Freeman M.D. Director [facility] # [id number] 11 Test Result Flag Unit RefValue Immunoglobulin Subclass 17.4 mg/dL IgG4, S REFERENCE VALUE 2.4 - 121.0 Test Performed by: [facility] [address] [place] [address] Autism Tutor: Ilya Faulkner M.D. Ph.D.; CLIA# [id number] 12 Because ethnic data is not always [...] 5 Kidney failure <15 (or dialysis) 14 SEE RESULT BELOW Name: ZAMZAM GONZALEZ : [address]: Mee Rodríguez MD Acct: [id number] Unit: [id number] AGE: 78 Location: [facility] Re05/05/19 SEX: F Status: REG REF SPEC: [id number] IMELDA: 05/05/19-1111 [facility] DR: Mee Rodríguez MD REQ: [id number] RECD: 05/05/19-1111 STATUS:COMP _ SOURCE: URINE SPDESC: ORDERED: Urine Culture Procedure Result Reported Site Urine Culture Final 05/06/19- 1258 ML No Growth (<1,000 CFU/mL) * ML - Main Lab . END OF REPORT DEPARTMENT OF PATHOLOGY, [address] [place] [address] Biju Freeman M.D. Director [facility] # [id number] 15 SEE RESULT BELOW Name: ZAMZAM GONZALEZ : [address]: Mee Rodríguez MD Acct: [id number] Unit: [id number] AGE: 78 Location: Re04/27/19 SEX: F Status: REG REF SPEC: [id number] IMELDA: 04/27/[address]: Mee Rodríguez MD REQ: [id number] RECD: 04/27/19 STATUS: SOUT _ ORDERED: PTH HANDLING CH, LEVEL 1, INTRAOP CON-GR ADDENDUM Consultation with Candi Grady at [facility], [place], [place], outside accession number [id number], our surgical number [id number]. The consultation reveals: / / / / (Original consultation report scanned into Pathology Consults.) Addendum Signed (signature on file) Mony Parker MD 1458 FINAL DIAGNOSIS Kidney, left, biopsy: Pending diagnosis from [facility] Renal Pathology. PRE-OPERATIVE DIAGNOSIS Rule out ischemic nephropathy CONTINUED ON NEXT PAGE DEPARTMENT OF PATHOLOGY, [address] [place] [address] Biju Freeman M.D. Director [facility] # [id number] GROSS DESCRIPTION The specimen is received fresh labeled, Left Kidney, and consists of four tejada -pink soft tissue cores ranging from 0.2 x 0.1 cm to 1.2 x 0.1 cm admixed with scant red -brown blood clot. The specimen is entirely submitted to [facility] for renal analysis. Per established hospital medical staff protocol, no tissue is submitted. Gross only. Signed by and Reported on: Mony Parker MD 04/27/19 1115 END OF REPORT DEPARTMENT OF PATHOLOGY, [address] [place] [address] Biju Freeman M.D. Director [facility] # [id number] 16 SEE RESULT BELOW Name: ZAMZAM GONZALEZ : [address]: Mee Rodríguez MD Acct: [id number] Unit: [id number] AGE: 78 Location: [facility] Re04/07/19 SEX: F Status: REG REF SPEC: [id number] IMELDA: 04/07/[address]: Mee Rodríguez MD REQ: [id number] RECD: 04/07/19 STATUS: COMP _ SOURCE: URINE SPDESC: ORDERED: Urine Culture Procedure Result Reported Site Urine Culture Final 04/08/19- 1224 ML No Growth (<1,000 CFU/mL) * ML - Main Lab . END OF REPORT DEPARTMENT OF PATHOLOGY, [address] [place] [address] Biju Freeman M.D. Director [facility] # [id number] 17 Because ethnic data is not always readily [...] 15-29 5 Kidney failure <15 (or dialysis) 18 SEE RESULT BELOW Name: ZAMZAM GONZALEZ : [address]: Mee Rodríguez MD Acct: [id number] Unit: [id number] AGE: 78 Location: LAB Re03/25/19 SEX: F Status: REG REF SPEC: [id number] IMELDA: 03/25/191232 SUBM DR: Mee Rodríguez MD REQ: [id number] RECD: 03/25/19 STATUS: COMP _ SOURCE: URINE SPDESC: ORDERED: Urine Culture Procedure Result Reported Site Urine Culture Final 03/26/19- 1245 ML No Growth (<1,000 CFU/mL) * - [facility] . END OF REPORT DEPARTMENT OF PATHOLOGY, [address] [place] [address] Biju Freeman M.D. Director [facility] # [id number] 19 ADDITIONAL INFORMATION This test was developed and its performance characteristics determined by [facility] in a manner consistent with CLIA requirements. This test has not been cleared or approved by the U.S. Food and Drug Administration. 20 REFERENCE VALUE <14 RU/mL: Negative 14-19 RU/mL: Borderline >19 RU/mL: Positive Test Performed by: [place] [address] Autism Tutor: Ilya Faulkner M.D. Ph.D.; CLIA# [id number] 21 RESULT: Polyclonal hypergammaglobulinemia Test Performed by: [facility] [address] [place] [address] Autism Tutor: Ilya Faulkner M.D. Ph.D.; CLIA# [id number] 22 Because ethnic data is not always readily [...] 15-29 5 Kidney failure <15 (or dialysis) 23 REFERENCE VALUE <30.0 (Negative) Test Performed by: [place] [address] Autism Tutor: Ilya Faulkner M.D. Ph.D.; CLIA# [id number] 24 Test Performed by: [place] [address] Autism Tutor: Ilya Faulkner M.D. Ph.D.; CLIA# [id number] 25 Test Performed by: [place] [address] Autism Tutor: Ilya Faulkner M.D. Ph.D.; CLIA# [id number] 26 REFERENCE VALUE <1.0 (Negative) Test Performed by: [place] [address] Autism Tutor: Ilya Faulkner M.D. Ph.D.; CLIA# [id number] 27 REFERENCE VALUE <=1.0 (Negative) Test Performed by: [place] [address] Autism Tutor: Ilya Faulkner M.D. Ph.D.; CLIA# [id number] 28 REFERENCE VALUE <0.4 (Negative) Test Performed by: [facility] [employer] [address] [place] [address] Autism Tutor: Ilya Faulkner M.D. Ph.D.; CLIA# [id number] 29 REFERENCE VALUE <0.4 (Negative) Test Performed by: [facility] [employer] [address] [place] [address] Autism Tutor: Ilya Faulkner M.D. Ph.D.; CLIA# [id number] 30 Test Performed by: [facility] [employer] [address] [place] [address] Autism Tutor: Ilya Faulkner M.D. Ph.D.; CLIA# [id number] 31 REFERENCE VALUE <1.0 (Negative) Test Performed by: [facility] [employer] [address] [place] [address] Autism Tutor: Ilya Faulkner M.D. Ph.D.; CLIA# [id number] 32 REFERENCE VALUE 0.3300-1.94 33 REFERENCE VALUE 0.5700-2.63 34 REFERENCE VALUE 0.2600-1.65 Test Performed by: [facility] [address] [place] [address] Autism Tutor: Ilya Faulkner M.D. Ph.D.; CLIA# [id number] 35 This test is negative at 24 hours. All samples are held and reviewed again at 7 days. If delayed precipitation occurs after 7 days, Immunofixation will be performed and an additional report will follow. 36 Test Performed by: [place] [address] Autism Tutor: Ilya Faulkner M.D. Ph.D.; CLIA# [id number] 37 Negative for cANCA and pANCA patterns by immunofluorescence. ADDITIONAL INFORMATION This test was developed and its performance characteristics determined by [facility] in a manner consistent with CLIA requirements. This test has not been cleared or approved by the U.S. Food and Drug Administration. Test Performed by: [place] [address] Autism Tutor: Ilya Faulkner M.D. Ph.D.; CLIA# [id number] 38 SEE RESULT BELOW Name: ZAMZAM GONZALEZ : [address]: Lc Rashid NP Acct: [id number] Unit: [id number] AGE: 78 Location: [facility] Re03/14/19 SEX: F Status: REG REF SPEC: [id number] IMELDA: 03/14/[address]: Lc Rashid NP REQ: [id number] RECD: 03/14/19 STATUS: COMP _ SOURCE: URINE SPDESC: ORDERED: Urine Culture Procedure Result Reported Site Urine Culture Final 03/15/19- 1603 ML No Growth (<1,000 CFU/mL) * ML - Main Lab . END OF REPORT DEPARTMENT OF PATHOLOGY, [address] [place] [address] Biju Freeman M.D. Director [place] # [id number] 39 Normal Range 180 to 914 Indeterminate Range 145 to 180 Deficient Range <145 40 RESULT: No monoclonal protein detected. Test Performed by: [place] [address] Autism Tutor: Ilya Faulkner M.D. Ph.D.; CLIA# [id number] 41 Small abnormality in gamma fraction. See Immunofixation. Test Performed by: [place] [address] Autism Tutor: Ilya Faulkner M.D. Ph.D.; CLIA# [id number] [address] [facility] Severe Sepsis and Septic Shock Management Bundle Measure requires all lactic acids initially measuring >2.0 mmol/L be repeated. 43 Because ethnic data is not always [...] 5 Kidney failure <15 (or dialysis) 44 SEE RESULT BELOW Name: ZAMZAM GONZALEZ : [address]: Krzysztof Umaña MD Acct: [id number] Unit: [id number] AGE: 78 Location: ED Re02/18/19 SEX: F Status: REG ER SPEC: [id number] IMELDA: 02/18/19-1239 [facility] DR: Krzysztof Umaña MD REQ: [id number] RECD: 02/18/19124 STATUS: COMP [facility] DR: Krystal Stanton OUTSOLE CUTTER MACHINE _ SOURCE: URINE SPDESC: ORDERED: Urine Culture Procedure Result Reported Site Urine Culture Final 02/19/19- 1222 ML No Growth (<1,000 CFU/mL) * ML - Main Lab . END OF REPORT DEPARTMENT OF PATHOLOGY, [address] [place] [address] Biju Freeman M.D. Director [facility] # [id number] 45 Because ethnic data is not always [...] 15-29 5 Kidney failure <15 (or dialysis) Procedures Date Code Description Status 05/11/2019 87369212 Mammogram Completed 04/27/2019 78860 US Guide Ndle [facility] Imaging Supervise & Interp Completed 04/27/2019 59851 Biopsy Renal Percutaneous Completed 05/10/2018 [id number] Mammogram Completed 05/08/2017 [id number] Mammogram Completed 05/02/2016 [id number] Mammogram Completed 12/11/2015 [id number] Bone Mineral Density Test Completed 05/01/2015 [id number] Mammogram Completed 05/15/2014 [id number] Mammogram Completed 05/11/2013 57471820 Mammogram Completed 02/15/2013 61320213 Colonoscopy Completed 05/10/2012 [id number] Mammogram Completed 05/09/2011 [id number] Mammogram Completed 08/29/2010 623919974 Bone Mineral Density Test Completed 05/08/2010 [id number] Mammogram Completed 06/22/2007 27818096 Colonoscopy Completed Medical Devices Description No Information Available Encounters Type Date Location Provider Dx Diagnosis Office Visit 07/20/2019 [facility] Nephrology Dione Padilla Tubulo- interstitial 11:40a nephritis, 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 N17.9 Acute kidney failure, unspecified N18.4 Chronic kidney disease, stage 4 (severe) E87.70 Fluid overload, unspecified Office Visit 07/12/2019 [facility] Nephsarmad Parham Tubulo-interstitial 3:00p MD Marcos nephritis, 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 N18.4 Chronic kidney disease, stage 4 (severe) D63.1 Anemia in chronic kidney disease I10 Essential (primary) hypertension E87.70 Fluid overload, unspecified Office Visit 07/01/2019 [facility] Nephsarmad Parham Tubulo-interstitial 11:40a MD Marcos nephritis, 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 N18.4 Chronic kidney disease, stage 4 (severe) D63.1 Anemia in chronic kidney disease I10 Essential (primary) hypertension Office Visit 06/13/2019 1:40p [facility] Internal Krystal Varn, I10 Essential ( primary) Medicine - Ccmob N.P. hypertension K59.00 Constipation, unspecified N18.4 Chronic kidney disease, stage 4 (severe) Office Visit 05/30/2019 [facility] Nephrology Mee Diallo N12 Tubulo-interstitial 11:20a MD Marcos nephritis, 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 I12.9 Hypertensive chronic kidney disease w stg 1-4/unsp chr kdny N18.4 Chronic kidney disease, stage 4 (severe) D63.1 Anemia in chronic kidney disease Office Visit 05/11/2019 [facility] Nephrology Mee Diallo N12 Tubulo-interstitial 2:00p MD Marcos nephritis, 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 I12.9 Hypertensive chronic kidney disease w stg 1-4/unsp chr kdny N18.4 Chronic kidney disease, stage 4 (severe) D63.1 Anemia in chronic kidney disease D64.9 Anemia, unspecified Office Visit 05/06/2019 [facility] Nephrology Mee Diallo N12 Tubulo-interstitial 11:30a MD Marcos nephritis, 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 I12.9 Hypertensive chronic kidney disease w stg 1-4/unsp chr kdny N18.4 Chronic kidney disease, stage 4 (severe) E87.5 Hyperkalemia D64.9 Anemia, unspecified R63.4 Abnormal weight loss R10.84 Generalized abdominal pain Office Visit 04/08/2019 11:30a [facility] Nephsarmad Diallo N17.9 Acute kidney MD Marcos failure, unspecified I12.9 Hypertensive chronic kidney disease w stg 1-4/unsp chr kdny N18.4 Chronic kidney disease, stage 4 (severe) E87.5 Hyperkalemia D64.9 Anemia, unspecified R11.0 Nausea Office Visit 04/01/2019 11:30a [facility] Nephsarmad Diallo N17.9 Acute kidney MD Marcos failure, unspecified I12.9 Hypertensive chronic kidney disease w stg 1-4/unsp chr kdny N18.4 Chronic kidney disease, stage 4 (severe) I10 Essential (primary) hypertension Office Visit 03/25/2019 11:00a [facility] Nephrology Mee Diallo N17.9 Acute kidney MD Marcos failure, unspecified E87.6 Hypokalemia E83.42 Hypomagnesemia I10 Essential (primary) hypertension D64.9 Anemia, unspecified Office Visit 03/02/2019 2:20p [facility] Internal Medicine - Lc Rashid OUTSOLE CUTTER MACHINE R11.0 Nausea Ccmob D64.9 Anemia, unspecified E83.42 Hypomagnesemia R63.4 Abnormal weight loss N39.0 Urinary tract infection, site not specified Office Visit 02/16/2019 11:20a [facility] Internal Krystal Stanton, R10.84 Generalized Medicine - N.P. abdominal pain Ccmob R11.0 Nausea R94.4 Abnormal results of kidney function studies Assessments Date Code Description Provider 07/20/2019 N12 [...] Rodríguez MD 03/02/2019 R11.0 Nausea Lc Rachid, OUTSOLE CUTTER MACHINE 03/02/2019 D64.9 Anemia, unspecified Lc Rachid, OUTSOLE CUTTER MACHINE 03/02/2019 E83.42 Hypomagnesemia Lclashonda Rashid, OUTSOLE CUTTER MACHINE 03/02/2019 R63.4 Abnormal weight loss Lclashonda Rashid, OUTSOLE CUTTER MACHINE 03/02/2019 N39.0 Urinary tract infection, site not specified Lc Rachid, OUTSOLE CUTTER MACHINE 02/16/2019 R10.84 Generalized abdominal pain Krystal Stanton, N.P. 02/16/2019 R11.0 Nausea Krystal Stanton N.P. 02/16/2019 R94.4 Abnormal results of kidney function studies Krystal Stanton N.P. Plan of Treatment Future Appointment(s):08/26/2019 11:40 am - Mee Rodríguez MD at [facility] Pnpzmdfftx35/20/2020 11:40 am - Mee Rodríguez MD at [facility] Nephrology Functional Status Description No Information Available Mental Status Description No Information Available Referrals Refer to Reason for Referral Status Appt Date Sandra Ricks MD called nothing scheduled yet 03/25/2019 Sent [address] [place] [address] [phone] Lore Gunter MD Patient with elevated Creatinine and abnormal Sent 24 hour urines referred for evaluation and treatment. Thank you for seeing this pleasant patient. [address] [facility] [address] [phone]
[2019-09-15 14:42] VITALS: BP 142/84
--- NOTE | 2019-09-15 15:06 | UC ---
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 She contused her knee as well, and while that has improved, left rib pain has persisted. She has no shortness of breath or cough. I do not see a recent dexa, and she is uncertain of the status of her bone density, but would suspect some low density based on renal disease, age and body habitus. Second concern is increase in dysuria. 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 She cannot tell me whether this was an estrogen based cream. She states that past testing for yeast vaginitis was negative. She does have a hx of UTI's, but not in recent months. - History Of Current Complaint Chief Complaint: UCGeneralIllness Stated Complaint: RIB INJURY/URINARY COMPLAINT Time Seen by Provider: 09/15/19 14:28 Hx Obtained From: Patient Onset/Duration: Sudden Onset, Lasting Days - 6 Pain Intensity: 6 Mechanism Of Injury: Blunt Trauma Aggravating Factor(s): Movement, Deep Breathing Alleviating factor(s): Rest, Ice, Other - uses Nucynta daily but this does not do much to relieve pain. She has tried additional acetaminophen without much improvement. Associated Signs And Symptoms: Positive: Chest Pain. Negative: Cough, Hematuria , Abdominal Pain, Fever, Nausea, Vomiting - Allergies/Home Medications Allergies/Adverse Reactions: Allergies Allergy/AdvReac Type Severity Reaction Status Date / Time buprenorphine [From Butrans] Allergy Rash Verified 09/15/19 14:23 nickel Allergy Rash Verified 09/15/19 14:23 Penicillins Allergy Rash Verified 09/15/19 14:23 sucralfate [From Carafate] Allergy Rash Verified 09/15/19 14:23 Sulfa (Sulfonamide Allergy Rash Verified 09/15/19 14:23 Antibiotics) Home Medications: Home Medications Carboxymethylcellulose Sodium [Thera Tears] 0.25 % BOTH EYES DAILY 04/29/17 [ History Confirmed 09/15/19] clonazePAM TAB(*) [Klonopin TAB(*)] 0.25 - 0.5 mg PO DAILY PRN 08/13/18 [ History Confirmed 09/15/19] Multivitamin [Multiple Vitamins] 1 tab PO DAILY 01/23/19 [History Confirmed ] Cholecalciferol CAP/TAB(NF) [Vitamin D3 CAP/TAB (NF)] 1,000 unit PO DAILY [History Confirmed 09/15/19] Sennosides/Docusate Sodium [Senna Plus Tablet] 2 each PO DAILY PRN 02/18/19 [ History Confirmed 09/15/19] Tapentadol HCl [Nucynta] 50 mg PO Q6HR PRN 04/25/19 [History Confirmed 09/15/19] Cyanocobalamin (Vitamin B-12) 1 tab PO DAILY 05/06/19 [History Confirmed ] Propranolol 10 mg TAB [Inderal 10 mg TAB] 10 mg PO DAILY 07/01/19 [History Confirmed 09/15/19] Ferrous Sulfate TAB* 325 mg PO .3 X WK 09/15/19 [History Confirmed 09/15/19] Furosemide TAB* [Lasix TAB*] 20 mg PO DAILY 09/15/19 [History Confirmed 09/15/19 ] PMH/Surg Hx/FS Hx/Imm Hx - Additional Past Medical History Additional PMH: chronic pain from OA and left shoulder replacement. Cardiovascular History: Hypertension GI/ History: Renal Disease - Surgical History Surgical History: Yes Surgery Procedure, Year, and Place: LEFT SHOULDER SURGERY 06/2010 [facility], left shoulder replacement 2011 [facility], Tonsillectomy, Tubal Ligation - Family History Known Family History: Positive: Cardiac Disease - father, Hypertension, Other - mother had cerebral hemorrhage - Social History Occupation: Retired Lives: With Family Alcohol Use: None Substance Use Type: None Smoking Status (MU): Former Smoker Type: Cigarettes Amount Used/How Often: 1/2 PPWEEK 25 YRS Have You Smoked in the Last Year: No When Did the Patient Quit Smoking/Using Tobacco: - Immunization History Most Recent Influenza Vaccination: 03/2017 Most Recent Tetanus Shot: UNK Most Recent Pneumonia Vaccination: Within last 5 years Review of Systems All Other Systems Reviewed And Are Negative: Yes Constitutional: Positive: Fatigue - chronic Skin: Positive: Other - perineal burning Eyes: Positive: Negative ENT: Positive: Negative Respiratory: Positive: Negative Cardiovascular: Positive: Chest Pain. Negative: Palpitations Gastrointestinal: Positive: Negative Genitourinary: Positive: Dysuria, Frequency - chronic, no recent increase, Vaginal/Penile Burning, Vaginal/Penile Itching Motor: Positive: Decreased ROM - left shoulder Musculoskeletal: Positive: Arthralgia, Myalgia Neurological/Mental Status: Positive: Negative Psychological: Positive: Negative Is Patient Immunocompromised?: No Physical Exam Triage Information Reviewed: Yes Appearance: Pain Distress - mild to moderate., Other: - Elderly woman, without acute distress, vague on some details of history Vital Signs: Initial Vital Signs Temp 98.5 F 09/15/19 14:41 Pulse 80 09/15/19 14:41 Resp 18 09/15/19 14:41 BP 142/84 09/15/19 14:41 Pulse Ox 100 09/15/19 14:41 ENT: Positive: Normal ENT inspection Respiratory Exam: Other - chest tenderness left lateral ribs 6 to 9 anterior axillary line. No tachypnea or tachycardia Respiratory: Positive: Normal breath sounds, No respiratory distress, No accessory muscle use. Negative: Crackles, Rhonchi, Wheezing Cardiovascular: Positive: RRR, No Murmur Abdomen Description: Positive: Nontender, No Organomegaly, Soft Pelvic Exam: Positive: Other - outer labia with mild erythema, inner labia with erythema with mild to moderate atrophy. Scant discharge, sample taken Musculoskeletal: Positive: ROM Limited @ - left shoulder with marked reduction of rom, Other: - left knee with resolving ecchymosis inferior to the patella, without evidence of effusion. Full rom in the knee. Neurological Exam: Normal Psychological Exam: Normal Skin Exam: Normal Diagnostics - Laboratory Lab Results: UA with trace blood, negative esterace. Past UA's have been negative for blood. - Radiology No standard instances Radiology Interpretation Completed By: Radiologist - Patient Name: HENNA TEMPLETON Medical Record#: [id number] Ordering Physician: Henna Morales MD Acct.#: [id number] : 1940 Age: 79 Sex: F Location: [facility] Exam Date: 09/15/19 1502 ADM Status: REG ER Order Information: RIBS LT UNI W/ PA CH MIN 3 VWS Accession Number: [id number] CPT: 26762 INDICATION: Left rib injury. COMPARISON: There are no relevant prior studies available for comparison. TECHNIQUE: 4 views of the left ribs and dual-energy PA views of the chest were obtained. FINDINGS: The hyperinflated lungs are clear. There is no pleural effusion or pneumothorax. The cardiomediastinal silhouette is within normal limits. The upper abdominal contents are normal. No displaced rib fracture is detected. A left shoulder arthroplasty has been performed. IMPRESSION: 1. Osteopenia with no displaced rib fracture or pneumothorax. 2. Left shoulder arthroplasty. 3. Identified lungs with no focal airspace opacification. ____ <Electronically signed by Boris Weathers MD in OV> 09/15/19 1543 Dictated By: Boris Weathers MD Dictated Date/Time: 09/15/19 153 Transcribed Date/Time: 09/15/191538 Copy to: CC: Krystal Stanton TAILER IN; Henna Morales MD Imaging - [facility] Imaging - [place] [facility] [address] [address] ph ) ph ([phone]) ph ([phone]) This report is only to be considered final once signed by the Provider(s) as displayed in the "< Electronically Signed by >" field (s). Absence of a signature indicates the report is in a draft status and still needs to be finalized. In the event this document was created by someone other than the signing Provider, the individual initiating the document will be listed in the "Entered by:" or "Dictated by:" butcher. 1 of 2 Truncal Trauma Course/Dx - Course Course Of Treatment: Reviewed treatment of vaginal atrophy, and suggested continued symptom treatment pending results of Affirm. Reviewed radiology reports with no fracture seen and no displacement of shoulder device. Continue symptomatic treatment. - Differential Dx/Diagnosis Differential Diagnosis/HQI/PQRI: Chest Wall Contusion, Rib Fracture Provider Diagnosis: Chest wall contusion, Atrophic vaginitis Discharge ED - Sign-Out/Discharge Documenting (check all that apply): Patient Departure All imaging exams completed and their final reports reviewed: Yes - Discharge Plan Condition: Stable Disposition: HOME Patient Education Materials: Chest Wall Pain (ED) Referrals: Krystal Stanton NP [Primary Care Provider] - Additional Instructions: Your rib pain should gradually resolve. Continue use of ice to the left shoulder , and use additional acetaminophen as needed up to a maximum of 2 grams per day. Follow up if you have worsening shortness of breath or increased chest pain. You will be called about treatment if a vaginal infection is identified on the swabs taken today. - Billing Disposition and Condition Condition: STABLE Disposition: Home
--- NOTE | 2019-09-16 16:20 | UC ---
- Progress Note Progress Note: 09/16/2019 Vaginal swab for Affirm: negative Gardnerella, negative Avani. No change Candi Garner PA-C Course/Dx - Diagnoses Provider Diagnoses: Chest wall contusion, Atrophic vaginitis Discharge ED - Sign-Out/Discharge Documenting (check all that apply): Post-Discharge Follow Up All imaging exams completed and their final reports reviewed: Yes - Discharge Plan Condition: Stable Disposition: HOME Patient Education Materials: Chest Wall Pain (ED) Referrals: Krystal Stanton NP [Primary Care Provider] - Additional Instructions: Your rib pain should gradually resolve. Continue use of ice to the left shoulder , and use additional acetaminophen as needed up to a maximum of 2 grams per day. Follow up if you have worsening shortness of breath or increased chest pain. You will be called about treatment if a vaginal infection is identified on the swabs taken today. - Billing Disposition and Condition Condition: STABLE Disposition: Home
== END 2019-09-15 16:20 | disposition home or self-care (01) ==
LOC: UCEAST 14:00
DX: S20.212A Contusion of left front wall of thorax, initial encounter (principal); W10.9XXA Fall (on) (from) unspecified stairs and steps, initial encounter; Y92.009 Unspecified place in unspecified non-institutional (private) residence as the place of occurrence of the external cause; M85.88 Other specified disorders of bone density and structure, other site; M85.812 Other specified disorders of bone density and structure, left shoulder; N95.2 Postmenopausal atrophic vaginitis; I12.9 Hypertensive chronic kidney disease with stage 1 through stage 4 chronic kidney disease, or unspecified chronic kidney disease; N18.9 Chronic kidney disease, unspecified; M19.012 Primary osteoarthritis, left shoulder; Z96.612 Presence of left artificial shoulder joint; Z79.891 Long term (current) use of opiate analgesic; Z88.5 Allergy status to narcotic agent; Z88.0 Allergy status to penicillin; Z88.2 Allergy status to sulfonamides; Z88.8 Allergy status to other drugs, medicaments and biological substances; Z91.09 Other allergy status, other than to drugs and biological substances; Z87.891 Personal history of nicotine dependence
CPT/HCPCS: 81003; 87480; 87510; 99212; G0463